=== PATIENT | male | born 1960 | race Caucasian/White ===

== ENCOUNTER 2020-10-15 10:44 | Outpatient (REF) | payer OTHER, SELFPAY ==
[2020-10-15 13:56] LABS: MANUAL DIFF FLAG NO
[2020-10-15 14:03] LABS: Basophils Percent Auto 0.4 % (0-2); Eosinophils Absolute Auto 0.2 X10*3/uL (0.0-0.4); Eosinophils Percent Auto 3.1 % (0-4); Hemoglobin 13.6 g/dl (14.0-18.0); Imm Gran Abs Auto 0.03 X10*3/uL (0.00-0.03); Imm Gran Pct Auto 0.4 % (0.0-0.4); Lymphocytes Absolute Auto 2.3 X10*3/uL (1.2-4.9); Lymphocytes Percent Auto 32.7 % (20-40); Mean Corpuscular Hemoglobin 32.4 pg (27.0-33.0); Mean Corpuscular Volume 95.2 fL (80-98); Mean Platelet Volume 10.2 fL (9.4-12.4); Monocytes Absolute Auto 0.6 X10*3/uL (0.1-1.2); Monocytes Percent Auto 7.7 % (2-11); Neutrophils Percent Auto 55.7 % (45-73); Platelet Count 311 X10*3/uL (160-400); Red Cell Distribution Width 13.6 % (11.0-16.0); White Blood Count 7.2 X10*3/uL (4.8-10.8)
[2020-10-15 15:00] LABS: Anion Gap 15 (12-20); Blood Urea Nitrogen 13 mg/dL (9-16); Calcium 9.1 mg/dL (8.4-10.2); Carbon Dioxide 25 mmol/L (22-29); Chloride 100 mmol/L (96-108); Estimated Glomerular Filt Rate > 60; Glucose Random 97 mg/dL (60-115); Potassium 4.5 mmol/l (3.3-5.1); Sodium 135 mmol/L (135-145)
[2020-10-16 18:37] LABS: LDL Cholesterol Direct 101 mg/dL (<100)
== END 2020-10-15 10:45 | disposition home or self-care (01) ==
LOC: HO.HMGCLDS 10:44
PROVIDERS: PCP Internal Medicine; Visit Provider Internal Medicine
DX: F20.0 Paranoid schizophrenia (principal); I10 Essential (primary) hypertension; G47.9 Sleep disorder, unspecified; M54.42 Lumbago with sciatica, left side; M54.41 Lumbago with sciatica, right side; G89.29 Other chronic pain
CPT/HCPCS: 36415; 80048; 83721; 85025

== ENCOUNTER 2020-12-03 15:51 | Outpatient (REF) | payer OTHER, SELFPAY ==
--- NOTE | 2020-12-03 15:53 | MR_ITS ---
EXAMINATION: MR LUMBAR SPINE WITHOUT CONTRAST CLINICAL INFORMATION: Low back pain. Bilateral lower extremity pain. COMPARISON: CT scan of the abdomen and pelvis 03/16/2018. TECHNIQUE: MRI of the lumbar spine was obtained using routine sequences without contrast. FINDINGS: Alignment is normal. Vertebral heights are preserved. No acute bone marrow signal changes. There is disc desiccation at multiple levels without substantial loss of intervertebral disc height. The tip of the conus medullaris is located at L1. No mass effect on the conus. Visualized distal cord signal intensity is normal. At L1-L2, L2-L3, and L3-L4 the annular contours are normal. No canal or neuroforaminal compromise at these 3 levels. At L4-L5 there is a slightly bulging disc. Bilateral facet degenerative change. No canal stenosis. No mass effect on the traversing or foraminal nerve roots. At L5-S1 there is a broad shallow left subarticular protrusion superimposed upon a bulging disc. Bilateral facet degenerative change. No canal stenosis. No mass effect on the traversing or foraminal nerve root. Limited visualization of the retroperitoneal anatomy reveals no abnormal finding. Psoas and paraspinal muscle groups are symmetric. MR/MR lumbar spine wo con IMPRESSION: There is disc degeneration and facet arthrosis at the levels of L4-L5 and L5-S1. Otherwise unremarkable examination. No canal stenosis. No mass effect on the traversing or foraminal nerve roots.
== END 2020-12-03 15:52 | disposition home or self-care (01) ==
LOC: HO.MRI 15:51
PROVIDERS: Visit Provider Psychiatry & Neurology Neurology
DX: M54.16 Radiculopathy, lumbar region (principal)
CPT/HCPCS: 72148

== ENCOUNTER 2021-01-21 10:49 | Outpatient (REF) | payer OTHER, SELFPAY ==
[2021-01-21 13:44] LABS: Estimated Average Glucose 117 mg/dL; Hemoglobin A1c % 5.7 %
== END 2021-01-21 10:50 | disposition home or self-care (01) ==
LOC: HO.LAB 10:49
PROVIDERS: PCP Internal Medicine; Visit Provider Anesthesiology
DX: G60.8 Other hereditary and idiopathic neuropathies (principal); G89.4 Chronic pain syndrome
CPT/HCPCS: 36415; 83036; 99202

== ENCOUNTER 2021-02-16 12:45 | Inpatient (IN) | payer OTHER, SELFPAY ==
[2021-02-16] VITALS (10 sets, daily range): BP systolic 123–157; BP diastolic 77–126; PULSE 79–97; RESP 15–25; TEMP 35.9–37.2; O2SAT 93–987; BMI 28.7
--- NOTE | ~2021-02-16 | CT_ITS ---
EXAMINATION: CT ABDOMEN AND PELVIS WITH CONTRAST CLINICAL INFORMATION: 60-year-old male with epigastric pain. Vomiting. Rule out small bowel obstruction. COMPARISON: Abdominal CT 03/16/2018 TECHNIQUE: Multidetector volumetric images were obtained from the superior aspect of the liver through the pubic symphysis following administration of 75 mL of Omnipaque 350 intravenous contrast. Sagittal and coronal reformatted images were obtained on the technologist's workstation. This CT examination was performed using dose optimization techniques as appropriate, variously including the following: *Automated exposure control *Adjustment of mA and/or kV according to patient size (this includes techniques or standardized protocols for targeted exams where dose is matched to indication/reason for exam; i.e. extremities or head) *Use of iterative reconstruction technique DLP: 612 mGy-cm FINDINGS: Visualized lung bases demonstrate minimal dependent atelectasis with more focal subpleural opacity of the right lower lobe which is incompletely visualized, possibly atelectasis or scar. The liver demonstrates normal size, contour and attenuation. Gallstones are noted within an otherwise unremarkable appearing gallbladder. The pancreas, spleen and adrenal glands are unremarkable. Symmetrically enhancing kidneys. No hydronephrosis bilaterally. Mild bilateral perinephric stranding is chronic. Tiny hiatal hernia. The stomach is decompressed. Small diverticulum of the duodenal sweep. Normal caliber loops of small and large bowel. The colon is primarily decompressed. Normal appendix. Nonaneurysmal abdominal aorta which demonstrates mild atherosclerotic disease. No retroperitoneal lymphadenopathy. The bladder is normal in appearance. The prostate gland is mildly enlarged. No gross free pelvic fluid. No inguinal lymphadenopathy. Mild degenerative changes of the spine. CT/CT abdomen pelvis w con IMPRESSION: -Cholelithiasis. -Nonobstructing bowel gas pattern.
--- NOTE | ~2021-02-16 | US_ITS ---
EXAMINATION: US ABDOMEN LIMITED CLINICAL INFORMATION: Gallstones on CT with question of acute cholecystitis. COMPARISON: CT scan performed earlier today TECHNIQUE: Real-time imaging of the right upper quadrant abdominal viscera. FINDINGS: PANCREAS: The pancreas appears unremarkable, without masses or ductal dilatation, with the exception of the tail which is obscured by bowel gas. LIVER: The liver is normal in size. The liver contour is normal. There is diffuse increased liver parenchymal echogenicity, consistent with hepatic steatosis. No focal hepatic lesion. There is no intrahepatic biliary duct dilatation seen. GALLBLADDER: Multiple gallstones are present which seem to be impacted at the neck of the gallbladder. The gallbladder is distended but the wall appears normal. No pericholecystic fluid collections are seen. COMMON BILE DUCT: Normal in caliber measuring 0.6 cm in diameter. RIGHT KIDNEY: No hydronephrosis. No renal calculi or focal parenchymal lesions. The kidney measures 11.1 cm in maximum dimension. FREE FLUID: None. US/US abdomen limited IMPRESSION: Distended gallbladder with gallstones impacted in the neck. No wall thickening or pericholecystic fluid collections seen.
--- NOTE | 2021-02-16 14:22 | ECG_ITS ---
Test Reason : CHEST PAIN Blood Pressure : / mmHG Vent. Rate : 078 BPM Atrial Rate : 078 BPM P-R Int : 234 ms QRS Dur : 078 ms QT Int : 378 ms P-R-T Axes : 014 009 047 degrees QTc Int : 430 ms Sinus rhythm with 1st degree A-V block Low voltage QRS Borderline ECG When compared with ECG of 01-MAR-2018 17:37, No significant change was found Referred By: Hortensia Stephens Electronically Signed By:ERROL THURSTON
--- NOTE | 2021-02-16 14:26 | ED_ITS ---
HPI - Abdominal Pain General Chief Complaint: Abdominal Pain Stated Complaint: abd pain Time Seen by Provider: 02/16/21 14:04 Source: patient Mode of arrival: ambulatory Limitations: no limitations History of Present Illness HPI narrative: 60-year-old male with a past medical history of schizophrenia, chronic back pain on oxycodone prn, peripheral neuropathy here with complaints of epigastric pain x2 weeks with intermittent nausea and vomiting. Patient tells me he had 4 days of black stools which were loose and he had 2 episodes per day. This is now resolved. Denies any additional episodes of rectal bleeding or bloody stools. No diarrhea or constipation. No fevers, chills, urinary symptoms. He is not on any anticoagulation. He denies alcohol use. 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 Patient was prescribed Protonix and Carafate which he has for brief time. He tells me he restarted these medications when his pain started 2 weeks ago however they are not helping. Related Data Home Medications Medication Instructions Recorded Confirmed duloxetine 30 mg capsule,delayed 30 mg PO DAILY 10/08/20 02/16/21 release melatonin 5 mg capsule 5 mg PO BEDTIME 10/08/20 02/16/21 omega-3 fatty acids 1 tab PO DAILY 10/08/20 02/16/21 pantoprazole 40 mg tablet,delayed 40 mg PO DAILY 10/08/20 02/16/21 release pregabalin 200 mg capsule 200 mg PO BID 10/08/20 02/16/21 ranitidine HCl 150 mg tablet 150 mg PO BID tab 10/08/20 02/16/21 Previous Rx's Medication Instructions Recorded olanzapine 10 mg tablet 10 mg PO BEDTIME 90 Days #90 tab 12/18/20 sucralfate 1 gram tablet 1 g PO BID PRN 30 Days #60 tab 12/18/20 oxycodone-acetaminophen 5 mg-325 1 tab PO TID PRN 30 Days #90 tab 01/30/21 mg tablet zolpidem 10 mg tablet 10 mg PO BEDTIME PRN 30 Days #30 01/30/21 tab Allergies Allergy/AdvReac Type Severity Reaction Status Date / Time lisinopril [LISINOPRIL] Allergy Unknown COUGH Verified 01/21/21 11:00 Review of Systems Review of Systems Yes all other systems are reviewed and are negative Constitutional: Reports no additional constitutional complaints, Denies body ache(s), Denies chills, Denies fever(s), Denies headache(s) and Denies weakness Eyes: Reports no additional eye complaints and Denies change in vision Reports system reviewed and no additional complaints, except as documented, Denies dizziness, Denies headache(s), Denies nasal congestion, Denies nasal discharge and Denies neck pain Cardiovascular: Reports no additional cardiovascular complaints, Denies chest pain, Denies leg edema and Denies dyspnea Respiratory: Reports no additional respiratory complaints, Denies cough and Denies dyspnea Gastrointestinal: Reports no additional gastrointestinal complaints, Reports abdominal pain, Reports melena, Denies hematochezia, Denies coffee ground emesis, Denies diarrhea, Denies nausea and Denies vomiting Genitourinary: Denies urinary incontinence Musculoskeletal: Reports no additional musculoskeletal complaints, Denies back pain, Denies arthralgias, Denies joint swelling, Denies neck pain, Denies numbness and Denies tingling Skin/Breast: Reports system reviewed and no additional complaints, except as docu and Denies rash Reports system reviewed and no additional complaints, except as documented, Denies Abnormal speech present, Denies dizziness, Denies headache(s), Denies numbness, Denies tingling and Denies weakness Physical Exam Vital Signs: Vital Signs: Last Vital Signs Temp 98.0 F 02/16/21 20:10 Pulse 81 02/16/21 20:10 Resp 18 02/16/21 20:10 BP 138/81 02/16/21 20:10 Pulse Ox 94 02/16/21 20:10 Body Mass Index 28.7 Const: General: cooperative, healthy appearing, comfortable and no acute distress Orientation/consciousness: patient oriented x3 Limitations: no limitations HENMT: Head: Yes normal to inspection Ears: hearing grossly normal bilaterally General nose exam: Normal external nose present Face and sinus: Yes normal facial exam Mouth: Normal oral and palatal mucosa present Throat: Yes posterior oropharynx normal Eyes: General: appearance normal, both eyes and all related structures Pupils: Equal, round and reactive pupils present Neck: Neck: Yes normal visual inspection Chest: Chest palpation & inspection: normal inspection of the chest Resp: Effort & Inspection: normal respiratory effort Auscultation: clear to auscultation bilaterally Cardio: Rate: regular rate Rhythm: regular rhythm Peripheral pulses: P eripheral pulses 2+ throughout GI: Inspection: Yes normal to inspection Palpation (GI): Soft to palpation and Tenderness to palpation present (GI) in the epigastrum (moderate tenderness, no rebound or guarding) Auscultation: normal bowel sounds Rectal Exam - Male: Yes visual inspection normal and Yes normal sphincter tone (brown stool ) Back/Spine/Pelvis: Thoracic/Lumbar Spine: thoracic and lumbar spine normal to inspection Skin: General skin exam: no rashes or lesions noted Neuro: General: patient oriented x3, no focal motor deficits and normal sensation to monofilament Cranial nerves: Yes Equal, round and reactive pupils present Cognition (Neuro): normal cognition Speech: No Abnormal speech present Gait exam (Neuro): Normal gait present Motor exam (neuro): 5/5 motor strength present throughout Extrem: General: Yes normal to inspection Course Course Course Narrative: 60-year-old male here with epigastric pain x2 weeks unrelieved with home PPI and Carafate with associated nausea and vomiting. Did have several days of black stools which is now resolved. Will check labs, UA, occult study, EKG. 1614-labs are unremarkable.. Occult stool negative. EKG shows no ischemic changes. Patient comes to me that he has continued pain despite a PPI and GI cocktail. Will plan for CTA/P and dose of analgesia and reassessed. 1729-CT concerning for gallstones. Patient tells me he has continued pain in the epigastric and ALSO in the right upper quadrant area. Will check ultrasound to rule out acute cholecystitis. 1944-2nd round of morphine for continued pain. Abdominal US shows Distended gallbladder with gallstones impacted in the neck. No wall thickening or pe richolecystic fluid collections seen. Normal LFTs. Will discuss with surgery d/t persistent pain. 1954-Discussed with Dr Tomlinson who will admit patient. Call from radiologist Dr Tenorio with results of US, per non destructive tester pain in RUQ during exam. MDM - Abdominal Pain MDM Narrative Medical decision making narrative: GERD, gastritis, PUD, GI bleed, pancreatitis, cholecystitis, ACS Medical Records Attestation: I reviewed the patient's medical records. Lab Data Attestation: I reviewed the patient's lab results. Result diagrams: 02/16/21 14:41 02/16/21 14:41 Labs: Lab Results 02/16/21 02/16/21 02/16/21 Range/Units 14:41 14:41 14:41 WBC 8.6 (4.8-10.8) X10*3/uL RBC 4.38 L (4.60-5.80) X10*6/uL Hgb 14.0 (14.0-18.0) g/dl Hct 40.5 L (42-52) % MCV 92.5 (80-98) fL MCH 32.0 (27.0-33.0) pg MCHC 34.6 (31.0-36.0) g/dl RDW 12.2 (11.0-16.0) % Plt Count 256 (160-400) X10*3/uL MPV 9.1 L (9.4-12.4) fL Immature Gran % (Auto) 0.2 (0.0-0.4) % Neut % (Auto) 63.9 (45-73) % Lymph % (Auto) 26.8 (20-40) % [place] % (Auto) 6.7 (2-11) % Eos % (Auto) 2.2 (0-4) % Baso % (Auto) 0.2 (0-2) % Lymph # (Auto) 2.3 (1.2-4.9) X10*3/uL [place] # (Auto) 0.6 (0.1-1.2) X10*3/uL Eos # (Auto) 0.2 (0.0-0.4) X10*3/uL Baso # (Auto) 0.0 (0.0-0.2) X10*3/uL Abs Immat Gran (auto) 0.02 (0.00-0.03) X10*3/uL Absolute Neuts (auto) 5.5 (2.0-8.3) X10*3/uL Absolute Nucleated RBC 0.000 (0.0-0.012) X10*3/uL Nucleated RBC % (auto) 0.0 (0.0-0.2) /100WBC PT 12.4 (10.8-13.0) SEC INR 1.0 (0.9-1.1) Sodium 136 (135-145) mmol/L Potassium 4.3 (3.3-5.1) mmol/L Chloride 101 (96-108) mmol/L Carbon Dioxide 25 (22-29) mmol/L Anion Gap 14 (12-20) BUN 13 (9-16) mg/dL Creatinine 1.00 (0.5-1.4) mg/dL Estim Creat Clear Calc 91.2 Estimated GFR > 60 Random Glucose 102 (60-115) mg/dL Calcium 8.7 (8.4-10.2) mg/dL Magnesium 2.3 (1.6-2.6) mg/dL Total Bilirubin 0.5 (0.0-1.0) mg/dL Direct Bilirubin < 0.2 (0.0-0.5) mg/dL AST 20 (5-37) U/L ALT 20 (0-40) U/L Alkaline Phosphatase 57 (39-117) U/L Troponin I High Sens (<3.5-35.0) ng/L Total Protein 7.2 (6.5-8.0) g/dL Albumin 4.3 (3.5-5.0) g/dL Lipase 17 (8-78) U/L Urine Color Urine Appearance Urine pH (5.0-8.0) Ur Specific [place] (1.005-1.025) Urine Protein (NEG-TRACE) MG/DL Urine Glucose (UA) (NEG) MG/DL Urine Ketones (NEG) MG/DL Urine Blood (NEG) Urine Nitrite (NEG) Ur Leukocyte Esterase (NEG) Urine RBC (0) /HPF Urine WBC (0-4) /HPF Ur Squamous Epith Cells /LPF Urine Bacteria /LPF Stool Occult Blood (NEGATIVE) 02/16/21 02/16/21 02/16/21 Range/Units 14:41 14:41 17:43 WBC (4.8-10.8) X10*3/uL RBC (4.60-5.80) X10*6/uL Hgb (14.0-18.0) g/dl Hct (42-52) % MCV (80-98) fL MCH (27.0-33.0) pg MCHC (31.0-36.0) g/dl RDW (11.0-16.0) % Plt Count (160-400) X10*3/uL MPV (9.4-12.4) fL Immature Gran % (Auto) (0.0-0.4) % Neut % (Auto) (45-73) % Lymph % (Auto) (20-40) % [place] % (Auto) (2-11) % Eos % (Auto) (0-4) % Baso % (Auto) (0-2) % Lymph # (Auto) (1.2-4.9) X10*3/uL [place] # (Auto) (0.1-1.2) X10*3/uL Eos # (Auto) (0.0-0.4) X10*3/uL Baso # (Auto) (0.0-0.2) X10*3/uL Abs Immat Gran (auto) (0.00-0.03) X10*3/uL Absolute Neuts (auto) (2.0-8.3) X10*3/uL Absolute Nucleated RBC (0.0-0.012) X10*3/uL Nucleated RBC % (auto) (0.0-0.2) /100WBC PT (10.8-13.0) SEC INR (0.9-1.1) Sodium (135-145) mmol/L Potassium (3.3-5.1) mmol/L Chloride (96-108) mmol/L Carbon Dioxide (22-29) mmol/L Anion Gap (12-20) BUN (9-16) mg/dL Creatinine (0.5-1.4) mg/dL Estim Creat Clear Calc Estimated GFR Random Glucose (60-115) mg/dL Calcium (8.4-10.2) mg/dL Magnesium (1.6-2.6) mg/dL Total Bilirubin (0.0-1.0) mg/dL Direct Bilirubin (0.0-0.5) mg/dL AST (5-37) U/L ALT (0-40) U/L Alkaline Phosphatase (39-117) U/L Troponin I High Sens < 3.5 (<3.5-35.0) ng/L Total Protein (6.5-8.0) g/dL Albumin (3.5-5.0) g/dL Lipase (8-78) U/L Urine Color YELLOW Urine Appearance CLEAR Urine pH 7.5 (5.0-8.0) Ur Specific [place] <= 1.005 (1.005-1.025) Urine Protein NEG (NEG-TRACE) MG/DL Urine Glucose (UA) NEG (NEG) MG/DL Urine Ketones NEG (NEG) MG/DL Urine Blood TRACE (NEG) Urine Nitrite NEG (NEG) Ur Leukocyte Esterase NEG (NEG) Urine RBC 0-2 (0) /HPF Urine WBC 0-2 (0-4) /HPF Ur Squamous Epith Cells TRACE /LPF Urine Bacteria NONE /LPF Stool Occult Blood NEGATIVE (NEGATIVE) Imaging Data CT scan - abdomen: Attestation: I personally reviewed and interpreted this imaging study as follows: Radiologist's impression: EXAMINATION: CT ABDOMEN AND PELVIS WITH CONTRAST CLINICAL INFORMATION: 60-year-old male with epigastric pain. Vomiting. Rule out small bowel obstruction. COMPARISON: Abdominal CT 03/16/2018 TECHNIQUE: Multidetector volumetric images were obtained from the superior aspect of the liver through the pubic symphysis following administration of 75 mL of Omnipaque 350 intravenous contrast. Sagittal and coronal reformatted images were obtained on the technologist's workstation. This CT examination was performed using dose optimization techniques as appropriate, variously including the following: *Automated exposure control *Adjustment of mA and/or kV according to patient size (this includes techniques or standardized protocols for targeted exams where dose is matched to indication/reason for exam; i.e. extremities or head) *Use of iterative reconstruction technique DLP: 612 mGy-cm FINDINGS: Visualized lung bases demonstrate minimal dependent atelectasis with more focal subpleural opacity of the right lower lobe which is incompletely visualized, possibly atelectasis or scar. The liver demonstrates normal size, contour and attenuation. Gallstones are noted within an otherwise unremarkable appearing gallbladder. The pancreas, spleen and adrenal glands are unremarkable. Symmetrically enhancing kidneys. No hydronephrosis bilaterally. Mild bilateral perinephric stranding is chronic. Tiny hiatal hernia. The stomach is decompressed. Small diverticulum of the duodenal sweep. Normal caliber loops of small and large bowel. The colon is primarily decompressed. Normal appendix. Nonaneurysmal abdominal aorta which demonstrates mild atherosclerotic disease. No retroperitoneal lymphadenopathy. The bladder is normal in appearance. The prostate gland is mildly enlarged. No gross free pelvic fluid. No inguinal lymphadenopathy. Mild degenerative changes of the spine. CT/CT abdomen pelvis w con IMPRESSION: -Cholelithiasis. -Nonobstructing bowel gas pattern. ECG Data Attestation: I personally reviewed and interpreted this ECG as follows: ECG interpretation date: 02/16/21 ECG interpretation time: 14:38 Interpretation: SR with 1st degree block rate 78, prolonged CA, normal QRS, normal QTC Discharge Plan Discharge Clinical Impression: Cholelithiasis Qualifiers: Cholelithiasis location: gallbladder Cholecystitis acuity: acute Patient Disposition: Admitted As Inpatient [facility] Past Medical History Attestation statement: The following information was validated with the patient. Source: old records reviewed and nursing notes reviewed Medical History Chronic lumbar pain Chronic pain syndrome Diabetes type 2, controlled Diabetic neuropathy Difficulty sleeping Hypertension, essential Other specified idiopathic peripheral neuropathy Schizophrenia Surgical History History of repair of rotator cuff Family History Family History Father No problems noted. Mother No problems noted. Social History Social History Alcohol intake: never Smoking Status: Current every day smoker Use of substances other than those prescribed or required for medical reasons: No Advance Directives: No Advance Directives Information Provided: No
[2021-02-16] MEDS: Magnesium Hydrox/Alum Hydrox 30 ML ORAL.SUSP PO (14:36)
[2021-02-16] MEDS: Lidocaine HCl Viscous 2 % 15 ML SOLUTION MUCOUS MEM (14:36)
[2021-02-16] MEDS: Famotidine/PF 20 MG/2 ML VIAL IVPUSH (14:36)
[2021-02-16 14:48] LABS: MANUAL DIFF FLAG NO
[2021-02-16 14:49] LABS: Basophils Percent Auto 0.2 % (0-2); Eosinophils Absolute Auto 0.2 X10*3/uL (0.0-0.4); Eosinophils Percent Auto 2.2 % (0-4); Hematocrit 40.5 % (42-52); Imm Gran Abs Auto 0.02 X10*3/uL (0.00-0.03); Imm Gran Pct Auto 0.2 % (0.0-0.4); Lymphocytes Absolute Auto 2.3 X10*3/uL (1.2-4.9); Lymphocytes Percent Auto 26.8 % (20-40); Mean Corpuscular HGB Conc 34.6 g/dl (31.0-36.0); Mean Corpuscular Volume 92.5 fL (80-98); Mean Platelet Volume 9.1 fL (9.4-12.4); Monocytes Absolute Auto 0.6 X10*3/uL (0.1-1.2); Monocytes Percent Auto 6.7 % (2-11); Neutrophils Absolute Auto 5.5 X10*3/uL (2.0-8.3); Neutrophils Percent Auto 63.9 % (45-73); Platelet Count 256 X10*3/uL (160-400); Red Blood Count 4.38 X10*6/uL (4.60-5.80); Red Cell Distribution Width 12.2 % (11.0-16.0); White Blood Count 8.6 X10*3/uL (4.8-10.8)
[2021-02-16 14:55] LABS: OBS Int Ctl Valid YES; OBS1 NEGATIVE (NEGATIVE); Prothrombin Time 12.4 SEC (10.8-13.0)
[2021-02-16 15:11] LABS: Alanine Aminotransferase 20 U/L (0-40); Albumin Level 4.3 g/dL (3.5-5.0); Alkaline Phosphatase 57 U/L (39-117); Anion Gap 14 (12-20); Aspartate Amino Transferase 20 U/L (5-37); Bilirubin Direct < 0.2 mg/dL (0.0-0.5); Bilirubin Total 0.5 mg/dL (0.0-1.0); Blood Urea Nitrogen 13 mg/dL (9-16); Calcium 8.7 mg/dL (8.4-10.2); Carbon Dioxide 25 mmol/L (22-29); Chloride 101 mmol/L (96-108); Creatinine Clr Calc Pharmacy 91.2; Estimated Glomerular Filt Rate > 60; Glucose Random 102 mg/dL (60-115); Lipase 17 U/L (8-78); Magnesium 2.3 mg/dL (1.6-2.6); Potassium 4.3 mmol/L (3.3-5.1); Sodium 136 mmol/L (135-145); Total Protein 7.2 g/dL (6.5-8.0)
[2021-02-16 15:14] LABS: Troponin-I High Sensitivity < 3.5 ng/L (<3.5-35.0)
[2021-02-16] MEDS: Morphine Sulfate 4 MG/ML CARTRIDGE IVPUSH ×2 (16:02→19:46)
[2021-02-16] MEDS: iohexoL 350 MG/ML 75 ML INFUS..BTL IV (16:21)
[2021-02-16 17:52] LABS: Glucose Urine UA NEG (NEG); Leukocyte Esterase Urine NEG (NEG); Nitrite Urine NEG (NEG); PH 7.5 (5.0-8.0); Specific Gravity - Urine <= 1.005 (1.005-1.025); Urine Blood TRACE (NEG); Urine Ketones NEG (NEG); Urine Protein NEG (NEG-TRACE)
[2021-02-16 18:03] LABS: Appearance Urine CLEAR; Color Urine YELLOW
[2021-02-16 18:36] LABS: RBC Urine 0-2 /HPF (0); Squamous Epithelial Cell Urine TRACE /LPF; WBC Urine 0-2 /HPF (0-4)
[2021-02-16 20:46] LABS: COVID-19 Test Negative (Negative)
--- NOTE | 2021-02-16 22:24 | PC.NURSE ---
aTTEMPTED TO GIVE REPORT. UGO RN TO TAKE IT. Lola CALL BACK.
[2021-02-17] MEDS: Morphine Sulfate 4 MG/ML CARTRIDGE IVPUSH ×5 (00:06→21:09)
[2021-02-17] MEDS: Piperacillin Sodium/Tazobactam 3.375 GM in 0.9 % Sodium Chloride 50 ML IV (00:06)
[2021-02-17] MEDS: 0.9 % Sodium Chloride Flush 3 ML SYRINGE IVFLUSH ×2 (00:07→08:06)
[2021-02-17] MEDS: Zolpidem Tartrate 5 MG TABLET PO ×2 (00:29→21:10)
[2021-02-17] MEDS: Lactated Ringers 1,000 ML 100 ML IVCONT ×3 (00:31→17:27)
[2021-02-17 04:00] VITALS: BP 143/88; PULSE 79; RESP 16; TEMP 36.5; O2SAT 94
--- NOTE | 2021-02-17 06:35 | PC.NURSE ---
PATIENT IS A 60 YEAR OLD MALE ADMITTED TO ROOM 351 AT 2245, HE WAS GREETED AND SETTLED INTO BED BY 3-11 STAFF. UPON SPEAKING WITH THIS HOUSEKEEPING STAFF THERE AFTER, PT REQUESTING HIS SLEEPING PILL PER HIS ROUTINE AT HOME. PT STATED ED STAFF SAID HE WOULD RECEIVE (AMBIEN), ONCE ON FLOOR AND THAT HE DID MENTION IT UPON ARRIVAL. MEDICATED WITH ORDERED DOSE PT STATED HE NEEDS IT TO SLEEP COMBINED WITH FEELING APPREHENSIVE FACING SURGERY. DISCUSSED WITH RN COWORKER AND AFTER THOUGHT DID MEDICATE PT WITH PRN ORDERED MEDICINE SECONDARY TO HIS STORY OF CIRCUMSTANCE DESPITE TIME.
[2021-02-17 06:54] LABS: MANUAL DIFF FLAG NO
[2021-02-17 07:13] LABS: Basophils Percent Auto 0.4 % (0-2); Eosinophils Absolute Auto 0.3 X10*3/uL (0.0-0.4); Eosinophils Percent Auto 3.8 % (0-4); Hematocrit 37.1 % (42-52); Hemoglobin 12.8 g/dl (14.0-18.0); Imm Gran Abs Auto 0.02 X10*3/uL (0.00-0.03); Imm Gran Pct Auto 0.3 % (0.0-0.4); Lymphocytes Percent Auto 27.4 % (20-40); Mean Corpuscular HGB Conc 34.5 g/dl (31.0-36.0); Mean Corpuscular Hemoglobin 31.8 pg (27.0-33.0); Mean Corpuscular Volume 92.3 fL (80-98); Mean Platelet Volume 9.3 fL (9.4-12.4); Monocytes Absolute Auto 0.6 X10*3/uL (0.1-1.2); Monocytes Percent Auto 8.1 % (2-11); Neutrophils Absolute Auto 4.5 X10*3/uL (2.0-8.3); Platelet Count 250 X10*3/uL (160-400); Red Blood Count 4.02 X10*6/uL (4.60-5.80); Red Cell Distribution Width 12.3 % (11.0-16.0); White Blood Count 7.4 X10*3/uL (4.8-10.8)
[2021-02-17 07:30] VITALS: BP 129/86; PULSE 95; RESP 16; TEMP 36.2; O2SAT 95
[2021-02-17 07:39] LABS: Anion Gap 14 (12-20); Blood Urea Nitrogen 15 mg/dL (9-16); Calcium 8.4 mg/dL (8.4-10.2); Carbon Dioxide 25 mmol/L (22-29); Chloride 104 mmol/L (96-108); Creatinine Clr Calc Pharmacy 90.3; Estimated Glomerular Filt Rate > 60; Glucose Random 94 mg/dL (60-115); Potassium 4.1 mmol/L (3.3-5.1); Sodium 139 mmol/L (135-145)
--- NOTE | 2021-02-17 09:44 | P.HPGS_ITS ---
History of Present Illness History of Present Illness Date of Service: 02/17/21 Chief complaint: Acute cholecystitis, chloelithiasis Narrative: Tyshawn Brasher is a 60 year old male admitted overnight for abdominal pain. He states he has had episodic pain on the epigastric area and the RUQ for over 2 weeks. He says this usually comes and goes. He denies any nausea or vomitting. He does not feel that the pain is aggravated by oral intake or meals. In view of his recurrent pain, he decided to go to the ED last night and imaging studies had shown gallstones without cholecystitis. He says he does not have pain currently although he admits the pain comes and goes.. He says he feels well today and wants to start eating. Review of Systems Constitutional: Constitutional: Denies chills and Denies fever(s) Cardiovascular: Cardiovascular: Denies chest pain, Denies dyspnea and Denies dyspnea on exertion Respiratory: Respiratory: Denies cough, Denies dyspnea and Denies dyspnea on exertion Gastrointestinal: Gastrointestinal: Denies hematochezia and Denies change in bowel habits Genitourinary: Genitourinary: Denies hematuria and Denies difficulty urinating Musculoskeletal: Musculoskeletal: Denies back pain, Denies limited range of motion and Reports other (has chronic pain on both lower extremities) Neurologic: Denies focal weakness and Denies convulsions Psychiatric: Psychiatric: Denies depression and Denies mood swings PMFSH Past Medical History Medical History Chronic lumbar pain Chronic pain syndrome Diabetes type 2, controlled Diabetic neuropathy Difficulty sleeping Hypertension, essential Other specified idiopathic peripheral neuropathy Schizophrenia Family History Family History Father No problems noted. Mother No problems noted. Surgical History Surgical History History of repair of rotator cuff Social History Social History Household Members: Family Housing: House Do you presently have visiting nurse or other home services: No Alcohol intake: never Smoking Status: Current every day smoker Tobacco Type: Cigarette Smoked in Last 30 Days: Yes Patient Interested in Nicotine Replacement: Yes Use of substances other than those prescribed or required for medical reasons: No Currently Displaying Signs/Symptoms of Drug Intoxication Withdrawal: No Any prior treatment program specific to substance use: No Have you been hit, kicked, punched, or otherwise hurt by someone within the past year? If so, by whom?: No Do you feel safe in your current relationship?: Yes Is there a partner from a previous relationship who is making you feel unsafe now?: No Are you made to feel afraid or neglected: No Advance Directives: No Advance Directives Information Provided: No Do you have thoughts of harming others: None Do you have a plan to hurt others: No Plan Recently lost weight without trying: No service: No Current occupational status: unemployed Meds Allergies Allergy/AdvReac Type Severity Reaction Status Date / Time lisinopril [LISINOPRIL] Allergy Unknown COUGH Verified 01/21/21 11:00 Active Medications: Current Medications Generic Name Dose Route Start Last Admin Trade Name Freq PRN Reason Stop Dose Admin Acetaminophen 650 mg 02/16/21 22:35 Acetaminophen 325 Mg Tablet PO Q6H PRN Pain, Mild (Pain Scale 1-3) Lactated Ringer's 1,000 mls @ 100 mls/hr 02/16/21 22:35 02/17/21 08:09 Lr IVCONT 100 mls/hr .Q10H PHILIP Administration Morphine Sulfate 4 mg 02/16/21 22:35 02/17/21 08:05 Morphine Sulfate 4 Mg/Ml Cartridge IVPUSH 4 mg Q3H PRN Administration Pain, Severe (Pain Scale 7-10) Ondansetron HCl 4 mg 02/16/21 22:35 Ondansetron Hcl 4 Mg/2 Ml Vial IVPUSH Q8H PRN Nausea and Vomiting Oxycodone HCl 5 mg 02/16/21 22:35 Oxycodone Hcl Immed Release 5 Mg Tablet PO Q6H PRN Pain, Moderate (Pain Scale 4-6 Pharmacy Consult 1 each 02/16/21 22:35 Consult Rx Perform Med Rec MISCELLANE ONCE PRN Consult order Sodium Chloride 3 ml 02/17/21 00:00 02/17/21 08:06 0.9 % Sodium Chloride Flush 3 Ml Syringe IVFLUSH 3 ml QSHIFT PHILIP Administration Zolpidem Tartrate 5 mg 02/16/21 22:35 02/17/21 00:29 Zolpidem Tartrate 5 Mg Tablet PO 5 mg BEDTIME PRN Administration Insomnia Home Medications Medication Instructions Recorded Confirmed Last Taken Type duloxetine 30 mg capsule,delayed 30 mg PO DAILY 10/08/20 02/16/21 1 Day Ago History release ~02/15/21 melatonin 5 mg capsule 5 mg PO BEDTIME 10/08/20 02/16/21 1 Day Ago History ~02/15/21 omega-3 fatty acids 1 tab PO DAILY 10/08/20 02/16/21 1 Day Ago History ~02/15/21 pantoprazole 40 mg tablet,delayed 40 mg PO DAILY 10/08/20 02/16/21 1 Day Ago History release ~02/15/21 pregabalin 200 mg capsule 200 mg PO BID 10/08/20 02/16/21 1 Day Ago History ~02/15/21 ranitidine HCl 150 mg tablet 150 mg PO BID tab 10/08/20 02/16/21 1 Day Ago History ~02/15/21 Physical Exam Vital Signs: Vital Signs: Last Vital Signs Temp 97.2 F 02/17/21 07:30 Pulse 95 02/17/21 07:30 Resp 16 02/17/21 07:30 BP 129/86 02/17/21 07:30 Pulse Ox 95 02/17/21 07:30 Body Mass Index 28.7 Const: Other: currently looks well General: comfortable and no acute distress Orientation/consciousness: patient oriented x3 Eyes: Sclerae: abnormal sclerae Neck: Neck: Yes no lymphadenopathy Resp: Auscultation: clear to auscultation bilaterally Cardio: Rhythm: regular rhythm GI: Other: no Muprhy's sign Palpation (GI): Soft to palpation, nontender and no guarding Neuro: General: patient oriented x3 Results Results Labs: Short CBC 02/16/21 02/17/21 Range/Units 14:41 06:33 WBC 8.6 7.4 (4.8-10.8) X10*3/uL Hgb 14.0 12.8 L (14.0-18.0) g/dl Hct 40.5 L 37.1 L (42-52) % Plt Count 256 250 (160-400) X10*3/uL BMP 02/16/21 02/17/21 14:41 06:33 Sodium 136 139 Potassium 4.3 4.1 Chloride 101 104 Carbon Dioxide 25 25 BUN 13 15 Creatinine 1.00 1.01 Calcium 8.7 8.4 Liver Function 02/16/21 Range/Units 14:41 Total Bilirubin 0.5 (0.0-1.0) mg/dL Direct Bilirubin < 0.2 (0.0-0.5) mg/dL AST 20 (5-37) U/L ALT 20 (0-40) U/L Alkaline Phosphatase 57 (39-117) U/L Albumin 4.3 (3.5-5.0) g/dL Urine 02/16/21 Range/Units 17:43 Urine Color YELLOW Urine Appearance CLEAR Urine pH 7.5 (5.0-8.0) Ur Specific [place] <= 1.005 (1.005-1.025) Urine Protein NEG (NEG-TRACE) MG/DL Urine Glucose (UA) NEG (NEG) MG/DL Abdomen CT scan report/results: report reviewed and image reviewed CT scan - pelvis: report reviewed and image reviewed Abdominal ultrasound report/results: report reviewed and image reviewed Assessment and Plan (1) Cholelithiasis: Qualifiers: Cholecystitis acuity: acute Cholelithiasis location: gallbladder Status: Acute 60M with periodic pain on the upper abdomen as described above for over 2 weeks now. He currently is comfortable and does not seem to be tender. His CT and US do show gallstones, without evidence of acute cholecystitis. He does not have leukocytosis and his LFT's are within normal. He however has had periodic pain for a few weeks now, and will likely continue to have this pain from his gallstones. There is a gallstone in the neck of the gallbladder as well. I therefore explained to him that he will benefit from cholecystectomy. I explained to him the technique of lap cassandra and poss. open. I reviewed with him the risks, including but not limited to bleeding, infections, injury to the bowel, liver and bile ducts, as well as the benefits and alternatives. I plan to put him on the OR schedule tomorrow. He otherwise looks well and has a very benign exam.
--- NOTE | 2021-02-17 13:16 | MHC.CM.PN ---
PT REPORTS HE LIVES AT HOME WITH HIS AND FAMILY AND HE IS INDEPENDENT WITH ALL CARE AND MOBILITY. PT REPORTS HE DOES NOT USE DME AND HAS NO IN HOME SERVICES. PT REPORTS HE HAS A HCP NAMING HIS , MAINE THE AGENT-COPY REQUESTED. PT CONFIRMS HIS PCP IS NICHELLE RAINEY. IMM DELIVERED CURRENT DC PLAN IS HOME WITH NO SERVICES PT WILL SELF ARRANGE TRANSPORT
[2021-02-17 15:12] VITALS: BP 129/80; PULSE 70; RESP 16; TEMP 35.9; O2SAT 97
[2021-02-17 19:16] VITALS: BP 123/80; PULSE 67; RESP 16; TEMP 36; O2SAT 93
[2021-02-17 23:50] VITALS: BP 120/84; PULSE 72; RESP 16; TEMP 36.4; O2SAT 92
[2021-02-18] VITALS (12 sets, daily range): BP systolic 128–164; BP diastolic 82–99; PULSE 70–102; RESP 16–20; TEMP 36.3–36.8; O2SAT 92–99
[2021-02-18] MEDS: Lactated Ringers 1,000 ML 100 ML IVCONT ×2 (03:10→11:59)
[2021-02-18] MEDS: Morphine Sulfate 4 MG/ML CARTRIDGE IVPUSH ×3 (03:11→12:39)
[2021-02-18] MEDS: Nicotine 14 MG PATCH.TD24 TRANSDERMA (07:35)
[2021-02-18] MEDS: Lactated Ringers 1,000 ML 50 ML IV (08:49)
[2021-02-18 08:50] LABS: Glucose, Whole Blood 110 mg/dL (60-115)
--- NOTE | 2021-02-18 09:10 | P.CONAN_ITS ---
[facility] Active Problems Active Problems: All Active Problems (Updated 02/16/21 @ 19:58 by Hortensia cheney NP) Narcotic dependence (Acute) Pain management (Acute) Cholelithiasis (Acute) Chronic pain syndrome (Acute) Diabetic neuropathy (Acute) Other specified idiopathic peripheral neuropathy (Acute) Schizophrenia (Acute) Hypertension, essential (Acute) Difficulty sleeping (Acute) Chronic lumbar pain (Acute) Past Medical History Medical History Chronic lumbar pain Chronic pain syndrome Diabetes type 2, controlled Diabetic neuropathy Difficulty sleeping Hypertension, essential Other specified idiopathic peripheral neuropathy Schizophrenia Family History Family History Father No problems noted. Mother No problems noted. Surgical History Surgical History History of repair of rotator cuff Social History Social History Household Members: Family Housing: House Do you presently have visiting nurse or other home services: No Alcohol intake: never Smoking Status: Current every day smoker Tobacco Type: Cigarette Smoked in Last 30 Days: Yes Patient Interested in Nicotine Replacement: Yes Use of substances other than those prescribed or required for medical reasons: No Currently Displaying Signs/Symptoms of Drug Intoxication Withdrawal: No Any prior treatment program specific to substance use: No Have you been hit, kicked, punched, or otherwise hurt by someone within the past year? If so, by whom?: No Do you feel safe in your current relationship?: Yes Is there a partner from a previous relationship who is making you feel unsafe now?: No Are you made to feel afraid or neglected: No Advance Directives: No Advance Directives Information Provided: No Do you have thoughts of harming others: None Do you have a plan to hurt others: No Plan Recently lost weight without trying: No service: No Current occupational status: unemployed Meds Allergies Allergy/AdvReac Type Severity Reaction Status Date / Time lisinopril [LISINOPRIL] Allergy Unknown COUGH Verified 01/21/21 11:00 Active Medications: Current Medications Generic Name Dose Route Start Last Admin Trade Name Freq PRN Reason Stop Dose Admin Acetaminophen 650 mg 02/16/21 22:35 Acetaminophen 325 Mg Tablet PO Q6H PRN Pain, Mild (Pain Scale 1-3) Lactated Ringer's 1,000 mls @ 100 mls/hr 02/16/21 22:35 02/18/21 03:10 Lr IVCONT 100 mls/hr .Q10H PHILIP Administration Lactated Ringer's 1,000 mls @ 50 mls/hr 02/18/21 07:45 02/18/21 08:49 Lr IV 50 mls/hr .Q20H PHILIP Administration Morphine Sulfate 4 mg 02/16/21 22:35 02/18/21 07:35 Morphine Sulfate 4 Mg/Ml Cartridge IVPUSH 4 mg Q3H PRN Administration Pain, Severe (Pain Scale 7-10) Nicotine 14 mg 02/17/21 13:45 02/18/21 07:35 Nicotine 14 Mg Patch.[id number] TRANSDERMA 14 mg DAILY PHILIP Administration Ondansetron HCl 4 mg 02/16/21 22:35 Ondansetron Hcl 4 Mg/2 Ml Vial IVPUSH Q8H PRN Nausea and Vomiting Oxycodone HCl 5 mg 02/16/21 22:35 Oxycodone Hcl Immed Release 5 Mg Tablet PO Q6H PRN Pain, Moderate (Pain Scale 4-6 Oxycodone HCl 5 mg 02/17/21 16:22 Oxycodone Hcl Immed Release 5 Mg Tablet PO Q4H PRN Pain, Moderate (Pain Scale 4-6 Pharmacy Consult 1 each 02/16/21 22:35 Consult Rx Perform Med Rec MISCELLANE ONCE PRN Consult order Sodium Chloride 3 ml 02/17/21 00:00 02/18/21 07:36 0.9 % Sodium Chloride Flush 3 Ml Syringe IVFLUSH Not Given QSHIFT [facility] Zolpidem Tartrate 5 mg 02/16/21 22:35 02/17/21 21:10 Zolpidem Tartrate 5 Mg Tablet PO 5 mg BEDTIME PRN Administration Insomnia Home Medications Medication Instructions Recorded Confirmed Last Taken Type duloxetine 30 mg capsule,delayed 30 mg PO DAILY 10/08/20 02/16/21 1 Day Ago History release ~02/15/21 melatonin 5 mg capsule 5 mg PO BEDTIME 10/08/20 02/16/21 1 Day Ago History ~02/15/21 omega-3 fatty acids 1 tab PO DAILY 10/08/20 02/16/21 1 Day Ago History ~02/15/21 pantoprazole 40 mg tablet,delayed 40 mg PO DAILY 10/08/20 02/16/21 1 Day Ago History release ~02/15/21 pregabalin 200 mg capsule 200 mg PO BID 10/08/20 02/16/21 1 Day Ago History ~02/15/21 ranitidine HCl 150 mg tablet 150 mg PO BID tab 10/08/20 02/16/21 1 Day Ago History ~02/15/21 Exam Exam Date and Time: February 18, 2021 0910 Height,Weight and Vital Signs: Height 5 ft 10 in Weight 90.718 kg Last Vital Signs Temp 98.3 F 02/18/21 08:33 Pulse 78 02/18/21 08:33 Resp 18 02/18/21 08:33 BP 131/93 H 02/18/21 08:33 Pulse Ox 94 02/18/21 08:33 Pertinent Lab Results Pertinent Lab Results: Laboratory Tests 02/16/21 02/16/21 02/16/21 14:41 14:41 14:41 WBC 8.6 RBC 4.38 L Hgb 14.0 Hct 40.5 L MCV 92.5 MCH 32.0 MCHC 34.6 RDW 12.2 Plt Count 256 MPV 9.1 L Immature Gran % (Auto) 0.2 Neut % (Auto) 63.9 Lymph % (Auto) 26.8 [place] % (Auto) 6.7 Eos % (Auto) 2.2 Baso % (Auto) 0.2 Lymph # (Auto) 2.3 [place] # (Auto) 0.6 Eos # (Auto) 0.2 Baso # (Auto) 0.0 Abs Immat Gran (auto) 0.02 Absolute Neuts (auto) 5.5 Absolute Nucleated RBC 0.000 Nucleated RBC % (auto) 0.0 PT 12.4 INR 1.0 Sodium 136 Potassium 4.3 Chloride 101 Carbon Dioxide 25 Anion Gap 14 BUN 13 Creatinine 1.00 Estim Creat Clear Calc 91.2 Estimated GFR > 60 POC Glucose Random Glucose 102 Calcium 8.7 Magnesium 2.3 Total Bilirubin 0.5 Direct Bilirubin < 0.2 AST 20 ALT 20 Alkaline Phosphatase 57 Troponin I High Sens Total Protein 7.2 Albumin 4.3 Lipase 17 Urine Color Urine Appearance Urine pH Ur Specific [place] Urine Protein Urine Glucose (UA) Urine Ketones Urine Blood Urine Nitrite Ur Leukocyte Esterase Urine RBC Urine WBC Ur Squamous Epith Cells Urine Bacteria Stool Occult Blood COVID-19 (MARIA ELENA) COVID-19 Clin Com 02/16/21 02/16/21 02/16/21 14:41 14:41 17:43 WBC RBC Hgb Hct MCV MCH MCHC RDW Plt Count MPV Immature Gran % (Auto) Neut % (Auto) Lymph % (Auto) [place] % (Auto) Eos % (Auto) Baso % (Auto) Lymph # (Auto) [place] # (Auto) Eos # (Auto) Baso # (Auto) Abs Immat Gran (auto) Absolute Neuts (auto) Absolute Nucleated RBC Nucleated RBC % (auto) PT INR Sodium Potassium Chloride Carbon Dioxide Anion Gap BUN Creatinine Estim Creat Clear Calc Estimated GFR POC Glucose Random Glucose Calcium Magnesium Total Bilirubin Direct Bilirubin AST ALT Alkaline Phosphatase Troponin I High Sens < 3.5 Total Protein Albumin Lipase Urine Color YELLOW Urine Appearance CLEAR Urine pH 7.5 Ur Specific [place] <= 1.005 Urine Protein NEG Urine Glucose (UA) NEG Urine Ketones NEG Urine Blood TRACE Urine Nitrite NEG Ur Leukocyte Esterase NEG Urine RBC 0-2 Urine WBC 0-2 Ur Squamous Epith Cells TRACE Urine Bacteria NONE Stool Occult Blood NEGATIVE COVID-19 (MARIA ELENA) COVID-19 Clin Com 02/16/21 02/17/21 02/17/21 20:03 06:33 06:33 WBC 7.4 RBC 4.02 L Hgb 12.8 L Hct 37.1 L MCV 92.3 MCH 31.8 MCHC 34.5 RDW 12.3 Plt Count 250 MPV 9.3 L Immature Gran % (Auto) 0.3 Neut % (Auto) 60.0 Lymph % (Auto) 27.4 [place] % (Auto) 8.1 Eos % (Auto) 3.8 Baso % (Auto) 0.4 Lymph # (Auto) 2.0 [place] # (Auto) 0.6 Eos # (Auto) 0.3 Baso # (Auto) 0.0 Abs Immat Gran (auto) 0.02 Absolute Neuts (auto) 4.5 Absolute Nucleated RBC 0.000 Nucleated RBC % (auto) 0.0 PT INR Sodium 139 Potassium 4.1 Chloride 104 Carbon Dioxide 25 Anion Gap 14 BUN 15 Creatinine 1.01 Estim Creat Clear Calc 90.3 Estimated GFR > 60 POC Glucose Random Glucose 94 Calcium 8.4 Magnesium Total Bilirubin Direct Bilirubin AST ALT Alkaline Phosphatase Troponin I High Sens Total Protein Albumin Lipase Urine Color Urine Appearance Urine pH Ur Specific [place] Urine Protein Urine Glucose (UA) Urine Ketones Urine Blood Urine Nitrite Ur Leukocyte Esterase Urine RBC Urine WBC Ur Squamous Epith Cells Urine Bacteria Stool Occult Blood COVID-19 (MARIA ELENA) Negative COVID-19 Clin Com See Note 02/18/21 08:45 WBC RBC Hgb Hct MCV MCH MCHC RDW Plt Count MPV Immature Gran % (Auto) Neut % (Auto) Lymph % (Auto) [place] % (Auto) Eos % (Auto) Baso % (Auto) Lymph # (Auto) [place] # (Auto) Eos # (Auto) Baso # (Auto) Abs Immat Gran (auto) Absolute Neuts (auto) Absolute Nucleated RBC Nucleated RBC % (auto) PT INR Sodium Potassium Chloride Carbon Dioxide Anion Gap BUN Creatinine Estim Creat Clear Calc Estimated GFR POC Glucose 110 Random Glucose Calcium Magnesium Total Bilirubin Direct Bilirubin AST ALT Alkaline Phosphatase Troponin I High Sens Total Protein Albumin Lipase Urine Color Urine Appearance Urine pH Ur Specific [place] Urine Protein Urine Glucose (UA) Urine Ketones Urine Blood Urine Nitrite Ur Leukocyte Esterase Urine RBC Urine WBC Ur Squamous Epith Cells Urine Bacteria Stool Occult Blood COVID-19 (MARIA ELENA) COVID-19 Clin Com Airway Mallampati Class: IV Partial: Upper and Lower Loose/Missing/Broken Teeth: Yes Heart: RRR Lungs: NL, sat 93% Assessment and Plan Assessment Anesthesia Assessment: Anesthesia Plan Discussed, Smoking Cess. Discussed and Chart Reviewed Final Anesthetic Review NPO: Yes ASA Class: III Final Preanesthetic Review: No Changes in Pt Med Stat, Meds/Allgs Chart Reviewed, Consent Obtained/Reviewed and Anes Risks/Benef Reviewed Patient Risk: Intermediate Procedure Risk: Intermediate Anesthetic Plan Anesthetic Plan: GA Disposition: Standard PACU
--- NOTE | 2021-02-18 09:21 | MHC.SHP ---
Pre-Procedural Eval Section B Chief Complaint: Acute cholecystitis, chloelithiasis Allergies: Allergies Allergy/AdvReac Type Severity Reaction Status Date / Time lisinopril [LISINOPRIL] Allergy Unknown COUGH Verified 01/21/21 11:00 Plan I have reviewed the history and physical and performed a pertinent physical examination on my patient. No changes have occurred unless specified.
--- NOTE | 2021-02-18 10:22 | P.BOP_ITS ---
Brief Operative Note Date of Service: 02/18/21 <KRUNAL [place] Last Filed: 02/18/21 10:23> Pre-op diagnosis: gallstones <KRUNAL [place] Last Filed: 02/18/21 10:23> Post-op diagnosis: same <KRUNAL [place] Last Filed: 02/18/21 10:23> Procedure: laparoscopic cholecystectomy <KRUNAL [place] Last Filed: 02/18/21 10:23> Surgeon: GET BALL MD <KRUNAL [place] Last Filed: 02/18/21 10:23> Anesthesia: GETA <KRUNAL [place] Last Filed: 02/18/21 10:23> Restaurant Host/Hostess: Shell Hernandez <KRUNAL [place] Last Filed: 02/18/21 10:23> Estimated blood loss (mL): 10 <KRUNAL [place] Last Filed: 02/18/21 10:23> Pathology: other (gallbladder) <KRUNAL [place] Last Filed: 02/18/21 10:23> Condition: stable <KRUNAL [place] Last Filed: 02/18/21 10:23> Disposition: PACU <KRUNAL [place] Last Filed: 02/18/21 10:23>
--- NOTE | 2021-02-18 10:37 | W.PM.OPN ---
Operative Note Operative Note Date of Service: 02/18/21 Narrative: Preop diagnosis: Gallstones with right upper quadrant pain Postop diagnosis: Gallstones with right upper quadrant pain Procedure: Laparoscopic cholecystectomy Surgeon: Coleman Howard MD starch treating assistant: JIMMY Hernandez The patient is a 60-year-old male who came to the emergency room because of periodic right upper quadrant pain and tenderness x2 weeks. These episodes seems to be worsening the past few days. Imaging studies showed gallstones with no cholecystitis. He however stated that he feels that his pain episodes have been more frequent and severe and wanted to proceed with cholecystectomy prior to discharge. He understood the technique of the procedure as well as the risks, benefits, and alternatives. He was brought to the operating room placed supine on table under general anesthesia via endotracheal tube. The abdomen is prepped and draped in the usual sterile fashion. A surgical time-out was done. The patient received Cefotan 2 g IV preoperatively. I made a short supraumbilical incision in the skin using with a blade 15. This was carried down through the full-thickness skin and subcutaneous fat down to the fascia pretty the fascia was incised. The peritoneum was entered and through this incision a Flavia port was introduced. Pneumoperitoneum was introduced to a pressure of 15 mmHg. From here on the rest of the procedure was done under vision with the 10 mm 0 degree laparoscope. With laparoscopic visualization, I placed a 5/12 mm port in the epigastric area below the subcostal margin through a small incision. 5 mm port introduced a small incision below the subcostal margin along the anterior axillary line and the midclavicular line. Graspers were placed through these working ports. The patient was placed in a head-up and [id number] position. The gallbladder was seen and this was distended although this did not appear to be inflamed. I was able to apply grasper at the fundus of the gallbladder and this was used to retract the gallbladder cephalad. Another grasper was placed at the pouch and this was used to retract the gallbladder laterally. At this point therefore the gallbladder was being retracted in a lateral and cephalad fashion. This placed the area of the cystic duct on stretch. There was note of significant fibroareolar tissue around the neck so I carefully dissected this using a [place] dissector. I gently peeled off the peritoneum of the gallbladder gently around the neck and by doing so I was able to clearly identify the cystic duct and its confluence with the neck of the gallbladder. With this dissection, we were also able to achieve a critical view of the hepatocystic triangle. The cystic artery was also seen and there were no other structures in this area. I therefore applied clips on the cystic duct with 2 clips being applied distally. The cystic duct was transected between clips with Endo scissors. I also applied clips on the cystic artery with 2 clips being applied distally and the cystic artery was transected between clips. With traction on the gallbladder away from the liver bed using the graspers, I proceeded to carefully expose the hilum. I divided across the areolar tissue of the hilum with electrocautery until we reached the interface of the gallbladder wall and the liver bed. I then incised the peritoneum of the gallbladder and carefully defined a plane of dissection between the gallbladder wall and the liver bed with a combination of blunt dissection with the tip of the [place] dissector as well as with electrocautery. With this manner of dissection we were able to separate the gallbladder away from the liver bed all the way to the fundus until the gallbladder was completely . The gallbladder was retrieved through an endobag through the umbilical incision. We reinserted all ports and insufflated. There was note of some small amount of bile leak from a tear in the gallbladder wall earlier so we irrigated the subhepatic space and suction until the irrigant fluid was clear. I observed all 4 quadrants but there was no other pathology seen. Examination of the subhepatic space showed that there was note of good hemostasis. There was no evidence of any bile leak or any bowel injury With hemostasis ensured, I then proceeded to desufflate through the port sites. I then removed all ports. The umbilical port was removed last. The fascia of the umbilical incision was closed with [id number] Dexon 0 stitch. Skin closure was achieved in all incisions using Dexon 4-0 subcuticular sutures. Steri-Strips and dressings were applied. All incisions were infiltrated with Marcaine 0.5% for postop analgesia. The patient tolerated well. There complication noted. Estimated blood loss less than 5 cc The patient was extubated without difficulty and transferred to the recovery room with stable vital signs.
[2021-02-18] MEDS: oxyCODONE HCl Immed Release 5 MG TABLET PO (10:42)
[2021-02-18] MEDS: HYDROmorphone HCl 0.5 MG/0.5 ML SYRINGE IVPUSH (10:47)
[2021-02-18] MEDS: Ketorolac Tromethamine 15 MG/ML VIAL IVPUSH (11:00)
--- NOTE | 2021-02-18 13:59 | PM.EVENT ---
Event Note Date of Service: 02/18/21 Event Note: seen postop uneventful lap cassandra earlier appears comfortable tolerating diet abd soft stable VS looks well he wants to go home today dc instructions, ffup, explained to will see in the office ok to dc home if he feels ready later
--- NOTE | 2021-02-18 14:49 | MHC.CM.PN ---
PATIENT IS DISCHARGED HOME WITH NO NEED FOR SERVICES. RN AWARE OF PLAN. TO TRANSPORT. IMM 02/17 IN CHART
--- NOTE | 2021-02-19 14:58 | PM.DS ---
DS: Providers Provider Date of Service: 02/19/21 Date of admission: 02/16/21 20:00 Primary care physician: Jayy Edmonds MD DS: Diagnosis Discharge Diagnosis (1) Cholelithiasis: Status: Acute DS: Medications Discharge Medications Home Medications: Home Medications Medication Instructions Recorded Confirmed duloxetine 30 mg capsule,delayed 30 mg PO DAILY 10/08/20 02/16/21 release melatonin 5 mg capsule 5 mg PO BEDTIME 10/08/20 02/16/21 omega-3 fatty acids 1 tab PO DAILY 10/08/20 02/16/21 pantoprazole 40 mg tablet,delayed 40 mg PO DAILY 10/08/20 02/16/21 release pregabalin 200 mg capsule 200 mg PO BID 10/08/20 02/16/21 ranitidine HCl 150 mg tablet 150 mg PO BID tab 10/08/20 02/16/21 Previous Rx's Medication Instructions Recorded olanzapine 10 mg tablet 10 mg PO BEDTIME 90 Days #90 tab 12/18/20 sucralfate 1 gram tablet 1 g PO BID PRN 30 Days #60 tab 12/18/20 oxycodone-acetaminophen 5 mg-325 1 tab PO TID PRN 30 Days #90 tab 01/30/21 mg tablet zolpidem 10 mg tablet 10 mg PO BEDTIME PRN 30 Days #30 01/30/21 tab oxycodone-acetaminophen [Percocet] 1 - 2 tab PO Q4-6H PRN #30 tab 02/18/21 DS: Summary Time Spent with Patient Time attestation: Total time spent providing and/or coordinating discharge services: Discharge coordination time: Less than 30 minutes Physical Exam Vital Signs: Vital Signs: Last Vital Signs Temp 97.5 F 02/18/21 15:30 Pulse 102 H 02/18/21 15:30 Resp 19 02/18/21 15:30 BP 128/89 02/18/21 15:30 Pulse Ox 92 02/18/21 15:30 Body Mass Index 28.7 Const: General: comfortable and no acute distress Eyes: Sclerae: sclerae normal Resp: Effort & Inspection: normal respiratory effort Cardio: Rhythm: regular rhythm GI: Other: Soft, all incisions clean and dry Extrem: General: Yes normal to inspection DS: Data Data Completed and Pending Completed studies during hospitalization [Text1]: Pending at discharge 02/18/21 10:07 Surgical [PTH] Routine Discharge Plan Discharge Patient Disposition: Home, Self-Care Referrals: Jayy Edmonds MD [Primary Care Provider] - Coleman Howard MD [Physician] - 2 Weeks Discharge Medications: New oxycodone-acetaminophen [Percocet] 5-325 mg tablet 1 - 2 tab PO Q4-6H PRN (Reason: pain) Qty: 30 RF: 0 Continued sucralfate 1 gram tablet 1 g PO BID PRN (Reason: heart burn) 30 Days Qty: 60 RF: 2 olanzapine 10 mg tablet 10 mg PO BEDTIME 90 Days Qty: 90 RF: 0 duloxetine 30 mg capsule,delayed release(DR/EC) 30 mg PO DAILY RF: 0 pregabalin 200 mg capsule 200 mg PO BID RF: 0 omega-3 fatty acids 1 tab PO DAILY RF: 0 melatonin 5 mg capsule 5 mg PO BEDTIME RF: 0 pantoprazole [Protonix] 40 mg tablet,delayed release (DR/EC) 40 mg PO DAILY RF: 0 ranitidine HCl 150 mg tablet 150 mg PO BID RF: 0 zolpidem 10 mg tablet 10 mg PO BEDTIME PRN (Reason: sleep) 30 Days Qty: 30 RF: 0 oxycodone-acetaminophen [Percocet] 5-325 mg tablet 1 tab PO TID PRN (Reason: pain) 30 Days Qty: 90 RF: 0 Discharge Orders: Discharge Order (Routine); Ordered 02/18/21 Ordered By: Coleman Howard Diet: low fat, low cholesterol Activity on Discharge: No heavy lifting Stand Alone Forms: Patient Portal Discharge page Activity Restrictions/Additional Instructions: If the incision area is tender, you may apply an ice pack for short intervals (No more than 20 minutes on, followed by at least 20 minutes off). Do not apply heat. Do not use creams, lotions, or topical antibiotics unless instructed to do so by your surgeon. These can cause infection or allergic reaction. Ok to shower 24 hours after your surgery. Remove bandaids in 2 days and replace. You have steri strips (small white cloth strips) covering your incision- these will fall off ~1 week. No heavy lifting (>10-20lbs)! Call Your Doctor If: -Your temperature exceeds 101.5? F -You experience excessive pain or swelling -You have an unexpected reaction to medication -You have excessive bleeding -You experience continued vomiting/nausea -Your incision begins to separate -Your incision shows signs of infection such as increased redness, swelling, excessive pain, drainage (light blood or clear fluid is normal) or heat Care Plan Goals: Return to baseline health following recovery period Health Concerns: Gallstones, s/p laparoscopic cholecystectomy Plan of Treatment: Discharge to home, f/u in office with Dr. Howard in 2 weeks. Discharge Date/Time: 02/18/21 16:25
--- NOTE | 2021-02-19 15:02 | P.DS_ITS ---
DS: Providers Provider Date of Service: 02/19/21 Date of admission: 02/16/21 20:00 Primary care physician: Jayy Edmonds MD DS: Diagnosis Discharge Diagnosis (1) Cholelithiasis: Status: Acute Problem details: The patient was a 60-year-old male was admitted on the night of February 16, 2021 because of abdominal pain x2 weeks duration. His imaging studies showed gallstones without cholecystitis. He said he had been having periodic pain on and off for more than 2-3 weeks now. He therefore was admitted as he felt that if he went home, would continue me to periodic pain. He was therefore admitted. He underwent laparoscopic cholecystectomy on February 18, 2021. He tolerated proce dure well with no complication noted. He was started on diet postoperatively which he continued to tolerate. He felt well after the surgery and wanted to go home. He did well postoperatively so he was discharged later that day. He was given wound care instructions. His was with him during the discussion prior to discharge. DS: Medications Discharge Medications Home Medications: Home Medications Medication Instructions Recorded Confirmed duloxetine 30 mg capsule,delayed 30 mg PO DAILY 10/08/20 02/16/21 release melatonin 5 mg capsule 5 mg PO BEDTIME 10/08/20 02/16/21 omega-3 fatty acids 1 tab PO DAILY 10/08/20 02/16/21 pantoprazole 40 mg tablet,delayed 40 mg PO DAILY 10/08/20 02/16/21 release pregabalin 200 mg capsule 200 mg PO BID 10/08/20 02/16/21 ranitidine HCl 150 mg tablet 150 mg PO BID tab 10/08/20 02/16/21 Previous Rx's Medication Instructions Recorded olanzapine 10 mg tablet 10 mg PO BEDTIME 90 Days #90 tab 12/18/20 sucralfate 1 gram tablet 1 g PO BID PRN 30 Days #60 tab 12/18/20 oxycodone-acetaminophen 5 mg-325 1 tab PO TID PRN 30 Days #90 tab 01/30/21 mg tablet zolpidem 10 mg tablet 10 mg PO BEDTIME PRN 30 Days #30 01/30/21 tab oxycodone-acetaminophen [Percocet] 1 - 2 tab PO Q4-6H PRN #30 tab 02/18/21 DS: Summary Time Spent with Patient Time attestation: Total time spent providing and/or coordinating discharge services: Discharge coordination time: Less than 30 minutes Physical Exam Vital Signs: Vital Signs: Last Vital Signs Temp 97.5 F 02/18/21 15:30 Pulse 102 H 02/18/21 15:30 Resp 19 02/18/21 15:30 BP 128/89 02/18/21 15:30 Pulse Ox 92 02/18/21 15:30 Body Mass Index 28.7 Const: General: comfortable and no acute distress Resp: Effort & Inspection: normal respiratory effort Cardio: Rhythm: regular rhythm GI: Other: All incisions dry, clean Palpation (GI): Soft to palpation and nontender Extrem: General: Yes no pedal edema DS: Data Data Completed and Pending Completed studies during hospitalization [Text1]: Pending at discharge 02/18/21 10:07 Surgical [PTH] Routine Discharge Plan Discharge Patient Disposition: Home, Self-Care Referrals: Jayy Edmonds MD [Primary Care Provider] - Coleman Howard MD [Physician] - 2 Weeks Discharge Medications: New oxycodone-acetaminophen [Percocet] 5-325 mg tablet 1 - 2 tab PO Q4-6H PRN (Reason: pain) Qty: 30 RF: 0 Continued sucralfate 1 gram tablet 1 g PO BID PRN (Reason: heart burn) 30 Days Qty: 60 RF: 2 olanzapine 10 mg tablet 10 mg PO BEDTIME 90 Days Qty: 90 RF: 0 duloxetine 30 mg capsule,delayed release(DR/EC) 30 mg PO DAILY RF: 0 pregabalin 200 mg capsule 200 mg PO BID RF: 0 omega-3 fatty acids 1 tab PO DAILY RF: 0 melatonin 5 mg capsule 5 mg PO BEDTIME RF: 0 pantoprazole [Protonix] 40 mg tablet,delayed release (DR/EC) 40 mg PO DAILY RF: 0 ranitidine HCl 150 mg tablet 150 mg PO BID RF: 0 zolpidem 10 mg tablet 10 mg PO BEDTIME PRN (Reason: sleep) 30 Days Qty: 30 RF: 0 oxycodone-acetaminophen [Percocet] 5-325 mg tablet 1 tab PO TID PRN (Reason: pain) 30 Days Qty: 90 RF: 0 Discharge Orders: Discharge Order (Routine); Ordered 02/18/21 Ordered By: Coleman Howard Diet: low fat, low cholesterol Activity on Discharge: No heavy lifting Stand Alone Forms: Patient Portal Discharge page Activity Restrictions/Additional Instructions: If the incision area is tender, you may apply an ice pack for short intervals (No more than 20 minutes on, followed by at least 20 minutes off). Do not apply heat. Do not use creams, lotions, or topical antibiotics unless instructed to do so by your surgeon. These can cause infection or allergic reaction. Ok to shower 24 hours after your surgery. Remove bandaids in 2 days and replace. You have steri strips (small white cloth strips) covering your incision- these will fall off ~1 week. No heavy lifting (>10-20lbs)! Call Your Doctor If: -Your temperature exceeds 101.5? F -You experience excessive pain or swelling -You have an unexpected reaction to medication -You have excessive bleeding -You experience continued vomiting/nausea -Your incision begins to separate -Your incision shows signs of infection such as increased redness, swelling, excessive pain, drainage (light blood or clear fluid is normal) or heat Care Plan Goals: Return to baseline health following recovery period Health Concerns: Gallstones, s/p laparoscopic cholecystectomy Plan of Treatment: Discharge to home, f/u in office with Dr. Howard in 2 weeks. Discharge Date/Time: 02/18/21 16:25
== END 2021-02-18 16:25 | disposition home or self-care (01) | DRG 419 ==
LOC: HO.ED 19:58 → HO.EDOVER 20:50 → HO.S3 22:22
PROVIDERS: Nurse Practitioner Family; Surgery; Admitting Provider Surgery; Emergency Provider Emergency Medicine; PCP Internal Medicine; Visit Provider Surgery
PROC: 0FT44ZZ Resection of Gallbladder, Percutaneous Endoscopic Approach (ICD-10-PCS; CPT 47562; principal; 2021-02-18 09:40)
DX: K80.20 Calculus of gallbladder without cholecystitis without obstruction (principal); F17.210 Nicotine dependence, cigarettes, uncomplicated; Z71.6 Tobacco abuse counseling; I10 Essential (primary) hypertension; E11.42 Type 2 diabetes mellitus with diabetic polyneuropathy; F20.9 Schizophrenia, unspecified; M54.9 Dorsalgia, unspecified; G89.29 Other chronic pain; Z20.822 Contact with and (suspected) exposure to COVID-19; Z79.899 Other long term (current) drug therapy
CPT/HCPCS: 36415; 74177; 76705; 80048; 80076; 81001; 82272; 82947; 83690; 83735; 84484; 85025; 85610; 87635; 88304; 93005; 96374; 96375; 99285; J1100; J1170; J1885; J2250; J2270; J2405; J2543; J3010; Q9967

== ENCOUNTER → 2021-03-04 13:22 | Outpatient (BNVA) | payer OTHER, SELFPAY | PROVIDERS: PCP Internal Medicine; Visit Provider Surgery | DX: Z90.49 Acquired absence of other specified parts of digestive tract (principal) | CPT/HCPCS: 99212 ==

== ENCOUNTER → 2021-07-15 13:55 | Outpatient (BNVA) | payer OTHER, SELFPAY | PROVIDERS: PCP Internal Medicine; Visit Provider Anesthesiology | DX: G60.8 Other hereditary and idiopathic neuropathies (principal); E11.40 Type 2 diabetes mellitus with diabetic neuropathy, unspecified; G89.4 Chronic pain syndrome; Z79.899 Other long term (current) drug therapy | CPT/HCPCS: 99212 ==

== ENCOUNTER 2021-07-17 10:35 | Outpatient (REF) | payer OTHER, SELFPAY ==
[2021-07-17 11:17] LABS: MANUAL DIFF FLAG NO
[2021-07-17 11:28] LABS: Basophils Percent Auto 0.3 % (0-2); Eosinophils Absolute Auto 0.3 X10*3/uL (0.0-0.4); Eosinophils Percent Auto 4.5 % (0-4); Hematocrit 39.2 % (42-52); Hemoglobin 13.5 g/dl (14.0-18.0); Imm Gran Abs Auto 0.03 X10*3/uL (0.00-0.03); Imm Gran Pct Auto 0.4 % (0.0-0.4); Lymphocytes Absolute Auto 2.4 X10*3/uL (1.2-4.9); Mean Corpuscular HGB Conc 34.4 g/dl (31.0-36.0); Mean Corpuscular Hemoglobin 31.8 pg (27.0-33.0); Mean Corpuscular Volume 92.2 fL (80-98); Mean Platelet Volume 9.3 fL (9.4-12.4); Monocytes Absolute Auto 0.6 X10*3/uL (0.1-1.2); Monocytes Percent Auto 8.2 % (2-11); Neutrophils Percent Auto 54.6 % (45-73); Platelet Count 325 X10*3/uL (160-400); Red Blood Count 4.25 X10*6/uL (4.60-5.80); Red Cell Distribution Width 12.5 % (11.0-16.0); White Blood Count 7.4 X10*3/uL (4.8-10.8)
[2021-07-17 12:14] LABS: Alanine Aminotransferase 32 U/L (0-40); Albumin Level 4.3 g/dL (3.5-5.0); Alkaline Phosphatase 64 U/L (39-117); Anion Gap 12 (12-20); Aspartate Amino Transferase 29 U/L (5-37); Bilirubin Total 0.3 mg/dL (0.0-1.0); Blood Urea Nitrogen 20 mg/dL (9-16); Calcium 9.1 mg/dL (8.4-10.2); Carbon Dioxide 31 mmol/L (22-29); Chloride 99 mmol/L (96-108); Cholesterol 188 mg/dL; Estimated Glomerular Filt Rate > 60; Glucose Fasting 119 mg/dL (60-99); HDL Cholesterol 36 mg/dL; LDL Cholesterol Calculated 79 mg/dl; Potassium 3.9 mmol/L (3.3-5.1); Sodium 138 mmol/L (135-145); Total Protein 7.4 g/dL (6.5-8.0); Triglycerides 367 mg/dL
== END 2021-07-17 10:36 | disposition home or self-care (01) ==
LOC: HO.HMGCLDS 10:35
PROVIDERS: PCP Internal Medicine; Visit Provider Internal Medicine
DX: F17.200 Nicotine dependence, unspecified, uncomplicated (principal); F11.20 Opioid dependence, uncomplicated; R52 Pain, unspecified; F20.0 Paranoid schizophrenia; I10 Essential (primary) hypertension; G47.9 Sleep disorder, unspecified
CPT/HCPCS: 36415; 80053; 80061; 85025

== ENCOUNTER 2021-07-19 16:22 | Outpatient (REF) | payer OTHER, SELFPAY ==
[2021-07-19 17:06] LABS: Amphetamine Screen Urine Not Detected (Not Detect); Barbiturates, Urine Not Detected (Not Detect); Benzodiazepines Screen Urine Not Detected (Not Detect); Cannabinoid Screen Urine Not Detected (Not Detect); Cocaine Screen Urine Not Detected (Not Detect); Fentanyl, urine Not Detected (Not Detect); Opiate Screen Urine Not Detected (Not Detect); Phencyclidine Screen Urine Not Detected (Not Detect)
== END 2021-07-19 16:23 | disposition home or self-care (01) ==
LOC: HO.LNP 16:22
PROVIDERS: Visit Provider Internal Medicine
DX: F11.20 Opioid dependence, uncomplicated (principal); R52 Pain, unspecified
CPT/HCPCS: 80307; 80364; 80365

== ENCOUNTER 2021-10-01 15:01 | Outpatient (REF) | payer OTHER, SELFPAY ==
[2021-10-01 16:26] LABS: Erythrocyte Sedimentation Rate 23 MM/HR (0-15)
[2021-10-01 16:37] LABS: T4 Thyroxine 6.9 ug/dL (4.5-12.0); Thyroid Stimulating Hormone 0.85 uIU/mL (0.32-4.0)
== END 2021-10-01 15:02 | disposition home or self-care (01) ==
LOC: HO.LAB 15:01
PROVIDERS: Absent Provider Internal Medicine; PCP Internal Medicine; Visit Provider Psychiatry & Neurology Neurology
DX: M54.16 Radiculopathy, lumbar region (principal)
CPT/HCPCS: 36415; 82550; 84436; 84443; 85652

== ENCOUNTER 2022-01-08 14:40 | Outpatient (REF) | payer OTHER, SELFPAY ==
[2022-01-08 16:27] LABS: MANUAL DIFF FLAG NO
[2022-01-08 16:29] LABS: Basophils Percent Auto 0.3 % (0-2); Eosinophils Absolute Auto 0.3 X10*3/uL (0.0-0.4); Eosinophils Percent Auto 3.8 % (0-4); Hematocrit 37.8 % (42.0-52.0); Hemoglobin 12.8 g/dl (14.0-18.0); Imm Gran Abs Auto 0.02 X10*3/uL (0.00-0.03); Imm Gran Pct Auto 0.3 % (0.0-0.4); Lymphocytes Absolute Auto 2.1 X10*3/uL (1.2-4.9); Lymphocytes Percent Auto 29.1 % (20-40); Mean Corpuscular HGB Conc 33.9 g/dl (31.0-36.0); Mean Corpuscular Hemoglobin 31.7 pg (27.0-33.0); Mean Corpuscular Volume 93.6 fL (80.0-98.0); Mean Platelet Volume 9.2 fL (9.4-12.4); Monocytes Absolute Auto 0.6 X10*3/uL (0.1-1.2); Monocytes Percent Auto 8.5 % (2-11); Neutrophils Absolute Auto 4.1 x10*3/uL (2.0-8.3); Platelet Count 344 X10*3/uL (160-400); Red Blood Count 4.04 X10*6/uL (4.60-5.80); Red Cell Distribution Width 13.1 % (11.0-16.0); White Blood Count 7.1 X10*3/uL (4.8-10.8)
[2022-01-08 16:46] LABS: Creatinine Urine 53.16 mg/dL; Microalbumin Urine < 5.0 mg/L
[2022-01-08 16:47] LABS: Alanine Aminotransferase 19 U/L (0-40); Albumin Level 4.2 g/dL (3.5-5.0); Alkaline Phosphatase 73 U/L (39-117); Anion Gap 11 (12-20); Aspartate Amino Transferase 25 U/L (5-37); Bilirubin Total < 0.2 mg/dL (0.0-1.0); Blood Urea Nitrogen 14 mg/dL (9-16); Calcium 9.1 mg/dL (8.4-10.2); Carbon Dioxide 29 mmol/L (22-29); Chloride 101 mmol/L (96-108); Estimated Glomerular Filt Rate > 60; Glucose Random 102 mg/dL (60-115); Potassium 4.3 mmol/L (3.3-5.1); Sodium 137 mmol/L (135-145); Total Protein 7.3 g/dL (6.5-8.0)
[2022-01-08 16:57] LABS: Estimated Average Glucose 128 mg/dL; Hemoglobin A1C 151.3522 umol/L; Hemoglobin A1c % 6.1 %
== END 2022-01-08 14:41 | disposition home or self-care (01) ==
LOC: HO.HMGCLDS 14:40
PROVIDERS: PCP Internal Medicine; Visit Provider Internal Medicine
DX: F20.9 Schizophrenia, unspecified (principal); G47.9 Sleep disorder, unspecified; G89.29 Other chronic pain; I10 Essential (primary) hypertension; R73.01 Impaired fasting glucose; E66.09 Other obesity due to excess calories; M54.50 Low back pain, unspecified
CPT/HCPCS: 36415; 80053; 82043; 83036; 85025

== ENCOUNTER 2022-04-07 12:27 | Outpatient (REF) | payer OTHER, SELFPAY ==
--- NOTE | ~2022-04-07 | CT_ITS ---
EXAMINATION: CT CHEST WITHOUT CONTRAST CLINICAL INFORMATION: Solitary pulmonary nodule. COMPARISON: CT scan of the chest dated 11/02/2019 and 09/09/2017. TECHNIQUE: Multidetector volumetric CT imaging of the chest was obtained noncontrast. Sagittal and coronal reformations were obtained. This CT examination was performed using dose optimization techniques as appropriate, variously including the following: *Automated exposure control *Adjustment of mA and/or kV according to patient size (this includes techniques or standardized protocols for targeted exams where dose is matched to indication/reason for exam; i.e. extremities or head) *Use of iterative reconstruction technique DLP: 241.4 mGy-cm. FINDINGS: LUNGS: Mild centrilobular and paraseptal emphysema. Minimal biapical pleural-based reticulation, consistent with scarring. There are a few scattered solid noncalcified pulmonary nodules, unchanged dating back to 09/09/2017 and including the following as seen on series 7: Right upper lobe -3 mm solid noncalcified nodular density, image 162. Right minor fissure -4 mm solid noncalcified nodule, likely a fissural based lymph node, image 307. Left upper lobe -4 mm solid noncalcified nodule in the lingula, image 343. There is a punctate 1 to 2 mm solid noncalcified nodule in the right upper lobe (series 7, image 267), not seen on the prior studies, but of doubtful clinical significance. No significant new or enlarging focal lung nodule or mass. Previously seen densely calcified granuloma in the left upper lobe, adjacent to the left major fissure (series 7, image 173) again seen, unchanged. No effusion or pneumothorax. Linear mucus or debris is seen in the proximal mainstem bronchi bilaterally and in the dependent portion of the right bronchus intermedius. Central airways otherwise patent and unremarkable.. LYMPHOVASCULAR STRUCTURES: Ascending aorta is borderline aneurysmal, measuring 4 cm in AP diameter at the level of the pulmonary arterial bifurcation, unchanged since 09/09/2017. Heart size normal. No pericardial effusion. No mediastinal, hilar or axillary adenopathy or free fluid collection. Of note, there may be diffuse mid and distal esophageal wall thickening, though the appearance may be related to underdistention of the esophagus and is not significantly changed dating back to 2017. THYROID GLAND: Unremarkable to the extent included. UPPER ABDOMEN: Included portions of the solid organs in the upper abdomen unremarkable on noncontrast study. BONES: 2 right humeral head anchors are seen in place. Mild degenerative changes are noted in both lateral humeral joints. Multilevel mild vertebral spondylosis in the mid and lower thoracic spine. Multiple Schmorl's nodes throughout the mid and lower thoracic spine and mild loss in height of several vertebral bodies seen, unchanged from prior studies. CT/CT chest wo con IMPRESSION: 1. Mild emphysema with several scattered bilateral stable solid noncalcified micronodules measuring between 3 and 4 mm in size. 2. Single tiny 1 to 2 mm solid noncalcified nodule in the right upper lobe was not definitely visualized on prior exam. This is of doubtful clinical significance. According to the UPDATED 2017 Fleischner Society recommendations, the advised follow-up imaging for solid nodules < 6 mm is: LOW RISK PATIENT: No routine follow-up. HIGH RISK PATIENT: Optional CT at 12 months. 3. Stable calcified granuloma left upper lobe. 4. Mild mucus/debris within the central tracheobronchial tree. 5. No interval change in size of borderline aneurysmal ascending aorta, measuring 4 cm in maximal AP diameter. 6. Thick-walled appearance of the mid and distal esophagus, similar to prior studies, possibly due to underdistention. However, close clinical correlation is requested. If clinically appropriate, further evaluation with barium swallow could be performed.
== END 2022-04-07 12:28 | disposition home or self-care (01) ==
LOC: HO.CT 12:27
PROVIDERS: Visit Provider Internal Medicine
DX: R91.1 Solitary pulmonary nodule (principal); R06.02 Shortness of breath
CPT/HCPCS: 71250

== ENCOUNTER 2022-04-30 15:13 | Outpatient (REF) | payer OTHER, SELFPAY ==
[2022-04-30 16:25] LABS: Erythrocyte Sedimentation Rate 9 MM/HR (0-15)
[2022-05-04 08:11] LABS: Aldolase 5.7 U/L (<=8.1)
== END 2022-04-30 15:14 | disposition home or self-care (01) ==
LOC: HO.LAB 15:13
PROVIDERS: PCP Internal Medicine; Visit Provider Psychiatry & Neurology Neurology
DX: G72.9 Myopathy, unspecified (principal)
CPT/HCPCS: 36415; 82085; 82550; 85652

== ENCOUNTER → 2022-06-09 10:57 | Outpatient (BNVA) | payer OTHER, SELFPAY | PROVIDERS: PCP Internal Medicine; Visit Provider Internal Medicine Pulmonary Disease | DX: J43.9 Emphysema, unspecified (principal); R91.8 Other nonspecific abnormal finding of lung field | CPT/HCPCS: 99202 ==

== ENCOUNTER 2022-07-07 13:45 | Outpatient (REF) | payer OTHER, SELFPAY ==
--- NOTE | 2022-07-07 16:03 | PFT_ITS ---
FLOWS: FEV1 75% of predicted at 2.73 L. FVC 90% of predicted at 4.29 L. FEV1 to FVC ratio of 0.64. The patient refused bronchodilator testing. LUNG VOLUMES: Total lung capacity 95% of predicted at 6.69 L. Residual volume 104% of predicted at 2.35 L. Slow vital capacity 91% of predicted at 4.34 L. Expiratory reserve volume 94% of predicted at 1.31 L. Diffusion capacity is moderately decreased. IMPRESSION: Moderate obstructive ventilatory defect. The patient refused bronchodilator testing. Decreased diffusion capacity suggests emphysema. Agusto Carolina MD AP/MODL / [id number]
== END 2022-07-07 13:46 | disposition home or self-care (01) ==
LOC: HO.RESP 13:45
PROVIDERS: PCP Internal Medicine; Visit Provider Internal Medicine Pulmonary Disease
DX: J43.9 Emphysema, unspecified (principal)
CPT/HCPCS: 94010; 94727; 94729

== ENCOUNTER → 2022-07-18 14:10 | Outpatient (BNVA) | payer OTHER, SELFPAY | PROVIDERS: PCP Internal Medicine; Visit Provider Internal Medicine Pulmonary Disease | DX: J43.9 Emphysema, unspecified (principal); R91.8 Other nonspecific abnormal finding of lung field | CPT/HCPCS: 99212 ==

== ENCOUNTER → 2022-08-26 13:01 | Outpatient (BNVA) | payer OTHER, SELFPAY | PROVIDERS: PCP Internal Medicine; Visit Provider Internal Medicine Pulmonary Disease | DX: J43.9 Emphysema, unspecified (principal); R91.8 Other nonspecific abnormal finding of lung field | CPT/HCPCS: 99212 ==

== ENCOUNTER 2022-08-29 11:34 | Outpatient (REF) | payer OTHER, SELFPAY ==
[2022-08-29 13:48] LABS: MANUAL DIFF FLAG NO
[2022-08-29 13:53] LABS: Basophils Percent Auto 0.6 % (0-2); Eosinophils Absolute Auto 0.3 X10*3/uL (0.0-0.4); Eosinophils Percent Auto 4.3 % (0-4); Hematocrit 42.1 % (42.0-52.0); Hemoglobin 14.2 g/dl (14.0-18.0); Imm Gran Abs Auto 0.02 X10*3/uL (0.00-0.03); Imm Gran Pct Auto 0.3 % (0.0-0.4); Lymphocytes Absolute Auto 2.1 X10*3/uL (1.2-4.9); Lymphocytes Percent Auto 33.5 % (20-40); Mean Corpuscular HGB Conc 33.7 g/dl (31.0-36.0); Mean Corpuscular Hemoglobin 31.8 pg (27.0-33.0); Mean Corpuscular Volume 94.2 fL (80.0-98.0); Mean Platelet Volume 9.4 fL (9.4-12.4); Monocytes Absolute Auto 0.5 X10*3/uL (0.1-1.2); Monocytes Percent Auto 7.1 % (2-11); Neutrophils Absolute Auto 3.4 x10*3/uL (2.0-8.3); Neutrophils Percent Auto 54.2 % (45-73); Platelet Count 314 X10*3/uL (160-400); Red Blood Count 4.47 X10*6/uL (4.60-5.80); Red Cell Distribution Width 13.6 % (11.0-16.0); White Blood Count 6.3 X10*3/uL (4.8-10.8)
[2022-08-29 14:04] LABS: Alanine Aminotransferase 21 U/L (0-40); Albumin Level 4.5 g/dL (3.5-5.0); Alkaline Phosphatase 75 U/L (39-117); Anion Gap 15 (12-20); Aspartate Amino Transferase 25 U/L (5-37); Bilirubin Total 0.2 mg/dL (0.0-1.0); Blood Urea Nitrogen 17 mg/dL (9-16); Calcium 9.4 mg/dL (8.4-10.2); Carbon Dioxide 25 mmol/L (22-29); Chloride 99 mmol/L (96-108); Estimated Glomerular Filt Rate > 60; Glucose Random 135 mg/dL (60-115); Potassium 4.4 mmol/L (3.3-5.1); Sodium 135 mmol/L (135-145); Total Protein 7.6 g/dL (6.5-8.0)
== END 2022-08-29 11:35 | disposition home or self-care (01) ==
LOC: HO.HMGCLDS 11:34
PROVIDERS: PCP Internal Medicine; Visit Provider Internal Medicine
DX: G60.8 Other hereditary and idiopathic neuropathies (principal); F11.20 Opioid dependence, uncomplicated; E66.09 Other obesity due to excess calories; F20.0 Paranoid schizophrenia; I10 Essential (primary) hypertension
CPT/HCPCS: 36415; 80053; 85025

== ENCOUNTER 2022-10-26 17:45 | Emergency (ER) | payer OTHER, SELFPAY ==
--- NOTE | ~2022-10-26 | CT_ITS ---
EXAMINATION: CT ABDOMEN AND PELVIS WITH CONTRAST CLINICAL INFORMATION: Right and left lower quadrant pain for one week COMPARISON: 02/16/2021 TECHNIQUE: Multidetector volumetric images were obtained from the superior aspect of the liver through the pubic symphysis following administration 85 mL of Omnipaque 350 intravenous contrast. Sagittal and coronal reformatted images were obtained on the technologist's workstation. Oral contrast: No This CT examination was performed using dose optimization techniques as appropriate, variously including the following: *Automated exposure control *Adjustment of mA and/or kV according to patient size (this includes techniques or standardized protocols for targeted exams where dose is matched to indication/reason for exam; i.e. extremities or head) *Use of iterative reconstruction technique DLP: 699 mGy-cm FINDINGS: LUNG BASES: Minimal curvilinear atelectasis. LIVER, GALLBLADDER, AND BILIARY TREE: The liver is normal in size, shape, and attenuation. No focal hepatic lesion or biliary ductal dilatation is present. Status post cholecystectomy. PANCREAS: Unremarkable. SPLEEN: Unremarkable. ADRENAL GLANDS: Unremarkable. KIDNEYS AND URETERS: Bilateral nephrograms are symmetric. No hydronephrosis or obstructing calculus. There is bilateral perinephric stranding which is nonspecific and without significant change from prior. BLADDER: Unremarkable. GASTROINTESTINAL TRACT: No evidence of bowel obstruction. There is prominence of submucosal fat within some segments of the colon suggesting sequelae of prior inflammation. No convincing evidence for acute colitis. No significant diverticulosis. The appendix is unremarkable. No free fluid or free air is seen. ABDOMINAL WALL: No significant hernia is appreciated. LYMPH NODES: Normal. VASCULAR: Scattered atherosclerotic calcifications. PELVIC VISCERA: Unremarkable. OSSEOUS STRUCTURES: Unremarkable. CT/CT abdomen pelvis w IV con IMPRESSION: No acute findings identified in the abdomen/pelvis.
[2022-10-26 17:56] VITALS: BP 121/93; PULSE 95; RESP 18; TEMP 37.2; O2SAT 99; BMI 33.0
--- NOTE | 2022-10-26 18:00 | ED_ITS ---
HPI - Abdominal Pain General Chief Complaint: Abdominal Pain <Hortensia Stephens NP - Last Filed: 10/26/22 18:01> Stated Complaint: abdominal pain <Hortensia Stephens NP - Last Filed: 10/26/22 18:01> Time Seen by Provider: 10/26/22 20:41 <Hortensia Stephens NP - Last Filed: 10/26/22 18:01> Source: patient and family <Rickie Ku MD - Last Filed: 10/27/22 00:27> Mode of arrival: ambulatory <Rickie Ku MD - Last Filed: 10/27/22 00:27> Limitations: no limitations (Patient speaks Greenlandic and Albanian) <Rickie Ku MD - Last Filed: 10/27/22 00:27> History of Present Illness HPI narrative: 8-year-old male who presents emergency department for evaluation of abdominal pain. Patient states that over the last week he has had diffuse abdominal pain which came on gradually. He runs his hand over his lower abdomen when asked to localize the pain. States the pain is a constant dull pain which is 8/10 at its worst. Patient states that he did take Percocet with no relief for the pain. States that this pain is new and he has not had pain like this in the past. The patient states that the pain does not change with eating or drinking but he has had a decreased appetite but has been able to drink fluid. He states that he also has a headache associated with the abdominal pain. He also states that he gets intermittent left-sided chest pain which she describes as a pressure sensation which last 2-3 minutes he gets this multiple times daily over the past week. He states that when he had his gallbladder pain he had similar chest pain. Patient had a cholecystectomy 02/18/2021. The patient denies fever or chills but he has been experiencing sweats. He denied rhinorrhea, sore throat, cough, chest pain, shortness of breath, dyspnea on exertion. Denied nausea but he states he has had intermittent vomiting 1 week prior but this is resolved. States that yesterday had 1 loose diarrheal stool which was carrera and watery with no blood in the stool. He denied frequency, urgency or dysuria. <Rickie Ku MD - Last Filed: 10/27/22 00:27> MD elicited complaint: abdominal pain <Rickie Ku MD - Last Filed: 10/27/22 00:27> Onset (ago): week(s) (1) <Rickie Ku MD - Last Filed: 10/27/22 00:27> Pain Consistency: constant <Rickie Ku MD - Last Filed: 10/27/22 00:27> Location: LUQ, RLQ and suprapubic <Rickie Ku MD - Last Filed: 10/27/22 00:27> Severity: severe <Rickie Ku MD - Last Filed: 10/27/22 00:27> Pain scale (0-10): 8 <Rickie Ku MD - Last Filed: 10/27/22 00:27> Quality: other (dull) <Rickie Ku MD - Last Filed: 10/27/22 00:27> Radiation: none <Rickie Ku MD - Last Filed: 10/27/22 00:27> Migration to: no migration <Rickie Ku MD - Last Filed: 10/27/22 00:27> Exacerbating factors: nothing <Rickie Ku MD - Last Filed: 10/27/22 00:27> Relieving factors: nothing <Rickie Ku MD - Last Filed: 10/27/22 00:27> Related Data Home Medications: Home Medications Medication Instructions Recorded Confirmed melatonin 5 mg capsule 5 mg PO BEDTIME 10/08/20 08/29/22 omega-3 fatty acids [Fish Oil 1 tab PO DAILY 10/08/20 08/29/22 Concentrate] amitriptyline 150 mg tablet 150 mg PO BEDTIME 03/07/22 08/29/22 Previous Rx's Medication Instructions Recorded losartan 100 mg tablet 100 mg PO DAILY 90 days #90 tabs 04/29/22 Stiolto Respimat 2.5 mcg-2.5 2 puff inhalation DAILY 30 days #1 07/18/22 mcg/actuation solution for ea inhalation (tiotropium-olodaterol) nicotine 21 mg/24 hr daily 1 patch transdermal DAILY 28 days 07/22/22 transdermal patch #28 ea fluticasone propionate 50 1 spray intranasal BID 30 days #16 07/29/22 mcg/actuation nasal grams spray,suspension (Flonase Allergy Relief) olanzapine 10 mg tablet 10 mg PO BEDTIME 90 days #90 tabs 09/24/22 oxycodone-acetaminophen 5 mg-325 1 tab PO TID PRN pain 30 days #90 10/10/22 mg tablet (Percocet) tabs zolpidem 10 mg tablet 10 mg PO BEDTIME PRN sleep 30 days 10/10/22 #30 tabs omeprazole 20 mg capsule,delayed 20 mg PO DAILY 30 days #30 caps 10/26/22 release ondansetron 4 mg disintegrating 4 mg PO Q6-8H PRN nausea and 10/26/22 tablet vomiting #14 tabs <Hortensia Stephens NP - Last Filed: 10/26/22 18:01> Allergies/Adverse Reactions: Allergies Allergy/AdvReac Type Severity Reaction Status Date / Time lisinopril [LISINOPRIL] AdvReac Unknown COUGH Verified 08/29/22 11:14 <Hortensia Stephens NP - Last Filed: 10/26/22 18:01> Review of Systems Review of Systems Yes all other systems are reviewed and are negative <Rickie Ku MD - Last Filed: 10/27/22 00:27> [facility] Past Medical History [facility] Narrative: Social history: He lives with his . He denies tobacco, alcohol and drug use. <Rickie Ku MD - Last Filed: 10/27/22 00:27> Medical History: Medical History Chronic lumbar pain Chronic pain syndrome Diabetes type 2, controlled Diabetic neuropathy Difficulty sleeping Hypertension, essential Nicotine addiction Other specified idiopathic peripheral neuropathy Schizophrenia <Hortensia Stephens NP - Last Filed: 10/26/22 18:01> Surgical History: Surgical History History of laparoscopic cholecystectomy History of repair of rotator cuff Status post laparoscopic cholecystectomy <Hortensia Stephens NP - Last Filed: 10/26/22 18:01> Family History Family History: Family History Father No problems noted. Mother No problems noted. <Hortensia Stephens NP - Last Filed: 10/26/22 18:01> Social History Social History: Social History Household Members: Family Housing: House Do you presently have visiting nurse or other home services: No Alcohol intake: never Patient Tobacco Use Status: Current everyday Tobacco user Cigarettes Per Day: 10 Smoked in Last 30 Days: Yes e-Cigarette/Vaping Use: Never Used Use of substances other than those prescribed or required for medical reasons: No Advance Directives: No Advance Directives Information Provided: No service: No Current occupational status: unemployed Cognitive needs: No Hearing needs: No Vision needs: No <Hortensia Stephens NP - Last Filed: 10/26/22 18:01> Physical Exam ED Vital Signs: Vital Signs - 24 hr 10/26/22 17:56 10/26/22 21:30 Temperature 98.9 F 98.2 F Pulse Rate 95 83 Respiratory Rate 18 18 Blood Pressure 121/93 H 117/83 Pulse Oximetry 99 93 Oxygen Delivery Method Room Air Room Air BMI result Body Mass Index 33.0 <Hortensia Stephens NP - Last Filed: 10/26/22 18:01> Vital Signs - 24 hr 10/26/22 17:56 10/26/22 21:30 Temperature 98.9 F 98.2 F Pulse Rate 95 83 Respiratory Rate 18 18 Blood Pressure 121/93 H 117/83 Pulse Oximetry 99 93 Oxygen Delivery Method Room Air Room Air BMI result Body Mass Index 33.0 <Rickie Ku MD - Last Filed: 10/27/22 00:27> Const General: cooperative and no acute distress <Rickie Ku MD - Last Filed: 10/27/22 00:27> Orientation/consciousness: oriented to person and oriented to place <Rickie Ku MD - Last Filed: 10/27/22 00:27> Limitations: no limitations <Rickie Ku MD - Last Filed: 10/27/22 00:27> HENMT Head: Yes normal to inspection, Yes normocephalic and Yes atraumatic <MD Aleksandar Ramos Last Filed: 10/27/22 00:27> Ears: external ears normal <MD Aleksandar Ramos Last Filed: 10/27/22 00:27> General nose exam: Normal external nose present <MD Aleksandar Ramos Last Filed: 10/27/22 00:27> Face and sinus: Yes normal facial exam <MD Aleksandar Ramos Last Filed: 10/27/22 00:27> Mouth: Normal oral and palatal mucosa present <MD Aleksandar Ramos Last Filed: 10/27/22 00:27> Throat: Yes posterior oropharynx normal <MD Aleksandar Ramos Last Filed: 10/27/22 00:27> Eyes General: appearance normal, both eyes and all related structures <MD Aleksandar Ramos Last Filed: 10/27/22 00:27> Pupils: Equal, round and reactive pupils present <MD Aleksandar Ramos Last Filed: 10/27/22 00:27> Neck Neck: Yes normal visual inspection, Yes no lymphadenopathy, Yes trachea midline and Yes supple <MD Aleksandar Ramos Last Filed: 10/27/22 00:27> Chest Chest palpation & inspection: normal inspection of the chest and normal palpation of entire chest wall <MD Aleksandar Ramos Last Filed: 10/27/22 00:27> Resp Effort & Inspection: normal respiratory effort and able to speak in complete sentences <MD Aleksandar Ramos Last Filed: 10/27/22 00:27> Auscultation: clear to auscultation bilaterally <MD Aleksandar Ramos Last Filed: 10/27/22 00:27> Cardio Rate: regular rate <MD Aleksandar Ramos Last Filed: 10/27/22 00:27> Rhythm: regular rhythm <MD Aleksandar Ramos Last Filed: 10/27/22 00:27> Heart sounds: S1 normal heart sound present, S2 normal heart sound present and no m urmurs <Rickie Ku MD - Last Filed: 10/27/22:> GI Inspection: Yes normal to inspection <Rickie Ku MD - Last Filed: 10/27/22:> Palpation (GI): Soft to palpation, Tenderness to palpation present (GI) in the LLQ ([id number]), in the RLQ (Moderate) and suprapubicly ([id number]) and no guarding <Rickie Ku MD - Last Filed: 10/27/22:> Auscultation: normal bowel sounds <Rickie Ku MD - Last Filed: 10/27/22:> General: Yes no CVA tenderness <Rickie Ku MD - Last Filed: 10/27/22:> Back/Spine/Pelvis Back: no CVA tenderness <Rickie Ku MD - Last Filed: 10/27/22:> Skin General skin exam: no rashes or lesions noted <Rickie Ku MD - Last Filed: 10/27/22:> Neuro General: oriented to person and oriented to place <Rickie Ku MD - Last Filed: 10/27/22:> Cranial nerves: Yes CN's II-XII intact bilaterally and Yes Equal, round and reactive pupils present <Rickie Ku MD - Last Filed: 10/27/22:> Cognition (Neuro): normal cognition <Rickie Ku MD - Last Filed: 10/27/22:> Motor exam (neuro): 5/5 motor strength present throughout <Rickie Ku MD - Last Filed: 10/27/22:> Extrem General: Yes normal to inspection <Rickie Ku MD - Last Filed: 10/27/22:27> Psych Appearance: grossly normal <Rickie Ku MD - Last Filed: 10/27/22:> Speech and movement: Normal speech and movement present <Rickie Ku MD - Last Filed: 10/27/22 00:27> Affect: normal affect <Rickie Ku MD - Last Filed: 10/27/22 00:27> Attitude: cooperative <Rickie Ku MD - Last Filed: 10/27/22 00:27> Thought process: Normal thought process present <Rickie Ku MD - Last Filed: 10/27/22 00:27> Thought content: Normal thought content present <Rickie Ku MD - Last Filed: 10/27/22 00:27> Course Course Course Narrative: This is a rapid medical exam. Deferred additional HPI, ROS, PE to primary provider. 62yo male here with intermittent right sided AP for one year with nausea/vomiting. Will check labs, UA. VSS <Hortensia Stephens NP - Last Filed: 10/26/22 18:01> This is a rapid medical exam. Deferred additional HPI, ROS, PE to primary provider. 62yo male here with intermittent right sided AP for one year with nausea/vomiting. Will check labs, UA. VSS 2155: 62-year-old male who presents emergency department for evaluation of abdominal pain x1 week associated with sweats, nausea and vomiting which resolved and 1 episode of diarrhea yesterday. Vital signs were normal. Physical examination did reveal lower abdominal pain greater in the right lower quadrant than the left. Laboratory evaluation revealed a normal CBC. Patient did have a low sodium of 129. Lipase was normal. This time I do not have a clear etiology for the patient's pain, diverticulitis and appendicitis need to be considered. I did order a CT scan of the abdomen pelvis with IV contrast given the fact the pain is been there for 1 week.. Patient was ordered to get Toradol 15 mg IV, Zofran 4 mg IV and normal saline x1 L. 2349: The patient only had slight improvement of his pain with the above medication and was given morphine 4 mg IV as well . The states that he is still having pain which is 8/10. Patient's repeat exam revealed no abdominal tenderness which is reassuring. The CT scan of the patient's abdomen pelvis with IV contrast did not reveal a clear etiology for the patient's pain. I did discuss this with the patient . He does take Percocet on a chronic basis any may have some opiate resistance therefore he was given Dilaudid 0.5 mg IV with Benadryl 25 mg IV for his pain. The patient will be discharged home with a prescription for omeprazole 20 mg once a day for 1 month and Zofran ODT 4 mg every 8 hours as needed for nausea. He was advised to continue taking his Percocet in the follow-up his PCP for re-evaluation and return if worse. <Rickie Ku MD - Last Filed: 10/27/22 00:27> Medications Administered Discontinued Medications Generic Name Dose Route Start Last Admin Trade Name Freq PRN Reason Stop Dose Admin Diphenhydramine HCl 25 mg 10/26/22 23:48 10/27/22 00:05 Diphenhydramine Hcl 50 Mg/Ml Vial IVPUSH 10/26/22 23:49 25 mg ONCE ONE Administration Hydromorphone HCl 0.5 mg 10/26/22 23:48 10/27/22 00:05 Hydromorphone Hcl 0.5 Mg/0.5 Ml Syringe IVPUSH 10/26/22 23:49 0.5 mg ONCE ONE Administration Protocol Sodium Chloride 1,000 mls @ 999 mls/hr 10/26/22 21:06 10/26/22 22:56 Ns IV 10/26/22 22:06 Infused .Q1H1M STA Infusion Iohexol 100 ml 10/26/22 22:19 10/26/22 22:19 Iohexol 350 Mg/Ml 100 Ml Infus..Btl IV 10/26/22 22:20 85 ml ONCE ONE Administration Ketorolac Tromethamine 15 mg 10/26/22 21:06 10/26/22 21:43 Ketorolac Tromethamine 15 Mg/Ml Vial IVPUSH 10/26/22 21:07 15 mg ONCE STA Administration Morphine Sulfate 4 mg 10/26/22 22:37 10/26/22 22:55 Morphine Sulfate 4 Mg/Ml Cartridge IVPUSH 10/26/22 22:38 4 mg ONCE STA Administration Protocol Ondansetron HCl 4 mg 10/26/22 21:06 10/26/22 21:44 Ondansetron Hcl 4 Mg/2 Ml Vial IVPUSH 10/26/22 21:07 4 mg ONCE ONE Administration <Hortensia Stephens NP - Last Filed: 10/26/22 18:01> Medications Administered Discontinued Medications Generic Name Dose Route Start Last Admin Trade Name Nikita PRN Reason Stop Dose Admin Diphenhydramine HCl 25 mg 10/26/22 23:48 10/27/22 00:05 Diphenhydramine Hcl 50 Mg/Ml Vial IVPUSH 10/26/22 23:49 25 mg ONCE ONE Administration Hydromorphone HCl 0.5 mg 10/26/22 23:48 10/27/22 00:05 Hydromorphone Hcl 0.5 Mg/0.5 Ml Syringe IVPUSH 10/26/22 23:49 0.5 mg ONCE ONE Administration Protocol Sodium Chloride 1,000 mls @ 999 mls/hr 10/26/22 21:06 10/26/22 22:56 Ns IV 10/26/22 22:06 Infused .Q1H1M STA Infusion Iohexol 100 ml 10/26/22 22:19 10/26/22 22:19 Iohexol 350 Mg/Ml 100 Ml Infus..Btl IV 10/26/22 22:20 85 ml ONCE ONE Administration Ketorolac Tromethamine 15 mg 10/26/22 21:06 10/26/22 21:43 Ketorolac Tromethamine 15 Mg/Ml Vial IVPUSH 10/26/22 21:07 15 mg ONCE STA Administration Morphine Sulfate 4 mg 10/26/22 22:37 10/26/22 22:55 Morphine Sulfate 4 Mg/Ml Cartridge IVPUSH 10/26/22 22:38 4 mg ONCE STA Administration Protocol Ondansetron HCl 4 mg 10/26/22 21:06 10/26/22 21:44 Ondansetron Hcl 4 Mg/2 Ml Vial IVPUSH 10/26/22 21:07 4 mg ONCE ONE Administration <Rickie Ku MD - Last Filed: 10/27/22 00:27> MDM - Abdominal Pain Medical Records Attestation: I reviewed the patient's medical records. <Rickie Ku MD - Last Filed: 10/27/22 00:27> Lab Data Attestation: I reviewed the patient's lab results. <Rickie Ku MD - Last Filed: 10/27/22 00:27> Result diagrams: : 10/26/22 19:20 10/26/22 19:20 <Hortensia Stephens NP - Last Filed: 10/26/22 18:01> Labs: Lab Results 10/26/22 10/26/22 10/26/22 Range/Units 19:20 19:20 19:20 WBC 9.4 (4.8-10.8) X10*3/uL RBC 4.71 (4.60-5.80) X10*6/uL Hgb 15.0 (14.0-18.0) g/dl Hct 42.3 (42.0-52.0) % MCV 89.8 (80.0-98.0) fL MCH 31.8 (27.0-33.0) pg MCHC 35.5 (31.0-36.0) g/dl RDW 12.5 (11.0-16.0) % Plt Count 275 (160-400) X10*3/uL MPV 8.8 L (9.4-12.4) fL Immature Gran % (Auto) 0.6 H (0.0-0.4) % Neut % (Auto) 60.7 (45-73) % Lymph % (Auto) 28.9 (20-40) % [place] % (Auto) 7.1 (2-11) % Eos % (Auto) 2.2 (0-4) % Baso % (Auto) 0.5 (0-2) % Lymph # (Auto) 2.7 (1.2-4.9) X10*3/uL [place] # (Auto) 0.7 (0.1-1.2) X10*3/uL Eos # (Auto) 0.2 (0.0-0.4) X10*3/uL Baso # (Auto) 0.1 (0.0-0.2) X10*3/uL Abs Immat Gran (auto) 0.06 H (0.00-0.03) X10*3/uL Absolute Neuts (auto) 5.7 (2.0-8.3) x10*3/uL Absolute Nucleated RBC 0.000 (0.0-0.012) X10*3/uL Nucleated RBC % (auto) 0.0 (0.0-0.2) /100WBC Sodium 129 L (135-145) mmol/L Potassium 4.1 (3.3-5.1) mmol/L Chloride 99 (96-108) mmol/L Carbon Dioxide 25 (22-29) mmol/L Anion Gap 9 L (12-20) BUN 14 (9-16) mg/dL Creatinine 1.10 (0.5-1.4) mg/dL Estim Creat Clear Calc 86.3 Estimated GFR > 60 Random Glucose 99 (60-115) mg/dL Calcium 9.5 (8.4-10.2) mg/dL Total Bilirubin 0.3 (0.0-1.0) mg/dL Direct Bilirubin < 0.2 (0.0-0.5) mg/dL AST 23 (5-37) U/L ALT 22 (0-40) U/L Alkaline Phosphatase 74 (39-117) U/L Troponin I High Sens (<3.5-35.0) ng/L Total Protein 7.6 (6.5-8.0) g/dL Albumin 4.6 (3.5-5.0) g/dL Lipase 12 (8-78) U/L Urine Color Yellow Urine Appearance Clear Urine pH 6.5 (5.0-9.0) Ur Specific [place] 1.020 (1.005-1.025) Urine Protein Trace (Neg-Trace) mg/dL Urine Glucose (UA) Negative (Negative) mg/dL Urine Ketones Negative (Negative) mg/dL Urine Blood Negative (Negative) Urine Nitrite Negative (Negative) Ur Leukocyte Esterase Negative (Negative) 10/26/22 Range/Units 21:36 WBC (4.8-10.8) X10*3/uL RBC (4.60-5.80) X10*6/uL Hgb (14.0-18.0) g/dl Hct (42.0-52.0) % MCV (80.0-98.0) fL MCH (27.0-33.0) pg MCHC (31.0-36.0) g/dl RDW (11.0-16.0) % Plt Count (160-400) X10*3/uL MPV (9.4-12.4) fL Immature Gran % (Auto) (0.0-0.4) % Neut % (Auto) (45-73) % Lymph % (Auto) (20-40) % [place] % (Auto) (2-11) % Eos % (Auto) (0-4) % Baso % (Auto) (0-2) % Lymph # (Auto) (1.2-4.9) X10*3/uL [place] # (Auto) (0.1-1.2) X10*3/uL Eos # (Auto) (0.0-0.4) X10*3/uL Baso # (Auto) (0.0-0.2) X10*3/uL Abs Immat Gran (auto) (0.00-0.03) X10*3/uL Absolute Neuts (auto) (2.0-8.3) x10*3/uL Absolute Nucleated RBC (0.0-0.012) X10*3/uL Nucleated RBC % (auto) (0.0-0.2) /100WBC Sodium (135-145) mmol/L Potassium (3.3-5.1) mmol/L Chloride (96-108) mmol/L Carbon Dioxide (22-29) mmol/L Anion Gap (12-20) BUN (9-16) mg/dL Creatinine (0.5-1.4) mg/dL Estim Creat Clear Calc Estimated GFR Random Glucose (60-115) mg/dL Calcium (8.4-10.2) mg/dL Total Bilirubin (0.0-1.0) mg/dL Direct Bilirubin (0.0-0.5) mg/dL AST (5-37) U/L ALT (0-40) U/L Alkaline Phosphatase (39-117) U/L Troponin I High Sens 5.0 (<3.5-35.0) ng/L Total Protein (6.5-8.0) g/dL Albumin (3.5-5.0) g/dL Lipase (8-78) U/L Urine Color Urine Appearance Urine pH (5.0-9.0) Ur Specific [place] (1.005-1.025) Urine Protein (Neg-Trace) mg/dL Urine Glucose (UA) (Negative) mg/dL Urine Ketones (Negative) mg/dL Urine Blood (Negative) Urine Nitrite (Negative) Ur Leukocyte Esterase (Negative) <Hortensia Stephens, BORDER GUARD - Last Filed: 10/26/22 18:01> Lab Results 10/26/22 10/26/22 10/26/22 Range/Units 19:20 19:20 19:20 WBC 9.4 (4.8-10.8) X10*3/uL RBC 4.71 (4.60-5.80) X10*6/uL Hgb 15.0 (14.0-18.0) g/dl Hct 42.3 (42.0-52.0) % MCV 89.8 (80.0-98.0) fL MCH 31.8 (27.0-33.0) pg MCHC 35.5 (31.0-36.0) g/dl RDW 12.5 (11.0-16.0) % Plt Count 275 (160-400) X10*3/uL MPV 8.8 L (9.4-12.4) fL Immature Gran % (Auto) 0.6 H (0.0-0.4) % Neut % (Auto) 60.7 (45-73) % Lymph % (Auto) 28.9 (20-40) % [place] % (Auto) 7.1 (2-11) % Eos % (Auto) 2.2 (0-4) % Baso % (Auto) 0.5 (0-2) % Lymph # (Auto) 2.7 (1.2-4.9) X10*3/uL [place] # (Auto) 0.7 (0.1-1.2) X10*3/uL Eos # (Auto) 0.2 (0.0-0.4) X10*3/uL Baso # (Auto) 0.1 (0.0-0.2) X10*3/uL Abs Immat Gran (auto) 0.06 H (0.00-0.03) X10*3/uL Absolute Neuts (auto) 5.7 (2.0-8.3) x10*3/uL Absolute Nucleated RBC 0.000 (0.0-0.012) X10*3/uL Nucleated RBC % (auto) 0.0 (0.0-0.2) /100WBC Sodium 129 L (135-145) mmol/L Potassium 4.1 (3.3-5.1) mmol/L Chloride 99 (96-108) mmol/L Carbon Dioxide 25 (22-29) mmol/L Anion Gap 9 L (12-20) BUN 14 (9-16) mg/dL Creatinine 1.10 (0.5-1.4) mg/dL Estim Creat Clear Calc 86.3 Estimated GFR > 60 Random Glucose 99 (60-115) mg/dL Calcium 9.5 (8.4-10.2) mg/dL Total Bilirubin 0.3 (0.0-1.0) mg/dL Direct Bilirubin < 0.2 (0.0-0.5) mg/dL AST 23 (5-37) U/L ALT 22 (0-40) U/L Alkaline Phosphatase 74 (39-117) U/L Troponin I High Sens (<3.5-35.0) ng/L Total Protein 7.6 (6.5-8.0) g/dL Albumin 4.6 (3.5-5.0) g/dL Lipase 12 (8-78) U/L Urine Color Yellow Urine Appearance Clear Urine pH 6.5 (5.0-9.0) Ur Specific [place] 1.020 (1.005-1.025) Urine Protein Trace (Neg-Trace) mg/dL Urine Glucose (UA) Negative (Negative) mg/dL Urine Ketones Negative (Negative) mg/dL Urine Blood Negative (Negative) Urine Nitrite Negative (Negative) Ur Leukocyte Esterase Negative (Negative) 10/26/22 Range/Units 21:36 WBC (4.8-10.8) X10*3/uL RBC (4.60-5.80) X10*6/uL Hgb (14.0-18.0) g/dl Hct (42.0-52.0) % MCV (80.0-98.0) fL MCH (27.0-33.0) pg MCHC (31.0-36.0) g/dl RDW (11.0-16.0) % Plt Count (160-400) X10*3/uL MPV (9.4-12.4) fL Immature Gran % (Auto) (0.0-0.4) % Neut % (Auto) (45-73) % Lymph % (Auto) (20-40) % [place] % (Auto) (2-11) % Eos % (Auto) (0-4) % Baso % (Auto) (0-2) % Lymph # (Auto) (1.2-4.9) X10*3/uL [place] # (Auto) (0.1-1.2) X10*3/uL Eos # (Auto) (0.0-0.4) X10*3/uL Baso # (Auto) (0.0-0.2) X10*3/uL Abs Immat Gran (auto) (0.00-0.03) X10*3/uL Absolute Neuts (auto) (2.0-8.3) x10*3/uL Absolute Nucleated RBC (0.0-0.012) X10*3/uL Nucleated RBC % (auto) (0.0-0.2) /100WBC Sodium (135-145) mmol/L Potassium (3.3-5.1) mmol/L Chloride (96-108) mmol/L Carbon Dioxide (22-29) mmol/L Anion Gap (12-20) BUN (9-16) mg/dL Creatinine (0.5-1.4) mg/dL Estim Creat Clear Calc Estimated GFR Random Glucose (60-115) mg/dL Calcium (8.4-10.2) mg/dL Total Bilirubin (0.0-1.0) mg/dL Direct Bilirubin (0.0-0.5) mg/dL AST (5-37) U/L ALT (0-40) U/L Alkaline Phosphatase (39-117) U/L Troponin I High Sens 5.0 (<3.5-35.0) ng/L Total Protein (6.5-8.0) g/dL Albumin (3.5-5.0) g/dL Lipase (8-78) U/L Urine Color Urine Appearance Urine pH (5.0-9.0) Ur Specific [place] (1.005-1.025) Urine Protein (Neg-Trace) mg/dL Urine Glucose (UA) (Negative) mg/dL Urine Ketones (Negative) mg/dL Urine Blood (Negative) Urine Nitrite (Negative) Ur Leukocyte Esterase (Negative) <Rickie Scironenuto, MD - Last Filed: 10/27/22 00:27> ECG Data Attestation: I personally reviewed and interpreted this ECG as follows: <Rickie Ku MD - Last Filed: 10/27/22 00:27> Interpretation: 12/12/2023: Sinus rhythm with a first-degree AV block with [place] interval of 248 milliseconds, rate of 84, Q-wave lead 3 and AVF, no ST segment elevation, no ST segment depression, no T-wave abnormalities. <Rickie Ku MD - Last Filed: 10/27/22 00:27> Discharge Plan Discharge Clinical Impression: Abdominal pain, Nausea <Hortensia Stephens NP - Last Filed: 10/26/22 18:01> Patient Disposition: Home, Self-Care <Horetnsia Stephens NP - Last Filed: 10/26/22 18:01> Instructions: Abdominal Pain (ED) <Hortensia Stephens NP - Last Filed: 10/26/22 18:01> Additional Instructions: Your laboratory evaluation was unremarkable The CT scan of your abdomen pelvis with IV contrast did not reveal any clear cause for your abdominal pain which is reassuring. Take Prilosec (omeprazole) 20 mg pills, 1 pill once a day for 1 month. This medication shuts off your acid production and lets the inflammation in your stomach and esophagus heal. Take Zofran ODT 4 mg pills, 1 pill dissolved in your mouth every 8 hours as needed for nausea and vomiting. Continue taking medications as prescribed by your providers. Follow-up with your doctor in 2 days. Please return to the emergency department if your symptoms get worse or if you develop any symptoms that are concerning to you. <Hortensia Stephens NP - Last Filed: 10/26/22 18:01> Prescriptions: New omeprazole 20 mg capsule,delayed release(DR/EC) 20 mg PO DAILY 30 Days Qty: 30 0RF ondansetron 4 mg tablet,disintegrating 4 mg PO Q6-8H PRN (Reason: nausea and vomiting) Qty: 14 0RF No Action losartan 100 mg tablet 100 mg PO DAILY 90 Days Qty: 90 3RF nicotine 21 mg/24 hr patch 24 hour 1 patch transdermal DAILY 28 Days Qty: 28 0RF fluticasone propionate [Flonase Allergy Relief] 50 mcg/actuation spray,suspension 1 spray intranasal BID 30 Days Qty: 16 5RF Rx Instructions: administer into each nostril olanzapine 10 mg tablet 10 mg PO BEDTIME 90 Days Qty: 90 0RF oxycodone-acetaminophen [Percocet] 5-325 mg tablet 1 tab PO TID PRN (Reason: pain) 30 Days Qty: 90 0RF Rx Instructions: Partial refill permitted zolpidem 10 mg tablet 10 mg PO BEDTIME PRN (Reason: sleep) 30 Days Qty: 30 0RF omega-3 fatty acids 1 tab PO DAILY melatonin 5 mg capsule 5 mg PO BEDTIME amitriptyline 150 mg tablet 150 mg PO BEDTIME Stiolto Respimat 2.5-2.5 mcg/actuation mist 2 puff inhalation DAILY 30 Days Qty: 1 6RF <Hortensia Stephens BORDER GUARD - Last Filed: 10/26/22 18:01>
[2022-10-26 19:28] LABS: MANUAL DIFF FLAG NO
[2022-10-26 19:31] LABS: Basophils Absolute Auto 0.1 X10*3/uL (0.0-0.2); Basophils Percent Auto 0.5 % (0-2); Eosinophils Absolute Auto 0.2 X10*3/uL (0.0-0.4); Eosinophils Percent Auto 2.2 % (0-4); Hematocrit 42.3 % (42.0-52.0); Imm Gran Abs Auto 0.06 X10*3/uL (0.00-0.03); Imm Gran Pct Auto 0.6 % (0.0-0.4); Lymphocytes Absolute Auto 2.7 X10*3/uL (1.2-4.9); Lymphocytes Percent Auto 28.9 % (20-40); Mean Corpuscular HGB Conc 35.5 g/dl (31.0-36.0); Mean Corpuscular Hemoglobin 31.8 pg (27.0-33.0); Mean Corpuscular Volume 89.8 fL (80.0-98.0); Mean Platelet Volume 8.8 fL (9.4-12.4); Monocytes Absolute Auto 0.7 X10*3/uL (0.1-1.2); Monocytes Percent Auto 7.1 % (2-11); Neutrophils Absolute Auto 5.7 x10*3/uL (2.0-8.3); Neutrophils Percent Auto 60.7 % (45-73); Platelet Count 275 X10*3/uL (160-400); Red Blood Count 4.71 X10*6/uL (4.60-5.80); Red Cell Distribution Width 12.5 % (11.0-16.0); White Blood Count 9.4 X10*3/uL (4.8-10.8)
[2022-10-26 19:32] LABS: Appearance Urine Clear; Color Urine Yellow; Glucose Urine UA Negative (Negative); Leukocyte Esterase Urine Negative (Negative); Nitrite Urine Negative (Negative); PH 6.5 (5.0-9.0); Urine Blood Negative (Negative); Urine Ketones Negative (Negative); Urine Protein Trace mg/dL (Neg-Trace)
[2022-10-26 19:57] LABS: Alanine Aminotransferase 22 U/L (0-40); Albumin Level 4.6 g/dL (3.5-5.0); Alkaline Phosphatase 74 U/L (39-117); Anion Gap 9 (12-20); Aspartate Amino Transferase 23 U/L (5-37); Bilirubin Direct < 0.2 mg/dL (0.0-0.5); Bilirubin Total 0.3 mg/dL (0.0-1.0); Blood Urea Nitrogen 14 mg/dL (9-16); Calcium 9.5 mg/dL (8.4-10.2); Carbon Dioxide 25 mmol/L (22-29); Chloride 99 mmol/L (96-108); Creatinine Clr Calc Pharmacy 86.3; Estimated Glomerular Filt Rate > 60; Glucose Random 99 mg/dL (60-115); Lipase 12 U/L (8-78); Potassium 4.1 mmol/L (3.3-5.1); Sodium 129 mmol/L (135-145); Total Protein 7.6 g/dL (6.5-8.0)
--- NOTE | 2022-10-26 21:06 | ECG_ITS ---
Test Reason : CHEST PAIN Blood Pressure : / mmHG Vent. Rate : 084 BPM Atrial Rate : 084 BPM P-R Int : 248 ms QRS Dur : 070 ms QT Int : 362 ms P-R-T Axes : 000 -04 029 degrees QTc Int : 427 ms Sinus rhythm with 1st degree A-V block Low voltage QRS Inferior infarct , age undetermined Abnormal ECG When compared with ECG of 16-FEB-2021 14:38, No significant change was found Referred By: Rickie Ku Electronically Signed By:TIANA GEORGE MD
[2022-10-26 21:30] VITALS: BP 117/83; PULSE 83; RESP 18; TEMP 36.8; O2SAT 93
[2022-10-26] MEDS: Ketorolac Tromethamine 15 MG/ML VIAL IVPUSH (21:43)
[2022-10-26] MEDS: ondansetron HCL 4 MG/2 ML VIAL IVPUSH (21:44)
[2022-10-26] MEDS: 0.9 % Sodium Chloride 1,000 ML 999 ML IV (21:44)
[2022-10-26] MEDS: iohexoL 350 MG/ML 100 ML INFUS..BTL IV (22:19)
[2022-10-26] MEDS: Morphine Sulfate 4 MG/ML CARTRIDGE IVPUSH (22:55)
[2022-10-27] MEDS: diphenhydrAMINE HCL 50 MG/ML VIAL 25 MG IVPUSH (00:05)
[2022-10-27] MEDS: HYDROmorphone HCl 0.5 MG/0.5 ML SYRINGE IVPUSH (00:05)
== END 2022-10-27 00:57 | disposition home or self-care (01) ==
PROVIDERS: Nurse Practitioner Family; Emergency Provider Emergency Medicine Emergency Medical Services; PCP Internal Medicine
DX: R10.84 Generalized abdominal pain (principal); R07.89 Other chest pain; R10.12 Left upper quadrant pain; R10.31 Right lower quadrant pain; F17.210 Nicotine dependence, cigarettes, uncomplicated; Z71.6 Tobacco abuse counseling; Z79.899 Other long term (current) drug therapy
CPT/HCPCS: 36415; 74177; 80048; 80076; 81003; 83690; 84484; 85025; 93005; 96361; 96374; 96375; 99285; J1170; J1200; J1885; J2270; J2405; Q9967

== ENCOUNTER 2022-10-29 10:23 | Outpatient (REF) | payer OTHER, SELFPAY ==
[2022-10-29 12:11] LABS: Anion Gap 14 (12-20); Blood Urea Nitrogen 14 mg/dL (9-16); Carbon Dioxide 26 mmol/L (22-29); Chloride 101 mmol/L (96-108); Estimated Glomerular Filt Rate > 60; Potassium 4.3 mmol/L (3.3-5.1); Sodium 137 mmol/L (135-145)
== END 2022-10-29 10:24 | disposition home or self-care (01) ==
LOC: HO.HMGCLDS 10:23
PROVIDERS: PCP Internal Medicine; Visit Provider Internal Medicine
DX: E87.1 Hypo-osmolality and hyponatremia (principal)
CPT/HCPCS: 36415; 80051; 82565; 84520

== ENCOUNTER → 2023-04-01 14:18 | Outpatient (BNVA) | payer OTHER, SELFPAY | PROVIDERS: PCP Internal Medicine; Visit Provider Internal Medicine Pulmonary Disease | DX: J43.9 Emphysema, unspecified (principal); R91.8 Other nonspecific abnormal finding of lung field | CPT/HCPCS: 99212 ==

== ENCOUNTER 2023-05-06 09:53 | Outpatient (REF) | payer OTHER, SELFPAY ==
[2023-05-06 11:17] LABS: MANUAL DIFF FLAG NO
[2023-05-06 11:37] LABS: Basophils Percent Auto 0.6 % (0-2); Eosinophils Absolute Auto 0.2 X10*3/uL (0.0-0.4); Eosinophils Percent Auto 3.1 % (0-4); Hematocrit 43.4 % (42.0-52.0); Hemoglobin 14.7 g/dl (14.0-18.0); Imm Gran Abs Auto 0.03 X10*3/uL (0.00-0.03); Imm Gran Pct Auto 0.4 % (0.0-0.4); Lymphocytes Percent Auto 27.3 % (20-40); Mean Corpuscular HGB Conc 33.9 g/dl (31.0-36.0); Mean Corpuscular Hemoglobin 31.7 pg (27.0-33.0); Mean Corpuscular Volume 93.5 fL (80.0-98.0); Mean Platelet Volume 9.9 fL (9.4-12.4); Monocytes Absolute Auto 0.5 X10*3/uL (0.1-1.2); Monocytes Percent Auto 6.7 % (2-11); Neutrophils Absolute Auto 4.5 x10*3/uL (2.0-8.3); Neutrophils Percent Auto 61.9 % (45-73); Platelet Count 313 X10*3/uL (160-400); Red Blood Count 4.64 X10*6/uL (4.60-5.80); Red Cell Distribution Width 13.2 % (11.0-16.0); White Blood Count 7.2 X10*3/uL (4.8-10.8)
[2023-05-06 11:51] LABS: Estimated Average Glucose 117 mg/dL; Hemoglobin A1c % 5.7 %
[2023-05-06 12:06] LABS: Alanine Aminotransferase 28 U/L (0-40); Albumin Level 4.3 g/dL (3.5-5.0); Alkaline Phosphatase 64 U/L (39-117); Anion Gap 13 (12-20); Aspartate Amino Transferase 34 U/L (5-37); Bilirubin Total 0.7 mg/dL (0.0-1.0); Blood Urea Nitrogen 19 mg/dL (9-16); Calcium 9.4 mg/dL (8.4-10.2); Carbon Dioxide 25 mmol/L (22-29); Chloride 104 mmol/L (96-108); Cholesterol 195 mg/dL; Estimated Glomerular Filt Rate > 60; Glucose Fasting 116 mg/dL (60-99); HDL Cholesterol 41 mg/dL; LDL Cholesterol Calculated 104 mg/dl; Potassium 4.2 mmol/L (3.3-5.1); Sodium 138 mmol/L (135-145); Triglycerides 254 mg/dL
[2023-05-06 12:19] LABS: TSH reflex Free T4 1.11 uIU/mL (0.32-4.0)
== END 2023-05-06 09:54 | disposition home or self-care (01) ==
LOC: HO.HMGCLDS 09:53
PROVIDERS: PCP Internal Medicine; Visit Provider Internal Medicine
DX: E66.09 Other obesity due to excess calories (principal); I10 Essential (primary) hypertension; G47.9 Sleep disorder, unspecified; M54.50 Low back pain, unspecified; G89.29 Other chronic pain; F20.9 Schizophrenia, unspecified; G60.8 Other hereditary and idiopathic neuropathies; F11.20 Opioid dependence, uncomplicated; R73.01 Impaired fasting glucose
CPT/HCPCS: 36415; 80053; 80061; 83036; 84443; 85025

== ENCOUNTER 2023-07-03 10:31 | Outpatient (AMB) | payer OTHER, SELFPAY ==
--- NOTE | 2023-07-03 10:33 | A.OFFPC_ITS ---
Vital Signs 07/03/23 10:36 Height 5 ft 10 in Weight 234 lb 4 oz BMI 33.6 BP 128/82 Blood Pressure Location Rt brachial Position Sitting Pulse 82 Pulse Source Pulse Oximeter Pulse Oximetry (%) 70 L Oxygen Delivery Method Room Air Intake Visit Reasons: 2m follow up Allergies lisinopril [LISINOPRIL] Adverse Reaction (Unknown, Verified 07/03/23 10:35) COUGH Medication List - Last Reconciled 07/03/23 by Jayy Edmonds MD albuterol sulfate 90 mcg/actuation 2 puffs inhalation Q4-6H PRN 30 days amitriptyline 150 mg PO BEDTIME fluticasone propionate 50 mcg/actuation (Flonase Allergy Relief) 1 spray intranasal BID 30 days losartan 100 mg PO DAILY 90 days melatonin 5 mg PO BEDTIME nicotine 1 patch transdermal DAILY 28 days olanzapine 10 mg PO BEDTIME 90 days omega-3 fatty acids (Fish Oil Concentrate) 1 tab PO DAILY oxycodone-acetaminophen 5-325 mg (Percocet) 1 tab PO TID PRN 30 days pantoprazole 40 mg PO DAILY Stiolto Respimat 2.5-2.5 mcg/actuation (tiotropium-olodaterol) 2 puffs inhalation DAILY NS sucralfate 1 g PO BID PRN 30 days zolpidem 10 mg PO BEDTIME PRN 30 days Tobacco use date assessed: 07/03/23 Dental Screening Dental Screen Date: 07/03/23 Did you have a dental visit in the last 12 months?: Yes Did you have a dental problem in the last 6 months where you did not have access to dental care?: No Was dental information given to patient?: No HPI 2m follow up HPI0 Details Patient is 63-year-old gentleman came in today for his regular follow- up appointment Patient is complaining difficulty sleeping at night and then staying asleep. He says that he only sleeps for 4 hours and then he cannot fall back asleep. He is taking zolpidem at night. Patient have gained a lot of weight in past few months. When he stopped smoking I am ordering home sleep study to further evaluate the possibility of sleep apnea. He does complain of excessive daytime sleepiness and snoring at night Hypertension: patient is on losartan 100 mg tolerating medication no side effects.? Schizophrenia stable with Olnazapine 10 mg Patient is also on zolpidem 10 mg at night as a sleep aid.? These 2 medications were started by his psychiatrist and are now prescribed by me. Chronic back pain patient has seen pain management,? patient is taking amitriptyline 150 mg at night through Pain Management Along with oxycodone 1 tablet 3 times a day through PCP office Pain management contract up-to-date Peripheral neuropathy management through neurology Dr. Chance BMI is elevated patient is trying to lose weight Patient have single pulmonary nodule which has been stable, he is seeing Dr Carolina podiatric foot and ankle specialist Follow-up 2 months for medication refill Labs done recently reviewed with the patient hemoglobin A1c is normal [facility] Medical History Chronic lumbar pain Chronic pain syndrome Diabetes type 2, controlled Diabetic neuropathy Difficulty sleeping Hypertension, essential Nicotine addiction Other specified idiopathic peripheral neuropathy Schizophrenia Surgical History History of laparoscopic cholecystectomy History of repair of rotator cuff Status post laparoscopic cholecystectomy Family History Father No problems noted. Mother No problems noted. Social History Household Members: Family Housing: House Do you presently have visiting nurse or other home services: No Alcohol intake: never Patient Tobacco Use Status: Current everyday Tobacco user Cigarettes Per Day: 10 e-Cigarette/Vaping Use: Never Used service: No Current occupational status: unemployed Cognitive needs: No Hearing needs: No Vision needs: Yes Questionnaire PHQ-9 Over the last 2 weeks, how often have you been bothered by any of the following problems? 1. Little interest or pleasure in doing things: not at all 2. Feeling down, depressed, or hopeless: more than half the days 3. Trouble falling or staying asleep, or sleeping too much: several days 4. Feeling tired or having little energy: several days 5. Poor appetite or overeating: several days 6. Feeling bad about yourself - or that you are a failure or have let yourself or your family down: several days 7. Trouble concentrating on things, such as reading the newspaper or watching television: not at all 8. Moving or speaking so slowly that other people could have noticed. Or the opposite - being so fidgety or restless that you have been moving around a lot more than usual: not at all 9. Thoughts that you would be better off or of hurting yourself in some way: not at all Total score: 6 Depression Screening Interpretation: Negative 68858 - PHQ-9 Billing: Yes Source: Developed by Drs. Noel Correa, Jennifer Zhang, Delvin Pritchard and colleagues, with an educational óscar from [employer]. Thrive Questionnaire Date Thrive assessed: 07/03/23 I am a: Patient What is your living situation today?: I have a steady place to live Within the past 12 months, did the food you bought not last and you didn't have the money to get more?: Never true Within the past 12 months, did you worry whether your food would run out before you got money to buy more?: Never true Do you have trouble paying for medicines?: No Do you have trouble getting transportation to medical appointments?: No Do you have trouble paying your heating and electricity bill?: No Do you have trouble taking care of your child, family member or friend?: No Do you have trouble with day-to-day activities such as bathing, preparing meals, shopping, managing finances, etc.?: Yes Are you currently unemployed and looking for a job?: No Are you interested in more education?: No AUDIT C Alcohol Use Questionnaire (AUDIT-C) 1. How often do you have a drink containing alcohol?: Never 3. How often do you have six or more drinks on one occasion?: Never Total Score: 0 Score Reviewed/Action Taken: Yes VÍCTOR-7 AMB Questionnaire VÍCTOR-7 Date VÍCTOR - 7 assessed: 07/03/23 Feeling nervous, anxious, or on edge: 1 = Several days Not being able to stop or control worryin = Several days Worrying too much about different things: 1 = Several days Trouble relaxin = Not at all Being so restless that it is hard to sit still: 0 = Not at all Becoming easily annoyed or irritable: 0 = Not at all Feeling afraid as if something awful might happen: 0 = Not at all Total VÍCTOR-7 score (0-4 normal; 5-9 mild; 10-14 moderate; 15-21 severe): 3 Source: Developed by Drs. Noel Correa, Jennifer Zhang, Delvin Pritchard and colleagues, with an educational óscar from [employer]. VÍCTOR-7 Assessment Billing VÍCTOR-7 Assessment Tool: VÍCTOR-7 Assessment 45525 Review of Systems Const Denies chills and Denies fever(s) ENT Denies epistaxis and Denies nasal discharge Card Denies chest pain Resp Denies chest congestion, Denies cough and Denies hemoptysis GI Denies diarrhea and Denies nausea Skin/Breast Denies rash Neuro Reports no additional complaints Psych Reports no additional complaints Endo Reports no additional complaints Physical exam (Primary Care) Vital Signs: Last Vital Signs Pulse 82 07/03/23 10:36 BP 128/82 07/03/23 10:36 Pulse Ox 70 L 07/03/23 10:36 Oxygen Delivery Method Room Air 07/03/23 10:36 BMI result Body Mass Index 33.6 Tobacco/Smoking Status: Tobacco use Status Tobacco use date assessed 07/03/23 07/03/23 10:37 Patient Tobacco Use Status Current everyday Tobacco 07/03/23 10:34 e-Cigarette/Vaping Use Never Used 07/03/23 10:34 PHQ-9: PHQ-9 Score PHQ-9: Total score 6 07/03/23 10:55 Depression Screening Interpretation: Negative Thrive Assessment: Date of Thrive Assessment Date Thrive assessed 07/03/23 07/03/23 10:55 Const General: cooperative, comfortable and no acute distress Orientation/consciousness: patient oriented x3 HENMT Head: Yes normocephalic Eyes General: appearance normal, both eyes and all related structures Neck Neck: Yes supple Resp Effort & Inspection: normal respiratory effort, no cough and no stridor Cardio Rhythm: regular rhythm Heart sounds: S1 normal heart sound present and S2 normal heart sound present Skin General skin exam: turgor normal Neuro General: patient oriented x3, tone normal and moves all extremities Extrem Right lower extremity: no edema Left lower extremity: no edema Assessment and Plan Assessment & Plan (1) Trouble in sleeping: Code(s): G47.9 - Sleep disorder, unspecified (2) Snoring: Code(s): R06.83 - Snoring (3) Morbid obesity due to excess calories: Code(s): E66.01 - Morbid (severe) obesity due to excess calories (4) Daytime somnolence: Code(s): R40.0 - Somnolence (5) Chronic lumbar pain: Code(s): M54.5 - Low back pain; G89.29 - Other chronic pain Qualifiers: Back pain laterality: bilateral Sciatica laterality: bilateral sciatica Sciatica presence: with sciatica Qualified Code(s): M54.42 - Lumbago with sciatica, left side; M54.41 - Lumbago with sciatica, right side; G89.29 - Other chronic pain (6) Other specified idiopathic peripheral neuropathy: Code(s): G60.8 - Other hereditary and idiopathic neuropathies (7) Pain management: Code(s): R52 - Pain, unspecified (8) Narcotic dependence: Code(s): F11.20 - Opioid dependence, uncomplicated (9) Obesity due to excess calories: Code(s): E66.09 - Other obesity due to excess calories (10) Chronic GERD: Code(s): K21.9 - Gastro-esophageal reflux disease without esophagitis Plan Patient is 63-year-old gentleman came in today for his regular follow-up appointment Patient is complaining difficulty sleeping at night and then staying asleep. He says that he only sleeps for 4 hours and then he cannot fall back asleep. He is taking zolpidem at night. Patient have gained a lot of weight in past few months. When he stopped smoking I am ordering home sleep study to further evaluate the possibility of sleep apnea. He does complain of excessive daytime sleepiness and snoring at night Hypertension: patient is on losartan 100 mg tolerating medication no side effects.? Schizophrenia stable with Olnazapine 10 mg Patient is also on zolpidem 10 mg at night as a sleep aid.? These 2 medications were started by his psychiatrist and are now prescribed by me. Chronic back pain patient has seen pain management,? patient is taking amitriptyline 150 mg at night through Pain Management Along with oxycodone 1 tablet 3 times a day through PCP office Pain management contract up-to-date Peripheral neuropathy management through neurology Dr. Chance BMI is elevated patient is trying to lose weight Patient have single pulmonary nodule which has been stable, he is seeing Dr Carolina podiatric foot and ankle specialist Follow-up 2 months for medication refill Labs done recently reviewed with the patient hemoglobin A1c is normal Orders: Orders RT home sleep study Today E66.01 - Morbid (severe) obesity due to excess calories, G47.9 - Sleep disorder, unspecified, R06.83 - Snoring, R40.0 - Somnolence Coding Level of Care Code Est Pt Level 4 (09399) Diagnoses Trouble in sleeping G47.9 Snoring R06.83 Morbid obesity due to excess calories E66.01 Daytime somnolence R40.0 Chronic lumbar pain M54.42; M54.41; G89.29 Back pain laterality: bilateral Sciatica laterality: bilateral sciatica Sciatica presence: with sciatica Other specified idiopathic peripheral neuropathy G60.8 Pain management R52 Narcotic dependence F11.20 Obesity due to excess calories E66.09 Chronic GERD K21.9 Additional Codes VÍCTOR-7 Assessment Billing - VÍCTOR-7 Assessment Tool: VÍCTOR-7 Assessment [id number] ([id number])
[2023-07-03 10:36] VITALS: BP 128/82; PULSE 82; O2SAT 70; BMI 33.6
== END 2023-07-03 10:49 | disposition home or self-care (01) ==
PROVIDERS: PCP Internal Medicine; Visit Provider Internal Medicine
DX: G47.9 Sleep disorder, unspecified (principal); E66.09 Other obesity due to excess calories; Z68.33 Body mass index [BMI] 33.0-33.9, adult; I10 Essential (primary) hypertension
CPT/HCPCS: 99214

== ENCOUNTER 2023-07-09 14:56 | Outpatient (REF) | payer OTHER, SELFPAY ==
--- NOTE | ~2023-07-09 | CT_ITS ---
EXAMINATION: CT CHEST WITHOUT CONTRAST CLINICAL INFORMATION: Previous chest CT scans most recent March 2022 COMPARISON: Previous chest CT scans most recent March 2022 TECHNIQUE: Multidetector volumetric CT imaging of the chest was done. Axial MIP volume rendering provided. Sagittal and coronal reformatted images were obtained. This CT examination was performed using dose optimization techniques as appropriate, variously including the following: *Automated exposure control *Adjustment of mA and/or kV according to patient size (this includes techniques or standardized protocols for targeted exams where dose is matched to indication/reason for exam; i.e. extremities or head) *Use of iterative reconstruction technique DLP: 225 mGy-cm FINDINGS: LUNGS: Emphysema. Stable pulmonary nodules. Largest pulmonary nodules are a 5 mm calcified left upper lobe nodule adjacent to the fissure axial image 81 series 5 and 4 mm noncalcified peripheral or subpleural right upper lobe nodule adjacent to the minor fissure axial image 382 series 5. No new pulmonary nodule. Chronic scarring or subsegmental atelectasis at the lung bases. MEDIASTINUM: Diffuse wall thickening of the esophagus. Appearance is questionable for esophagitis. No enlarged hilar or mediastinal lymph nodes. Upper normal-size ascending thoracic aorta. No aneurysm. Small mediastinal lymph nodes. No enlarged lymph nodes. CORONARY ARTERY CALCIFICATION: Mild PLEURA: There is no pleural effusion. No pleural mass or thickening. AXILLA: No lymphadenopathy. UPPER ABDOMEN: Unremarkable. OSSEOUS STRUCTURES: Degenerative changes of the spine. CT/CT chest wo IV con IMPRESSION: Emphysema. Stable small pulmonary nodules. According to the UPDATED 2017 Fleischner Society recommendations, the advised follow-up imaging for solid nodules < 6 mm is: LOW RISK PATIENT: No routine follow-up. HIGH RISK PATIENT: Optional CT at 12 months. Nodules are stable at this time, no additional chest CT follow-up recommended. Pulmonary nodules are stable going back to multiple old chest CT scans greater than one year and according to Fleischner criteria, no additional chest CT follow-up would be recommended. Wall thickening of the thoracic esophagus suggestive of esophagitis. Again this can be seen on prior exams. Correlation with endoscopy should be considered. Fleischner guidelines were followed.
== END 2023-07-09 14:57 | disposition home or self-care (01) ==
LOC: HO.CT 14:56
PROVIDERS: PCP Internal Medicine; Visit Provider Internal Medicine Pulmonary Disease
DX: R91.8 Other nonspecific abnormal finding of lung field (principal)
CPT/HCPCS: 71250

== ENCOUNTER 2023-07-13 12:33 | Emergency (ER) | payer OTHER, SELFPAY ==
--- NOTE | ~2023-07-13 | CT_ITS ---
EXAMINATION: CT CHEST, ABDOMEN AND PELVIS WITH CONTRAST. CLINICAL INFORMATION: Chest pain and abdominal pain. COMPARISON: CT chest 07/09/2023. CT chest 09/09/2017. CT abdomen/pelvis 10/26/2022. TECHNIQUE: Multidetector volumetric imaging was performed from the thoracic inlet through the pubic symphysis following administration of 85 mL Omnipaque 350 intravenous contrast. Sagittal and coronal reformatted images were obtained on the technologist's workstation. This CT examination was performed using dose optimization techniques as appropriate, variously including the following: *Automated exposure control *Adjustment of mA and/or kV according to patient size (this includes techniques or standardized protocols for targeted exams where dose is matched to indication/reason for exam; i.e. extremities or head) *Use of iterative reconstruction technique DLP: 214 mGy-cm FINDINGS: CHEST: Lung: Increased dependent streaky opacities with associated groundglass attenuation, for instance as identified in the right lung base, image 355 series 17. A 0.3 cm perifissural nodule along the right minor fissure (17:283) is unchanged since 2017, favoring to represent a lymph node. Redemonstration of a calcified granuloma in the left upper lobe (17:154). A 0.3 cm solid pulmonary nodule in the lingula (17:312) is unchanged compared to 09/09/2017, its stability is reassuring. Background of emphysematous changes with mild diffuse bronchial wall thickening and scattered areas of intrabronchial mucous secretions, not significantly changed compared to most recent prior from 07/09/2023. Mediastinum: Normal heart size. No pericardial effusion. Coronary artery calcifications are noted. Prominent right hilar lymph nodes measuring up to 1 cm in short axis are unchanged compared to 09/09/2017. No new or enlarging lymphadenopathy. Normal thyroid gland. Diffuse esophageal wall thickening. Pericardium/Pleura: No pleural effusion. No pleural mass or thickening. No pneumothorax. Chest Wall/Axilla: No lymphadenopathy by size criteria. ABDOMEN/PELVIS: Peritoneal Space: No free air or free fluid. Liver, Gallbladder, Biliary Tree: Decreased attenuation of liver parenchyma suggesting hepatic steatosis. Otherwise, liver is normal in size and shape without discrete new focal lesion. Cholecystectomy with stable mild intra and extrahepatic biliary ductal dilatation compared to 10/26/2022. Pancreas: No significant peripancreatic fat stranding/free fluid. No main ductal dilatation. Spleen: Unremarkable. Adrenal Glands: Unremarkable. Kidneys and Ureters: The kidneys are normal in size, shape, and attenuation. No hydronephrosis, hydroureter, or calculi seen. No perinephric stranding. Bladder: Unremarkable. Gastrointestinal Tract: Esophageal wall thickening. The stomach and the small bowel are nondilated. Normal appendix. Chronic submucosal fatty deposition of the descending colon. No significant pericolonic fat stranding or free fluid. Evaluation of colonic wall thickening is limited due to underdistention. Abdominal Wall: No significant hernia is appreciated. Lymphovascular Structures: No lymphadenopathy by size criteria. Abdominal aorta is normal in caliber. Pelvic Viscera: Unremarkable. Osseous Structures: Stable mild superior compression deformity at S1. Degenerative changes of the spine. Right humeral head surgical anchors. CT/CT abdomen pelvis w IV con IMPRESSION: 1. Increased streaky opacities in the dependent portions of the lungs with associated groundglass attenuation, most likely related with subsegmental atelectasis and air trapping, and less likely an early infiltrate or aspiration in the appropriate clinical context. 2. Severe diffuse circumferential esophageal wall thickening, correlate clinically for reflux disease/esophagitis. If not recently obtained for evaluation with outpatient upper endoscopy is recommended. 3. Hepatic steatosis. 4. Chronic submucosal fatty deposition of the descending colon which could be seen in the setting of an underlying chronic inflammatory bowel disease. No significant pericolonic fat stranding or free fluid to suspect acute colitis or diverticulitis. No bowel obstruction. 5. A 0.3 cm pulmonary nodule in the lingula is unchanged dating back to 2017, which is reassuring. No imaging follow-up recommended.
--- NOTE | ~2023-07-13 | CT_ITS ---
EXAMINATION: CT HEAD WITHOUT CONTRAST CLINICAL INFORMATION: Headaches for one week, right eye ecchymosis. COMPARISON: None. TECHNIQUE: Contiguous axial imaging was performed from the skull base to vertex without intravenous administration of contrast. This CT examination was performed using dose optimization techniques as appropriate, variously including the following: *Automated exposure control *Adjustment of mA and/or kV according to patient size (this includes techniques or standardized protocols for targeted exams where dose is matched to indication/reason for exam; i.e. extremities or head) *Use of iterative reconstruction technique DLP: 651 mGy-cm FINDINGS: Age indeterminate hypodensities in the right greater than left striatocapsular regions. There is no evidence of acute intracranial hemorrhage or edematous territorial infarction. A few foci of hypoattenuation in the periventricular and deep white matter are consistent with mild microangiopathy. Proportional prominence of the ventricles and sulcal spaces. No evidence for obstructive hydrocephalus. No abnormal mass effect or midline shift. No extra-axial fluid collections. No acute soft tissue or osseous abnormalities. Multifocal retention cysts in the paranasal sinuses. Partial opacification of several ethmoid air cells as well as right frontal sinus. The mastoids and middle ear cavities are clear. CT/CT head/brain wo IV con IMPRESSION: 1. Age indeterminate hypodensities in the right greater than left striatocapsular regions. If an acute cerebrovascular accident is suspected, further evaluation with an MRI of the brain is recommended. 2. No evidence of acute intracranial hemorrhage or edematous territorial infarction. 3. Paranasal sinus disease.
[2023-07-13 13:27] VITALS: BP 138/99; PULSE 73; RESP 18; TEMP 36.9; O2SAT 97; BMI 33.0
--- NOTE | 2023-07-13 13:31 | ED.GENADULT ---
HPI - General Adult General Chief complaint: General Medical Stated complaint: eye probems Time Seen by Provider: 07/13/23 16:05 Source: patient Mode of arrival: ambulatory Limitations: no limitations History of Present Illness HPI narrative: 63 year old male history of schizophrenia, GERD, EMphysema, and HTN presents to the ED for multiple complaints such as bruising on the right eye, intermittent headache for 1 week and lower abdominal pain for 1 week. Patient states this morning he woke up with bruising under his right eye. Patient denies any trauma to his eye or head, nausea, vomiting, ear pain, fluid from ears, fever, chills, or any change/loss of vision. Patient's secondary complaint headache for 1 week. Patient denies any slurred speech, facial droop, loss of vision, any paralysis of extremities. Patient denies any neck stiffness. Patient denies any photophobia. Patient states lower abdominal pain for 1 week without any genitourinary symptoms. Patient denies any scrotal/testicular pain. Patient denies any penile discharge penile lesions. Patient denies any recent unprotected sexual activity. Patient also states chronic lower extremity pain not getting better with Percocet. Patient denies any lower extremity trauma, redness, swelling, tingling, numbness, or calf tenderness. Related Data Home Medications Medication Instructions Recorded Confirmed melatonin 5 mg capsule 5 mg PO BEDTIME 10/08/20 07/03/23 omega-3 fatty acids [Fish Oil 1 tab PO DAILY 10/08/20 07/03/23 Concentrate] amitriptyline 150 mg tablet 150 mg PO BEDTIME 03/07/22 07/03/23 Previous Rx's Medication Instructions Recorded nicotine 21 mg/24 hr daily 1 patch transdermal DAILY 28 days 07/22/22 transdermal patch #28 ea fluticasone propionate 50 1 spray intranasal BID 30 days #16 01/23/23 mcg/actuation nasal grams spray,suspension (Flonase Allergy Relief) sucralfate 1 gram tablet 1 g PO BID PRN heart burn 30 days 02/27/23 #60 tabs pantoprazole 40 mg tablet,delayed 40 mg PO DAILY #90 tabs 03/03/23 release Stiolto Respimat 2.5 mcg-2.5 2 puff inhalation DAILY #4 grams 03/26/23 mcg/actuation solution for inhalation (tiotropium-olodaterol) albuterol sulfate 90 mcg/actuation 2 puff inhalation Q4-6H PRN 04/01/23 aerosol inhaler shortness of breath or wheezing 30 days #1 ea losartan 100 mg tablet 100 mg PO DAILY 90 days #90 tabs 05/04/23 olanzapine 10 mg tablet 10 mg PO BEDTIME 90 days #90 tabs 06/23/23 oxycodone-acetaminophen 5 mg-325 1 tab PO TID PRN pain 30 days #90 06/26/23 mg tablet (Percocet) tabs zolpidem 10 mg tablet 10 mg PO BEDTIME PRN sleep 30 days 06/26/23 #30 tabs naproxen 500 mg tablet 500 mg PO BID PRN pain #14 tabs 07/13/23 Allergies Allergy/AdvReac Type Severity Reaction Status Date / Time lisinopril [LISINOPRIL] AdvReac Unknown COUGH Verified 07/03/23 10:35 Review of Systems Review of Systems: ecchymosis under right eye, headache, abdominal pain Yes all other systems are reviewed and are negative [facility] Past Medical History Medical History Chronic lumbar pain Chronic pain syndrome Diabetes type 2, controlled Diabetic neuropathy Difficulty sleeping Hypertension, essential Nicotine addiction Other specified idiopathic peripheral neuropathy Schizophrenia Surgical History History of laparoscopic cholecystectomy History of repair of rotator cuff Status post laparoscopic cholecystectomy Family History Family History Father No problems noted. Mother No problems noted. Social History Social History Household Members: Family Housing: House Do you presently have visiting nurse or other home services: No Alcohol intake: never Patient Tobacco Use Status: Current everyday Tobacco user Cigarettes Per Day: 10 Smoked in Last 30 Days: Yes e-Cigarette/Vaping Use: Never Used Use of substances other than those prescribed or required for medical reasons: No Advance Directives: No Advance Directives Information Provided: Yes service: No Current occupational status: unemployed Cognitive needs: No Hearing needs: No Vision needs: Yes Physical Exam ED Vital Signs: Vital Signs - 24 hr 07/13/23 13:27 Temperature 98.4 F Pulse Rate 73 Respiratory Rate 18 Blood Pressure 138/99 H Pulse Oximetry 97 Oxygen Delivery Method Room Air BMI result Body Mass Index 33.0 Const General: cooperative, healthy appearing, comfortable, no acute distress, well developed, alert and awake Orientation/consciousness: oriented to person, oriented to place, oriented to time and patient oriented x3 [facility] Head: Yes normal to inspection, Yes No palpable skull fracture present, Yes normocephalic, Yes atraumatic and No abrasion Ears: hearing grossly normal bilaterally, external ears normal, TM's normal bilaterally, TM normal on the right, TM normal on the left, EAC's normal, mastoids normal and no periauricular adenopathy Face and sinus: Yes normal facial exam and Yes sinuses nontender Mouth: Normal oral and palatal mucosa present, lip normal and tongue normal Throat: Yes posterior oropharynx normal, Yes tonsils normal and Yes uvula midline Eyes General: appearance normal, both eyes and all related structures Visual Barajas: normal visual barajas by confrontation Alignment and Position: alignment normal Periorbital: periorbital findings normal Eyelids: Yes eyelids normal Conjunctivae: conjunctivae normal Sclerae: sclerae normal Corneas: corneas normal Pupils: Equal, round and reactive pupils present EOM: EOMs intact bilaterally Eyes/upper lids images: 1. Positive for ecchymosis on palpation without any tenderness or crepitus. Negative for photophobia. Eye muscles on movement intact. Sclera, conjunctiva, and cornea normal Neck Neck: Yes normal visual inspection, Yes full ROM, Yes no lymphadenopathy, Yes no meningeal signs, Yes trachea midline, Yes supple, No anterior neck swelling and No tender Chest Chest palpation & inspection: normal inspection of the chest and normal palpation of entire chest wall Resp Effort & Inspection: normal respiratory effort and able to speak in complete sentences Auscultation: clear to auscultation bilaterally Cardio Jugular venous distension: no JVD Heart sounds: S1 normal heart sound present and S2 normal heart sound present GI Inspection: Yes normal to inspection and No abdominal wall ecchymosis Palpation (GI): Soft to palpation, not firm, Tenderness to palpation present (GI) in the RLQ and periumbilically, no guarding and not rigid General: No CVA tenderness and Yes no CVA tenderness Back/Spine/Pelvis Back: no CVA tenderness, No CVA tenderness and No back tenderness Skin General skin exam: no rashes or lesions noted, elasticity normal and turgor normal Neuro General: oriented to person, oriented to place, oriented to time, patient oriented x3, gait normal, tone normal, moves all extremities, Normal light touch and pain sensation, no meningeal signs, no focal motor deficits, CN's II-XI intact bilaterally and normal sensation to monofilament Cranial nerves: Yes Equal, round and reactive pupils present Extrem Other: Bilateral lower extremity negative for swelling, crepitus, ecchymosis, deformity, pain edema, or calf tenderness. Motor/nerve/vascular exam of lower extremities intact. Psych Appearance: grossly normal, well kempt and not disheveled Course Course Course Narrative: This is an RME: Additional HPI, ROS, PE not included below will be deferred to primary provider. This is a [id number]-male, hx of hypertension, schizophrenia, and diabetes, presenting to the emergency department with multiple complaints. Patient reports that he woke up with bruising underneath his right eye. Denies any recent trauma or injury. [age] is chronically his Percocet that he typically gets prescribed to him is no longer working. Complaining of intermittent headaches and generalized abdominal pain. He is able to eat and drink without difficulty. Vital signs within normal limits. Plan: Basic labs, further emergency room evaluation Medications Administered Discontinued Medications Generic Name Dose Route Start Last Admin Trade Name Armandoq PRN Reason Stop Dose Admin Iohexol 100 ml 07/13/23 18:12 07/13/23 18:12 Iohexol 350 Mg/Ml 100 Ml Infus..Btl IV 07/13/23 18:13 85 ml ONCE ONE Administration Medical Decision Making Medical Decision Making [facility] Narrative: 63-year-old male history schizophrenia presents to ED headache for 1 week, bruising on the right eye from this morning, lower abdominal pain for 1 week, and chronic lower extremity pain not getting better with Percocet. Patient had initial labs drawn earlier in the ER. Due to diabetes and patient states slight chest pain earlier in the day and staying abdominal pain EKG and troponin was ordered. Patient was sent for abdominal CT scan due to lower abdominal tenderness. Due to patient having ecchymosis below right eye without any trauma and having headache for 1 week patient was sent for head CT scanning showed no bleed. Chest CT sent for pneumonia. NIH score 0. negative neuro deficits. patient denies pleurisy, recent long travel, or recent surgery. 9:03pm: Patient head CT scan came back negative for any acute infarcts or brain bleed. Chest CT negative for rib fracture, pnuemothorax, hemothorax. Chest CT shows ground-glass indicates most likely atelectasis history of pneumonia. Patient has no URI symptoms. Not suspect pneumonia. Abdominal CT scan shows esophagitis chronic bowel inflammatory disease. Patient given copies of images and told to follow-up. Patient made aware head CT hypodensitites changes and told to follow up with neurology to see if patient should be on protective aspirin. Patient alert oriented x3 and not in any distress. Patient presently denies any pain and wants to be discharged. patient presesntly asymptomatic. Differential Diagnosis Differential Diagnoses: The differential diagnosis associated with the presentation includes (Brain bleed, myocardial infarction, appendicitis, colitis, UTI, pneumonia. PE, stroke) Admission/Observation Consideration of admission/observation: Escalation of care including admission/observation considered Lab Data MDM Lab Attestation statement: I reviewed the patient's lab results. 07/13/23 13:48 07/13/23 13:48 Labs: Lab Results 07/13/23 07/13/23 07/13/23 Range/Units 13:48 13:48 16:39 WBC 7.7 (4.8-10.8) X10*3/uL RBC 4.40 L (4.60-5.80) X10*6/uL Hgb 14.1 (14.0-18.0) g/dl Hct 39.9 L (42.0-52.0) % MCV 90.7 (80.0-98.0) fL MCH 32.0 (27.0-33.0) pg MCHC 35.3 (31.0-36.0) g/dl RDW 12.9 (11.0-16.0) % Plt Count 235 (160-400) X10*3/uL MPV 9.0 L (9.4-12.4) fL Immature Gran % (Auto) 0.4 (0.0-0.4) % Neut % (Auto) 58.9 (45-73) % Lymph % (Auto) 29.2 (20-40) % [place] % (Auto) 9.0 (2-11) % Eos % (Auto) 2.2 (0-4) % Baso % (Auto) 0.3 (0-2) % Lymph # (Auto) 2.2 (1.2-4.9) X10*3/uL [place] # (Auto) 0.7 (0.1-1.2) X10*3/uL Eos # (Auto) 0.2 (0.0-0.4) X10*3/uL Baso # (Auto) 0.0 (0.0-0.2) X10*3/uL Abs Immat Gran (auto) 0.03 (0.00-0.03) X10*3/uL Absolute Neuts (auto) 4.5 (2.0-8.3) x10*3/uL Absolute Nucleated RBC 0.000 (0.0-0.012) X10*3/uL Nucleated RBC % (auto) 0.0 (0.0-0.2) /100WBC PT (11.1-13.3) SEC INR (0.9-1.1) APTT (26.0-36.4) SEC Sodium 137 (135-145) mmol/L Potassium 4.0 (3.3-5.1) mmol/L Chloride 105 (96-108) mmol/L Carbon Dioxide 23 (22-29) mmol/L Anion Gap 13 (12-20) BUN 15 (9-16) mg/dL Creatinine 0.90 (0.5-1.4) mg/dL Estim Creat Clear Calc 104.2 Estimated GFR > 60 Random Glucose 108 (60-115) mg/dL Calcium 8.9 (8.4-10.2) mg/dL Magnesium 2.4 (1.6-2.6) mg/dL Total Bilirubin 0.3 (0.0-1.0) mg/dL Direct Bilirubin 0.1 (0.0-0.5) mg/dL AST 17 (5-37) U/L ALT 19 (0-40) U/L Alkaline Phosphatase 62 (39-117) U/L Troponin I High Sens (<3.5-35.0) ng/L Total Protein 7.2 (6.5-8.0) g/dL Albumin 4.1 (3.5-5.0) g/dL Lipase 17 (8-78) U/L Urine Color Yellow Urine Appearance Clear Urine pH 7.0 (5.0-9.0) Ur Specific Cross 1.020 (1.005-1.025) Urine Protein Negative (Neg-Trace) mg/dL Urine Glucose (UA) Negative (Negative) mg/dL Urine Ketones Negative (Negative) mg/dL Urine Blood Negative (Negative) Urine Nitrite Negative (Negative) Ur Leukocyte Esterase Negative (Negative) 07/13/23 07/13/23 07/13/23 Range/Units 16:44 16:44 20:11 WBC (4.8-10.8) X10*3/uL RBC (4.60-5.80) X10*6/uL Hgb (14.0-18.0) g/dl Hct (42.0-52.0) % MCV (80.0-98.0) fL MCH (27.0-33.0) pg MCHC (31.0-36.0) g/dl RDW (11.0-16.0) % Plt Count (160-400) X10*3/uL MPV (9.4-12.4) fL Immature Gran % (Auto) (0.0-0.4) % Neut % (Auto) (45-73) % Lymph % (Auto) (20-40) % [place] % (Auto) (2-11) % Eos % (Auto) (0-4) % Baso % (Auto) (0-2) % Lymph # (Auto) (1.2-4.9) X10*3/uL [place] # (Auto) (0.1-1.2) X10*3/uL Eos # (Auto) (0.0-0.4) X10*3/uL Baso # (Auto) (0.0-0.2) X10*3/uL Abs Immat Gran (auto) (0.00-0.03) X10*3/uL Absolute Neuts (auto) (2.0-8.3) x10*3/uL Absolute Nucleated RBC (0.0-0.012) X10*3/uL Nucleated RBC % (auto) (0.0-0.2) /100WBC PT 11.2 (11.1-13.3) SEC INR 0.9 (0.9-1.1) APTT 30.5 (26.0-36.4) SEC Sodium (135-145) mmol/L Potassium (3.3-5.1) mmol/L Chloride (96-108) mmol/L Carbon Dioxide (22-29) mmol/L Anion Gap (12-20) BUN (9-16) mg/dL Creatinine (0.5-1.4) mg/dL Estim Creat Clear Calc Estimated GFR Random Glucose (60-115) mg/dL Calcium (8.4-10.2) mg/dL Magnesium (1.6-2.6) mg/dL Total Bilirubin (0.0-1.0) mg/dL Direct Bilirubin (0.0-0.5) mg/dL AST (5-37) U/L ALT (0-40) U/L Alkaline Phosphatase (39-117) U/L Troponin I High Sens 3.2 < 2.7 (<3.5-35.0) ng/L Total Protein (6.5-8.0) g/dL Albumin (3.5-5.0) g/dL Lipase (8-78) U/L Urine Color Urine Appearance Urine pH (5.0-9.0) Ur Specific Cross (1.005-1.025) Urine Protein (Neg-Trace) mg/dL Urine Glucose (UA) (Negative) mg/dL Urine Ketones (Negative) mg/dL Urine Blood (Negative) Urine Nitrite (Negative) Ur Leukocyte Esterase (Negative) Independent Interpretation I performed an independent interpretation of an: EKG (Sinus ryhtym with 1st degree AV bloc. Vent rate 64, AR 274, QRS 80 and QTC 416. negative stemi) and CT Scan Radiology Impression Discussion of test interpretation with radiology: I have reviewed the radiologist's reading. External Record Review External record reviewed: Other (Prior ED visit) Prescription Management I considered prescription management with: Other Discharge Plan Discharge Clinical Impression: Abdominal pain, Headache, Ecchymosis, Chronic leg pain Patient Disposition: Home, Self-Care Instructions: Chronic Pain (ED), Acute Headache (ED), Abdominal Pain (ED), Leg Pain (ED) Additional Instructions: Your head CT scan came back negative for brain bleed or acute stroke. Abdominal CT scan showed chronic bowel inflammatory disease and esophagitis. Return to the ED immediately for any worsening headache, loss of vision in right eye, worsening bruising/ecchymosis of right eye, redness of eye, fever, chills, abdominal pain, chest pain, shortness of breath, back pain, bloody urine, blood in stool, dizziness, or any other concerning symptoms. UA given copy of images please follow-up with your primary care provider and also neurologist. Prescriptions: New naproxen 500 mg tablet 500 mg PO BID PRN (Reason: pain) Qty: 14 0RF No Action nicotine 21 mg/24 hr patch 24 hour 1 patch transdermal DAILY 28 Days Qty: 28 0RF fluticasone propionate [Flonase Allergy Relief] 50 mcg/actuation spray,suspension 1 spray intranasal BID 30 Days Qty: 16 5RF Rx Instructions: administer into each nostril sucralfate 1 gram tablet 1 g PO BID PRN (Reason: heart burn) 30 Days Qty: 60 2RF Stiolto Respimat 2.5-2.5 mcg/actuation mist 2 puff inhalation DAILY Qty: 4 0RF losartan 100 mg tablet 100 mg PO DAILY 90 Days Qty: 90 0RF olanzapine 10 mg tablet 10 mg PO BEDTIME 90 Days Qty: 90 0RF zolpidem 10 mg tablet 10 mg PO BEDTIME PRN (Reason: sleep) 30 Days Qty: 30 0RF oxycodone-acetaminophen [Percocet] 5-325 mg tablet 1 tab PO TID PRN (Reason: pain) 30 Days Qty: 90 0RF Rx Instructions: Partial refill permitted omega-3 fatty acids 1 tab PO DAILY melatonin 5 mg capsule 5 mg PO BEDTIME pantoprazole 40 mg tablet,delayed release (DR/EC) 40 mg PO DAILY Qty: 90 0RF amitriptyline 150 mg tablet 150 mg PO BEDTIME albuterol sulfate 90 mcg/actuation HFA aerosol inhaler 2 puff inhalation Q4-6H PRN (Reason: shortness of breath or wheezing) 30 Days Qty: 1 6RF Stand Alone Forms: Work/School Release Interventions: ED Discharge Assessment Last Done: 07/13/23 21:48 Discharge Date/Time: 07/13/23 21:49 Print Language: [place]
[2023-07-13 13:54] LABS: MANUAL DIFF FLAG NO
[2023-07-13 14:01] LABS: Basophils Percent Auto 0.3 % (0-2); Eosinophils Absolute Auto 0.2 X10*3/uL (0.0-0.4); Eosinophils Percent Auto 2.2 % (0-4); Hematocrit 39.9 % (42.0-52.0); Hemoglobin 14.1 g/dl (14.0-18.0); Imm Gran Abs Auto 0.03 X10*3/uL (0.00-0.03); Imm Gran Pct Auto 0.4 % (0.0-0.4); Lymphocytes Absolute Auto 2.2 X10*3/uL (1.2-4.9); Lymphocytes Percent Auto 29.2 % (20-40); Mean Corpuscular HGB Conc 35.3 g/dl (31.0-36.0); Mean Corpuscular Volume 90.7 fL (80.0-98.0); Monocytes Absolute Auto 0.7 X10*3/uL (0.1-1.2); Neutrophils Absolute Auto 4.5 x10*3/uL (2.0-8.3); Neutrophils Percent Auto 58.9 % (45-73); Platelet Count 235 X10*3/uL (160-400); Red Cell Distribution Width 12.9 % (11.0-16.0); White Blood Count 7.7 X10*3/uL (4.8-10.8)
[2023-07-13 14:11] LABS: Alanine Aminotransferase 19 U/L (0-40); Albumin Level 4.1 g/dL (3.5-5.0); Alkaline Phosphatase 62 U/L (39-117); Anion Gap 13 (12-20); Aspartate Amino Transferase 17 U/L (5-37); Bilirubin Direct 0.1 mg/dL (0.0-0.5); Bilirubin Total 0.3 mg/dL (0.0-1.0); Blood Urea Nitrogen 15 mg/dL (9-16); Calcium 8.9 mg/dL (8.4-10.2); Carbon Dioxide 23 mmol/L (22-29); Chloride 105 mmol/L (96-108); Creatinine Clr Calc Pharmacy 104.2; Estimated Glomerular Filt Rate > 60; Glucose Random 108 mg/dL (60-115); Lipase 17 U/L (8-78); Magnesium 2.4 mg/dL (1.6-2.6); Sodium 137 mmol/L (135-145); Total Protein 7.2 g/dL (6.5-8.0)
--- NOTE | 2023-07-13 16:21 | ECG_ITS ---
Test Reason : ABD PAIN Blood Pressure : / mmHG Vent. Rate : 064 BPM Atrial Rate : 064 BPM P-R Int : 274 ms QRS Dur : 080 ms QT Int : 404 ms P-R-T Axes : 006 -01 026 degrees QTc Int : 416 ms Sinus rhythm with 1st degree A-V block Otherwise normal ECG When compared with ECG of 26-OCT-2022 21:24, No significant change was found Referred By: Everett Heaton Electronically Signed By:SHANITA ROMANO
--- NOTE | 2023-07-13 16:27 | PC.NURSE ---
PT a&ox3. respirations even and unlabored. skin warm pink and dry. pt reports having lower abdominal pain and a headache for one week. abdomen soft but tender to touch in the left and right lower quadrants. pt woke up this morning with a small bruise under the right eye. pt nuero assessment in tact. pt reports no chest pain or n/v.
[2023-07-13 16:54] LABS: Appearance Urine Clear; Color Urine Yellow; Glucose Urine UA Negative (Negative); Leukocyte Esterase Urine Negative (Negative); Nitrite Urine Negative (Negative); Urine Blood Negative (Negative); Urine Ketones Negative (Negative); Urine Protein Negative (Neg-Trace)
[2023-07-13 17:00] LABS: INTERNATIONAL NORM RATIO 0.9 (0.9-1.1); Prothrombin Time 11.2 SEC (11.1-13.3)
[2023-07-13 17:03] LABS: Partial Thromboplastin Time 30.5 SEC (26.0-36.4)
[2023-07-13 17:14] LABS: Troponin-I High Sensitivity 3.2 ng/L (<3.5-35.0)
[2023-07-13] MEDS: iohexoL 350 MG/ML 100 ML INFUS..BTL IV (18:12)
[2023-07-13 20:54] LABS: Troponin-I High Sensitivity < 2.7 ng/L (<3.5-35.0)
== END 2023-07-13 21:49 | disposition home or self-care (01) ==
PROVIDERS: Physician Assistant; Physician Assistant Medical; Emergency Provider Emergency Medicine
DX: S05.11XA Contusion of eyeball and orbital tissues, right eye, initial encounter (principal); H57.11 Ocular pain, right eye; R10.30 Lower abdominal pain, unspecified; M79.605 Pain in left leg; M79.604 Pain in right leg; R10.2 Pelvic and perineal pain; R94.31 Abnormal electrocardiogram [ECG] [EKG]; R51.9 Headache, unspecified; X58.XXXA Exposure to other specified factors, initial encounter; M54.6 Pain in thoracic spine; Y93.9 Activity, unspecified; Y92.9 Unspecified place or not applicable; Y99.9 Unspecified external cause status; Z79.899 Other long term (current) drug therapy
CPT/HCPCS: 36415; 70450; 71260; 74177; 80048; 80076; 81003; 83690; 83735; 84484; 85025; 85610; 85730; 93005; 99284; Q9967

== ENCOUNTER 2023-08-05 08:03 | Day surgery (SDC) | payer OTHER, SELFPAY ==
--- NOTE | 2023-08-04 11:53 | HO.ANESPROP2 ---
Documented by User: Sherrill Irene NP 08/04/23 11:55 HPI - Anesthesia Eval Consult details Narrative: 63yo M for Upper Endoscopy and Colonoscopy [facility] Active Problems Active Problems: All Active Problems (Updated 08/04/23 @ 09:41 by Sarah Busby RN) Daytime somnolence (Acute) Morbid obesity due to excess calories (Acute) Snoring (Acute) Trouble in sleeping (Acute) Chronic GERD (Acute) Generalized abdominal pain (Acute) Hospital discharge follow-up (Acute) Hyponatremia (Acute) Rhinitis (Acute) Sinusitis (Acute) Change in mole (Acute) History of tobacco abuse (Acute) Emphysema lung (Acute) Multiple lung nodules on CT (Acute) Nasal congestion (Acute) Shortness of breath (Acute) Lung nodule (Acute) Impaired fasting blood sugar (Acute) Obesity due to excess calories (Acute) Pain management (Acute) Narcotic dependence (Acute) Status post laparoscopic cholecystectomy (Acute) Chronic pain syndrome (Acute) Diabetic neuropathy (Acute) Other specified idiopathic peripheral neuropathy (Acute) Schizophrenia (Acute) Hypertension, essential (Acute) Difficulty sleeping (Acute) Chronic lumbar pain (Acute) Past Medical History Medical History (Updated 08/05/23 @ 09:26 by Sarah Busby RN) Old cerebral infarct without residual deficit COPD (chronic obstructive pulmonary disease) Asthma Nicotine addiction Diabetes type 2, controlled Chronic pain syndrome Diabetic neuropathy Other specified idiopathic peripheral neuropathy Schizophrenia Hypertension, essential Difficulty sleeping Chronic lumbar pain Family History Family History Father No problems noted. Mother No problems noted. Surgical History Surgical History Status post laparoscopic cholecystectomy History of laparoscopic cholecystectomy History of repair of rotator cuff Social History Social History Household Members: Family Housing: House Do you presently have visiting nurse or other home services: No Alcohol intake: never Patient Tobacco Use Status: Former Tobacco user Tobacco use type: Cigarette Cigarettes Per Day: 10 e-Cigarette/Vaping Use: Never Used Use of substances other than those prescribed or required for medical reasons: No Are you DNR?: No Advance Directives: No Advance Directives Information Provided: Yes Recently lost weight without trying: Yes How much weight loss: 34pounds or more Nutrition Risks: No Nutritional Risk service: No Current occupational status: unemployed Cognitive needs: No Hearing needs: No Vision needs: Yes Meds Allergies Allergy/AdvReac Type Severity Reaction Status Date / Time lisinopril [LISINOPRIL] AdvReac Unknown COUGH Verified 07/03/23 10:35 Home Medications Medication Instructions Recorded Confirmed Last Taken Type melatonin 5 mg capsule 5 mg PO BEDTIME 10/08/20 07/03/23 1 Day Ago History ~02/15/21 omega-3 fatty acids [Fish Oil 1 tab PO DAILY 10/08/20 07/03/23 1 Day Ago History Concentrate] ~02/15/21 amitriptyline 150 mg tablet 150 mg PO BEDTIME 03/07/22 07/03/23 Unknown History Exam Exam Date and Time: August 04, 2023 1153 Pertinent Lab Results Pertinent Lab Results: Laboratory Tests 07/13/23 13:48 WBC 7.7 Hgb 14.1 Hct 39.9 L Plt Count 235 Sodium 137 Potassium 4.0 Chloride 105 Carbon Dioxide 23 BUN 15 Creatinine 0.90 Narrative Narrative: EKG 06/2023 Vent. Rate : 064 BPM Atrial Rate : 064 BPM P-R Int : 274 ms QRS Dur : 080 ms QT Int : 404 ms P-R-T Axes : 006 -01 026 degrees QTc Int : 416 ms Sinus rhythm with 1st degree A-V block Otherwise normal ECG When compared with ECG of 26-OCT-2022 21:24, No significant change was found Assessment and Plan Assessment Anesthesia Assessment: Chart Reviewed Documented by User: Ian Falcon MD 08/05/23 18:01 HPI - Anesthesia Eval Consult details Narrative: 63yo M for Upper Endoscopy and Colonoscopy h/o Stroke [facility] Past Medical History Medical History (Updated 08/05/23 @ 09:26 by Sarah Busby RN) Old cerebral infarct without residual deficit COPD (chronic obstructive pulmonary disease) Asthma Nicotine addiction Diabetes type 2, controlled Chronic pain syndrome Diabetic neuropathy Other specified idiopathic peripheral neuropathy Schizophrenia Hypertension, essential Difficulty sleeping Chronic lumbar pain Functional capacity: independent ambulation Family History Family History Father No problems noted. Mother No problems noted. Family history of problems with anesthesia: No Surgical History Surgical History Status post laparoscopic cholecystectomy History of laparoscopic cholecystectomy History of repair of rotator cuff History of Problems with Anesthesia: No Social History Social History Household Members: Family Housing: House Do you presently have visiting nurse or other home services: No Alcohol intake: never Patient Tobacco Use Status: Former Tobacco user Tobacco use type: Cigarette Cigarettes Per Day: 10 e-Cigarette/Vaping Use: Never Used Use of substances other than those prescribed or required for medical reasons: No Are you DNR?: No Advance Directives: No Advance Directives Information Provided: Yes Recently lost weight without trying: Yes How much weight loss: 34pounds or more Nutrition Risks: No Nutritional Risk service: No Current occupational status: unemployed Cognitive needs: No Hearing needs: No Vision needs: Yes Meds Allergies Allergy/AdvReac Type Severity Reaction Status Date / Time lisinopril [LISINOPRIL] AdvReac Unknown COUGH Verified 07/03/23 10:35 Home Medications Medication Instructions Recorded Confirmed Last Taken Type melatonin 5 mg capsule 5 mg PO BEDTIME 10/08/20 07/03/23 1 Day Ago History ~02/15/21 omega-3 fatty acids [Fish Oil 1 tab PO DAILY 10/08/20 07/03/23 1 Day Ago History Concentrate] ~02/15/21 amitriptyline 150 mg tablet 150 mg PO BEDTIME 03/07/22 07/03/23 Unknown History Exam Airway Mallampati Class: IV Loose/Missing/Broken Teeth: Yes Assessment and Plan Assessment Anesthesia Assessment: Anesthesia Plan Discussed Final Anesthetic Review Family History of Problems with Anesthesia: No History of Problems with Anesthesia: No NPO: Yes ASA Class: III Final Preanesthetic Review: Meds/Allgs Chart Reviewed, Consent Obtained/Reviewed and Anes Risks/Benef Reviewed Patient Risk: Intermediate Procedure Risk: Intermediate Anesthetic Plan Anesthetic Plan: MAC: and Agree w/ Assess. and Plan Disposition: Standard PACU
[2023-08-05 09:27] VITALS: BMI 30.8
[2023-08-05 09:35] VITALS: BP 121/79; PULSE 92; RESP 16; TEMP 36.1; O2SAT 97
[2023-08-05] MEDS: Lactated Ringers 1,000 ML 100 ML IVCONT (09:47)
[2023-08-05 11:34] VITALS: BP 107/73; PULSE 95; RESP 16; TEMP 36.4; O2SAT 97
--- NOTE | 2023-08-05 11:34 | PM.OP ---
Brief Operative Note Date of Service: 08/05/23 Pre-op diagnosis: Vincent's, Screening Post-op diagnosis: other (Erosive duodenitis, Erosive gastritis, Hiatal hernia, Vincent's, Colon polyps) Procedure: EGD with biopsies, Colonoscopy to the cecum with hot snare polypectomy x 3(only 2 recovered) Surgeon: Noel Agosto Anesthesia: MAC Was an Application Support Intern used for this Procedure?: No Estimated blood loss (mL): 2.0 Pathology: other (A. Polyp at 60cm B. Polyp at 40cm C. Gastric antrum D. EG Junction at 39cm) Condition: stable Disposition: PACU
[2023-08-05 11:49] VITALS: BP 125/84; PULSE 73; RESP 16; TEMP 36.1; O2SAT 97
--- NOTE | 2023-08-06 01:57 | OP_ITS ---
DATE OF SERVICE: 08/05/2023 SURGEON: Noel Agosto MD INDICATIONS: The patient presents for evaluation of gastroesophageal reflux with associated Vincent's esophagus, abdominal pain, and colorectal cancer screening. Full consent was obtained from him for both procedures, including risks of bleeding and perforation. PREOPERATIVE DIAGNOSIS: POSTOPERATIVE DIAGNOSIS: PROCEDURE PERFORMED: ESTIMATED BLOOD LOSS: COMPLICATIONS: ANESTHESIA: Monitored anesthesia care. ASSISTANTS: SPECIMENS: PREOPERATIVE DIAGNOSES: Gastroesophageal reflux, Vincent's esophagus, colorectal cancer screening, abdominal pain. POSTOPERATIVE DIAGNOSES: Gastroesophageal reflux, Vincent's esophagus, colorectal cancer screening, abdominal pain, erosive duodenitis, erosive gastritis, hiatal hernia, colon polyps, diverticulosis, internal hemorrhoids. PROCEDURES PERFORMED: Esophagogastroduodenoscopy with biopsies and colonoscopy to the cecum with hot snare polypectomy x 3. DESCRIPTION OF PROCEDURE: The patient was placed in the left lateral decubitus position. A digital rectal exam revealed no abnormalities other than some small external hemorrhoids. The Olympus video pediatric colonoscope was entered into the rectum and advanced to the cecum. Advancement to the cecum was somewhat difficult. Once in the cecum, I did identify normal-appearing cecal pouch with appendiceal orifice, and a normal-appearing ileocecal valve. The entire cecum was well visualized and appeared normal. Scope was then slowly withdrawn assessing all mucosal surfaces carefully. For the most part preparation was very good throughout the colon, although there was some areas of liquid stool, which had to be suctioned and removed. At 60 cm were 2 approximately 8 mm polyps. Both of these were snared and removed. Both polypectomy sites appeared clean, without any sign of residual polyp nor bleeding. Only one of the polyps was recovered by suction. At 40 cm was an approximately 8 mm polyp, which was removed by hot snare polypectomy and recovered by suction. The polypectomy site appeared clean, without any sign of residual polyp nor bleeding. I did not visualize any other polyps, colitis, or angiodysplasia. There was a mild amount of sigmoid diverticulosis. In the rectum, scope was retroflexed, visualizing internal hemorrhoids, but no other pathology. The rectal mucosa appeared normal. The scope was straightened and withdrawn from the patient. He was turned around for the upper endoscopy. The Olympus video gastroscope was passed in the posterior oropharynx and upper esophagus under direct vision. The scope was passed slowly to the distal esophagus. The gastroesophageal junction appeared at 39 cm. This area was notable for a small patch of Vincent's appearing mucosa at the gastroesophageal junction at 39 cm. There was no associated lesion nor inflammation. There was no esophagitis. The scope was entered in the stomach. There was a small to moderate-sized hiatal hernia noted. The scope was advanced to the pylorus and the duodenum was cannulated to the descending portion. The duodenum including the bulb was carefully inspected and was notable for multiple erosions both in the duodenal bulb and in the 2nd and 3rd portions of the duodenum. There was no mass, significant ulceration, nor bleeding. The scope was withdrawn back to the stomach. The gastric antrum also had areas of erosive gastritis, erythema, and edema. There were no discrete ulcerations. There was good peristalsis. Multiple biopsies were obtained from the gastric antrum. The scope was retroflexed visualizing the proximal stomach carefully, which appeared normal, without any sign of mass or ulceration. The scope was straightened and withdrawn back to the esophagus. Biopsies were obtained at the gastroesophageal junction, in the region of Vincent's mucosa. The scope was withdrawn through the remainder of the esophagus, which appeared normal. The scope was withdrawn from the patient. He tolerated both procedures well and was returned to recovery area in stable condition. IMPRESSION: 1. Erosive duodenitis and erosive gastritis. 2. History of Vincent's esophagus. 3. Hiatal hernia. 4. Colon polyps. 5. Diverticulosis. 6. Internal hemorrhoids. PLAN: The results of the pathology will be checked. Assuming there is no dysplasia within the Vincent's esophagus, I would recommend a repeat upper endoscopy in 3 years. I would recommend a repeat colonoscopy in 5 years for further screening as well. He was advised not to use any aspirin nor NSAIDs on a long-term basis, given the findings in regard to the upper GI tract. Given his ongoing symptoms of abdominal discomfort and the upper endoscopy findings, I am going to increase his pantoprazole to 40 mg twice a day. I have also given him a new prescription for sucralfate to use 3 times a day before meals. If H. Pylori is present in the gastric biopsies I would recommend treating that as well. If things improve from a clinical standpoint in regard to the abdominal pain then I do not think we need another followup upper endoscopy. However, I would recommend a repeat upper endoscopy in 3 years for followup of the Vincent esophagus. I have recommended a repeat colonoscopy in 5 years. He will be given appointment to see me again later in the year as well. He was advised to call sooner if need be. This has all been discussed with his in detail. MD DIEGO Alexander/MAO / [phone] MTDKiley
== END 2023-08-05 12:45 | disposition home or self-care (01) ==
PROVIDERS: PCP Internal Medicine; Visit Provider Internal Medicine
PROC: (CPT 45385; principal; 2023-08-05 09:30)
DX: Z12.11 Encounter for screening for malignant neoplasm of colon (principal); D12.4 Benign neoplasm of descending colon; D12.5 Benign neoplasm of sigmoid colon; K57.30 Diverticulosis of large intestine without perforation or abscess without bleeding; K64.8 Other hemorrhoids; K22.70 Barrett's esophagus without dysplasia; K21.9 Gastro-esophageal reflux disease without esophagitis; K29.50 Unspecified chronic gastritis without bleeding; K29.80 Duodenitis without bleeding; K44.9 Diaphragmatic hernia without obstruction or gangrene; J44.9 Chronic obstructive pulmonary disease, unspecified; I10 Essential (primary) hypertension; E11.40 Type 2 diabetes mellitus with diabetic neuropathy, unspecified; Z79.51 Long term (current) use of inhaled steroids; Z79.899 Other long term (current) drug therapy; Z88.8 Allergy status to other drugs, medicaments and biological substances; Z87.891 Personal history of nicotine dependence; Z90.49 Acquired absence of other specified parts of digestive tract
CPT/HCPCS: 45385; 43239; 88305; 88342

== ENCOUNTER 2023-08-11 11:26 | Outpatient (REF) | payer OTHER, SELFPAY ==
[2023-08-11 12:57] LABS: Erythrocyte Sedimentation Rate 7 MM/HR (0-15)
== END 2023-08-11 11:27 | disposition home or self-care (01) ==
LOC: HO.LAB 11:26
PROVIDERS: PCP Internal Medicine; Visit Provider Psychiatry & Neurology Neurology
DX: G44.209 Tension-type headache, unspecified, not intractable (principal)
CPT/HCPCS: 36415; 85652

== ENCOUNTER → 2023-08-25 14:48 | Outpatient (REF) | payer OTHER, SELFPAY | LOC: HO.SL 14:48 | PROVIDERS: PCP Internal Medicine; Visit Provider Internal Medicine | DX: G47.33 Obstructive sleep apnea (adult) (pediatric) (principal); R06.83 Snoring; E66.01 Morbid (severe) obesity due to excess calories | CPT/HCPCS: 95806 ==

== ENCOUNTER → 2023-08-25 15:13 | Outpatient (BNV) | payer OTHER, SELFPAY | PROVIDERS: PCP Internal Medicine; Visit Provider Internal Medicine | DX: G47.33 Obstructive sleep apnea (adult) (pediatric) (principal) | CPT/HCPCS: 95806 ==

== ENCOUNTER 2023-09-04 11:47 | Outpatient (AMB) | payer OTHER, SELFPAY ==
[2023-09-04 11:54] VITALS: BP 122/88; PULSE 103; O2SAT 97; BMI 31.9
--- NOTE | 2023-09-04 11:54 | A.OFFPC_ITS ---
Vital Signs 09/04/23 11:54 Height 5 ft 10 in Weight 222 lb 8 oz BMI 31.9 BP 122/88 Blood Pressure Location Lt brachial Position Sitting Pulse 103 H Pulse Source Pulse Oximeter Pulse Oximetry (%) 97 Oxygen Delivery Method Room Air Intake Visit Reasons: 2m follow up Allergies lisinopril [LISINOPRIL] Adverse Reaction (Unknown, Verified 09/04/23 11:56) COUGH Medication List - Last Reconciled 09/04/23 by Jayy Edmonds MD albuterol sulfate 90 mcg/actuation 2 puffs inhalation Q4-6H PRN 30 days amitriptyline 150 mg PO BEDTIME dicyclomine mg PO fluticasone propionate 50 mcg/actuation (Flonase Allergy Relief) 1 spray intranasal BID 30 days losartan 100 mg PO DAILY 90 days melatonin 5 mg PO BEDTIME naproxen 500 mg PO BID PRN olanzapine 10 mg PO BEDTIME 90 days omega-3 fatty acids (Fish Oil Concentrate) 1 tab PO DAILY oxycodone-acetaminophen 5-325 mg (Percocet) 1 tab PO TID PRN 30 days pantoprazole 40 mg PO DAILY Stiolto Respimat 2.5-2.5 mcg/actuation (tiotropium-olodaterol) 2 puffs inhalation DAILY NS sucralfate 1 g PO BID PRN 30 days zolpidem 10 mg PO BEDTIME PRN 30 days Tobacco use date assessed: 09/04/23 Dental Screening Dental Screen Date: 09/04/23 Did you have a dental visit in the last 12 months?: No Did you have a dental problem in the last 6 months where you did not have access to dental care?: No Was dental information given to patient?: Patient declined HPI 2m follow up HPI Details Patient is 63-year-old gentleman came in today for his regular follow- up appointment Patient is complaining of difficulty urinating and frequency urination We wanted to do UA today but he could not providers with the sample. UA ordered to be done tomorrow patient is also due for urine drug screening. Or luis armando placed Complaining of pain left ear for the past 2 weeks, on examination he has edema of here cannot and tympanic membrane , I will be treating him with amoxicillin for 5 days Also instructed patient to stop using Q-tips in the ear Hypertension: patient is on losartan 100 mg tolerating medication no side effects.? Schizophrenia stable with Olnazapine 10 mg Patient is also on zolpidem 10 mg at night as a sleep aid.? These 2 medications were started by his psychiatrist and are now prescribed by me. Chronic back pain patient has seen pain management,? patient is taking amitriptyline 150 mg at night through Pain Management Along with oxycodone 1 tablet 3 times a day through PCP office Pain management contract up-to-date Peripheral neuropathy management through neurology Dr. Chance BMI is elevated patient is trying to lose weight Patient have single pulmonary nodule which has been stable, he is seeing Dr Carolina retail pos specialist Follow-up 2 months for medication refill [facility] Medical History Old cerebral infarct without residual deficit COPD (chronic obstructive pulmonary disease) Asthma Nicotine addiction Diabetes type 2, controlled Chronic pain syndrome Diabetic neuropathy Other specified idiopathic peripheral neuropathy Schizophrenia Hypertension, essential Difficulty sleeping Chronic lumbar pain Surgical History History of laparoscopic cholecystectomy History of repair of rotator cuff Status post laparoscopic cholecystectomy Family History Father No problems noted. Mother No problems noted. Social History Household Members: Family Housing: House Do you presently have visiting nurse or other home services: No Alcohol intake: never Patient Tobacco Use Status: Former Tobacco user Tobacco use type: Cigarette Cigarettes Per Day: 10 e-Cigarette/Vaping Use: Never Used service: No Current occupational status: unemployed Cognitive needs: No Hearing needs: No Vision needs: Yes Questionnaire Thrive Questionnaire Date Thrive assessed: 07/03/23 AUDIT C Alcohol Use Questionnaire (AUDIT-C) 1. How often do you have a drink containing alcohol?: Never 3. How often do you have six or more drinks on one occasion?: Never Total Score: 0 Score Reviewed/Action Taken: Yes VÍCTOR-7 AMB Questionnaire VÍCTOR-7 Date VÍCTOR - 7 assessed: 07/03/23 Source: Developed by Drs. Noel Correa, Jennifer Zhang, Delvin Pritchard and colleagues, with an educational óscar from [employer]. Review of Systems Const Denies chills and Denies fever(s) ENT Denies epistaxis and Denies nasal discharge Card Denies chest pain Resp Denies chest congestion, Denies cough and Denies hemoptysis GI Denies diarrhea and Denies nausea Skin/Breast Denies rash Neuro Reports no additional complaints Psych Reports no additional complaints Endo Reports no additional complaints Physical exam (Primary Care) Vital Signs: Last Vital Signs Pulse 103 H 09/04/23 11:54 BP 122/88 09/04/23 11:54 Pulse Ox 97 09/04/23 11:54 Oxygen Delivery Method Room Air 09/04/23 11:54 BMI result Body Mass Index 31.9 Tobacco/Smoking Status: Tobacco use Status Tobacco use date assessed 09/04/23 09/04/23 11:59 Patient Tobacco Use Status Former Tobacco user 09/04/23 11:59 Tobacco use type Cigarette 09/04/23 11:59 e-Cigarette/Vaping Use Never Used 09/04/23 11:59 Thrive Assessment: Date of Thrive Assessment Date Thrive assessed 07/03/23 09/04/23 11:59 Const General: cooperative, comfortable and no acute distress Orientation/consciousness: patient oriented x3 HENMT Other: Left ear canal and tympanic membrane inflamed Head: Yes normocephalic Eyes General: appearance normal, both eyes and all related structures Neck Neck: Yes supple Resp Effort & Inspection: normal respiratory effort, no cough and no stridor Cardio Rhythm: regular rhythm Heart sounds: S1 normal heart sound present and S2 normal heart sound present GI Other: Bowel sound positive, mild suprapubic discomfort with deep pressure Skin General skin exam: turgor normal Neuro General: patient oriented x3, tone normal and moves all extremities Extrem Right lower extremity: no edema Left lower extremity: no edema Assessment and Plan Assessment & Plan (1) Difficulty urinating: Code(s): R39.198 - Other difficulties with micturition (2) Trouble in sleeping: Code(s): G47.9 - Sleep disorder, unspecified (3) Other specified idiopathic peripheral neuropathy: Code(s): G60.8 - Other hereditary and idiopathic neuropathies (4) Narcotic dependence: Code(s): F11.20 - Opioid dependence, uncomplicated (5) Infection of left ear: Code(s): H66.92 - Otitis media, unspecified, left ear (6) Morbid obesity due to excess calories: Code(s): E66.01 - Morbid (severe) obesity due to excess calories (7) Chronic lumbar pain: Code(s): M54.5 - Low back pain; G89.29 - Other chronic pain Qualifiers: Back pain laterality: bilateral Sciatica laterality: bilateral sciatica Sciatica presence: with sciatica Qualified Code(s): M54.42 - Lumbago with sciatica, left side; M54.41 - Lumbago with sciatica, right side; G89.29 - Other chronic pain (8) Pain management: Code(s): R52 - Pain, unspecified (9) Chronic GERD: Code(s): K21.9 - Gastro-esophageal reflux disease without esophagitis (10) Frequency of urination: Code(s): R35.0 - Frequency of micturition Plan Patient is 63-year-old gentleman came in today for his regular follow-up appointment Patient is complaining of difficulty urinating and frequency urination We wanted to do UA today but he could not providers with the sample. UA ordered to be done tomorrow patient is also due for urine drug screening. Order placed Complaining of pain left ear for the past 2 weeks, on examination he has edema of here cannot and tympanic membrane , I will be treating him with amoxicillin for 5 days Also instructed patient to stop using Q-tips in the ear Hypertension: patient is on losartan 100 mg tolerating medication no side effects.? Schizophrenia stable with Olnazapine 10 mg Patient is also on zolpidem 10 mg at night as a sleep aid.? These 2 medications were started by his psychiatrist and are now prescribed by me. Chronic back pain patient has seen pain management,? patient is taking amitriptyline 150 mg at night through Pain Management Along with oxycodone 1 tablet 3 times a day through PCP office Pain management contract up-to-date Peripheral neuropathy management through neurology Dr. Chance BMI is elevated patient is trying to lose weight Patient have single pulmonary nodule which has been stable, he is seeing Dr Carolina retail pos specialist Follow-up 2 months for medication refill Orders: Orders Opiates GCMS Expanded, Ur Today F11.20 - Opioid dependence, uncomplicated, R35.0 - Frequency of micturition, R39.198 - Other difficulties with micturition, R52 - Pain, unspecified Drug Screen Urine Today F11.20 - Opioid dependence, uncomplicated, R35.0 - Frequency of micturition, R39.198 - Other difficulties with micturition, R52 - Pain, unspecified UA CC w/rflx Micro + Cult Today F11.20 - Opioid dependence, uncomplicated, R35.0 - Frequency of micturition, R39.198 - Other difficulties with micturition, R52 - Pain, unspecified Referrals Urology Referral R39.198 - Other difficulties with micturition Medications: New amoxicillin 875 mg PO BID 14 tabs 0RF 7 days tamsulosin 0.4 mg PO BEDTIME 90 caps 0RF Refilled zolpidem 10 mg PO BEDTIME PRN 30 tabs 0RF sleep 30 days G47.9 - Sleep disorder, unspecified oxycodone-acetaminophen 5-325 mg (Percocet) Partial refill permitted 1 tab PO TID PRN 90 tabs 0RF pain 30 days F11.20 - Opioid dependence, uncomplicated, G89.29 - Other chronic pain, M54.41 - Lumbago with sciatica, right side, M54.42 - Lumbago with sciatica, left side, R52 - Pain, unspecified Coding Level of Care Code Est Pt Level 4 (65071) Diagnoses Difficulty urinating R39.198 Trouble in sleeping G47.9 Other specified idiopathic peripheral neuropathy G60.8 Narcotic dependence F11.20 Infection of left ear H66.92 Morbid obesity due to excess calories E66.01 Chronic bilateral low back pain with bilateral sciatica M54.42; M54.41; G89.29 Back pain laterality: bilateral Sciatica laterality: bilateral sciatica Sciatica presence: with sciatica Pain management R52 Chronic GERD K21.9 Frequency of urination R35.0
== END 2023-09-04 12:32 | disposition home or self-care (01) ==
PROVIDERS: PCP Internal Medicine; Visit Provider Internal Medicine
DX: R39.198 Other difficulties with micturition (principal); F11.20 Opioid dependence, uncomplicated; E66.01 Morbid (severe) obesity due to excess calories; Z68.31 Body mass index [BMI] 31.0-31.9, adult; G47.9 Sleep disorder, unspecified; G60.8 Other hereditary and idiopathic neuropathies; H66.92 Otitis media, unspecified, left ear; M54.42 Lumbago with sciatica, left side; M54.41 Lumbago with sciatica, right side; G89.29 Other chronic pain; K21.9 Gastro-esophageal reflux disease without esophagitis; R35.0 Frequency of micturition
CPT/HCPCS: 99214

== ENCOUNTER 2023-09-07 10:53 | Outpatient (REF) | payer OTHER, SELFPAY ==
[2023-09-07 13:29] LABS: Appearance Urine Clear; Color Urine Yellow; Glucose Urine UA Negative (Negative); Leukocyte Esterase Urine Negative (Negative); Nitrite Urine Negative (Negative); Specific Gravity - Urine <= 1.005 (1.005-1.025); Urine Blood Negative (Negative); Urine Ketones Negative (Negative); Urine Protein Negative (Neg-Trace)
[2023-09-07 13:54] LABS: Amphetamine Screen Urine Not Detected (Not Detect); Barbiturates, Urine Not Detected (Not Detect); Benzodiazepines Screen Urine Not Detected (Not Detect); Cannabinoid Screen Urine Not Detected (Not Detect); Cocaine Screen Urine Not Detected (Not Detect); Fentanyl, urine Not Detected (Not Detect); Opiate Screen Urine Not Detected (Not Detect); Phencyclidine Screen Urine Not Detected (Not Detect)
[2023-09-14 13:02] LABS: Norhydrocodone, Ur NEGATIVE
[2023-09-14 13:03] LABS: Codeine, Ur NEGATIVE; Hydrocodone, Ur NEGATIVE; Hydromorphone, Ur NEGATIVE; Morphine, Ur NEGATIVE
== END 2023-09-07 10:54 | disposition home or self-care (01) ==
LOC: HO.HMGCLDS 10:53
PROVIDERS: PCP Internal Medicine; Visit Provider Internal Medicine
DX: F11.20 Opioid dependence, uncomplicated (principal); R52 Pain, unspecified; R39.198 Other difficulties with micturition; R35.0 Frequency of micturition
CPT/HCPCS: 80307; 80365; 81003; G0480

== ENCOUNTER 2023-09-22 09:16 | Outpatient (REF) | payer OTHER, SELFPAY ==
[2023-09-22 11:10] LABS: MANUAL DIFF FLAG NO
[2023-09-22 11:19] LABS: Basophils Percent Auto 0.5 % (0-2); Eosinophils Absolute Auto 0.3 X10*3/uL (0.0-0.4); Eosinophils Percent Auto 4.1 % (0-4); Hematocrit 40.6 % (42.0-52.0); Hemoglobin 13.9 g/dl (14.0-18.0); Imm Gran Abs Auto 0.03 X10*3/uL (0.00-0.03); Imm Gran Pct Auto 0.5 % (0.0-0.4); Lymphocytes Absolute Auto 1.8 X10*3/uL (1.2-4.9); Lymphocytes Percent Auto 27.2 % (20-40); Mean Corpuscular HGB Conc 34.2 g/dl (31.0-36.0); Mean Corpuscular Hemoglobin 31.7 pg (27.0-33.0); Mean Corpuscular Volume 92.5 fL (80.0-98.0); Mean Platelet Volume 9.5 fL (9.4-12.4); Monocytes Absolute Auto 0.5 X10*3/uL (0.1-1.2); Monocytes Percent Auto 8.2 % (2-11); Neutrophils Percent Auto 59.5 % (45-73); Platelet Count 277 X10*3/uL (160-400); Red Blood Count 4.39 X10*6/uL (4.60-5.80); Red Cell Distribution Width 12.8 % (11.0-16.0); White Blood Count 6.6 X10*3/uL (4.8-10.8)
[2023-09-22 11:46] LABS: Alanine Aminotransferase 18 U/L (0-40); Albumin Level 4.2 g/dL (3.5-5.0); Alkaline Phosphatase 78 U/L (39-117); Amylase 28 U/L (28-100); Anion Gap 15 (12-20); Aspartate Amino Transferase 22 U/L (5-37); Bilirubin Direct 0.1 mg/dL (0.0-0.5); Bilirubin Total 0.3 mg/dL (0.0-1.0); Blood Urea Nitrogen 11 mg/dL (9-16); C Reactive Protein 0.48 mg/dL (< or = 0.50); Carbon Dioxide 26 mmol/L (22-29); Chloride 103 mmol/L (96-108); Estimated Glomerular Filt Rate > 60; Glucose Random 111 mg/dL (60-115); Lipase 16 U/L (8-78); Sodium 140 mmol/L (135-145); Total Protein 7.4 g/dL (6.5-8.0)
[2023-09-22 11:55] LABS: Erythrocyte Sedimentation Rate 11 MM/HR (0-15)
== END 2023-09-22 09:17 | disposition home or self-care (01) ==
LOC: HO.HMGCLDS 09:16
PROVIDERS: PCP Internal Medicine; Visit Provider Internal Medicine
DX: R10.84 Generalized abdominal pain (principal)
CPT/HCPCS: 36415; 80051; 80076; 82150; 82565; 82947; 83690; 84520; 85025; 85652; 86140

== ENCOUNTER 2023-10-06 10:44 | Outpatient (AMB) | payer OTHER, SELFPAY ==
[2023-10-06 10:47] VITALS: BP 108/66; PULSE 99; O2SAT 97; BMI 31.2
--- NOTE | 2023-10-06 10:47 | A.OFFVIS_ITS ---
Intake Vital Signs 10/06/23 10:47 Height 5 ft 10 in Weight 217 lb 2.485 oz BMI 31.2 BP 108/66 Blood Pressure Location Rt brachial Position Sitting Pulse 99 Pulse Source Doppler Pulse Oximetry (%) 97 Oxygen Delivery Method Room Air Intake Visit Reasons: Emphysema Allergies No Known Allergies Allergy (Verified 10/06/23 10:49) HPI Emphysema HPI Details 62-year-old gentleman, active 35+ pack-y ear smoker, now followed for for underlying moderate COPD and pulmonary nodules.? He has been using Stiolto with good baseline control. Denies any recent exacerbations. Does complain of significant GERD symptoms not controlled on PPI. [facility] Medical History Old cerebral infarct without residual deficit COPD (chronic obstructive pulmonary disease) Asthma Nicotine addiction Diabetes type 2, controlled Chronic pain syndrome Diabetic neuropathy Other specified idiopathic peripheral neuropathy Schizophrenia Hypertension, essential Difficulty sleeping Chronic lumbar pain Surgical History History of laparoscopic cholecystectomy History of repair of rotator cuff Status post laparoscopic cholecystectomy Family History Father No problems noted. Mother No problems noted. Social History (Updated 10/06/23 @ 10:51 by Mireille Cervantes Martin) Household Members: Family Housing: House Do you presently have visiting nurse or other home services: No Alcohol intake: never Patient Tobacco Use Status: Current someday Tobacco user Tobacco use type: Cigarette Cigarettes Per Day: 3 e-Cigarette/Vaping Use: Never Used service: No Current occupational status: unemployed Cognitive needs: No Hearing needs: No Vision needs: Yes Review of Systems Const Denies daytime sleepiness, Denies excessive sweating, Denies fatigue, Denies fever(s), Denies lethargy, Denies malaise, Denies night sweats, Denies snoring and Denies weight loss Eyes Denies blurry vision and Denies itchy eyes ENT Denies nasal congestion, Denies post nasal drip, Denies sinus pain, Denies sinus pressure and Denies other ( Thrush) Card Denies chest pain, Denies pedal edema, Denies dyspnea, Denies orthopnea and Denies paroxysmal nocturnal dyspnea Resp Denies cough, Denies hemoptysis, Denies excessive phlegm production, Denies d yspnea, Denies snoring and Denies wheezing GI Denies abdominal pain and Reports heartburn Musc Denies myalgias, Denies arthralgias and Denies joint swelling Skin/Breast Denies rash Neuro Denies memory loss and Denies seizure-like activity Psych Denies abnormal sleep pattern, Denies anxiety and Denies memory loss Endo Denies excessive sweating, Denies fatigue and Denies heat intolerance Puma/Lymph Denies easy bruising Aller/Immun Denies itchy eyes, Denies seasonal rhinorrhea and Denies wheezing Physical Exam Vital Signs: Last Vital Signs Pulse 99 10/06/23 10:47 BP 108/66 10/06/23 10:47 Pulse Ox 97 10/06/23 10:47 Oxygen Delivery Method Room Air 10/06/23 10:47 BMI result Body Mass Index 31.2 Const General: no acute distress and alert Nutritional Appearance: not obese Orientation/consciousness: Other orientation findings ( oriented) HEENT Head: Yes atraumatic Eyes General: appearance normal, both eyes and all related structures Sclerae: sclerae normal EOM: EOMs intact bilaterally Neck Neck: Yes supple Lymphatic: no lymphadenopathy noted Resp Effort & Inspection: normal respiratory effort and no use of accessory muscles Auscultation: clear to auscultation bilaterally Cardio Rate: regular rate Rhythm: regular rhythm Heart sounds: no gallops, no murmurs and no rubs Skin General skin exam: other ( warm) Extrem General: No clubbing, No cyanosis and No edema Assessment & Plan Assessment & Plan (1) Emphysema lung: Code(s): J43.9 - Emphysema, unspecified Plan: Well controlled on current regimen of Stiolto and albuterol MDI. Continue current regimen. (2) Multiple lung nodules on CT: Code(s): R91.8 - Other nonspecific abnormal finding of lung field Plan: Results of CT chest reviewed. No worrisome nodules at this time. (3) Chronic GERD: Code(s): K21.9 - Gastro-esophageal reflux disease without esophagitis Plan: Suboptimally controlled on PPI. Will add sucralfate. Coding Level of Care Code Est Pt Level 4 (14489) Diagnoses Emphysema lung J43.[address] nodules on [address] R91.8 Chronic GERD K21.9
== END 2023-10-06 11:09 | disposition home or self-care (01) ==
PROVIDERS: PCP Internal Medicine; Visit Provider Internal Medicine Pulmonary Disease
DX: J43.9 Emphysema, unspecified (principal); R91.8 Other nonspecific abnormal finding of lung field; K21.9 Gastro-esophageal reflux disease without esophagitis
CPT/HCPCS: 99214

== ENCOUNTER → 2023-10-06 10:44 | Outpatient (BNVA) | payer OTHER, SELFPAY | PROVIDERS: PCP Internal Medicine; Visit Provider Internal Medicine Pulmonary Disease | DX: J43.9 Emphysema, unspecified (principal); R91.8 Other nonspecific abnormal finding of lung field; K21.9 Gastro-esophageal reflux disease without esophagitis | CPT/HCPCS: 99212 ==

== ENCOUNTER 2023-11-06 12:17 | Outpatient (AMB) | payer OTHER, SELFPAY ==
--- NOTE | 2023-11-06 12:20 | A.OFFPC_ITS ---
Vital Signs 11/06/23 12:21 Height 5 ft 10 in Weight 225 lb 8 oz BMI 32.4 BP 128/86 Blood Pressure Location Rt brachial Position Sitting Pulse 106 H Pulse Source Pulse Oximeter Pulse Oximetry (%) 97 Oxygen Delivery Method Room Air Intake Visit Reasons: 2M follow up Allergies No Known Allergies Allergy (Verified 11/06/23 12:21) Medication List - Last Reconciled 11/06/23 by Jayy Edmonds MD albuterol sulfate 90 mcg/actuation 2 puffs inhalation Q4-6H PRN 30 days amitriptyline 150 mg PO BEDTIME fluticasone propionate 50 mcg/actuation (Flonase Allergy Relief) 1 spray intranasal BID 30 days losartan 100 mg PO DAILY 90 days melatonin 5 mg PO BEDTIME naproxen 500 mg PO BID PRN olanzapine 10 mg PO BEDTIME 90 days omega-3 fatty acids (Fish Oil Concentrate) 1 tab PO DAILY oxycodone-acetaminophen 5-325 mg (Percocet) 1 tab PO TID PRN 30 days pantoprazole 40 mg PO DAILY Stiolto Respimat 2.5-2.5 mcg/actuation (tiotropium-olodaterol) 2 puffs inhalation DAILY NS sucralfate 10 mL PO QID 30 days tamsulosin 0.4 mg PO BEDTIME zolpidem 10 mg PO BEDTIME PRN 30 days Tobacco use date assessed: 11/06/23 Dental Screening Dental Screen Date: 11/06/23 Did you have a dental visit in the last 12 months?: No Did you have a dental problem in the last 6 months where you did not have access to dental care?: No Was dental information given to patient?: Patient has dentist HPI 2M follow up HPI Details Patient is 63-year-old gentleman came in today for his regular follow- up appointment Patient was started on Flomax last time and he complained of nocturia and frequency of urination He is doing very well now and would like to have a refill Hypertension: patient is on losartan 100 mg tolerating medication no side effects.? Schizophrenia stable with Olnazapine 10 mg Patient is also on zolpidem 10 mg at night as a sleep aid.? These 2 medications were started by his psychiatrist and are now prescribed by me. Chronic back pain patient has seen pain management,? patient is taking amitriptyline 150 mg at night through Pain Management Along with oxycodone 1 tablet 3 times a day through PCP office, he is requesting us prescription for Tens unit today which I provided to patient Pain management contract up-to-date Peripheral neuropathy management through neurology Dr. Chance BMI is elevated patient is trying to lose weight Patient have single pulmonary nodule which has been stable, he is seeing Dr Carolina processing specialist Follow-up 2 months for medication refill [facility] Medical History Old cerebral infarct without residual deficit COPD (chronic obstructive pulmonary disease) Asthma Nicotine addiction Diabetes type 2, controlled Chronic pain syndrome Diabetic neuropathy Other specified idiopathic peripheral neuropathy Schizophrenia Hypertension, essential Difficulty sleeping Chronic lumbar pain Surgical History History of laparoscopic cholecystectomy History of repair of rotator cuff Status post laparoscopic cholecystectomy Family History Father No problems noted. Mother No problems noted. Social History Household Members: Family Housing: House Do you presently have visiting nurse or other home services: No Alcohol intake: never Comment: resting well Patient Tobacco Use Status: Current someday Tobacco user Tobacco use type: Cigarette Cigarettes Per Day: 3 e-Cigarette/Vaping Use: Never Used service: No Current occupational status: unemployed Cognitive needs: No Hearing needs: No Vision needs: Yes Questionnaire Thrive Questionnaire Date Thrive assessed: 07/03/23 VÍCTOR-7 AMB Questionnaire VÍCTOR-7 Date VÍCTOR - 7 assessed: 07/03/23 Source: Developed by Drs. Noel Correa, Jennifer Zhang, Delvin Pritchard and colleagues, with an educational óscar from [employer]. Review of Systems Const Denies chills and Denies fever(s) ENT Denies epistaxis and Denies nasal discharge Card Denies chest pain Resp Denies chest congestion, Denies cough and Denies hemoptysis GI Denies diarrhea and Denies nausea Skin/Breast Denies rash Neuro Reports no additional complaints Psych Reports no additional complaints Endo Reports no additional complaints Physical exam (Primary Care) Vital Signs: Last Vital Signs Pulse 106 H 11/06/23 12:21 BP 128/86 11/06/23 12:21 Pulse Ox 97 11/06/23 12:21 Oxygen Delivery Method Room Air 11/06/23 12:21 BMI result Body Mass Index 32.4 Tobacco/Smoking Status: Tobacco use Status Tobacco use date assessed 11/06/23 11/06/23 12:24 Patient Tobacco Use Status Current someday Tobacco 11/06/23 12:24 Tobacco use type Cigarette 11/06/23 12:24 e-Cigarette/Vaping Use Never Used 11/06/23 12:24 Thrive Assessment: Date of Thrive Assessment Date Thrive assessed 07/03/23 11/06/23 12:24 Const General: cooperative, comfortable and no acute distress Orientation/consciousness: patient oriented x3 HENMT Head: Yes normocephalic Eyes General: appearance normal, both eyes and all related structures Neck Neck: Yes supple Resp Effort & Inspection: normal respiratory effort, no cough and no stridor Cardio Rhythm: regular rhythm Heart sounds: S1 normal heart sound present and S2 normal heart sound present Skin General skin exam: turgor normal Neuro General: patient oriented x3, tone normal and moves all extremities Extrem Right lower extremity: no edema Left lower extremity: no edema Assessment and Plan Assessment & Plan (1) Chronic lumbar pain: Code(s): M54.5 - Low back pain; G89.29 - Other chronic pain Qualifiers: Back pain laterality: bilateral Sciatica laterality: bilateral sciatica Sciatica presence: with sciatica Qualified Code(s): M54.42 - Lumbago with sciatica, left side; M54.41 - Lumbago with sciatica, right side; G89.29 - Other chronic pain (2) Narcotic dependence: Code(s): F11.20 - Opioid dependence, uncomplicated (3) Lumbar radiculitis: Code(s): M54.16 - Radiculopathy, lumbar region (4) Difficulty urinating: Code(s): R39.198 - Other difficulties with micturition (5) Trouble in sleeping: Code(s): G47.9 - Sleep disorder, unspecified (6) Other specified idiopathic peripheral neuropathy: Code(s): G60.8 - Other hereditary and idiopathic neuropathies (7) Pain management: Code(s): R52 - Pain, unspecified (8) Chronic GERD: Code(s): K21.9 - Gastro-esophageal reflux disease without esophagitis (9) Frequency of urination: Code(s): R35.0 - Frequency of micturition (10) Diabetic neuropathy: Code(s): E11.40 - Type 2 diabetes mellitus with diabetic neuropathy, unspecified Qualifiers: Diabetes mellitus complication detail: diabetic autonomic neuropathy Diabetes mellitus type: type 2 Qualified Code(s): E11.43 - Type 2 diabetes mellitus with diabetic autonomic (poly)neuropathy (11) Obesity due to excess calories: Code(s): E66.09 - Other obesity due to excess calories Qualifiers: Body mass index: BMI 32.0-32.9 Obesity classification: adult class 1 (BMI 30 - 34.9) Serious obesity comorbidity presence: with serious comorbidity Qualified Code(s): E66.09 - Other obesity due to excess calories; Z68.32 - Body mass index [BMI] 32.0-32.9, adult (12) Emphysema lung: Code(s): J43.9 - Emphysema, unspecified Qualifiers: Emphysema type: panlobular Qualified Code(s): J43.1 - Panlobular emphysema Plan Patient is 63-year-old gentleman came in today for his regular follow-up appointment Patient was started on Flomax last time and he complained of nocturia and frequency of urination He is doing very well now and would like to have a refill Hypertension: patient is on losartan 100 mg tolerating medication no side effects.? Schizophrenia stable with Olnazapine 10 mg Patient is also on zolpidem 10 mg at night as a sleep aid.? These 2 medications were started by his psychiatrist and are now prescribed by me. Chronic back pain patient has seen pain management,? patient is taking amitriptyline 150 mg at night through Pain Management Along with oxycodone 1 tablet 3 times a day through PCP office, he is requesting us prescription for Tens unit today which I provided to patient Pain management contract up-to-date Peripheral neuropathy management through neurology Dr. Chance Diabetes stable, patient does have a diabetic neuropathy diagnosed by n eurologist COPD stable, patient goes to a processing specialist he also have a stable pulmonary nodule BMI is elevated patient is trying to lose weight Patient have single pulmonary nodule which has been stable, he is seeing Dr Carolina processing specialist GERD is stable Follow-up 2 months for medication refill Medications: New [Tens unit [id number]] As directed 1 ea 0RF G89.29 - Other chronic pain, M54.16 - Radiculopathy, lumbar region, M54.5 - Low back pain Refilled olanzapine 10 mg PO BEDTIME 90 tabs 0RF 90 days F20.0 - Paranoid schizophrenia zolpidem 10 mg PO BEDTIME PRN 30 tabs 0RF sleep 30 days G47.9 - Sleep disorder, unspecified tamsulosin 0.4 mg PO BEDTIME 90 caps 1RF oxycodone-acetaminophen 5-325 mg (Percocet) Partial refill permitted 1 tab PO TID PRN 90 tabs 0RF pain 30 days F11.20 - Opioid dependence, uncomplicated, G89.29 - Other chronic pain, M54.41 - Lumbago with sciatica, right side, M54.42 - Lumbago with sciatica, left side, R52 - Pain, unspecified Coding Level of Care Code Est Pt Level 4 (42997) Diagnoses Chronic bilateral low back pain with bilateral sciatica M54.42; M54.41; G89.29 Back pain laterality: bilateral Sciatica laterality: bilateral sciatica Sciatica presence: with sciatica Narcotic dependence F11.20 Lumbar radiculitis M54.16 Difficulty urinating R39.198 Trouble in sleeping G47.9 Other specified idiopathic peripheral neuropathy G60.8 Pain management R52 Chronic GERD K21.9 Frequency of urination R35.0 Diabetic autonomic neuropathy associated with type 2 diabetes mellitus E11.43 Diabetes mellitus complication detail: diabetic autonomic neuropathy Diabetes mellitus type: type 2 Class 1 obesity due to excess calories with serious comorbidity and body mass index (BMI) of 32.0 to 32.9 in adult E66.09; Z68.32 Body mass index: BMI 32.0-32.9 Obesity classification: adult class 1 (BMI 30 - 34.9) Serious obesity comorbidity presence: with serious comorbidity Panlobular emphysema J43.1 Emphysema type: panlobular
[2023-11-06 12:21] VITALS: BP 128/86; PULSE 106; O2SAT 97; BMI 32.4
== END 2023-11-06 12:44 | disposition home or self-care (01) ==
PROVIDERS: PCP Internal Medicine; Visit Provider Internal Medicine
DX: M54.42 Lumbago with sciatica, left side (principal); F11.20 Opioid dependence, uncomplicated; E11.43 Type 2 diabetes mellitus with diabetic autonomic (poly)neuropathy; J43.1 Panlobular emphysema; M54.41 Lumbago with sciatica, right side; G89.29 Other chronic pain; M54.16 Radiculopathy, lumbar region; R39.198 Other difficulties with micturition; G47.9 Sleep disorder, unspecified; G60.8 Other hereditary and idiopathic neuropathies; R52 Pain, unspecified; K21.9 Gastro-esophageal reflux disease without esophagitis
CPT/HCPCS: 99214

== ENCOUNTER 2023-12-22 14:23 | Outpatient (AMB) | payer OTHER, SELFPAY ==
--- NOTE | 2023-12-22 14:36 | MHC.OFFVIS ---
Intake Intake Visit Reasons: Difficulty Urinating(Ref by Dr Hope) Intake Note: NEW Patient presents today to established treatment for: Difficulty Urinating Meds- Tamsulosin Allergies to Antibiotic- No Known Allergies Blood Thinner- None Post Void Residual: 143 Patient Symptoms: Patient stated he was having difficulty to void, once his primary care provider prescribed Tamsulosin, he is able to urinate. Patient was unable to provide urine sample. Curtain Hemmer Automatic Required: No Accompanied by: Significant Other Allergies No Known Allergies Allergy (Verified 12/22/23 14:48) Medication List - Last Reconciled 12/22/23 by Jose Grimes MD albuterol sulfate 90 mcg/actuation 2 puffs inhalation Q4-6H PRN 30 days amitriptyline 150 mg PO BEDTIME finasteride 5 mg PO DAILY 90 days fluticasone propionate 50 mcg/actuation (Flonase Allergy Relief) 1 spray intranasal BID 30 days losartan 100 mg PO DAILY 90 days melatonin 5 mg PO BEDTIME naproxen 500 mg PO BID PRN olanzapine 10 mg PO BEDTIME 90 days omega-3 fatty acids (Fish Oil Concentrate) 1 tab PO DAILY oxycodone-acetaminophen 5-325 mg (Percocet) 1 tab PO TID PRN 30 days pantoprazole 40 mg PO DAILY Stiolto Respimat 2.5-2.5 mcg/actuation (tiotropium-olodaterol) 2 puffs inhalation DAILY NS sucralfate 10 mL PO QID 30 days tamsulosin 0.4 mg PO BEDTIME [Tens unit [id number] As directed] zolpidem 10 mg PO BEDTIME PRN 30 days HPI HPI Comments History of Present Illness Details Tyshawn is a pleasant male. He is a patient Dr. Edmonds. Seen for the following urologic conditions - lower urinary tract symptoms Trial finasteride 3 month follow-up PVR, PSA Lower urinary tract symptoms Progressive weakness of stream Comorbid medical conditions include sleep apnea, schizophrenia Current therapy includes tamsulosin No PSA document PFS Medical History Old cerebral infarct without residual deficit COPD (chronic obstructive pulmonary disease) Asthma Nicotine addiction Diabetes type 2, controlled Chronic pain syndrome Diabetic neuropathy Other specified idiopathic peripheral neuropathy Schizophrenia Hypertension, essential Difficulty sleeping Chronic lumbar pain Surgical History History of laparoscopic cholecystectomy History of repair of rotator cuff Status post laparoscopic cholecystectomy Family History Father No problems noted. Mother No problems noted. Social History Household Members: Family Housing: House Do you presently have visiting nurse or other home services: No Alcohol intake: never Comment: resting well Patient Tobacco Use Status: Current someday Tobacco user Tobacco use type: Cigarette Cigarettes Per Day: 3 e-Cigarette/Vaping Use: Never Used service: No Current occupational status: unemployed Cognitive needs: No Hearing needs: No Vision needs: Yes Review of Systems Const Denies chills and Denies fever(s) Card Reports no additional complaints and Denies syncope Resp Denies cough GI Denies abdominal pain and Denies heartburn Reports as per HPI and Denies change in libido Neuro Denies syncope Psych Denies change in libido Endo Denies change in libido Physical Exam Const General: cooperative, healthy appearing, comfortable and no acute distress Orientation/consciousness: patient oriented x3 HEENT Face and sinus: Yes normal facial exam Mouth: moist mucous membranes Neck Neck: Yes normal visual inspection, Yes full ROM and Yes trachea midline Chest Chest palpation & inspection: normal inspection of the chest Resp Effort & Inspection: normal respiratory effort, able to speak in complete sentences and no respiratory distress GI Inspection: Yes normal to inspection Back/Spine/Pelvis Cervical Spine: normal cervical lordosis Thoracic/Lumbar Spine: thoracic and lumbar spine normal to inspection Skin General skin exam: no rashes or lesions noted Neuro General: patient oriented x3, gait normal, tone normal and moves all extremities Extrem General: Yes normal to inspection and Yes capillary refill normal Assessment & Plan Assessment & Plan (1) Frequency of urination: Code(s): R35.0 - Frequency of micturition (2) Urinary hesitancy: Code(s): R39.11 - Hesitancy of micturition Plan Start finasteride 3 month follow-up Orders: Orders US bladder 3 Months R39.198 - Other difficulties with micturition Prostate Specific Antigen 3 Months R39.198 - Other difficulties with micturition Medications: New finasteride 5 mg PO DAILY 90 tabs 1RF 90 days R39.198 - Other difficulties with micturition, N40.1 - Benign prostatic hyperplasia with lower urinary tract symptoms, N13.8 - Other obstructive and reflux uropathy, R33.9 - Retention of urine, unspecified Patient Instructions: Imaging studies, laboratory and physical exam results were discussed and reviewed in detail. No major barriers to patient understanding were identified. An opportunity to ask questions regarding the treatment plan was provided. All questions were answered. The patient expressed understanding and agreement with the above treatment plan. The patient is aware they should contact our office by phone for worsening of their current condition or the appearance of new urologic symptoms. Compliance is encouraged with any medications and followup testing that is ordered. It is a privilege to participate in the urologic care of your patient. If you have any questions or concerns regarding treatment for the above conditions, or other urologic issues, please do not hesitate to contact me. The office telephone contact is [phone]. This note is constructed using voice recognition software. While every effort has been made to ensure accuracy prototype carpenter errors may have been included. Yours sincerely, Dr Jose Grimes MD, [facility] - Urology Providers of Expert, Compassionate Care for the Genitourinary System Coding Level of Care Code New Pt Level 4 (53866) Diagnoses Frequency of urination R35.0 Urinary hesitancy R39.11
== END 2023-12-22 14:56 | disposition home or self-care (01) ==
PROVIDERS: PCP Internal Medicine; Visit Provider Urology
DX: R35.0 Frequency of micturition (principal); R39.11 Hesitancy of micturition
CPT/HCPCS: 99204

== ENCOUNTER → 2023-12-22 14:23 | Outpatient (BNVA) | payer OTHER, SELFPAY | PROVIDERS: PCP Internal Medicine; Visit Provider Urology | DX: R35.0 Frequency of micturition (principal); R39.11 Hesitancy of micturition | CPT/HCPCS: 99202 ==

== ENCOUNTER 2024-01-08 13:52 | Outpatient (AMB) | payer OTHER, SELFPAY ==
[2024-01-08 13:53] VITALS: BP 130/82; PULSE 99; O2SAT 98; BMI 33.6
--- NOTE | 2024-01-08 13:53 | A.OFFPC_ITS ---
Vital Signs 01/08/24 13:53 Height 5 ft 10 in Weight 234 lb 2 oz BMI 33.6 BP 130/82 Blood Pressure Location Lt brachial Position Sitting Pulse 99 Pulse Source Pulse Oximeter Pulse Oximetry (%) 98 Oxygen Delivery Method Room Air Intake Visit Reasons: 2M follow up Allergies No Known Allergies Allergy (Verified 01/08/24 13:54) Medication List - Last Reconciled 01/08/24 by Jayy Edmonds MD albuterol sulfate 90 mcg/actuation 2 puffs inhalation Q4-6H PRN 30 days amitriptyline 150 mg PO BEDTIME finasteride 5 mg PO DAILY 90 days fluticasone propionate 50 mcg/actuation (Flonase Allergy Relief) 1 spray intranasal BID 30 days losartan 100 mg PO DAILY 90 days melatonin 5 mg PO BEDTIME naproxen 500 mg PO BID PRN olanzapine 10 mg PO BEDTIME 90 days omega-3 fatty acids (Fish Oil Concentrate) 1 tab PO DAILY oxycodone-acetaminophen 5-325 mg (Percocet) 1 tab PO TID PRN 30 days pantoprazole 40 mg PO DAILY Stiolto Respimat 2.5-2.5 mcg/actuation (tiotropium-olodaterol) 2 puffs inhalation DAILY NS sucralfate 10 mL PO QID 30 days tamsulosin 0.4 mg PO BEDTIME [Tens unit [id number] As directed] zolpidem 10 mg PO BEDTIME PRN 30 days Tobacco use date assessed: 01/08/24 Dental Screening Dental Screen Date: 01/08/24 Did you have a dental visit in the last 12 months?: Yes Did you have a dental problem in the last 6 months where you did not have access to dental care?: No Was dental information given to patient?: Patient has dentist HPI 2M follow up HPI Details Patient is 63-year-old gentleman came in today for his regular follow- up appointment BPH managed by Urology now Hypertension: patient is on losartan 100 mg tolerating medication no side effects.? Schizophrenia stable with Olnazapine 10 mg Patient is also on zolpidem 10 mg at night as a sleep aid.? These 2 medications were started by his psychiatrist and are now prescribed by me. Chronic back pain patient has seen pain management,? patient is taking amitriptyline 150 mg at night through Pain Management Along with oxycodone 1 tablet 3 times a day through PCP office, he is requesting us prescription for Tens unit today which I provided to patient Pain management contract up-to-date Peripheral neuropathy management through neurology Dr. Chance Diabetes stable, patient does have a diabetic neuropathy diagnosed by neurologist COPD stable, patient goes to a prescription benefit specialist he also have a stable pulmonary nodule BMI is elevated patient is trying to lose weight Patient have single pulmonary nodule which has been stable, he is seeing Dr Carolina prescription benefit specialist GERD is stable Labs were done in September Follow-up 2 months for medication refill [facility] Medical History Old cerebral infarct without residual deficit COPD (chronic obstructive pulmonary disease) Asthma Nicotine addiction Diabetes type 2, controlled Chronic pain syndrome Diabetic neuropathy Other specified idiopathic peripheral neuropathy Schizophrenia Hypertension, essential Difficulty sleeping Chronic lumbar pain Surgical History History of laparoscopic cholecystectomy History of repair of rotator cuff Status post laparoscopic cholecystectomy Family History Father No problems noted. Mother No problems noted. Social History Household Members: Family Housing: House Do you presently have visiting nurse or other home services: No Alcohol intake: never Comment: resting well Patient Tobacco Use Status: Current someday Tobacco user Tobacco use type: Cigarette Cigarettes Per Day: 3 e-Cigarette/Vaping Use: Never Used service: No Current occupational status: unemployed Cognitive needs: No Hearing needs: No Vision needs: Yes Questionnaire Thrive Questionnaire Date Thrive assessed: 07/03/23 AUDIT C Alcohol Use Questionnaire (AUDIT-C) 1. How often do you have a drink containing alcohol?: Never 3. How often do you have six or more drinks on one occasion?: Never Total Score: 0 Score Reviewed/Action Taken: Yes VÍCTOR-7 AMB Questionnaire VÍCTOR-7 Date VÍCTOR - 7 assessed: 07/03/23 Source: Developed by Drs. Noel Correa, Jennifer Zhang, Delvin Pritchard and colleagues, with an educational óscar from [employer]. Review of Systems Const Denies chills and Denies fever(s) ENT Denies epistaxis and Denies nasal discharge Card Denies chest pain Resp Denies chest congestion, Denies cough and Denies hemoptysis GI Denies diarrhea and Denies nausea Skin/Breast Denies rash Neuro Reports no additional complaints Psych Reports no additional complaints Endo Reports no additional complaints Physical exam (Primary Care) Vital Signs: Last Vital Signs Pulse 99 01/08/24 13:53 BP 130/82 01/08/24 13:53 Pulse Ox 98 01/08/24 13:53 Oxygen Delivery Method Room Air 01/08/24 13:53 BMI result Body Mass Index 33.6 Tobacco/Smoking Status: Tobacco use Status Tobacco use date assessed 01/08/24 01/08/24 13:59 Patient Tobacco Use Status Current someday Tobacco 01/08/24 13:59 Tobacco use type Cigarette 01/08/24 13:59 e-Cigarette/Vaping Use Never Used 01/08/24 13:59 Thrive Assessment: Date of Thrive Assessment Date Thrive assessed 07/03/23 01/08/24 13:59 Const General: cooperative, comfortable and no acute distress Orientation/consciousness: patient oriented x3 HENMT Head: Yes normocephalic Eyes General: appearance normal, both eyes and all related structures Neck Neck: Yes supple Resp Effort & Inspection: normal respiratory effort, no cough and no stridor Cardio Rhythm: regular rhythm Heart sounds: S1 normal heart sound present and S2 normal heart sound present Skin General skin exam: turgor normal Neuro General: patient oriented x3, tone normal and moves all extremities Extrem Right lower extremity: no edema Left lower extremity: no edema Assessment and Plan Assessment & Plan (1) Diet-controlled diabetes mellitus: Code(s): E11.9 - Type 2 diabetes mellitus without complications (2) Hypertension, essential: Code(s): I10 - Essential (primary) hypertension (3) Schizophrenia: Code(s): F20.9 - Schizophrenia, unspecified Qualifiers: Schizophrenia type: paranoid schizophrenia Qualified Code(s): F20.0 - Paranoid schizophrenia (4) Other specified idiopathic peripheral neuropathy: Code(s): G60.8 - Other hereditary and idiopathic neuropathies (5) Chronic lumbar pain: Code(s): M54.5 - Low back pain; G89.29 - Other chronic pain Qualifiers: Back pain laterality: bilateral Sciatica presence: with sciatica Sciatica laterality: bilateral sciatica Qualified Code(s): M54.42 - Lumbago with sciatica, left side; M54.41 - Lumbago with sciatica, right side; G89.29 - Other chronic pain (6) Narcotic dependence: Code(s): F11.20 - Opioid dependence, uncomplicated (7) Lumbar radiculitis: Code(s): M54.16 - Radiculopathy, lumbar region (8) Trouble in sleeping: Code(s): G47.9 - Sleep disorder, unspecified (9) Pain management: Code(s): R52 - Pain, unspecified (10) Chronic GERD: Code(s): K21.9 - Gastro-esophageal reflux disease without esophagitis (11) Obesity due to excess calories: Code(s): E66.09 - Other obesity due to excess calories Qualifiers: Obesity classification: adult class 1 (BMI 30 - 34.9) Serious obesity comorbidity presence: with serious comorbidity Body mass index: BMI 32.0-32.9 Qualified Code(s): E66.09 - Other obesity due to excess calories; Z68.32 - Body mass index [BMI] 32.0-32.9, adult (12) Emphysema lung: Code(s): J43.9 - Emphysema, unspecified Qualifiers: Emphysema type: panlobular Qualified Code(s): J43.1 - Panlobular emphysema (13) Chronic pain syndrome: Code(s): G89.4 - Chronic pain syndrome (14) Difficulty sleeping: Code(s): G47.9 - Sleep disorder, unspecified (15) Multiple lung nodules on CT: Code(s): R91.8 - Other nonspecific abnormal finding of lung field (16) BPH (benign prostatic hyperplasia): Code(s): N40.0 - Benign prostatic hyperplasia without lower urinary tract symptoms Qualifiers: Lower urinary tract symptom detail: urinary frequency Lower urinary tract symptom presence: symptoms present Qualified Code(s): N40.1 - Benign prostatic hyperplasia with lower urinary tract symptoms; R35.0 - Frequency of micturition Plan Patient is 63-year-old gentleman came in today for his regular follow-up appointment BPH managed by Urology now Hypertension: patient is on losartan 100 mg tolerating medication no side effects.? Schizophrenia stable with Olnazapine 10 mg Patient is also on zolpidem 10 mg at night as a sleep aid.? These 2 medications were started by his psychiatrist and are now prescribed by me. Chronic back pain patient has seen pain management,? patient is taking amitriptyline 150 mg at night through Pain Management Along with oxycodone 1 tablet 3 times a day through PCP office, he is requesting us prescription for Tens unit today which I provided to patient Pain management contract up-to-date Peripheral neuropathy management through neurology Dr. Chance Diabetes stable, hemoglobin A1c 6.3 today, patient does have a diabetic neuropathy diagnosed by neurologist COPD stable, patient goes to a prescription benefit specialist he also have a stable pulmonary nodule BMI is elevated patient is trying to lose weight Patient have single pulmonary nodule which has been stable, he is seeing Dr Carolina prescription benefit specialist GERD is stable Labs were done in September Follow-up 2 months for medication refill Medications: Refilled zolpidem 10 mg PO BEDTIME 30 days PRN 30 tabs 0RF sleep G47.9 - Sleep disorder, unspecified oxycodone-acetaminophen 5-325 mg (Percocet) Partial refill permitted 1 tab PO TID 30 days PRN 90 tabs 0RF pain F11.20 - Opioid dependence, uncomplicated, G89.29 - Other chronic pain, M54.41 - Lumbago with sciatica, right side, M54.42 - Lumbago with sciatica, left side, R52 - Pain , unspecified Coding Level of Care Code Est Pt Level 4 (18682) Diagnoses Diet-controlled diabetes mellitus E11.9 Hypertension, essential I10 Paranoid schizophrenia F20.0 Schizophrenia type: paranoid schizophrenia Other specified idiopathic peripheral neuropathy G60.8 Chronic bilateral low back pain with bilateral sciatica M54.42; M54.41; G89.29 Back pain laterality: bilateral Sciatica presence: with sciatica Sciatica laterality: bilateral sciatica Narcotic dependence F11.20 Lumbar radiculitis M54.16 Trouble in sleeping G47.9 Pain management R52 Chronic GERD K21.9 Class 1 obesity due to excess calories with serious comorbidity and body mass index (BMI) of 32.0 to 32.9 in adult E66.09; Z68.32 Obesity classification: adult class 1 (BMI 30 - 34.9) Serious obesity comorbidity presence: with serious comorbidity Body mass index: BMI 32.0-32.9 Panlobular emphysema J43.1 Emphysema type: panlobular Chronic pain syndrome G89.4 Difficulty sleeping G47.[address] nodules on CT R91.8 Benign prostatic hyperplasia with urinary frequency N40.1; R35.0 Lower urinary tract symptom detail: urinary frequency Lower urinary tract symptom presence: symptoms present
== END 2024-01-08 14:24 | disposition home or self-care (01) ==
PROVIDERS: PCP Internal Medicine; Visit Provider Internal Medicine
DX: E11.9 Type 2 diabetes mellitus without complications (principal)
CPT/HCPCS: 83036; 99214

== ENCOUNTER 2024-03-11 13:18 | Outpatient (AMB) | payer OTHER, SELFPAY ==
[2024-03-11 13:22] VITALS: BP 128/80; PULSE 93; O2SAT 96; BMI 33.7
--- NOTE | 2024-03-11 13:22 | MHC.PC.OV ---
Vital Signs 03/11/24 13:22 Height 5 ft 10 in Weight 235 lb BMI 33.7 BP 128/80 Blood Pressure Location Lt brachial Position Sitting Pulse 93 Pulse Source Pulse Oximeter Pulse Oximetry (%) 96 Oxygen Delivery Method Room Air Intake Visit Reasons: 2M follow up Bacteriologist Pharmaceutical Required: No Accompanied by: Self / Same As Patient Allergies No Known Allergies Allergy (Verified 03/11/24 13:23) Medication List - Last Reconciled 03/11/24 by Jayy Edmonds MD albuterol sulfate 90 mcg/actuation 2 puffs inhalation Q4-6H PRN 30 days amitriptyline 150 mg PO BEDTIME amoxicillin 875 mg PO BID 5 days finasteride 5 mg PO DAILY 90 days fluticasone propionate 50 mcg/actuation (Flonase Allergy Relief) 1 spray intranasal BID 30 days losartan 100 mg PO DAILY 90 days melatonin 5 mg PO BEDTIME naproxen 500 mg PO BID PRN olanzapine 10 mg PO BEDTIME 90 days omega-3 fatty acids (Fish Oil Concentrate) 1 tab PO DAILY oxycodone-acetaminophen 5-325 mg (Percocet) 1 tab PO TID PRN 30 days pantoprazole 40 mg PO DAILY Stiolto Respimat 2.5-2.5 mcg/actuation (tiotropium-olodaterol) 2 puffs inhalation DAILY NS sucralfate 10 mL PO QID 30 days tamsulosin 0.4 mg PO BEDTIME [Tens unit [id number] As directed] zolpidem 10 mg PO BEDTIME PRN 30 days Tobacco use date assessed: 01/08/24 Dental Screening Dental Screen Date: 01/08/24 HPI 2M follow up HPI Details Patient is 63-year-old gentleman came in today for his regular follow-up appointment Patient has been struggling with cough for the past 2 weeks, patient says that all whole household was sick He is putting out green phlegm in the morning and then clear through the day He is requesting script for antibiotic BPH managed by Urology now Hypertension: patient is on losartan 100 mg tolerating medication no side effects.? Schizophrenia stable with Olnazapine 10 mg Patient is also on zolpidem 10 mg at night as a sleep aid.? These 2 medications were started by his psychiatrist and are now prescribed by me. Chronic back pain patient has seen pain management,? patient is taking amitriptyline 150 mg at night through Pain Management Along with oxycodone 1 tablet 3 times a day through PCP office Pain management contract up-to-date Peripheral neuropathy management through neurology Dr. Chance Diabetes stable, hemoglobin A1c is stable COPD stable, patient goes to a electronic data interchange specialist he also have a stable pulmonary nodule BMI is elevated patient is trying to lose weight Patient have single pulmonary nodule which has been stable, he is seeing Dr Carolina electronic data interchange specialist GERD is stable [facility] Medical History Old cerebral infarct without residual deficit COPD (chronic obstructive pulmonary disease) Asthma Nicotine addiction Diabetes type 2, controlled Chronic pain syndrome Diabetic neuropathy Other specified idiopathic peripheral neuropathy Schizophrenia Hypertension, essential Difficulty sleeping Chronic lumbar pain Surgical History History of laparoscopic cholecystectomy History of repair of rotator cuff Status post laparoscopic cholecystectomy Family History Father No problems noted. Mother No problems noted. Social History Household Members: Family Housing: House Do you presently have visiting nurse or other home services: No Alcohol intake: never Comment: resting well Patient Tobacco Use Status: Current someday Tobacco user Tobacco use type: Cigarette Cigarettes Per Day: 3 e-Cigarette/Vaping Use: Never Used service: No Current occupational status: unemployed Cognitive needs: No Hearing needs: No Vision needs: Yes Questionnaire PHQ-9 Over the last 2 weeks, how often have you been bothered by any of the following problems? 1. Little interest or pleasure in doing things: not at all 2. Feeling down, depressed, or hopeless: more than half the days 3. Trouble falling or staying asleep, or sleeping too much: several days 4. Feeling tired or having little energy: several days 5. Poor appetite or overeating: several days 6. Feeling bad about yourself - or that you are a failure or have let yourself or your family down: several days 7. Trouble concentrating on things, such as reading the newspaper or watching television: not at all 8. Moving or speaking so slowly that other people could have noticed. Or the opposite - being so fidgety or restless that you have been moving around a lot more than usual: not at all 9. Thoughts that you would be better off or of hurting yourself in some way: not at all Total score: 6 Depression Screening Interpretation: Negative Depression Screening Done: Yes 98228 - PHQ-9 Billing: Yes Source: Developed by Drs. Noel Correa, Delvin Patel and colleagues, with an educational óscar from [employer]. Thrive Questionnaire Date Thrive assessed: 03/11/24 I am a: Patient What is your living situation today?: I have a steady place to live Within the past 12 months, did the food you bought not last and you didn't have the money to get more?: Never true Within the past 12 months, did you worry whether your food would run out before you got money to buy more?: Never true Do you have trouble paying for medicines?: No Do you have trouble getting transportation to medical appointments?: No Do you have trouble paying your heating and electricity bill?: No Do you have trouble taking care of your child, family member or friend?: No Do you have trouble with day-to-day activities such as bathing, preparing meals, shopping, managing finances, etc.?: No Are you currently unemployed and looking for a job?: No Are you interested in more education?: No Please select the resources that you would like help with: None Currently or been in a relationship where the following occur: no concerns reported THRIVE Score: 0 VÍCTOR-7 AMB Questionnaire VÍCTOR-7 Date VÍCTOR - 7 assessed: 03/11/24 Feeling nervous, anxious, or on edge: 1 = Several days Not being able to stop or control worryin = Several days Worrying too much about different things: 1 = Several days Trouble relaxin = Not at all Being so restless that it is hard to sit still: 0 = Not at all Becoming easily annoyed or irritable: 0 = Not at all Feeling afraid as if something awful might happen: 0 = Not at all Total VÍTCOR-7 score (0-4 normal; 5-9 mild; 10-14 moderate; 15-21 severe): 3 Source: Developed by Drs. Noel Correa, Delvin Patel and colleagues, with an educational óscar from [employer]. VÍCTOR-7 Assessment Billing VÍCTOR-7 Assessment Tool: VÍCTOR-7 Assessment 21904 Review of Systems Const Denies chills and Denies fever(s) ENT Denies epistaxis and Denies nasal discharge Card Denies chest pain Resp Denies hemoptysis GI Denies diarrhea and Denies nausea Skin/Breast Denies rash Neuro Reports no additional complaints Psych Reports no additional complaints Endo Reports no additional complaints Physical exam (Primary Care) Vital Signs: Last Vital Signs Pulse 93 03/11/24 13:22 BP 128/80 03/11/24 13:22 Pulse Ox 96 03/11/24 13:22 Oxygen Delivery Method Room Air 03/11/24 13:22 BMI result Body Mass Index 33.7 Tobacco/Smoking Status: Tobacco use Status Tobacco use date assessed 01/08/24 03/11/24 13:26 Patient Tobacco Use Status Current someday Tobacco 03/11/24 13:26 Tobacco use type Cigarette 03/11/24 13:26 e-Cigarette/Vaping Use Never Used 03/11/24 13:26 PHQ-9: PHQ-9 Score PHQ-9: Total score 6 03/11/24 13:57 Depression Screening Interpretation: Negative Thrive Assessment: Date of Thrive Assessment Date Thrive assessed 03/11/24 03/11/24 13:26 Currently or been in a relationship where the following occur: no concerns reported Const General: cooperative, comfortable and no acute distress Orientation/consciousness: patient oriented x3 HENMT Head: Yes normocephalic Eyes General: appearance normal, both eyes and all related structures Neck Neck: Yes supple Resp Effort & Inspection: normal respiratory effort, no cough and no stridor Cardio Rhythm: regular rhythm Heart sounds: S1 normal heart sound present and S2 normal heart sound present Skin General skin exam: turgor normal Neuro General: patient oriented x3, tone normal and moves all extremities Extrem Right lower extremity: no edema Left lower extremity: no edema Assessment and Plan Assessment & Plan (1) Cough: Code(s): R05.9 - Cough, unspecified Qualifiers: Cough type: acute Qualified Code(s): R05.1 - Acute cough (2) Diet-controlled diabetes mellitus: Code(s): E11.9 - Type 2 diabetes mellitus without complications (3) Hypertension, essential: Code(s): I10 - Essential (primary) hypertension (4) Schizophrenia: Code(s): F20.9 - Schizophrenia, unspecified Qualifiers: Schizophrenia type: paranoid schizophrenia Qualified Code(s): F20.0 - Paranoid schizophrenia (5) Other specified idiopathic peripheral neuropathy: Code(s): G60.8 - Other hereditary and idiopathic neuropathies (6) Chronic lumbar pain: Code(s): M54.5 - Low back pain; G89.29 - Other chronic pain Qualifiers: Back pain laterality: bilateral Sciatica presence: with sciatica Sciatica laterality: bilateral sciatica Qualified Code(s): M54.42 - Lumbago with sciatica, left side; M54.41 - Lumbago with sciatica, right side; G89.29 - Other chronic pain (7) Narcotic dependence: Code(s): F11.20 - Opioid dependence, uncomplicated (8) Lumbar radiculitis: Code(s): M54.16 - Radiculopathy, lumbar region (9) Trouble in sleeping: Code(s): G47.9 - Sleep disorder, unspecified (10) Pain management: Code(s): R52 - Pain, unspecified (11) Chronic GERD: Code(s): K21.9 - Gastro-esophageal reflux disease without esophagitis (12) Obesity due to excess calories: Code(s): E66.09 - Other obesity due to excess calories Qualifiers: Obesity classification: adult class 1 (BMI 30 - 34.9) Serious obesity comorbidity presence: with serious comorbidity Body mass index: BMI 32.0-32.9 Qualified Code(s): E66.09 - Other obesity due to excess calories; Z68.32 - Body mass index [BMI] 32.0-32.9, adult (13) Emphysema lung: Code(s): J43.9 - Emphysema, unspecified Qualifiers: Emphysema type: panlobular Qualified Code(s): J43.1 - Panlobular emphysema (14) Chronic pain syndrome: Code(s): G89.4 - Chronic pain syndrome (15) Difficulty sleeping: Code(s): G47.9 - Sleep disorder, unspecified (16) Multiple lung nodules on CT: Code(s): R91.8 - Other nonspecific abnormal finding of lung field (17) BPH (benign prostatic hyperplasia): Code(s): N40.0 - Benign prostatic hyperplasia without lower urinary tract symptoms Qualifiers: Lower urinary tract symptom presence: symptoms present Lower urinary tract symptom detail: urinary frequency Qualified Code(s): N40.1 - Benign prostatic hyperplasia with lower urinary tract symptoms; R35.0 - Frequency of micturition Plan Patient is 63-year-old gentleman came in today for his regular follow-up appointment Patient has been struggling with cough for the past 2 weeks, patient says that all whole household was sick He is putting out green phlegm in the morning and then clear through the day He is requesting script for antibiotic BPH managed by Urology now Hypertension: patient is on losartan 100 mg tolerating medication no side effects.? Schizophrenia stable with Olnazapine 10 mg Patient is also on zolpidem 10 mg at night as a sleep aid.? These 2 medications were started by his psychiatrist and are now prescribed by me. Chronic back pain patient has seen pain management,? patient is taking amitriptyline 150 mg at night through Pain Management Along with oxycodone 1 tablet 3 times a day through PCP office Pain management contract up-to-date Peripheral neuropathy management through neurology Dr. Chance Diabetes stable, hemoglobin A1c is stable COPD stable, patient goes to a electronic data interchange specialist he also have a stable pulmonary nodule BMI is elevated patient is trying to lose weight Patient have single pulmonary nodule which has been stable, he is seeing Dr Carolina electronic data interchange specialist GERD is stable Orders: Orders XR chest 2V Today R05.9 - Cough, unspecified Comprehensive [place]. Panel Fast Today E11.9 - Type 2 diabetes mellitus without complications, F20.0 - Paranoid schizophrenia, G47.9 - Sleep disorder, unspecified, I10 - Essential (primary) hypertension, K21.9 - Gastro-esophageal reflux disease without esophagitis, M54.16 - Radiculopathy, lumbar region, N40.1 - Benign prostatic hyperplasia with lower urinary tract symptoms, R35.0 - Frequency of micturition Lipid Panel Today E11.9 - Type 2 diabetes mellitus without complications, F20.0 - Paranoid schizophrenia, G47.9 - Sleep disorder, unspecified, I10 - Essential (primary) hypertension, K21.9 - Gastro-esophageal reflux disease without esophagitis, M54.16 - Radiculopathy, lumbar region, N40.1 - Benign prostatic hyperplasia with lower urinary tract symptoms, R35.0 - Frequency of micturition Hemoglobin A1c Today E11.9 - Type 2 diabetes mellitus without complications, F20.0 - Paranoid schizophrenia, G47.9 - Sleep disorder, unspecified, I10 - Essential (primary) hypertension, K21.9 - Gastro-esophageal reflux disease without esophagitis, M54.16 - Radiculopathy, lumbar region, N40.1 - Benign prostatic hyperplasia with lower urinary tract symptoms, R35.0 - Frequency of micturition Complete Blood Count Auto Diff Today E11.9 - Type 2 diabetes mellitus without complications, F20.0 - Paranoid schizophrenia, G47.9 - Sleep disorder, unspecified, I10 - Essential (primary) hypertension, K21.9 - Gastro-esophageal reflux disease without esophagitis, M54.16 - Radiculopathy, lumbar region, N40.1 - Benign prostatic hyperplasia with lower urinary tract symptoms, R35.0 - Frequency of micturition Microalbumin, Random (w Creat) Today E11.9 - Type 2 diabetes mellitus without complications, F20.0 - Paranoid schizophrenia, G47.9 - Sleep disorder, unspecified, I10 - Essential (primary) hypertension, K21.9 - Gastro-esophageal reflux disease without esophagitis, M54.16 - Radiculopathy, lumbar region, N40.1 - Benign prostatic hyperplasia with lower urinary tract symptoms, R35.0 - Frequency of micturition Medications: New amoxicillin 875 mg PO BID 5 days 10 tabs 0RF Refilled zolpidem 10 mg PO BEDTIME 30 days PRN 30 tabs 0RF sleep G47.9 - Sleep disorder, unspecified oxycodone-acetaminophen 5-325 mg (Percocet) Partial refill permitted 1 tab PO TID 30 days PRN 90 tabs 0RF pain F11.20 - Opioid dependence, uncomplicated, G89.29 - Other chronic pain, M54.41 - Lumbago with sciatica, right side, M54.42 - Lumbago with sciatica, left side, R52 - Pain, unspecified Coding Level of Care Code Est Pt Level 4 (56463) Diagnoses Acute cough R05.1 Cough type: acute Diet-controlled diabetes mellitus E11.9 Hypertension, essential I10 Paranoid schizophrenia F20.0 Schizophrenia type: paranoid schizophrenia Other specified idiopathic peripheral neuropathy G60.8 Chronic bilateral low back pain with bilateral sciatica M54.42; M54.41; G89.29 Back pain laterality: bilateral Sciatica presence: with sciatica Sciatica laterality: bilateral sciatica Narcotic dependence F11.20 Lumbar radiculitis M54.16 Trouble in sleeping G47.9 Pain management R52 Chronic GERD K21.9 Class 1 obesity due to excess calories with serious comorbidity and body mass index (BMI) of 32.0 to 32.9 in adult E66.09; Z68.32 Obesity classification: adult class 1 (BMI 30 - 34.9) Serious obesity comorbidity presence: with serious comorbidity Body mass index: BMI 32.0-32.9 Panlobular emphysema J43.1 Emphysema type: panlobular Chronic pain syndrome G89.4 Difficulty sleeping G47.[address] nodules on CT R91.8 Benign prostatic hyperplasia with urinary frequency N40.1; R35.0 Lower urinary tract symptom presence: symptoms present Lower urinary tract symptom detail: urinary frequency Additional Codes VÍCTOR-7 Assessment Billing - VÍCTOR-7 Assessment Tool: VÍCTOR-7 Assessment [id number] ([id number])
== END 2024-03-11 14:28 | disposition home or self-care (01) ==
PROVIDERS: PCP Internal Medicine; Visit Provider Internal Medicine
DX: E11.9 Type 2 diabetes mellitus without complications (principal); F20.0 Paranoid schizophrenia; F11.20 Opioid dependence, uncomplicated; J43.1 Panlobular emphysema; R05.1 Acute cough; I10 Essential (primary) hypertension; G60.8 Other hereditary and idiopathic neuropathies; M54.42 Lumbago with sciatica, left side; E66.09 Other obesity due to excess calories; Z68.32 Body mass index [BMI] 32.0-32.9, adult; M54.41 Lumbago with sciatica, right side; G89.29 Other chronic pain
CPT/HCPCS: 99214

== ENCOUNTER 2024-03-18 15:20 | Outpatient (REF) | payer OTHER, SELFPAY ==
[2024-03-18 16:14] LABS: MANUAL DIFF FLAG NO
[2024-03-18 17:54] LABS: Basophils Percent Auto 0.5 % (0-2); Eosinophils Absolute Auto 0.3 X10*3/uL (0.0-0.4); Eosinophils Percent Auto 3.7 % (0-4); Hemoglobin 13.9 g/dl (14.0-18.0); Imm Gran Abs Auto 0.08 X10*3/uL (0.00-0.03); Imm Gran Pct Auto 1.1 % (0.0-0.4); Lymphocytes Absolute Auto 2.6 X10*3/uL (1.2-4.9); Lymphocytes Percent Auto 34.7 % (20-40); Mean Corpuscular HGB Conc 34.8 g/dl (31.0-36.0); Mean Corpuscular Volume 92.2 fL (80.0-98.0); Mean Platelet Volume 9.5 fL (9.4-12.4); Monocytes Absolute Auto 0.7 X10*3/uL (0.1-1.2); Monocytes Percent Auto 9.1 % (2-11); Neutrophils Absolute Auto 3.7 x10*3/uL (2.0-8.3); Neutrophils Percent Auto 50.9 % (45-73); Platelet Count 290 X10*3/uL (160-400); Red Blood Count 4.34 X10*6/uL (4.60-5.80); Red Cell Distribution Width 13.6 % (11.0-16.0); White Blood Count 7.4 X10*3/uL (4.8-10.8)
[2024-03-18 17:58] LABS: Estimated Average Glucose 123 mg/dL; Hemoglobin A1c % 5.9 % (<6.0)
[2024-03-18 18:56] LABS: Alanine Aminotransferase 25 U/L (0-40); Albumin Level 4.2 g/dL (3.5-5.0); Alkaline Phosphatase 76 U/L (39-117); Anion Gap 13 (12-20); Aspartate Amino Transferase 28 U/L (5-37); Bilirubin Total 0.2 mg/dL (0.0-1.0); Blood Urea Nitrogen 15 mg/dL (9-16); Calcium 9.2 mg/dL (8.4-10.2); Carbon Dioxide 28 mmol/L (22-29); Chloride 101 mmol/L (96-108); Cholesterol 191 mg/dL (<200); Estimated Glomerular Filt Rate > 60; Glucose Fasting 88 mg/dL (60-99); HDL Cholesterol 38 mg/dL (>40); LDL Cholesterol Calculated 112 mg/dL (<100); Potassium 3.8 mmol/L (3.3-5.1); Sodium 138 mmol/L (135-145); Total Protein 7.5 g/dL (6.5-8.0); Triglycerides 209 mg/dL (<150)
[2024-03-18 19:27] LABS: Prostate Specific Antigen 0.21 ng/mL (<0.05-4.0)
== END 2024-03-18 15:21 | disposition home or self-care (01) ==
LOC: HO.US 15:20
PROVIDERS: PCP Internal Medicine; Visit Provider Urology
DX: E11.9 Type 2 diabetes mellitus without complications (principal); N40.1 Benign prostatic hyperplasia with lower urinary tract symptoms; R35.0 Frequency of micturition; M54.16 Radiculopathy, lumbar region; G47.9 Sleep disorder, unspecified; K21.9 Gastro-esophageal reflux disease without esophagitis; I10 Essential (primary) hypertension; F20.0 Paranoid schizophrenia; R39.198 Other difficulties with micturition; Z12.5 Encounter for screening for malignant neoplasm of prostate
CPT/HCPCS: 36415; 80053; 80061; 83036; 84153; 85025

== ENCOUNTER 2024-03-21 12:46 | Outpatient (REF) | payer OTHER, SELFPAY ==
--- NOTE | ~2024-03-21 | US_ITS ---
EXAMINATION: US PELVIS LIMITED (BLADDER) CLINICAL INFORMATION: Other difficulties with micturition. COMPARISON: CT chest, abdomen and pelvis with contrast 07/13/2023. Ultrasound abdomen limited 02/16/2021. Ultrasound abdomen complete 10/17/2018. X-ray abdomen KUB 03/01/2018. TECHNIQUE: Real-time imaging of the bladder. FINDINGS: BLADDER: Partially distended. Bilateral ureteral jets are demonstrated. Prevoid bladder volume is 98.6 mL. Postvoid bladder volume was not obtained as patient stated, they had to leave the department. The prostate volume is 24.7 mL. US/US bladder IMPRESSION: No abnormality is seen.
== END 2024-03-21 12:47 | disposition home or self-care (01) ==
LOC: HO.US 12:46
PROVIDERS: PCP Internal Medicine; Visit Provider Urology
DX: R39.198 Other difficulties with micturition (principal)
CPT/HCPCS: 76857

== ENCOUNTER 2024-03-25 13:07 | Outpatient (AMB) | payer OTHER, SELFPAY ==
--- NOTE | 2024-03-25 13:13 | A.OFFVIS_ITS ---
Intake Visit Reasons: 3m/US/PSA/PVR(set)Vm to confirm Intake Note: Patient is Present for PVR/Med review Urology Med: Finasteride, Tamsulosin Antibiotic Allergy:None Blood Thinner: None Last PVR: 143 Todays PVR: 84 Patient states that Finasteride has been working well for him Allergies No Known Allergies Allergy (Verified 03/25/24 13:21) HPI Comments Details: Tyshawn is a pleasant male. He is a patient Dr. Edmonds. Seen for the following urologic conditions - lower urinary tract symptoms Trial finasteride 3 month follow-up PVR, PSA Three-month follow-up on finasteride PVR improved from 150 to 85 PSA 03/16 0.2 Six-month follow-up Lower urinary tract symptoms Progressive weakness of stream Comorbid medical conditions include sleep apnea, schizophrenia Current therapy includes tamsulosin PFSH Medical History Old cerebral infarct without residual deficit COPD (chronic obstructive pulmonary disease) Asthma Nicotine addiction Diabetes type 2, controlled Chronic pain syndrome Diabetic neuropathy Other specified idiopathic peripheral neuropathy Schizophrenia Hypertension, essential Difficulty sleeping Chronic lumbar pain Surgical History History of laparoscopic cholecystectomy History of repair of rotator cuff Status post laparoscopic cholecystectomy Family History Father No problems noted. Mother No problems noted. Social History Household Members: Family Housing: House Do you presently have visiting nurse or other home services: No Alcohol intake: never Comment: resting well Patient Tobacco Use Status: Current someday Tobacco user Tobacco use type: Cigarette Cigarettes Per Day: 3 e-Cigarette/Vaping Use: Never Used service: No Current occupational status: unemployed Cognitive needs: No Hearing needs: No Vision needs: Yes Review of Systems Const Denies chills and Denies fever(s) Card Reports no additional complaints and Denies syncope Resp Denies cough GI Denies abdominal pain and Denies heartburn Reports as per HPI and Denies change in libido Neuro Denies syncope Psych Denies change in libido Endo Denies change in libido Physical Exam Const General: cooperative, healthy appearing, comfortable and no acute distress Orientation/consciousness: patient oriented x3 HEENT Face and sinus: Yes normal facial exam Mouth: moist mucous membranes Neck Neck: Yes normal visual inspection, Yes full ROM and Yes trachea midline Chest Chest palpation & inspection: normal inspection of the chest Resp Effort & Inspection: normal respiratory effort, able to speak in complete sentences and no respiratory distress GI Inspection: Yes normal to inspection Back/Spine/Pelvis Cervical Spine: normal cervical lordosis Thoracic/Lumbar Spine: thoracic and lumbar spine normal to inspection Skin General skin exam: no rashes or lesions noted Neuro General: patient oriented x3, gait normal, tone normal and moves all extremities Extrem General: Yes normal to inspection and Yes capillary refill normal Office Procedures Post Void Residual Post Residual Void Post Void Residual (PVR): 84 [id number] Void Residual by ultrasound Assessment & Plan Assessment & Plan (1) Urinary hesitancy: Code(s): R39.11 - Hesitancy of micturition Category: Medical (2) Frequency of urination: Code(s): R35.0 - Frequency of micturition Category: Medical (3) BPH (benign prostatic hyperplasia): Code(s): N40.0 - Benign prostatic hyperplasia without lower urinary tract symptoms Category: Medical Qualifiers: Lower urinary tract symptom presence: symptoms present Lower urinary tract symptom detail: urinary frequency Qualified Code(s): N40.1 - Benign prostatic hyperplasia with lower urinary tract symptoms; R35.0 - Frequency of mi cturition Plan Six-month follow-up Orders: Orders AMB Post Void Residual by ultrasound Today N40.1 - Benign prostatic hyperplasia with lower urinary tract symptoms, R35.0 - Frequency of micturition Medications: Refilled finasteride 5 mg PO DAILY 90 days 90 tabs 1RF N13.8 - Other obstructive and reflux uropathy, N40.1 - Benign prostatic hyperplasia with lower urinary tract symptoms, R33.9 - Retention of urine, unspecified, R39.198 - Other difficulties with micturition tamsulosin 0.4 mg PO BEDTIME 90 caps 1RF Patient Instructions: Imaging studies, laboratory and physical exam results were discussed and reviewed in detail. No major barriers to patient understanding were identified. An opportunity to ask questions regarding the treatment plan was provided. All questions were answered. The patient expressed understanding and agreement with the above treatment plan. The patient is aware they should contact our office by phone for worsening of their current condition or the appearance of new urologic symptoms. Compliance is encouraged with any medications and followup testing that is ordered. It is a privilege to participate in the urologic care of your patient. If you have any questions or concerns regarding treatment for the above conditions, or other urologic issues, please do not hesitate to contact me. The office telephone contact is [phone]. This note is constructed using voice recognition software. While every effort has been made to ensure accuracy pt skilled errors may have been included. Yours sincerely, Dr Jose Grimes MD, [facility] - Urology Providers of Expert, Compassionate Care for the Genitourinary System Coding Level of Care Code Est Pt Level 3 (90953) Diagnoses Urinary hesitancy R39.11 Frequency of urination R35.0 Benign prostatic hyperplasia with urinary frequency N40.1; R35.0 Lower urinary tract symptom presence: symptoms present Lower urinary tract symptom detail: urinary frequency CPT Codes Post Residual Void - PVR CPT Code: 98745-[id number] Void Residual by ultrasound ([id number])
== END 2024-03-25 13:40 | disposition home or self-care (01) ==
PROVIDERS: PCP Internal Medicine; Visit Provider Urology
DX: N40.1 Benign prostatic hyperplasia with lower urinary tract symptoms (principal); R39.11 Hesitancy of micturition; R35.0 Frequency of micturition
CPT/HCPCS: 99213

== ENCOUNTER → 2024-03-25 13:07 | Outpatient (BNVA) | payer OTHER, SELFPAY | PROVIDERS: PCP Internal Medicine; Visit Provider Urology | DX: N40.1 Benign prostatic hyperplasia with lower urinary tract symptoms (principal); N13.8 Other obstructive and reflux uropathy; R39.11 Hesitancy of micturition; R35.0 Frequency of micturition; Z79.899 Other long term (current) drug therapy | CPT/HCPCS: 51798; 99212 ==

== ENCOUNTER 2024-04-19 13:35 | Outpatient (AMB) | payer OTHER, SELFPAY ==
[2024-04-19 13:39] VITALS: BP 122/77; PULSE 90; O2SAT 94; BMI 33.5
--- NOTE | 2024-04-19 13:39 | MHC.OFFVIS ---
Vital Signs 04/19/24 13:39 Height 5 ft 10 in Weight 233 lb 11.04 oz BMI 33.5 BP 122/77 Blood Pressure Location Rt brachial Position Sitting Pulse 90 Pulse Source Doppler Pulse Oximetry (%) 94 Oxygen Delivery Method Room Air Intake Visit Reasons: emphysema Allergies No Known Allergies Allergy (Verified 04/19/24 13:43) HPI HPI emphysema: Details: 64-year-old gentleman, active 35+ pack-year smoker, now followed for for underlying moderate COPD, GERD, and pulmonary nodules.? He has been using Stiolto with good baseline control. Denies any recent exacerbations. At the last office visit Carafate was added to his entire GERD regimen with significant improvement in his symptoms. He denies any recent exacerbations. [facility] Medical History Old cerebral infarct without residual deficit COPD (chronic obstructive pulmonary disease) Asthma Nicotine addiction Diabetes type 2, controlled Chronic pain syndrome Diabetic neuropathy Other specified idiopathic peripheral neuropathy Schizophrenia Hypertension, essential Difficulty sleeping Chronic lumbar pain Surgical History History of laparoscopic cholecystectomy History of repair of rotator cuff Status post laparoscopic cholecystectomy Family History Father No problems noted. Mother No problems noted. Social History (Updated 04/19/24 @ 13:44 by NIMESH Perdomo) Household Members: Family Housing: House Do you presently have visiting nurse or other home services: No Alcohol intake: never Comment: resting well Patient Tobacco Use Status: Current everyday Tobacco user Tobacco use type: Cigarette Cigarette Packs Per Day: 1 e-Cigarette/Vaping Use: Never Used service: No Current occupational status: unemployed Cognitive needs: No Hearing needs: No Vision needs: Yes Review of Systems Const Denies daytime sleepiness, Denies excessive sweating, Denies fatigue, Denies fever(s), Denies lethargy, Denies malaise, Denies night sweats, Denies snoring and Denies weight loss Eyes Denies blurry vision and Denies itchy eyes ENT Denies nasal congestion, Denies post nasal drip, Denies sinus pain, Denies sinus pressure and Denies other ( Thrush) Card Denies chest pain, Denies pedal edema, Denies dyspnea, Denies orthopnea and Denies paroxysmal nocturnal dyspnea Resp Denies cough, Denies hemoptysis, Denies excessive phlegm production, Denies dyspnea, Denies snoring and Denies wheezing GI Denies abdominal pain and Denies heartburn Musc Denies myalgias, Denies arthralgias and Denies joint swelling Skin/Breast Denies rash Neuro Denies memory loss and Denies seizure-like activity Psych Denies abnormal sleep pattern, Denies anxiety and Denies memory loss Endo Denies excessive sweating, Denies fatigue and Denies heat intolerance Puma/Lymph Denies easy bruising Aller/Immun Denies itchy eyes, Denies seasonal rhinorrhea and Denies wheezing Physical Exam Vital Signs: Last Vital Signs Pulse 90 04/19/24 13:39 BP 122/77 04/19/24 13:39 Pulse Ox 94 04/19/24 13:39 Oxygen Delivery Method Room Air 04/19/24 13:39 BMI result Body Mass Index 33.5 Const General: no acute distress and alert Nutritional Appearance: obese Orientation/consciousness: Other orientation findings ( oriented) HEENT Head: Yes atraumatic Eyes General: appearance normal, both eyes and all related structures Sclerae: sclerae normal EOM: EOMs intact bilaterally Neck Neck: Yes supple Lymphatic: no lymphadenopathy noted Resp Effort & Inspection: normal respiratory effort and no use of accessory muscles Auscultation: clear to auscultation bilaterally Cardio Rate: regular rate Rhythm: regular rhythm Heart sounds: no gallops, no murmurs and no rubs Skin General skin exam: other ( warm) Extrem General: No clubbing, No cyanosis and No edema Assessment & Plan Assessment & Plan (1) Multiple lung nodules on CT: Code(s): R91.8 - Other nonspecific abnormal finding of lung field Category: Medical Plan: Continue with yearly screening, next in June of 2024. (2) Emphysema lung: Code(s): J43.9 - Emphysema, unspecified Category: Medical Qualifiers: Emphysema type: panlobular Qualified Code(s): J43.1 - Panlobular emphysema Plan: Well controlled current regimen of Stiolto and albuterol MDI. Continue current regimen. (3) Chronic GERD: Code(s): K21.9 - Gastro-esophageal reflux disease without esophagitis Category: Medical Plan: Well controlled on Carafate and PPI. Continue current regimen. (4) Personal history of nicotine dependence: Code(s): Z87.891 - Personal history of nicotine dependence Category: Medical Plan: Screening CT chest pending for June of 2024. Orders: Orders CT lung screening 07/20/24 Z87.891 - Personal history of nicotine dependence Medications: New nicotine 1 patch transdermal DAILY 28 ea 2RF Refilled albuterol sulfate 90 mcg/actuation 2 puffs inhalation Q4-6H 30 days PRN 1 ea 6RF shortness of breath or wheezing Coding Level of Care Code Est Pt Level 4 (19960) Diagnoses Multiple lung nodules on CT R91.8 Panlobular emphysema J43.1 Emphysema type: panlobular Chronic GERD K21.9 Personal history of nicotine dependence Z87.891
== END 2024-04-19 13:59 | disposition home or self-care (01) ==
PROVIDERS: PCP Internal Medicine; Visit Provider Internal Medicine Pulmonary Disease
DX: R91.8 Other nonspecific abnormal finding of lung field (principal); J43.1 Panlobular emphysema; K21.9 Gastro-esophageal reflux disease without esophagitis; Z87.891 Personal history of nicotine dependence
CPT/HCPCS: 99214

== ENCOUNTER → 2024-04-19 13:35 | Outpatient (BNVA) | payer OTHER, SELFPAY | PROVIDERS: PCP Internal Medicine; Visit Provider Internal Medicine Pulmonary Disease | DX: J43.1 Panlobular emphysema (principal); K21.9 Gastro-esophageal reflux disease without esophagitis; R91.8 Other nonspecific abnormal finding of lung field; F17.210 Nicotine dependence, cigarettes, uncomplicated | CPT/HCPCS: 99212 ==

== ENCOUNTER 2024-05-11 12:37 | Outpatient (AMB) | payer OTHER, SELFPAY ==
--- NOTE | 2024-05-11 12:40 | A.OFFPC_ITS ---
Vital Signs 05/11/24 12:41 Height 5 ft 10 in Weight 233 lb BMI 33.4 BP 122/78 Blood Pressure Location Lt brachial Position Sitting Pulse 83 Pulse Source Pulse Oximeter Pulse Oximetry (%) 96 Oxygen Delivery Method Room Air Intake Visit Reasons: 2M follow up Allergies No Known Allergies Allergy (Verified 05/11/24 12:40) Medication List - Last Reconciled 05/11/24 by Jayy Edmonds MD albuterol sulfate 90 mcg/actuation 2 puffs inhalation Q4-6H PRN 30 days amitriptyline 150 mg PO BEDTIME finasteride 5 mg PO DAILY 90 days fluticasone propionate 50 mcg/actuation (Flonase Allergy Relief) 1 spray intranasal BID 30 days losartan 100 mg PO DAILY 90 days melatonin 5 mg PO BEDTIME naproxen 500 mg PO BID PRN olanzapine 10 mg PO BEDTIME 90 days omega-3 fatty acids (Fish Oil Concentrate) 1 tab PO DAILY oxycodone-acetaminophen 5-325 mg (Percocet) 1 tab PO TID PRN 30 days pantoprazole 40 mg PO DAILY Stiolto Respimat 2.5-2.5 mcg/actuation (tiotropium-olodaterol) 2 puffs inhalation DAILY NS sucralfate 10 mL PO QID 30 days tamsulosin 0.4 mg PO BEDTIME [Tens unit [id number] As directed] zolpidem 10 mg PO BEDTIME PRN 30 days Tobacco use date assessed: 05/11/24 Dental Screening Dental Screen Date: 01/08/24 HPI 2M follow up HPI Details Patient is 64-year-old gentleman came in today for his regular follow- up appointment Labs were done end of February reviewed again Continued to smoke, we talked about it in detail today and I urged patient to stop as soon as possible He says that he has tried many times and then he relapse because his friends smoke BPH managed by Urology now Hypertension: patient is on losartan 100 mg tolerating medication no side effects.? Schizophrenia stable with Olnazapine 10 mg Patient is also on zolpidem 10 mg at night as a sleep aid.? These 2 medications were started by his psychiatrist and are now prescribed by me. Chronic back pain patient has seen pain management,? patient is taking amitriptyline 150 mg at night through Pain Management Along with oxycodone 1 tablet 3 times a day through PCP office Pain management contract up-to-date Peripheral neuropathy management through neurology Dr. Chance Diabetes stable, hemoglobin A1c is stable COPD stable, patient goes to a pulmonary function technologist he also have a stable pulmo nary nodule BMI is elevated patient is trying to lose weight Patient have single pulmonary nodule which has been stable, he is seeing Dr Carolina pulmonary function technologist GERD is stable [facility] Medical History Old cerebral infarct without residual deficit COPD (chronic obstructive pulmonary disease) Asthma Nicotine addiction Diabetes type 2, controlled Chronic pain syndrome Diabetic neuropathy Other specified idiopathic peripheral neuropathy Schizophrenia Hypertension, essential Difficulty sleeping Chronic lumbar pain Surgical History History of laparoscopic cholecystectomy History of repair of rotator cuff Status post laparoscopic cholecystectomy Family History Father No problems noted. Mother No problems noted. Social History Household Members: Family Housing: House Do you presently have visiting nurse or other home services: No Alcohol intake: never Comment: resting well Patient Tobacco Use Status: Current everyday Tobacco user Tobacco use type: Cigarette Cigarette Packs Per Day: 1 e-Cigarette/Vaping Use: Never Used service: No Current occupational status: unemployed Cognitive needs: No Hearing needs: No Vision needs: Yes Questionnaire Thrive Questionnaire Date Thrive assessed: 03/11/24 AUDIT C Alcohol Use Questionnaire (AUDIT-C) 1. How often do you have a drink containing alcohol?: Never 3. How often do you have six or more drinks on one occasion?: Never Total Score: 0 Score Reviewed/Action Taken: Yes VÍCTOR-7 AMB Questionnaire VÍCTOR-7 Date VÍCTOR - 7 assessed: 03/11/24 Source: Developed by Drs. Noel Correa, Jennifer Zhang, Delvin Pritchard and colleagues, with an educational óscar from [employer]. Review of Systems Const Denies chills and Denies fever(s) ENT Denies epistaxis and Denies nasal discharge Card Denies chest pain Resp Denies chest congestion, Denies cough and Denies hemoptysis GI Denies diarrhea and Denies nausea Skin/Breast Denies rash Neuro Reports no additional complaints Psych Reports no additional complaints Endo Reports no additional complaints Physical exam (Primary Care) Vital Signs: Last Vital Signs Pulse 83 05/11/24 12:41 BP 122/78 05/11/24 12:41 Pulse Ox 96 05/11/24 12:41 Oxygen Delivery Method Room Air 05/11/24 12:41 BMI result Body Mass Index 33.4 Tobacco/Smoking Status: Tobacco use Status Tobacco use date assessed 05/11/24 05/11/24 12:44 Patient Tobacco Use Status Current everyday Tobacco 05/11/24 12:44 Tobacco use type Cigarette 05/11/24 12:44 e-Cigarette/Vaping Use Never Used 05/11/24 12:44 Thrive Assessment: Date of Thrive Assessment Date Thrive assessed 03/11/24 05/11/24 12:44 Const General: cooperative, comfortable and no acute distress Orientation/consciousness: patient oriented x3 HENMT Head: Yes normocephalic Eyes General: appearance normal, both eyes and all related structures Neck Neck: Yes supple Resp Effort & Inspection: normal respiratory effort, no cough and no stridor Cardio Rhythm: regular rhythm Heart sounds: S1 normal heart sound present and S2 normal heart sound present Skin General skin exam: turgor normal Neuro General: patient oriented x3, tone normal and moves all extremities Extrem Right lower extremity: no edema Left lower extremity: no edema Assessment and Plan Assessment & Plan (1) Diet-controlled diabetes mellitus: Code(s): E11.9 - Type 2 diabetes mellitus without complications (2) Hypertension, essential: Code(s): I10 - Essential (primary) hypertension (3) Schizophrenia: Code(s): F20.9 - Schizophrenia, unspecified Qualifiers: Schizophrenia type: paranoid schizophrenia Qualified Code(s): F20.0 - Paranoid schizophrenia (4) Other specified idiopathic peripheral neuropathy: Code(s): G60.8 - Other hereditary and idiopathic neuropathies (5) Narcotic dependence: Code(s): F11.20 - Opioid dependence, uncomplicated (6) Lumbar radiculitis: Code(s): M54.16 - Radiculopathy, lumbar region (7) Trouble in sleeping: Code(s): G47.9 - Sleep disorder, unspecified (8) Pain management: Code(s): R52 - Pain, unspecified (9) Chronic GERD: Code(s): K21.9 - Gastro-esophageal reflux disease without esophagitis (10) Obesity due to excess calories: Code(s): E66.09 - Other obesity due to excess calories Qualifiers: Body mass index: BMI 32.0-32.9 Obesity classification: adult class 1 (BMI 30 - 34.9) Serious obesity comorbidity presence: with serious comorbidity Qualified Code(s): E66.09 - Other obesity due to excess calories; Z68.32 - Body mass index [BMI] 32.0-32.9, adult (11) Emphysema lung: Code(s): J43.9 - Emphysema, unspecified Qualifiers: Emphysema type: panlobular Qualified Code(s): J43.1 - Panlobular emphysema (12) Difficulty sleeping: Code(s): G47.9 - Sleep disorder, unspecified (13) BPH (benign prostatic hyperplasia): Code(s): N40.0 - Benign prostatic hyperplasia without lower urinary tract symptoms Qualifiers: Lower urinary tract symptom detail: urinary frequency Lower urinary tract symptom presence: symptoms present Qualified Code(s): N40.1 - Benign prostatic hyperplasia with lower urinary tract symptoms; R35.0 - Frequency of micturition Plan Patient is 64-year-old gentleman came in today for his regular follow-up appointment Labs were done end of February reviewed again Continued to smoke, we talked about it in detail today and I urged patient to stop as soon as possible He says that he has tried many times and then he relapse because his friends smoke BPH managed by Urology now Hypertension: patient is on losartan 100 mg tolerating medication no side effects.? Schizophrenia stable with Olnazapine 10 mg Patient is also on zolpidem 10 mg at night as a sleep aid.? These 2 medications were started by his psychiatrist and are now prescribed by me. Chronic back pain patient has seen pain management,? patient is taking amitriptyline 150 mg at night through Pain Management Along with oxycodone 1 tablet 3 times a day through PCP office Pain management contract up-to-date Peripheral neuropathy management through neurology Dr. Chance Diabetes stable, hemoglobin A1c is stable COPD stable, patient goes to a pulmonary function technologist he also have a stable pulmonary nodule BMI is elevated patient is trying to lose weight Patient have single pulmonary nodule which has been stable, he is seeing Dr Carolina pulmonary function technologist GERD is stable Medications: Refilled zolpidem 10 mg PO BEDTIME PRN 30 tabs 0RF sleep 30 days G47.9 - Sleep disorder, unspecified oxycodone-acetaminophen 5-325 mg (Percocet) Partial refill permitted 1 tab PO TID PRN 90 tabs 0RF pain 30 days F11.20 - Opioid dependence, uncomplicated, G89.29 - Other chronic pain, M54.41 - Lumbago with sciatica, right side, M54.42 - Lumbago with sciatica, left side, R52 - Pain, unspecified Coding Level of Care Code Est Pt Level 4 (37787) Complex EM visit Add On G2211 Diagnoses Diet-controlled diabetes mellitus E11.9 Hypertension, essential I10 Paranoid schizophrenia F20.0 Schizophrenia type: paranoid schizophrenia Other specified idiopathic peripheral neuropathy G60.8 Narcotic dependence F11.20 Lumbar radiculitis M54.16 Trouble in sleeping G47.9 Pain management R52 Chronic GERD K21.9 Class 1 obesity due to excess calories with serious comorbidity and body mass index (BMI) of 32.0 to 32.9 in adult E66.09; Z68.32 Body mass index: BMI 32.0-32.9 Obesity classification: adult class 1 (BMI 30 - 34.9) Serious obesity comorbidity presence: with serious comorbidity Panlobular emphysema J43.1 Emphysema type: panlobular Difficulty sleeping G47.9 Benign prostatic hyperplasia with urinary frequency N40.1; R35.0 Lower urinary tract symptom detail: urinary frequency Lower urinary tract symptom presence: symptoms present
[2024-05-11 12:41] VITALS: BP 122/78; PULSE 83; O2SAT 96; BMI 33.4
== END 2024-05-11 12:56 | disposition home or self-care (01) ==
PROVIDERS: PCP Internal Medicine; Visit Provider Internal Medicine
DX: E11.9 Type 2 diabetes mellitus without complications (principal); I10 Essential (primary) hypertension; F20.0 Paranoid schizophrenia; G60.8 Other hereditary and idiopathic neuropathies; F11.20 Opioid dependence, uncomplicated; M54.16 Radiculopathy, lumbar region; G47.9 Sleep disorder, unspecified; R52 Pain, unspecified; K21.9 Gastro-esophageal reflux disease without esophagitis; E66.09 Other obesity due to excess calories; Z68.32 Body mass index [BMI] 32.0-32.9, adult; J43.1 Panlobular emphysema
CPT/HCPCS: 99214; G2211

== ENCOUNTER 2024-06-27 11:04 | Outpatient (REF) | payer OTHER, SELFPAY ==
--- NOTE | ~2024-06-27 | CT_ITS ---
EXAMINATION: CT LOW-DOSE SCREENING CHEST WITHOUT CONTRAST CLINICAL INFORMATION: Personal history of nicotine dependence. The patient is a current smoker with a 44 pack-year history of smoking. COMPARISON: CT chest 07/13/2023. X-ray chest 03/01/2018. TECHNIQUE: Multidetector volumetric CT imaging of the chest is performed on a Siemens SOMATOM Definition scanner without contrast using low dose technique. Additional 2D coronal and sagittal reformatted images and axial 3D maximum intensity projection (MIP) images are generated on the CT workstation. This CT examination was performed using dose optimization techniques as appropriate, variously including the following: *Automated exposure control *Adjustment of mA and/or kV according to patient size (this includes techniques or standardized protocols for targeted exams where dose is matched to indication/reason for exam; i.e. extremities or head) *Use of iterative reconstruction technique TOTAL EXAM DLP: 63 mGy-cm. CTDIvol: 1.97 mGy. FINDINGS: PULMONARY NODULES: Calcified granuloma present in the left upper lobe. A perifissural 7 mm lymph node is seen sitting on top of the major fissure in the right lower lobe, unchanged from prior (3:265, compare prior 17:282). A 5 mm lingular nodule is unchanged (5:311, compare prior 17:311). There is no new, increasing-sized or suspicious nodules. LUNGS: Lungs bilaterally symmetrically expanded. [id number] emphysematous changes are present along with mild bronchial thickening. Stranding of mucus is present in the left mainstem bronchus. No effusion or pneumothorax. Central airways patent. MEDIASTINUM: No mediastinal, hilar or axillary adenopathy or free fluid collection. CORONARY ARTERY CALCIFICATION: Minimal. THYROID GLAND: Unremarkable to the extent seen. CARDIOVASCULAR STRUCTURES: Aortic and heart size normal. No pericardial effusion. CHEST WALL/AXILLA: Unremarkable. UPPER ABDOMEN: There is mild hepatic steatosis. A tiny hiatal hernia is present with thickening of the distal esophagus similar to prior. OSSEOUS STRUCTURES: No suspicious focal findings. CT/CT lung screening IMPRESSION: No suspicious lung nodules are seen. ASSESSMENT: 1. Lung-RADS Category 2: Benign appearance or behavior of nodules. N/A 2. Lung-RADS Category S: Negative. There are no clinically significant or potentially clinically significant findings not related to the lungs requiring urgent additional evaluation. RECOMMENDATION: Continued routine annual low-dose CT lung screening in 1 year is recommended. An order for CT CHEST LOW DOSE CANCER SCREENING ([id number]) can be placed. Electronically signed by: Efren Tenorio MD 08/05/2024 01:38 PM EDT
== END 2024-06-27 11:05 | disposition home or self-care (01) ==
LOC: HO.CT 11:04
PROVIDERS: PCP Internal Medicine; Visit Provider Internal Medicine Pulmonary Disease
DX: Z12.2 Encounter for screening for malignant neoplasm of respiratory organs (principal); Z87.891 Personal history of nicotine dependence
CPT/HCPCS: 71271

== ENCOUNTER 2024-07-19 10:47 | Outpatient (AMB) | payer OTHER, SELFPAY ==
--- NOTE | 2024-07-19 10:50 | A.OFFPC_ITS ---
Vital Signs 07/19/24 10:51 Height 5 ft 10 in Weight 238 lb 4 oz BMI 34.2 BP 124/80 Blood Pressure Location Rt brachial Position Sitting Pulse 89 Pulse Source Pulse Oximeter Pulse Oximetry (%) 96 Oxygen Delivery Method Room Air Intake Visit Reasons: 2M follow up Allergies No Known Allergies Allergy (Verified 07/19/24 10:56) Medication List - Last Reconciled 07/19/24 by Jayy Edmonds MD albuterol sulfate 90 mcg/actuation 2 puffs inhalation Q4-6H PRN 30 days amitriptyline 150 mg PO BEDTIME finasteride 5 mg PO DAILY 90 days fluticasone propionate 50 mcg/actuation (Flonase Allergy Relief) 1 spray intranasal BID 30 days losartan 100 mg PO DAILY 90 days melatonin 5 mg PO BEDTIME naproxen 500 mg PO BID PRN olanzapine 10 mg PO BEDTIME 90 days omega-3 fatty acids (Fish Oil Concentrate) 1 tab PO DAILY oxycodone-acetaminophen 5-325 mg (Percocet) 1 tab PO TID PRN 30 days pantoprazole 40 mg PO DAILY Stiolto Respimat 2.5-2.5 mcg/actuation (tiotropium-olodaterol) 2 puffs PO DAILY NS sucralfate 10 mL PO QID 30 days tamsulosin 0.4 mg PO BEDTIME [Tens unit [id number] As directed] zolpidem 10 mg PO BEDTIME PRN 30 days Tobacco use date assessed: 07/19/24 Dental Screening Dental Screen Date: 07/19/24 Did you have a dental visit in the last 12 months?: Yes Did you have a dental problem in the last 6 months where you did not have access to dental care?: No Was dental information given to patient?: Patient has dentist HPI 2M follow up HPI Details Patient is 64-year-old gentleman came in today for his regular follow-up appointment Diet-controlled diabetes, hemoglobin A1c is 6.4 today Pain contract renewed Patient will have labs done before next visit in 2 months, urine drug screen added Continued to smoke, we talked about it in detail today and I urged patient to stop as soon as possible He says that he has tried many times and then he relapse because his friends smoke BPH managed by Urology now Hypertension: patient is on losartan 100 mg tolerating medication no side effe cts.? Schizophrenia stable with Olnazapine 10 mg Patient is also on zolpidem 10 mg at night as a sleep aid.? These 2 medications were started by his psychiatrist and are now prescribed by me. Chronic back pain patient has seen pain management,? patient is taking amitriptyline 150 mg at night through Pain Management Along with oxycodone 1 tablet 3 times a day through PCP office Peripheral neuropathy management through neurology Dr. Chance COPD stable, patient goes to a internet ecommerce specialist he also have a stable pulmonary nodule BMI is elevated patient is trying to lose weight Patient have single pulmonary nodule which has been stable, he is seeing Dr Carolina internet ecommerce specialist GERD is stable [facility] Medical History Old cerebral infarct without residual deficit COPD (chronic obstructive pulmonary disease) Asthma Nicotine addiction Diabetes type 2, controlled Chronic pain syndrome Diabetic neuropathy Other specified idiopathic peripheral neuropathy Schizophrenia Hypertension, essential Difficulty sleeping Chronic lumbar pain Surgical History History of laparoscopic cholecystectomy History of repair of rotator cuff Status post laparoscopic cholecystectomy Family History Father No problems noted. Mother No problems noted. Social History Household Members: Family Housing: House Do you presently have visiting nurse or other home services: No Alcohol intake: never Comment: resting well Patient Tobacco Use Status: Tobacco use Unknown Tobacco use type: Cigarette Cigarette Packs Per Day: 1 e-Cigarette/Vaping Use: Never Used service: No Current occupational status: unemployed Cognitive needs: No Hearing needs: No Vision needs: Yes Questionnaire Thrive Questionnaire Date Thrive assessed: 03/11/24 AUDIT C Alcohol Use Questionnaire (AUDIT-C) 1. How often do you have a drink containing alcohol?: Never 3. How often do you have six or more drinks on one occasion?: Never Total Score: 0 Score Reviewed/Action Taken: Yes VÍCTOR-7 AMB Questionnaire VÍCTOR-7 Date VÍCTOR - 7 assessed: 03/11/24 Source: Developed by Drs. Noel Correa, Jennifer Zhang, Delvin Pritchard and colleagues, with an educational óscar from [employer]. Review of Systems Const Denies chills and Denies fever(s) ENT Denies epistaxis and Denies nasal discharge Card Denies chest pain Resp Denies chest congestion, Denies cough and Denies hemoptysis GI Denies diarrhea and Denies nausea Skin/Breast Denies rash Neuro Reports no additional complaints Psych Reports no additional complaints Endo Reports no additional complaints Physical exam (Primary Care) Vital Signs: Last Vital Signs Pulse 89 07/19/24 10:51 BP 124/80 07/19/24 10:51 Pulse Ox 96 07/19/24 10:51 Oxygen Delivery Method Room Air 07/19/24 10:51 BMI result Body Mass Index 34.2 Tobacco/Smoking Status: Tobacco use Status Tobacco use date assessed 07/19/24 07/19/24 10:56 Patient Tobacco Use Status Tobacco use Unknown 07/19/24 10:56 Tobacco use type Cigarette 07/19/24 10:56 e-Cigarette/Vaping Use Never Used 07/19/24 10:56 Thrive Assessment: Date of Thrive Assessment Date Thrive assessed 03/11/24 07/19/24 10:56 Const General: cooperative, comfortable and no acute distress Orientation/consciousness: patient oriented x3 HENMT Head: Yes normocephalic Eyes General: appearance normal, both eyes and all related structures Neck Neck: Yes supple Resp Effort & Inspection: normal respiratory effort, no cough and no stridor Cardio Rhythm: regular rhythm Heart sounds: S1 normal heart sound present and S2 normal heart sound present Skin General skin exam: turgor normal Neuro General: patient oriented x3, tone normal and moves all extremities Extrem Right lower extremity: no edema Left lower extremity: no edema Assessment and Plan Assessment & Plan (1) Diet-controlled diabetes mellitus: Code(s): E11.9 - Type 2 diabetes mellitus without complications (2) Obesity due to excess calories: Code(s): E66.09 - Other obesity due to excess calories Qualifiers: Body mass index: BMI 32.0-32.9 Obesity classification: adult class 1 (BMI 30 - 34.9) Serious obesity comorbidity presence: with serious comorbidity Qualified Code(s): E66.09 - Other obesity due to excess calories; Z68.32 - Body mass index [BMI] 32.0-32.9, adult (3) Hypertension, essential: Code(s): I10 - Essential (primary) hypertension (4) Schizophrenia: Code(s): F20.9 - Schizophrenia, unspecified Qualifiers: Schizophrenia type: paranoid schizophrenia Qualified Code(s): F20.0 - Paranoid schizophrenia (5) Narcotic dependence: Code(s): F11.20 - Opioid dependence, uncomplicated (6) Diabetic neuropathy: Code(s): E11.40 - Type 2 diabetes mellitus with diabetic neuropathy, unspecified Qualifiers: Diabetes mellitus complication detail: diabetic autonomic neuropathy Diabetes mellitus type: type 2 Qualified Code(s): E11.43 - Type 2 diabetes mellitus with diabetic autonomic (poly)neuropathy (7) Chronic pain syndrome: Code(s): G89.4 - Chronic pain syndrome (8) Difficulty sleeping: Code(s): G47.9 - Sleep disorder, unspecified (9) Other specified idiopathic peripheral neuropathy: Code(s): G60.8 - Other hereditary and idiopathic neuropathies (10) Lumbar radiculitis: Code(s): M54.16 - Radiculopathy, lumbar region (11) Pain management: Code(s): R52 - Pain, unspecified (12) Chronic GERD: Code(s): K21.9 - Gastro-esophageal reflux disease without esophagitis (13) Emphysema lung: Code(s): J43.9 - Emphysema, unspecified Qualifiers: Emphysema type: panlobular Qualified Code(s): J43.1 - Panlobular emphysema (14) BPH (benign prostatic hyperplasia): Code(s): N40.0 - Benign prostatic hyperplasia without lower urinary tract symptoms Qualifiers: Lower urinary tract symptom detail: urinary frequency Lower urinary tract symptom presence: symptoms present Qualified Code(s): N40.1 - Benign prostatic hyperplasia with lower urinary tract symptoms; R35.0 - Frequency of micturition Plan Patient is 64-year-old gentleman came in today for his regular follow-up appointment Diet-controlled diabetes, hemoglobin A1c is 6.4 today Pain contract renewed Patient will have labs done before next visit in 2 months, urine drug screen added Continued to smoke, we talked about it in detail today and I urged patient to stop as soon as possible He says that he has tried many times and then he relapse because his friends smoke BPH managed by Urology now Hypertension: patient is on losartan 100 mg tolerating medication no side effects.? Schizophrenia stable with Olnazapine 10 mg Patient is also on zolpidem 10 mg at night as a sleep aid.? These 2 medications were started by his psychiatrist and are now prescribed by me. Chronic back pain patient has seen pain management,? patient is taking amitriptyline 150 mg at night through Pain Management Along with oxycodone 1 tablet 3 times a day through PCP office Peripheral neuropathy management through neurology Dr. Chance COPD stable, patient goes to a internet ecommerce specialist he also have a stable pulmonary nodule BMI is elevated patient is trying to lose weight Patient have single pulmonary nodule which has been stable, he is seeing Dr Carolina internet ecommerce specialist GERD is stable Orders: Orders Comprehensive [place]. Panel Fast Today E11.43 - Type 2 diabetes mellitus with diabetic autonomic (poly)neuropathy, E66.09 - Other obesity due to excess calories, F11.20 - Opioid dependence, uncomplicated, F20.0 - Paranoid schizophrenia, G47.9 - Sleep disorder, unspecified, G89.4 - Chronic pain syndrome, I10 - Essential (primary) hypertension, R73.01 - Impaired fasting glucose, Z68.32 - Body mass index [BMI] 32.0-32.9, adult Lipid Panel Today E11.43 - Type 2 diabetes mellitus with diabetic autonomic (poly)neuropathy, E66.09 - Other obesity due to excess calories, F11.20 - Opioid dependence, uncomplicated, F20.0 - Paranoid schizophrenia, G47.9 - Sleep disorder, unspecified, G89.4 - Chronic pain syndrome, I10 - Essential (primary) hypertension, R73.01 - Impaired fasting glucose, Z68.32 - Body mass index [BMI] 32.0-32.9, adult Opiates GCMS Expanded, Ur Today F11.20 - Opioid dependence, uncomplicated, G89.4 - Chronic pain syndrome Complete Blood Count Auto Diff Today E11.43 - Type 2 diabetes mellitus with diabetic autonomic (poly)neuropathy, E66.09 - Other obesity due to excess calories, F11.20 - Opioid dependence, uncomplicated, F20.0 - Paranoid schizophrenia, G47.9 - Sleep disorder, unspecified, G89.4 - Chronic pain syndrome, I10 - Essential (primary) hypertension, R73.01 - Impaired fasting g lucose, Z68.32 - Body mass index [BMI] 32.0-32.9, adult Drug Screen Urine Today F11.20 - Opioid dependence, uncomplicated, G89.4 - Chronic pain syndrome Medications: Refilled zolpidem 10 mg PO BEDTIME PRN 30 tabs 0RF sleep 30 days G47.9 - Sleep disorder, unspecified oxycodone-acetaminophen 5-325 mg (Percocet) Partial refill permitted 1 tab PO TID PRN 90 tabs 0RF pain 30 days F11.20 - Opioid dependence, uncomplicated, G89.29 - Other chronic pain, M54.41 - Lumbago with sciatica, right side, M54.42 - Lumbago with sciatica, left side, R52 - Pain, unspecified Discontinued naproxen Discontinued Reason: Doctor's Order 500 mg PO BID PRN 14 tabs 0RF pain Coding Level of Care Code Est Pt Level 4 (22310) Complex EM visit Add On G2211 Diagnoses Diet-controlled diabetes mellitus E11.9 Class 1 obesity due to excess calories with serious comorbidity and body mass index (BMI) of 32.0 to 32.9 in adult E66.09; Z68.32 Body mass index: BMI 32.0-32.9 Obesity classification: adult class 1 (BMI 30 - 34.9) Serious obesity comorbidity presence: with serious comorbidity Hypertension, essential I10 Paranoid schizophrenia F20.0 Schizophrenia type: paranoid schizophrenia Narcotic dependence F11.20 Diabetic autonomic neuropathy associated with type 2 diabetes mellitus E11.43 Diabetes mellitus complication detail: diabetic autonomic neuropathy Diabetes mellitus type: type 2 Chronic pain syndrome G89.4 Difficulty sleeping G47.9 Other specified idiopathic peripheral neuropathy G60.8 Lumbar radiculitis M54.16 Pain management R52 Chronic GERD K21.9 Panlobular emphysema J43.1 Emphysema type: panlobular Benign prostatic hyperplasia with urinary frequency N40.1; R35.0 Lower urinary tract symptom detail: urinary frequency Lower urinary tract symptom presence: symptoms present
[2024-07-19 10:51] VITALS: BP 124/80; PULSE 89; O2SAT 96; BMI 34.2
== END 2024-07-19 11:58 | disposition home or self-care (01) ==
PROVIDERS: PCP Internal Medicine; Visit Provider Internal Medicine
DX: E11.43 Type 2 diabetes mellitus with diabetic autonomic (poly)neuropathy (principal); E66.09 Other obesity due to excess calories; Z68.32 Body mass index [BMI] 32.0-32.9, adult; I10 Essential (primary) hypertension; F20.0 Paranoid schizophrenia; F11.20 Opioid dependence, uncomplicated; G89.4 Chronic pain syndrome; G47.9 Sleep disorder, unspecified; G60.8 Other hereditary and idiopathic neuropathies; M54.16 Radiculopathy, lumbar region; R52 Pain, unspecified; J43.1 Panlobular emphysema; K21.9 Gastro-esophageal reflux disease without esophagitis; N40.1 Benign prostatic hyperplasia with lower urinary tract symptoms; R35.0 Frequency of micturition; Z13.9 Encounter for screening, unspecified
CPT/HCPCS: 83036; 99214; G2211

== ENCOUNTER 2024-07-21 19:22 | Emergency (ER) | payer OTHER, SELFPAY ==
--- NOTE | 2024-07-21 19:24 | ECG_ITS ---
Test Reason : chest pain Blood Pressure : / mmHG Vent. Rate : 119 BPM Atrial Rate : 119 BPM P-R Int : 160 ms QRS Dur : 076 ms QT Int : 322 ms P-R-T Axes : 071 -19 054 degrees QTc Int : 452 ms Sinus tachycardia Low voltage QRS Septal infarct , age undetermined ST depression in Inferior leads ST elevation in Septal leads Abnormal ECG When compared with ECG of 13-JUL-2023 17:40, ST now depressed in Inferior leads ST elevation now present in Septal leads Referred By: Odessa Fall Electronically Signed By:SHANITA ROMANO
[2024-07-21 19:30] VITALS: BP 171/117; PULSE 102; RESP 22; TEMP 36.3; O2SAT 97; BMI 34.1
--- NOTE | 2024-07-21 19:39 | ED_ITS ---
HPI - Chest Pain General Chief Complaint: Chest Pain Stated Complaint: chest pain Time Seen by Provider: 07/21/24 19:35 Source: patient Mode of arrival: ambulatory History of Present Illness ED Provider: Sohan BACON narrative: 64-year-old male with past medical history of asthma, COPD, diabetes, hypertension presenting for chest pain. Patient states that symptoms began on Thursday with substernal chest pain. He took an aspirin and it resolved. His symptoms came back on Thursday he went to an out patient clinic where he was evaluated but did not have an EKG. He was subsequently discharged home. He states that earlier in the day today he was doing yd work and experienced chest pain again that was radiating to his bilateral arms. He took an aspirin and subsequently came to the emergency department. He I still endorsing chest pain and mild shortness of breath. complaint: chest pain Related Data Home Medications ?Medication ?Instructions ?Recorded ?Confirmed melatonin 5 mg capsule 5 mg PO BEDTIME 10/08/20 07/19/24 omega-3 fatty acids [Fish Oil 1 tab PO DAILY 10/08/20 07/19/24 Concentrate] amitriptyline 150 mg tablet 150 mg PO BEDTIME 03/07/22 07/19/24 Previous Rx's ?Medication ?Instructions ?Recorded pantoprazole 40 mg tablet,delayed 40 mg PO DAILY #90 tabs 03/03/23 release fluticasone propionate 50 1 spray intranasal BID 30 days #16 07/20/23 mcg/actuation nasal grams spray,suspension (Flonase Allergy Relief) sucralfate 100 mg/mL oral 10 ml PO QID 30 days #1,200 mL 10/07/23 suspension Tens unit [id number] #1 ea 11/06/23 finasteride 5 mg tablet 5 mg PO DAILY 90 days #90 tabs 03/25/24 tamsulosin 0.4 mg capsule 0.4 mg PO BEDTIME #90 caps 03/25/24 albuterol sulfate 90 mcg/actuation 2 puff inhalation Q4-6H PRN 04/19/24 aerosol inhaler shortness of breath or wheezing 30 days #1 ea losartan 100 mg tablet 100 mg PO DAILY 90 days #90 tabs 06/09/24 olanzapine 10 mg tablet 10 mg PO BEDTIME 90 days #90 tabs 06/09/24 Stiolto Respimat 2.5 mcg-2.5 2 puff PO DAILY #4 grams 07/08/24 mcg/actuation solution for inhalation (tiotropium-olodaterol) oxycodone-acetaminophen 5 mg-325 1 tab PO TID PRN pain 30 days #90 07/19/24 mg tablet (Percocet) tabs zolpidem 10 mg tablet 10 mg PO BEDTIME PRN sleep 30 days 07/19/24 #30 tabs Allergies Allergy/AdvReac Type Severity Reaction Status Date / Time No Known Allergies Allergy Verified 07/21/24 19:35 Review of Systems 2 Review of Systems: Patient endorses chest pain, nausea, shortness of breath [facility] Past Medical History Attestation statement: The following information was validated with the patient. [facility] Narrative: Patient has a past medical history of COPD, asthma, hypertension Medical History Old cerebral infarct without residual deficit COPD (chronic obstructive pulmonary disease) Asthma Nicotine addiction Diabetes type 2, controlled Chronic pain syndrome Diabetic neuropathy Other specified idiopathic peripheral neuropathy Schizophrenia Hypertension, essential Difficulty sleeping Chronic lumbar pain Surgical History History of laparoscopic cholecystectomy History of repair of rotator cuff Status post laparoscopic cholecystectomy Family History Family History Father No problems noted. Mother No problems noted. Social History Social History Household Members: Family Housing: House Do you presently have visiting nurse or other home services: No Alcohol intake: never Comment: resting well Patient Tobacco Use Status: Tobacco use Unknown Tobacco use type: Cigarette Cigarette Packs Per Day: 1 e-Cigarette/Vaping Use: Never Used Advance Directives: No Advance Directives Information Provided: No Do you have a plan to hurt others: No Plan service: No Current occupational status: unemployed Cognitive needs: No Hearing needs: No Vision needs: Yes Physical Exam 2 Vital Signs: Vital Signs: Last Vital Signs Temp 98.7 F 07/21/24 19:57 Pulse 99 07/21/24 19:57 Resp 22 H 07/21/24 19:57 BP 158/105 H 07/21/24 19:57 Pulse Ox 95 07/21/24 19:57 O2 Del Method Room Air 07/21/24 19:57 BMI result Body Mass Index 34.1 Lungs clear to auscultation bilaterally Normal S1-S2 tachycardic with regular rhythm Abdomen is soft nontender nondistended Course Course Course Narrative: I was handed EKG and immediately had patient brought back from waiting room due to concerns for STEMI Medications Administered Discontinued Medications Generic Name Dose Route Start Last Admin Trade Name Nikita PRN Reason Stop Dose Admin Aspirin 325 mg 07/21/24 19:36 07/21/24 19:44 Aspirin Enteric Coated 325 Mg Tablet.Dr PO 07/21/24 19:37 325 mg ONCE ONE Administration Heparin Sodium (Porcine) 4,000 unit 07/21/24 19:45 07/21/24 19:53 Heparin Sodium,Porcine 5,000 Unit/Ml Vial IVPUSH 07/21/24 19:46 4,000 unit ONCE ONE Administration Ticagrelor 180 mg 07/21/24 19:52 07/21/24 19:56 Ticagrelor 90 Mg Tablet PO 07/21/24 19:53 180 mg ONCE ONE Administration Medical Decision Making Medical Decision Making MDM Narrative: 64-year-old male presenting for chest pain with concerns for STEMI. Patient's EKG is showing ST elevations in anterior leads. I was concerned for STEMI and sent the EKG to our hand tennis ball coverer who agreed that this is concerning for STEMI. Aspirin and heparin were ordered and I spoke to [facility] hand tennis ball coverer Dr. Field who accepted patient for transfer to label rewinder and recommended Brilinta loading dose Transport was here for another patient and decision to take this patient was made. The patient was subsequently taken at [facility] Differential Diagnosis Differential Diagnoses: The differential diagnosis associated with the presentation includes STEMI Consult Healthcare Provider Management of the patient was discussed with: [employer] Supervisor Dr. Isaiah Gill ([facility] hand tennis ball coverer) Lab Data [facility] Lab Attestation statement: I reviewed the patient's lab results. Patient had initial troponin of 390 07/21/24 19:48 07/21/24 19:48 Labs: Lab Results 07/21/24 07/21/24 Range/Units 19:48 19:49 WBC 11.3 H (4.8-10.8) X10*3/uL RBC 4.79 (4.60-5.80) X10*6/uL Hgb 15.4 (14.0-18.0) g/dl Hct 44.1 (42.0-52.0) % MCV 92.1 (80.0-98.0) fL MCH 32.2 (27.0-33.0) pg MCHC 34.9 (31.0-36.0) g/dl RDW 13.2 (11.0-16.0) % Plt Count 282 (160-400) X10*3/uL MPV 9.0 L (9.4-12.4) fL Immature Gran % (Auto) 0.7 H (0.0-0.4) % Neut % (Auto) 63.6 (45-73) % Lymph % (Auto) 24.8 (20-40) % Green % (Auto) 8.2 (2-11) % Eos % (Auto) 2.4 (0-4) % Baso % (Auto) 0.3 (0-2) % Lymph # (Auto) 2.8 (1.2-4.9) X10*3/uL Green # (Auto) 0.9 (0.1-1.2) X10*3/uL Eos # (Auto) 0.3 (0.0-0.4) X10*3/uL Baso # (Auto) 0.0 (0.0-0.2) X10*3/uL Abs Immat Gran (auto) 0.08 H (0.00-0.03) X10*3/uL Absolute Neuts (auto) 7.2 (2.0-8.3) x10*3/uL Absolute Nucleated RBC 0.000 (0.0-0.012) X10*3/uL Nucleated RBC % (auto) 0.0 (0.0-0.2) /100WBC PT 10.6 L (11.1-13.3) SEC INR 0.9 (0.9-1.1) APTT 32.2 (26.0-36.8) SEC D-Dimer High Sensitivty 233 NG/ML Sodium 137 (135-145) mmol/L Potassium 4.6 D (3.3-5.1) mmol/L Chloride 102 (96-108) mmol/L Carbon Dioxide 24 (22-29) mmol/L Anion Gap 16 (12-20) BUN 20 H (9-16) mg/dL Creatinine 1.25 (0.5-1.4) mg/dL Estim Creat Clear Calc 75.2 Estimated GFR 59 Random Glucose 153 H (60-115) mg/dL Calcium 9.7 (8.4-10.2) mg/dL Total Bilirubin 0.2 (0.0-1.0) mg/dL AST 49 H (5-37) U/L ALT 34 (0-40) U/L Alkaline Phosphatase 74 (39-117) U/L Troponin I High Sens 397.3 H* D (<3.5-35.0) ng/L B-Natriuretic Peptide 11 (<100) pg/mL Total Protein 8.2 H (6.5-8.0) g/dL Albumin 4.3 (3.5-5.0) g/dL Discharge Plan Discharge Clinical Impression: ST elevation myocardial infarction (STEMI) Patient Disposition: General Acute Hospital Transfer Details: [facility] Prescriptions: No Action fluticasone propionate [Flonase Allergy Relief] 50 mcg/actuation spray,suspension 1 spray intranasal BID 30 Days Qty: 16 5RF Rx Instructions: administer into each nostril sucralfate 100 mg/mL suspension 10 ml PO QID 30 Days Qty: 1200 3RF Rx Instructions: swish in mouth and swallow; use after food/drink losartan 100 mg tablet 100 mg PO DAILY 90 Days Qty: 90 3RF olanzapine 10 mg tablet 10 mg PO BEDTIME 90 Days Qty: 90 0RF Stiolto Respimat 2.5-2.5 mcg/actuation mist 2 puff PO DAILY Qty: 4 0RF omega-3 fatty acids 1 tab PO DAILY melatonin 5 mg capsule 5 mg PO BEDTIME pantoprazole 40 mg tablet,delayed release (DR/EC) 40 mg PO DAILY Qty: 90 0RF (DME) Tens unit [id number] See Rx Instructions .Route .MEDSUPPLY Qty: 1 0RF Rx Instructions: As directed amitriptyline 150 mg tablet 150 mg PO BEDTIME zolpidem 10 mg tablet 10 mg PO BEDTIME PRN (Reason: sleep) 30 Days Qty: 30 0RF oxycodone-acetaminophen [Percocet] 5-325 mg tablet 1 tab PO TID PRN (Reason: pain) 30 Days Qty: 90 0RF Rx Instructions: Partial refill permitted finasteride 5 mg tablet 5 mg PO DAILY 90 Days Qty: 90 1RF tamsulosin 0.4 mg capsule 0.4 mg PO BEDTIME Qty: 90 1RF albuterol sulfate 90 mcg/actuation HFA aerosol inhaler 2 puff inhalation Q4-6H PRN (Reason: shortness of breath or wheezing) 30 Days Qty: 1 6RF Interventions: Acute Care Transfer Worksheet (ED) Last Done: 07/21/24 19:57 Discharge Date/Time: 07/21/24 20:08 Print Language: Albanian
[2024-07-21] MEDS: Aspirin Enteric Coated 325 MG TABLET.DR PO (19:44)
[2024-07-21 19:53] LABS: MANUAL DIFF FLAG NO
[2024-07-21] MEDS: Heparin Sodium,Porcine 5,000 UNIT/ML VIAL 4000 UNIT IVPUSH (19:53)
[2024-07-21] MEDS: Ticagrelor 90 MG TABLET 180 MG PO (19:56)
[2024-07-21 19:57] VITALS: BP 158/105; PULSE 99; RESP 22; TEMP 37.1; O2SAT 95
[2024-07-21 19:57] LABS: Basophils Percent Auto 0.3 % (0-2); Eosinophils Absolute Auto 0.3 X10*3/uL (0.0-0.4); Eosinophils Percent Auto 2.4 % (0-4); Hematocrit 44.1 % (42.0-52.0); Hemoglobin 15.4 g/dl (14.0-18.0); Imm Gran Abs Auto 0.08 X10*3/uL (0.00-0.03); Imm Gran Pct Auto 0.7 % (0.0-0.4); Lymphocytes Absolute Auto 2.8 X10*3/uL (1.2-4.9); Lymphocytes Percent Auto 24.8 % (20-40); Mean Corpuscular HGB Conc 34.9 g/dl (31.0-36.0); Mean Corpuscular Hemoglobin 32.2 pg (27.0-33.0); Mean Corpuscular Volume 92.1 fL (80.0-98.0); Monocytes Absolute Auto 0.9 X10*3/uL (0.1-1.2); Monocytes Percent Auto 8.2 % (2-11); Neutrophils Absolute Auto 7.2 x10*3/uL (2.0-8.3); Neutrophils Percent Auto 63.6 % (45-73); Platelet Count 282 X10*3/uL (160-400); Red Blood Count 4.79 X10*6/uL (4.60-5.80); Red Cell Distribution Width 13.2 % (11.0-16.0); White Blood Count 11.3 X10*3/uL (4.8-10.8)
--- NOTE | 2024-07-21 20:05 | PC.NURSE ---
Patient transferred to [facility] to the laborer rags; laborer rags did not answer. Attempted to call the emergency department with no answer either. EMS took report with all medications given. Patient sent with bilateral IVs in place. Lab work drawn.
[2024-07-21 20:06] LABS: INTERNATIONAL NORM RATIO 0.9 (0.9-1.1); Prothrombin Time 10.6 SEC (11.1-13.3)
[2024-07-21 20:08] LABS: D Dimer High Sensitivity 233 NG/ML; Partial Thromboplastin Time 32.2 SEC (26.0-36.8)
[2024-07-21 20:14] LABS: Alanine Aminotransferase 34 U/L (0-40); Albumin Level 4.3 g/dL (3.5-5.0); Alkaline Phosphatase 74 U/L (39-117); Anion Gap 16 (12-20); Aspartate Amino Transferase 49 U/L (5-37); Bilirubin Total 0.2 mg/dL (0.0-1.0); Blood Urea Nitrogen 20 mg/dL (9-16); Calcium 9.7 mg/dL (8.4-10.2); Carbon Dioxide 24 mmol/L (22-29); Chloride 102 mmol/L (96-108); Creatinine Clr Calc Pharmacy 75.2; Estimated Glomerular Filt Rate 59; Glucose Random 153 mg/dL (60-115); Potassium 4.6 mmol/L (3.3-5.1); Sodium 137 mmol/L (135-145); Total Protein 8.2 g/dL (6.5-8.0)
[2024-07-21 20:16] LABS: B Type Natriuretic Peptide 11 pg/mL (<100)
[2024-07-21 20:27] LABS: Troponin-I High Sensitivity 397.3 ng/L (<3.5-35.0)
== END 2024-07-21 20:08 | disposition short-term general hospital (02) ==
PROVIDERS: Emergency Provider Student in an Organized Health Care Education/Training Program; PCP Internal Medicine
DX: I21.29 ST elevation (STEMI) myocardial infarction involving other sites (principal); R07.89 Other chest pain; R06.02 Shortness of breath; Z79.899 Other long term (current) drug therapy
CPT/HCPCS: 36415; 80053; 83880; 84484; 85025; 85379; 85610; 85730; 93005; 99285; J1644

== ENCOUNTER 2024-09-13 10:48 | Outpatient (AMB) | payer OTHER, SELFPAY ==
[2024-09-13 10:51] VITALS: BP 122/80; PULSE 92; O2SAT 98; BMI 34.2
--- NOTE | 2024-09-13 10:51 | MHC.PC.OV ---
Vital Signs 09/13/24 10:51 Height 5 ft 10 in Weight 238 lb 8 oz BMI 34.2 BP 122/80 Blood Pressure Location Lt brachial Position Sitting Pulse 92 Pulse Source Pulse Oximeter Pulse Oximetry (%) 98 Oxygen Delivery Method Room Air Intake Visit Reasons: 2 Month F/U Allergies No Known Allergies Allergy (Verified 07/21/24 19:35) Medication List - Last Reconciled 09/13/24 by Jayy Edmonds MD albuterol sulfate 90 mcg/actuation 2 puffs inhalation Q4-6H PRN 30 days amitriptyline 150 mg PO BEDTIME aspirin (Adult Low Dose Aspirin) 81 mg PO DAILY atorvastatin 80 mg PO DAILY colchicine 0.6 mg PO DAILY finasteride 5 mg PO DAILY 90 days fluticasone propionate 50 mcg/actuation (Flonase Allergy Relief) 1 spray intranasal BID 30 days losartan 100 mg PO DAILY 90 days melatonin 5 mg PO BEDTIME metoprolol succinate ER 50 mg PO DAILY olanzapine 10 mg PO BEDTIME 90 days omega-3 fatty acids (Fish Oil Concentrate) 1 tab PO DAILY oxycodone-acetaminophen 5-325 mg (Percocet) 1 tab PO TID PRN 30 days pantoprazole 40 mg PO DAILY Stiolto Respimat 2.5-2.5 mcg/actuation (tiotropium-olodaterol) 2 puffs PO DAILY NS sucralfate 10 mL PO QID 30 days tamsulosin 0.4 mg PO BEDTIME [Tens unit [id number] As directed] ticagrelor (Brilinta) 90 mg PO BID zolpidem 10 mg PO BEDTIME PRN 30 days Tobacco use date assessed: 07/19/24 Dental Screening Dental Screen Date: 07/19/24 HPI 2 Month F/U HPI Details Patient is 64-year-old gentleman came in today for his medication refill and follow-up appointment With a history of schizophrenia, difficulty sleeping, obesity, coronary artery disease, 3 stent placement, Vincent's esophagus, chronic GERD with recurrent abdominal pain Hypertension, chronic back pain, chronic opioid dependence, prostatic hypertrophy He is now seeing deputy chief sheriff Dr. Philomena Branch He has 3 stents placed, and is on Brilinta and aspirin Patient also visited Dr. Agosto As he has history of Vincent's esophagus, chronic GERD He will have EGD and colonoscopy 2025 Blood pressure is stable Medication list reviewed BMI is elevated patient is having trouble losing weight Labs done in July reviewed Medication refills sent Follow-up 2 months [facility] Medical History Old cerebral infarct without residual deficit COPD (chronic obstructive pulmonary disease) Asthma Nicotine addiction Diabetes type 2, controlled Chronic pain syndrome Diabetic neuropathy Other specified idiopathic peripheral neuropathy Schizophrenia Hypertension, essential Difficulty sleeping Chronic lumbar pain Surgical History History of laparoscopic cholecystectomy History of repair of rotator cuff Status post laparoscopic cholecystectomy Family History Father No problems noted. Mother No problems noted. Social History Household Members: Family Housing: House Do you presently have visiting nurse or other home services: No Alcohol intake: never Comment: resting well Patient Tobacco Use Status: Tobacco use Unknown Tobacco use type: Cigarette Cigarette Packs Per Day: 1 e-Cigarette/Vaping Use: Never Used service: No Current occupational status: unemployed Cognitive needs: No Hearing needs: No Vision needs: Yes Questionnaire Thrive Questionnaire Date Thrive assessed: 03/11/24 VÍCTOR-7 AMB Questionnaire VÍCTOR-7 Date VÍCTOR - 7 assessed: 03/11/24 Source: Developed by Drs. Noel Correa, Jennifer Zhang, Delvin Pritchard and colleagues, with an educational óscar from [employer]. Review of Systems Const Denies chills and Denies fever(s) ENT Denies epistaxis and Denies nasal discharge Card Denies chest pain Resp Denies chest congestion, Denies cough and Denies hemoptysis GI Denies diarrhea and Denies nausea Skin/Breast Denies rash Neuro Reports no additional complaints Psych Reports no additional complaints Endo Reports no additional complaints Physical exam (Primary Care) Vital Signs: Last Vital Signs Pulse 92 09/13/24 10:51 BP 122/80 09/13/24 10:51 Pulse Ox 98 09/13/24 10:51 Oxygen Delivery Method Room Air 09/13/24 10:51 BMI result Body Mass Index 34.2 Tobacco/Smoking Status: Tobacco use Status Tobacco use date assessed 07/19/24 09/13/24 10:53 Patient Tobacco Use Status Tobacco use Unknown 09/13/24 10:53 Tobacco use type Cigarette 09/13/24 10:53 e-Cigarette/Vaping Use Never Used 09/13/24 10:53 Thrive Assessment: Date of Thrive Assessment Date Thrive assessed 03/11/24 09/13/24 10:53 Const General: cooperative, comfortable and no acute distress Orientation/consciousness: patient oriented x3 HENMT Head: Yes normocephalic Eyes General: appearance normal, both eyes and all related structures Neck Neck: Yes supple Resp Effort & Inspection: normal respiratory effort, no cough and no stridor Cardio Rhythm: regular rhythm Heart sounds: S1 normal heart sound present and S2 normal heart sound present Skin General skin exam: turgor normal Neuro General: patient oriented x3, tone normal and moves all extremities Extrem Right lower extremity: no edema Left lower extremity: no edema Coding Level of Care Code Est Pt Level 5 (66304) Diagnoses Hypertension, essential I10 Paranoid schizophrenia F20.0 Schizophrenia type: paranoid schizophrenia Chronic bilateral low back pain with bilateral sciatica M54.42; M54.41; G89.29 Back pain laterality: bilateral Sciatica laterality: bilateral sciatica Sciatica presence: with sciatica Diabetic autonomic neuropathy associated with type 2 diabetes mellitus E11.43 Diabetes mellitus complication detail: diabetic autonomic neuropathy Diabetes mellitus type: type 2 Chronic pain syndrome G89.4 Narcotic dependence F11.20 Class 1 obesity due to excess calories with serious comorbidity and body mass index (BMI) of 32.0 to 32.9 in adult E66.09; Z68.32 Body mass index: BMI 32.0-32.9 Obesity classification: adult class 1 (BMI 30 - 34.9) Serious obesity comorbidity presence: with serious comorbidity Pain management R52 Panlobular emphysema J43.1 Emphysema type: panlobular Chronic GERD K21.9 Coronary artery disease involving [place] coronary artery of [place] heart without angina pectoris I25.10 Associated angina: without angina Coronary Disease-Associated Artery/Lesion type: [place] artery [place] vs. 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 operator use of blood thinners Z92.29 Stented coronary artery Z95.5 Controlled type 2 diabetes mellitus with other specified complication, without long-term current use of insulin E11.69 Diabetes mellitus complication status: with other specified complication Diabetes mellitus terminal system operator insulin use: without terminal system operator use Other emphysema J43.8 COPD type: emphysema Emphysema type: other Vincent's esophagus without dysplasia K22.70 Vincent's esophagus type: without dysplasia Assessment & Plan Assessment & Plan (1) Hypertension, essential: Code(s): I10 - Essential (primary) hypertension Category: Medical (2) Schizophrenia: Code(s): F20.9 - Schizophrenia, unspecified Category: Medical Qualifiers: Schizophrenia type: paranoid schizophrenia Qualified Code(s): F20.0 - Paranoid schizophrenia (3) Chronic lumbar pain: Code(s): M54.5 - Low back pain; G89.29 - Other chronic pain Category: Medical Qualifiers: Back pain laterality: bilateral Sciatica laterality: bilateral sciatica Sciatica presence: with sciatica Qualified Code(s): M54.42 - Lumbago with sciatica, left side; M54.41 - Lumbago with sciatica, right side; G89.29 - Other chronic pain (4) Diabetic neuropathy: Code(s): E11.40 - Type 2 diabetes mellitus with diabetic neuropathy, unspecified Category: Medical Qualifiers: Diabetes mellitus complication detail: diabetic autonomic neuropathy Diabetes mellitus type: type 2 Qualified Code(s): E11.43 - Type 2 diabetes mellitus with diabetic autonomic (poly)neuropathy (5) Chronic pain syndrome: Code(s): G89.4 - Chronic pain syndrome Category: Medical (6) Narcotic dependence: Code(s): F11.20 - Opioid dependence, uncomplicated Category: Medical (7) Obesity due to excess calories: Code(s): E66.09 - Other obesity due to excess calories Category: Medical Qualifiers: Body mass index: BMI 32.0-32.9 Obesity classification: adult class 1 (BMI 30 - 34.9) Serious obesity comorbidity presence: with serious comorbidity Qualified Code(s): E66.09 - Other obesity due to excess calories; Z68.32 - Body mass index [BMI] 32.0-32.9, adult (8) Pain management: Code(s): R52 - Pain, unspecified Category: Medical (9) Emphysema lung: Code(s): J43.9 - Emphysema, unspecified Category: Medical Qualifiers: Emphysema type: panlobular Qualified Code(s): J43.1 - Panlobular emphysema (10) Chronic GERD: Code(s): K21.9 - Gastro-esophageal reflux disease without esophagitis Category: Medical (11) Coronary artery disease: Code(s): I25.10 - Atherosclerotic heart disease of [place] coronary artery without angina pectoris Category: Medical Qualifiers: Associated angina: without angina Coronary Disease-Associated Artery/Lesion type: [place] artery [place] vs. transplanted heart: [place] heart Qualified Code(s): I25.10 - Atherosclerotic heart disease of [place] coronary artery without angina pectoris (12) History of ST elevation myocardial infarction (STEMI): Code(s): I25.2 - Old myocardial infarction Category: Medical (13) Hx of snf use of blood thinners: Code(s): Z92.29 - Personal history of other drug therapy Category: Medical (14) Stented coronary artery: Code(s): Z95.5 - Presence of coronary angioplasty implant and graft Category: Surgical (15) Diabetes type 2, controlled: Code(s): E11.9 - Type 2 diabetes mellitus without complications Category: Medical Qualifiers: Diabetes mellitus complication status: with other specified complication Diabetes mellitus snf insulin use: without snf use Qualified Code(s): E11.69 - Type 2 diabetes mellitus with other specified complication (16) COPD (chronic obstructive pulmonary disease): Code(s): J44.9 - Chronic obstructive pulmonary disease, unspecified Category: Medical Qualifiers: COPD type: emphysema Emphysema type: other Qualified Code(s): J43.8 - Other emphysema (17) Barretts esophagus: Code(s): K22.70 - Vincent's esophagus without dysplasia Category: Medical Qualifiers: Vincent's esophagus type: without dysplasia Qualified Code(s): K22.70 - Vincent's esophagus without dysplasia Plan Patient is 64-year-old gentleman came in today for his medication refill and follow-up appointment With a history of schizophrenia, difficulty sleeping, obesity, coronary artery disease, 3 stent placement, Vincent's esophagus, chronic GERD with recurrent abdominal pain Hypertension, chronic back pain, chronic opioid dependence, prostatic hypertrophy He is now seeing deputy chief sheriff Dr. Philomena Branch He has 3 stents placed, and is on Brilinta and aspirin Patient also visited Dr. Agosto As he has history of Vincent's esophagus, chronic GERD He will have EGD and colonoscopy 2026 Blood pressure is stable Medication list reviewed BMI is elevated patient is having trouble losing weight Labs done in July reviewed Medication refills sent Follow-up 2 months 45 minutes spent in care of this patient, reviewing consultation notes by Cardiology, emergency room visit, Dr. Agosto [id number] with the patient and coordination of care Medications: Refilled oxycodone-acetaminophen 5-325 mg (Percocet) Partial refill permitted 1 tab PO TID PRN 90 tabs 0RF pain 30 days F11.20 - Opioid dependence, uncomplicated, G89.29 - Other chronic pain, M54.41 - Lumbago with sciatica, right side, M54.42 - Lumbago with sciatica, left side, R52 - Pain, unspecified zolpidem 10 mg PO BEDTIME PRN 30 tabs 0RF sleep 30 days G47.9 - Sleep disorder, unspecified
== END 2024-09-13 14:54 | disposition home or self-care (01) ==
PROVIDERS: PCP Internal Medicine; Visit Provider Internal Medicine
DX: E11.43 Type 2 diabetes mellitus with diabetic autonomic (poly)neuropathy (principal); F20.0 Paranoid schizophrenia; F11.20 Opioid dependence, uncomplicated; J43.8 Other emphysema; E11.69 Type 2 diabetes mellitus with other specified complication; J43.1 Panlobular emphysema; I10 Essential (primary) hypertension; M54.42 Lumbago with sciatica, left side; M54.41 Lumbago with sciatica, right side; G89.4 Chronic pain syndrome

== ENCOUNTER → 2024-09-13 10:48 | Outpatient (BNVA) | payer OTHER, SELFPAY | PROVIDERS: PCP Internal Medicine; Visit Provider Internal Medicine | DX: I10 Essential (primary) hypertension (principal); F20.0 Paranoid schizophrenia; M54.41 Lumbago with sciatica, right side; M54.42 Lumbago with sciatica, left side; E11.43 Type 2 diabetes mellitus with diabetic autonomic (poly)neuropathy; G89.4 Chronic pain syndrome; F11.20 Opioid dependence, uncomplicated; E66.09 Other obesity due to excess calories; Z68.32 Body mass index [BMI] 32.0-32.9, adult; J43.1 Panlobular emphysema; K21.9 Gastro-esophageal reflux disease without esophagitis; I25.10 Atherosclerotic heart disease of native coronary artery without angina pectoris; E11.69 Type 2 diabetes mellitus with other specified complication; K22.70 Barrett's esophagus without dysplasia; I25.2 Old myocardial infarction; Z95.5 Presence of coronary angioplasty implant and graft; Z92.29 Personal history of other drug therapy | CPT/HCPCS: 99212 ==

== ENCOUNTER 2024-09-23 13:39 | Outpatient (AMB) | payer OTHER, SELFPAY ==
--- NOTE | 2024-09-23 13:42 | MHC.OFFVIS ---
Intake Visit Reasons: 6m/PVR Intake Note: Patient is Present for PVR/ Urology Med: Tamsulosin, Finasteride Antibiotic Allergy: None Blood Thinner: Aspirin Last PVR: 84ml Todays PVR: 0ml Recently had stent placement in heart 06/2024 Recent PSA: 02/2024 PSA: 0.21 Recent A1C: 06/2024 A1C: 6.4 Nurse Practitioner Physician Assistant Required: No Allergies No Known Allergies Allergy (Verified 09/23/24 13:45) HPI Comments Details: Tyshawn is a pleasant male. He is a patient Dr. Edmonds. Seen for the following urologic conditions - lower urinary tract symptoms Follow-up from finasteride PVR has continued to progressively improve from 150 cc to 85 cc to 0 cc HbA1c 6.4 PSA 03/16 0.2 Move to yearly follow-up Continue combination therapy Offered intervention Lower urinary tract symptoms Progressive weakness of stream Comorbid medical conditions include sleep apnea, schizophrenia Current therapy includes tamsulosin PFSH Medical History Old cerebral infarct without residual deficit COPD (chronic obstructive pulmonary disease) Asthma Nicotine addiction Diabetes type 2, controlled Chronic pain syndrome Diabetic neuropathy Other specified idiopathic peripheral neuropathy Schizophrenia Hypertension, essential Difficulty sleeping Chronic lumbar pain Surgical History (Updated 09/23/24 @ 14:04 by NIMESH Monterroso) History of heart artery stent History of laparoscopic cholecystectomy History of repair of rotator cuff Status post laparoscopic cholecystectomy Family History Father No problems noted. Mother No problems noted. Social History Household Members: Family Housing: House Do you presently have visiting nurse or other home services: No Alcohol intake: never Comment: resting well Patient Tobacco Use Status: Tobacco use Unknown Tobacco use type: Cigarette Cigarette Packs Per Day: 1 e-Cigarette/Vaping Use: Never Used service: No Current occupational status: unemployed Cognitive needs: No Hearing needs: No Vision needs: Yes Office Procedures Post Void Residual Post Residual Void Post Void Residual (PVR): 0 [id number] Void Residual by ultrasound Assessment & Plan Assessment & Plan (1) Difficulty urinating: Code(s): R39.198 - Other difficulties with micturition Category: Medical (2) Urinary hesitancy: Code(s): R39.11 - Hesitancy of micturition Category: Medical (3) BPH (benign prostatic hyperplasia): Code(s): N40.0 - Benign prostatic hyperplasia without lower urinary tract symptoms Category: Medical Qualifiers: Lower urinary tract symptom presence: symptoms present Lower urinary tract symptom detail: urinary frequency Qualified Code(s): N40.1 - Benign prostatic hyperplasia with lower urinary tract symptoms; R35.0 - Frequency of micturition Plan Twelve month follow-up PVR and UA Orders: Orders AMB Post Void Residual by ultrasound Today N40.1 - Benign prostatic hyperplasia with lower urinary tract symptoms, R35.0 - Frequency of micturition Patient Instructions: Imaging studies, laboratory and physical exam results were discussed and reviewed in detail. No major barriers to patient understanding were identified. An opportunity to ask questions regarding the treatment plan was provided. All questions were answered. The patient expressed understanding and agreement with the above treatment plan. The patient is aware they should contact our office by phone for worsening of their current condition or the appearance of new urologic symptoms. Compliance is encouraged with any medications and followup testing that is ordered. It is a privilege to participate in the urologic care of your patient. If you have any questions or concerns regarding treatment for the above conditions, or other urologic issues, please do not hesitate to contact me. The office telephone contact is [phone]. This note is constructed using voice recognition software. While every effort has been made to ensure accuracy recordak operator errors may have been included. Yours sincerely, Dr Jose Grimes MD, [facility] - Urology Providers of Expert, Compassionate Care for the Genitourinary System Coding Level of Care Code Est Pt Level 3 (97450) Diagnoses Difficulty urinating R39.198 Urinary hesitancy R39.11 Benign prostatic hyperplasia with urinary frequency N40.1; R35.0 Lower urinary tract symptom presence: symptoms present Lower urinary tract symptom detail: urinary frequency CPT Codes Post Residual Void - PVR CPT Code: 41423-[id number] Void Residual by ultrasound ([id number])
== END 2024-09-23 14:27 | disposition home or self-care (01) ==
LOC: HO.HUSH 13:40
PROVIDERS: PCP Internal Medicine; Visit Provider Urology
DX: N40.1 Benign prostatic hyperplasia with lower urinary tract symptoms (principal); R39.198 Other difficulties with micturition; R39.11 Hesitancy of micturition; R35.0 Frequency of micturition
CPT/HCPCS: 99213

== ENCOUNTER → 2024-09-23 13:39 | Outpatient (BNVA) | payer OTHER, SELFPAY | PROVIDERS: PCP Internal Medicine; Visit Provider Urology | DX: N40.1 Benign prostatic hyperplasia with lower urinary tract symptoms (principal); N13.8 Other obstructive and reflux uropathy; R39.11 Hesitancy of micturition; R39.198 Other difficulties with micturition; R35.0 Frequency of micturition | CPT/HCPCS: 51798; 99212 ==

== ENCOUNTER 2024-10-26 11:47 | Outpatient (AMB) | payer OTHER, SELFPAY ==
[2024-10-26 11:55] VITALS: BP 142/84; PULSE 110; O2SAT 94; BMI 35.3
--- NOTE | 2024-10-26 11:55 | MHC.PC.OV ---
Vital Signs 10/26/24 11:55 Height 5 ft 10 in Weight 246 lb 2 oz BMI 35.3 BP 142/84 H Blood Pressure Location Rt brachial Position Sitting Pulse 110 H Pulse Source Pulse Oximeter Pulse Oximetry (%) 94 Oxygen Delivery Method Room Air Intake Visit Reasons: 2 month f/u Allergies No Known Allergies Allergy (Verified 10/26/24 11:56) Medication List - Last Reconciled 10/26/24 by Jayy Edmonds MD albuterol sulfate 90 mcg/actuation 2 puffs inhalation Q4-6H PRN 30 days amitriptyline 150 mg PO BEDTIME aspirin (Adult Low Dose Aspirin) 81 mg PO DAILY atorvastatin 80 mg PO DAILY colchicine 0.6 mg PO DAILY finasteride 5 mg PO DAILY 90 days fluticasone propionate 50 mcg/actuation (Flonase Allergy Relief) 1 spray intranasal BID 30 days losartan 100 mg PO DAILY 90 days melatonin 5 mg PO BEDTIME metoprolol succinate ER 50 mg PO DAILY olanzapine 10 mg PO BEDTIME 90 days omega-3 fatty acids (Fish Oil Concentrate) 1 tab PO DAILY oxycodone-acetaminophen 5-325 mg (Percocet) 1 tab PO TID PRN 30 days pantoprazole 40 mg PO DAILY Stiolto Respimat 2.5-2.5 mcg/actuation (tiotropium-olodaterol) 2 puffs PO DAILY NS sucralfate 10 mL PO QID 30 days tamsulosin 0.4 mg PO BEDTIME 90 days [Tens unit [id number] As directed] ticagrelor (Brilinta) 90 mg PO BID zolpidem 10 mg PO BEDTIME PRN 30 days Tobacco use date assessed: 10/26/24 Dental Screening Dental Screen Date: 10/26/24 Did you have a dental visit in the last 12 months?: Yes Did you have a dental problem in the last 6 months where you did not have access to dental care?: No Was dental information given to patient?: Patient has dentist HPI 2 month f/u HPI Details Chief Complaint Follow-up appointment for medication refill Assessment and Plan 64-year-old male with a history of hypertension, chronic back pain, dyslipidemia, and neuropathy presenting for medication reconciliation and management of chronic conditions. Blood pressure is elevated, with ongoing therapy using losartan and metoprolol. Current medications for lipid management, prostate health, allergies, psychiatric reasons, stomach issues, and pain relief were reviewed. Neuropathy noted impacts patient's mobility. Recent labs indicate stable kidney function and liver enzymes, with Hemoglobin A1c at 6.5%. The patient is scheduled for an appointment with a manipulative therapy specialist. 1. Schizophrenia Olanzapine is being used for psychiatric illness. The patient has regular follow-ups scheduled with a psychiatric provider for further management. 2. Gastroesophageal Reflux Disease Pantoprazole prescribed for stomach-related symptoms. Continue current regimen and review for gastrointestinal follow-up if symptoms persist. 3. Neuropathy Neuropathy affecting mobility; advised continuation of walking to sustain muscle strength. 4. Sleep Disorder Zolpidem is being used for sleep aid. Continue current therapy with monitoring of sleep patterns and follow-up as needed. 5. Allergic Rhinitis Flonase nasal spray is utilized for allergy management. The patient reports satisfactory control with current treatment. 6. Hypertension Blood pressure is slightly elevated; current therapy includes losartan and metoprolol. Continue monitoring blood pressure at home and follow the current medication regimen. 7. Chronic Back Pain Amitriptyline and oxycodone are used for pain management. No acute changes or increase in symptoms noted. Continue current medication regimen. 8. Benign Prostatic Hyperplasia Finasteride and tamsulosin are current therapies provided by urology. Continue with the current treatment and consult urology for follow-up. 9. Dyslipidemia Atorvastatin is utilized for lipid management. Labs reviewed; current level management appeared adequate. No adjustments necessary at this time. Problem List - Hypertension - Chronic Back Pain - Dyslipidemia - Benign Prostatic Hyperplasia - Allergic Rhinitis - Anxiety Disorder - Gastroesophageal Reflux Disease - Sleep Disorder - Neuropathy Patient Instructions - Continue current medication regimen for all chronic conditions. - Monitor blood pressure regularly and record results. - Maintain regular walking exercises to support muscle strength in legs. - Attend the upcoming appointment with the manipulative therapy specialist. - Return for follow-up in two months or as symptoms dictate, and schedule an appointment if needed sooner. - Contact the office if any medication side effects or new symptoms arise immediately. [facility] Medical History Old cerebral infarct without residual deficit COPD (chronic obstructive pulmonary disease) Asthma Nicotine addiction Diabetes type 2, controlled Chronic pain syndrome Diabetic neuropathy Other specified idiopathic peripheral neuropathy Schizophrenia Hypertension, essential Difficulty sleeping Chronic lumbar pain Surgical History History of heart artery stent History of laparoscopic cholecystectomy History of repair of rotator cuff Status post laparoscopic cholecystectomy Family History Father No problems noted. Mother No problems noted. Social History Household Members: Family Housing: House Do you presently have visiting nurse or other home services: No Alcohol intake: never Comment: resting well Patient Tobacco Use Status: Tobacco use Unknown Tobacco use type: Cigarette Cigarette Packs Per Day: 1 e-Cigarette/Vaping Use: Never Used service: No Current occupational status: unemployed Cognitive needs: No Hearing needs: No Vision needs: Yes Questionnaire Thrive Questionnaire Date Thrive assessed: 03/11/24 AUDIT C Alcohol Use Questionnaire (AUDIT-C) 1. How often do you have a drink containing alcohol?: Never 3. How often do you have six or more drinks on one occasion?: Never Total Score: 0 Score Reviewed/Action Taken: Yes VÍCTOR-7 AMB Questionnaire VÍCTOR-7 Date VÍCTOR - 7 assessed: 03/11/24 Source: Developed by Drs. Noel Correa, Jennifer Zhang, Delvin Pritchard and colleagues, with an educational óscar from [employer]. Review of Systems Const Denies chills and Denies fever(s) ENT Denies epistaxis and Denies nasal discharge Card Denies chest pain Resp Denies chest congestion, Denies cough and Denies hemoptysis GI Denies diarrhea and Denies nausea Skin/Breast Denies rash Neuro Reports no additional complaints Psych Reports no additional complaints Endo Reports no additional complaints Physical exam (Primary Care) Vital Signs: Last Vital Signs Pulse 110 H 10/26/24 11:55 BP 142/84 H 10/26/24 11:55 Pulse Ox 94 10/26/24 11:55 Oxygen Delivery Method Room Air 10/26/24 11:55 BMI result Body Mass Index 35.3 Tobacco/Smoking Status: Tobacco use Status Tobacco use date assessed 10/26/24 10/26/24 11:58 Patient Tobacco Use Status Tobacco use Unknown 10/26/24 11:58 Tobacco use type Cigarette 10/26/24 11:58 e-Cigarette/Vaping Use Never Used 10/26/24 11:58 Thrive Assessment: Date of Thrive Assessment Date Thrive assessed 03/11/24 10/26/24 11:58 Const General: cooperative, comfortable and no acute distress Orientation/consciousness: patient oriented x3 HENMT Head: Yes normocephalic Eyes General: appearance normal, both eyes and all related structures Neck Neck: Yes supple Resp Effort & Inspection: normal respiratory effort, no cough and no stridor Cardio Rhythm: regular rhythm Heart sounds: S1 normal heart sound present and S2 normal heart sound present Skin General skin exam: turgor normal Neuro General: patient oriented x3, tone normal and moves all extremities Extrem Right lower extremity: no edema Left lower extremity: no edema Coding Level of Care Code Tele Est Pt Level 5 (56816) Complex EM visit Add On G2211 Diagnoses Hypertension, essential I10 Paranoid schizophrenia F20.0 Schizophrenia type: paranoid schizophrenia Chronic bilateral low back pain with bilateral sciatica M54.42; M54.41; G89.29 Back pain laterality: bilateral Sciatica presence: with sciatica Sciatica laterality: bilateral sciatica Diabetic autonomic neuropathy associated with type 2 diabetes mellitus E11.43 Diabetes mellitus type: type 2 Diabetes mellitus complication detail: diabetic autonomic neuropathy Chronic pain syndrome G89.4 Narcotic dependence F11.20 Class 1 obesity due to excess calories with serious comorbidity and body mass index (BMI) of 32.0 to 32.9 in adult E66.09; Z68.32 Obesity classification: adult class 1 (BMI 30 - 34.9) Serious obesity comorbidity presence: with serious comorbidity Body mass index: BMI 32.0-32.9 Pain management R52 Panlobular emphysema J43.1 Emphysema type: panlobular Chronic GERD K21.9 Coronary artery disease involving minto coronary artery of minto heart without angina pectoris I25.10 Coronary Disease-Associated Artery/Lesion type: minto artery [place] vs. transplanted heart: minto heart Associated angina: without angina History of ST elevation myocardial infarction (STEMI) I25.2 Hx of residential use of blood thinners Z92.29 Stented coronary artery Z95.5 Controlled type 2 diabetes mellitus with other specified complication, without long-term current use of insulin E11.69 Diabetes mellitus residential insulin use: without residential use Diabetes mellitus complication status: with other specified complication Other emphysema J43.8 COPD type: emphysema Emphysema type: other Vincent's esophagus without dysplasia K22.70 Vincent's esophagus type: without dysplasia Assessment & Plan Assessment & Plan (1) Hypertension, essential: Code(s): I10 - Essential (primary) hypertension Category: Medical (2) Schizophrenia: Code(s): F20.9 - Schizophrenia, unspecified Category: Medical Qualifiers: Schizophrenia type: paranoid schizophrenia Qualified Code(s): F20.0 - Paranoid schizophrenia (3) Chronic lumbar pain: Code(s): M54.5 - Low back pain; G89.29 - Other chronic pain Category: Medical Qualifiers: Back pain laterality: bilateral Sciatica presence: with sciatica Sciatica laterality: bilateral sciatica Qualified Code(s): M54.42 - Lumbago with sciatica, left side; M54.41 - Lumbago with sciatica, right side; G89.29 - Other chronic pain (4) Diabetic neuropathy: Code(s): E11.40 - Type 2 diabetes mellitus with diabetic neuropathy, unspecified Category: Medical Qualifiers: Diabetes mellitus type: type 2 Diabetes mellitus complication detail: diabetic autonomic neuropathy Qualified Code(s): E11.43 - Type 2 diabetes mellitus with diabetic autonomic (poly)neuropathy (5) Chronic pain syndrome: Code(s): G89.4 - Chronic pain syndrome Category: Medical (6) Narcotic dependence: Comment: Controlled nature of medication was discussed, it is important to notify me of change of pharmacy, or if traveling. Do not share the medication with anybody, keep it safe away from the hands of small children, and only take it as prescribed. This medication have a tendency to be abused, habit-forming, and it can cause severe constipation along with other allergic reactions. Long-term use of narcotic medications have shown to increase sensitivity to pain. Code(s): F11.20 - Opioid dependence, uncomplicated Category: Medical (7) Obesity due to excess calories: Code(s): E66.09 - Other obesity due to excess calories Category: Medical Qualifiers: Obesity classification: adult class 1 (BMI 30 - 34.9) Serious obesity comorbidity presence: with serious comorbidity Body mass index: BMI 32.0-32.9 Qualified Code(s): E66.09 - Other obesity due to excess calories; Z68.32 - Body mass index [BMI] 32.0-32.9, adult (8) Pain management: Code(s): R52 - Pain, unspecified Category: Medical (9) Emphysema lung: Code(s): J43.9 - Emphysema, unspecified Category: Medical Qualifiers: Emphysema type: panlobular Qualified Code(s): J43.1 - Panlobular emphysema (10) Chronic GERD: Code(s): K21.9 - Gastro-esophageal reflux disease without esophagitis Category: Medical (11) Coronary artery disease: Code(s): I25.10 - Atherosclerotic heart disease of minto coronary artery without angina pectoris Category: Medical Qualifiers: Coronary Disease-Associated Artery/Lesion type: minto artery [place] vs. 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: Code(s): Z92.29 - Personal history of other drug therapy Category: Medical (14) Stented coronary artery: Code(s): Z95.5 - Presence of coronary angioplasty implant and graft Category: Surgical (15) Diabetes type 2, controlled: Code(s): E11.9 - Type 2 diabetes mellitus without complications Category: Medical Qualifiers: Diabetes mellitus residential insulin use: without metal precision machine assembler use Diabetes mellitus complication status: with other specified complication Qualified Code(s): E11.69 - Type 2 diabetes mellitus with other specified complication (16) COPD (chronic obstructive pulmonary disease): Code(s): J44.9 - Chronic obstructive pulmonary disease, unspecified Category: Medical Qualifiers: COPD type: emphysema Emphysema type: other Qualified Code(s): J43.8 - Other emphysema (17) Barretts esophagus: Code(s): K22.70 - Vincent's esophagus without dysplasia Category: Medical Qualifiers: Vincent's esophagus type: without dysplasia Qualified Code(s): K22.70 - Vincent's esophagus without dysplasia Plan Chief Complaint Follow-up appointment for medication refill Assessment and Plan 64-year-old male with a history of hypertension, chronic back pain, dyslipidemia, and neuropathy presenting for medication reconciliation and management of chronic conditions. Blood pressure is elevated, with ongoing therapy using losartan and metoprolol. Current medications for lipid management, prostate health, allergies, psychiatric reasons, stomach issues, and pain relief were reviewed. Neuropathy noted impacts patient's mobility. Recent labs indicate stable kidney function and liver enzymes, with Hemoglobin A1c at 6.5%. The patient is scheduled for an appointment with a manipulative therapy specialist. 1. Schizophrenia Olanzapine is being used for psychiatric illness. The patient has regular follow-ups scheduled with a psychiatric provider for further management. 2. Gastroesophageal Reflux Disease , Vincent's esophagus Pantoprazole prescribed for stomach-related symptoms. Continue current regimen and review for gastrointestinal follow-up if symptoms persist. 3. Neuropathy Neuropathy affecting mobility; advised continuation of walking to sustain muscle strength. 4. Sleep Disorder Zolpidem is being used for sleep aid. Continue current therapy with monitoring of sleep patterns and follow-up as needed. 5. Allergic Rhinitis Flonase nasal spray is utilized for allergy management. The patient reports satisfactory control with current treatment. 6. Hypertension Blood pressure is slightly elevated; current therapy includes losartan and metoprolol. Continue monitoring blood pressure at home and follow the current medication regimen. 7. Chronic Back Pain Amitriptyline and oxycodone are used for pain management. No acute changes or increase in symptoms noted. Continue current medication regimen. 8. Benign Prostatic Hyperplasia Finasteride and tamsulosin are current therapies provided by urology. Continue with the current treatment and consult urology for follow-up. 9. Dyslipidemia Atorvastatin is utilized for lipid management. Labs reviewed; current level management appeared adequate. No adjustments necessary at this time. 10 - COPD managed by child care specialist 11- coronary artery disease addressed by Cardiology 12 - obesity, patient is having difficulty losing weight Problem List - Hypertension - Chronic Back Pain - Dyslipidemia - Benign Prostatic Hyperplasia - Allergic Rhinitis - Anxiety Disorder - Gastroesophageal Reflux Disease - Sleep Disorder - Neuropath - obesity - coronary artery disease - COPD, ex-smoker - schizophrenia Patient Instructions - Continue current medication regimen for all chronic conditions. - Monitor blood pressure regularly and record results. - Maintain regular walking exercises to support muscle strength in legs. - Attend the upcoming appointment with the manipulative therapy specialist. - Return for follow-up in two months or as symptoms dictate, and schedule an appointment if needed sooner. - Contact the office if any medication side effects or new symptoms arise immediately. complicated patient, 45 minutes spent in care of this patient Medications: Refilled zolpidem 10 mg PO BEDTIME 30 days PRN 30 tabs 0RF sleep G47.9 - Sleep disorder, unspecified oxycodone-acetaminophen 5-325 mg (Percocet) Partial refill permitted 1 tab PO TID 30 days PRN 90 tabs 0RF pain F11.20 - Opioid dependence, uncomplicated, G89.29 - Other chronic pain, M54.41 - Lumbago with sciatica, right side, M54.42 - Lumbago with sciatica, left side, R52 - Pain, unspecified
== END 2024-10-26 13:57 | disposition home or self-care (01) ==
PROVIDERS: PCP Internal Medicine; Visit Provider Internal Medicine
DX: E11.43 Type 2 diabetes mellitus with diabetic autonomic (poly)neuropathy (principal); F20.0 Paranoid schizophrenia; E11.69 Type 2 diabetes mellitus with other specified complication; F11.20 Opioid dependence, uncomplicated; J43.8 Other emphysema; J43.1 Panlobular emphysema; I10 Essential (primary) hypertension; M54.42 Lumbago with sciatica, left side; M54.41 Lumbago with sciatica, right side; G89.4 Chronic pain syndrome; E66.09 Other obesity due to excess calories; Z68.32 Body mass index [BMI] 32.0-32.9, adult

== ENCOUNTER → 2024-10-26 11:47 | Outpatient (BNVA) | payer OTHER, SELFPAY | PROVIDERS: PCP Internal Medicine; Visit Provider Internal Medicine ==

== ENCOUNTER 2024-11-01 13:12 | Outpatient (AMB) | payer OTHER, SELFPAY ==
--- NOTE | 2024-11-01 13:35 | MHC.OFFVIS ---
Vital Signs 11/01/24 13:39 Weight 245 lb 13.047 oz BP 142/78 H Blood Pressure Location Lt brachial Position Sitting Pulse 98 Pulse Source Pulse Oximeter Pulse Oximetry (%) 95 Oxygen Delivery Method Room Air Intake Visit Reasons: Emphysema Allergies No Known Allergies Allergy (Verified 11/01/24 13:42) Medication List - Last Reconciled 11/01/24 by Rayne Bowman LPN albuterol sulfate 90 mcg/actuation 2 puffs inhalation Q4-6H PRN 30 days amitriptyline 150 mg PO BEDTIME aspirin (Adult Low Dose Aspirin) 81 mg PO DAILY atorvastatin 80 mg PO DAILY colchicine 0.6 mg PO DAILY finasteride 5 mg PO DAILY 90 days fluticasone propionate 50 mcg/actuation (Flonase Allergy Relief) 1 spray intranasal BID 30 days losartan 100 mg PO DAILY 90 days melatonin 5 mg PO BEDTIME metoprolol succinate ER 50 mg PO DAILY olanzapine 10 mg PO BEDTIME 90 days omega-3 fatty acids (Fish Oil Concentrate) 1 tab PO DAILY oxycodone-acetaminophen 5-325 mg (Percocet) 1 tab PO TID PRN 30 days pantoprazole 40 mg PO DAILY Stiolto Respimat 2.5-2.5 mcg/actuation (tiotropium-olodaterol) 2 puffs PO DAILY NS sucralfate 10 mL PO QID 30 days tamsulosin 0.4 mg PO BEDTIME 90 days [Tens unit [id number] As directed] ticagrelor (Brilinta) 90 mg PO BID zolpidem 10 mg PO BEDTIME PRN 30 days HPI HPI Emphysema: Details: 64-year-old gentleman, recent 35+ pack-year smoker, quit 2023, now followed for for underlying moderate COPD, GERD, and pulmonary nodules.? He has been using Stiolto with good baseline control. Denies any recent exacerbations. He continues on Carafate for his PPI symptoms. [facility] Medical History Old cerebral infarct without residual deficit COPD (chronic obstructive pulmonary disease) Asthma Nicotine addiction Diabetes type 2, controlled Chronic pain syndrome Diabetic neuropathy Other specified idiopathic peripheral neuropathy Schizophrenia Hypertension, essential Difficulty sleeping Chronic lumbar pain Surgical History History of heart artery stent History of laparoscopic cholecystectomy History of repair of rotator cuff Status post laparoscopic cholecystectomy Family History Father No problems noted. Mother No problems noted. Social History Household Members: Family Housing: House Do you presently have visiting nurse or other home services: No Alcohol intake: never Comment: resting well Patient Tobacco Use Status: Tobacco use Unknown Tobacco use type: Cigarette Cigarette Packs Per Day: 1 e-Cigarette/Vaping Use: Never Used service: No Current occupational status: unemployed Cognitive needs: No Hearing needs: No Vision needs: Yes Review of Systems Const Denies daytime sleepiness, Denies excessive sweating, Denies fatigue, Denies fever(s), Denies lethargy, Denies malaise, Denies night sweats, Denies snoring and Denies weight loss Eyes Denies blurry vision and Denies itchy eyes ENT Denies nasal congestion, Denies post nasal drip, Denies sinus pain, Denies sinus pressure and Denies other ( Thrush) Card Denies chest pain, Denies pedal edema, Denies dyspnea, Denies orthopnea and Denies paroxysmal nocturnal dyspnea Resp Denies cough, Denies hemoptysis, Denies excessive phlegm production, Denies dyspnea, Denies snoring and Denies wheezing GI Denies abdominal pain and Denies heartburn Musc Denies myalgias, Denies arthralgias and Denies joint swelling Skin/Breast Denies rash Neuro Denies memory loss and Denies seizure-like activity Psych Denies abnormal sleep pattern, Denies anxiety and Denies memory loss Endo Denies excessive sweating, Denies fatigue and Denies heat intolerance Pmua/Lymph Denies easy bruising Aller/Immun Denies itchy eyes, Denies seasonal rhinorrhea and Denies wheezing Physical Exam Vital Signs: Last Vital Signs Pulse 98 11/01/24 13:39 BP 142/78 H 11/01/24 13:39 Pulse Ox 95 11/01/24 13:39 Oxygen Delivery Method Room Air 11/01/24 13:39 Const General: no acute distress and alert Nutritional Appearance: obese Orientation/consciousness: Other orientation findings ( oriented) HEENT Head: Yes atraumatic Eyes General: appearance normal, both eyes and all related structures Sclerae: sclerae normal EOM: EOMs intact bilaterally Neck Neck: Yes supple Lymphatic: no lymphadenopathy noted Resp Effort & Inspection: normal respiratory effort and no use of accessory muscles Auscultation: clear to auscultation bilaterally Cardio Rate: regular rate Rhythm: regular rhythm Heart sounds: no gallops, no murmurs and no rubs Skin General skin exam: other ( warm) Extrem General: No clubbing, No cyanosis and No edema Assessment & Plan Assessment & Plan (1) COPD (chronic obstructive pulmonary disease): Code(s): J44.9 - Chronic obstructive pulmonary disease, unspecified Category: Medical Qualifiers: COPD type: emphysema Emphysema type: other Qualified Code(s): J43.8 - Other emphysema Plan: Well controlled on current regimen of Stiolto and albuterol MDI. Continue current regimen. (2) Personal history of nicotine dependence: Code(s): Z87.891 - Personal history of nicotine dependence Category: Medical Plan: Results of lung cancer screening CT chest from June of 2024 reviewed, no worrisome nodules. Continue with yearly screening, next in June of 2025. (3) Chronic GERD: Code(s): K21.9 - Gastro-esophageal reflux disease without esophagitis Category: Medical Plan: With significantly improved control on sucralfate. Continue current regimen. Coding Level of Care Code Est Pt Level 4 (98272) Complex EM visit Add On G2211 Diagnoses Other emphysema J43.8 COPD type: emphysema Emphysema type: other Personal history of nicotine dependence Z87.891 Chronic GERD K21.9
[2024-11-01 13:39] VITALS: BP 142/78; PULSE 98; O2SAT 95
== END 2024-11-01 14:03 | disposition home or self-care (01) ==
PROVIDERS: PCP Internal Medicine; Visit Provider Internal Medicine Pulmonary Disease
DX: J43.8 Other emphysema (principal); Z87.891 Personal history of nicotine dependence; K21.9 Gastro-esophageal reflux disease without esophagitis
CPT/HCPCS: 99214; G2211

== ENCOUNTER → 2024-11-01 13:12 | Outpatient (BNVA) | payer OTHER, SELFPAY | PROVIDERS: PCP Internal Medicine; Visit Provider Internal Medicine Pulmonary Disease | DX: J43.8 Other emphysema (principal); K21.9 Gastro-esophageal reflux disease without esophagitis; Z87.891 Personal history of nicotine dependence | CPT/HCPCS: 99212 ==

== ENCOUNTER 2024-12-27 11:53 | Outpatient (REF) | payer OTHER, SELFPAY ==
[2024-12-27 13:13] LABS: MANUAL DIFF FLAG NO
[2024-12-27 13:30] LABS: Basophils Percent Auto 0.6 % (0-2); Eosinophils Absolute Auto 0.3 X10*3/uL (0.0-0.4); Eosinophils Percent Auto 4.1 % (0-4); Hematocrit 38.5 % (42.0-52.0); Hemoglobin 13.2 g/dl (14.0-18.0); Imm Gran Abs Auto 0.06 X10*3/uL (0.00-0.03); Imm Gran Pct Auto 0.9 % (0.0-0.4); Lymphocytes Absolute Auto 1.9 X10*3/uL (1.2-4.9); Lymphocytes Percent Auto 28.2 % (20-40); Mean Corpuscular HGB Conc 34.3 g/dl (31.0-36.0); Mean Corpuscular Hemoglobin 31.4 pg (27.0-33.0); Mean Corpuscular Volume 91.7 fL (80.0-98.0); Mean Platelet Volume 9.2 fL (9.4-12.4); Monocytes Absolute Auto 0.5 X10*3/uL (0.1-1.2); Monocytes Percent Auto 7.9 % (2-11); Neutrophils Absolute Auto 3.8 x10*3/uL (2.0-8.3); Neutrophils Percent Auto 58.3 % (45-73); Platelet Count 284 X10*3/uL (160-400); Red Cell Distribution Width 12.9 % (11.0-16.0); White Blood Count 6.6 X10*3/uL (4.8-10.8)
[2024-12-27 13:52] LABS: Estimated Average Glucose 137 mg/dL; Hemoglobin A1C 160.7806 umol/L; Hemoglobin A1c % 6.4 % (<6.0); Total Hemoglobin (HGBA1C) 3478.2729 umol/L
[2024-12-27 14:17] LABS: Alanine Aminotransferase 31 U/L (0-40); Albumin Level 4.2 g/dL (3.5-5.0); Alkaline Phosphatase 69 U/L (39-117); Anion Gap 18 (12-20); Aspartate Amino Transferase 29 U/L (5-37); Bilirubin Total 0.2 mg/dL (0.0-1.0); Blood Urea Nitrogen 18 mg/dL (9-16); Calcium 8.9 mg/dL (8.4-10.2); Carbon Dioxide 24 mmol/L (22-29); Chloride 102 mmol/L (96-108); Estimated Glomerular Filt Rate > 60; Glucose Random 110 mg/dL (60-115); Potassium 4.2 mmol/L (3.3-5.1); Sodium 140 mmol/L (135-145); Total Protein 8.1 g/dL (6.5-8.0)
[2024-12-27 14:34] LABS: TSH reflex Free T4 1.18 uIU/mL (0.32-4.0)
[2024-12-27 17:00] LABS: Appearance Urine Clear; Color Urine Yellow; Glucose Urine UA Negative (Negative); Leukocyte Esterase Urine Negative (Negative); Nitrite Urine Negative (Negative); PH 6.5 (5.0-9.0); Urine Blood Negative (Negative); Urine Ketones Negative (Negative); Urine Protein Negative (Neg-Trace)
[2024-12-27 17:14] LABS: Amphetamine Screen Urine Not Detected (Not Detect); Barbiturates, Urine Not Detected (Not Detect); Benzodiazepines Screen Urine Not Detected (Not Detect); Buprenorphine Scr Not Detected (Not Detect); Cannabinoid Screen Urine Not Detected (Not Detect); Cocaine Screen Urine Not Detected (Not Detect); Fentanyl, urine Not Detected (Not Detect); Methadone Screen, Urine Not Detected (Not Detect); Opiate Screen Urine Not Detected (Not Detect); Oxycodone Screen Urine Positive (Not Detect); Phencyclidine Screen Urine Not Detected (Not Detect)
[2024-12-29 20:03] LABS: LDL Cholesterol Direct 95 mg/dL (<100)
[2024-12-30 10:54] LABS: Noroxycodone, Ur 1695; Oxycodone, Ur 764
[2024-12-30 10:55] LABS: Oxymorphone, Ur 828
[2024-12-30 10:58] LABS: Codeine, Ur NEGATIVE; Hydrocodone, Ur NEGATIVE; Hydromorphone, Ur NEGATIVE; Morphine, Ur NEGATIVE; Norhydrocodone, Ur NEGATIVE
== END 2024-12-27 11:54 | disposition home or self-care (01) ==
LOC: HO.HMGCLDS 11:53
PROVIDERS: PCP Internal Medicine; Visit Provider Internal Medicine
DX: I10 Essential (primary) hypertension (principal); E11.69 Type 2 diabetes mellitus with other specified complication; E11.43 Type 2 diabetes mellitus with diabetic autonomic (poly)neuropathy; J43.8 Other emphysema; I25.10 Atherosclerotic heart disease of native coronary artery without angina pectoris; M54.16 Radiculopathy, lumbar region; F11.20 Opioid dependence, uncomplicated; F20.0 Paranoid schizophrenia; G47.9 Sleep disorder, unspecified; G89.29 Other chronic pain; M54.42 Lumbago with sciatica, left side; M54.41 Lumbago with sciatica, right side; K21.9 Gastro-esophageal reflux disease without esophagitis; J30.9 Allergic rhinitis, unspecified; N40.0 Benign prostatic hyperplasia without lower urinary tract symptoms; E78.5 Hyperlipidemia, unspecified; Z79.899 Other long term (current) drug therapy
CPT/HCPCS: 80053; 80307; 80365; 81003; 83036; 83721; 84443; 85025; 96127; 99212; G0480

== ENCOUNTER 2024-12-27 11:53 | Outpatient (AMB) | payer OTHER, SELFPAY ==
[2024-12-27 11:58] VITALS: BP 122/68; PULSE 96; O2SAT 98; BMI 35.7
--- NOTE | 2024-12-27 11:58 | A.OFFPC_ITS ---
Vital Signs 12/27/24 11:58 Height 5 ft 10 in Weight 249 lb BMI 35.7 BP 122/68 Blood Pressure Location Rt brachial Position Sitting Pulse 96 Pulse Source Pulse Oximeter Pulse Oximetry (%) 98 Oxygen Delivery Method Room Air Intake Visit Reasons: 2m follow up Allergies No Known Allergies Allergy (Verified 12/27/24 11:59) Medication List - Last Reconciled 12/27/24 by Jayy Edmonds MD albuterol sulfate 90 mcg/actuation 2 puffs inhalation Q4-6H PRN 30 days amitriptyline 150 mg PO BEDTIME aspirin (Adult Low Dose Aspirin) 81 mg PO DAILY atorvastatin 80 mg PO DAILY colchicine 0.6 mg PO DAILY finasteride 5 mg PO DAILY 90 days fluticasone propionate 50 mcg/actuation (Flonase Allergy Relief) 1 spray intranasal BID 30 days losartan 100 mg PO DAILY 90 days melatonin 5 mg PO BEDTIME metoprolol succinate ER 50 mg PO DAILY olanzapine 10 mg PO BEDTIME 90 days omega-3 fatty acids (Fish Oil Concentrate) 1 tab PO DAILY oxycodone-acetaminophen 5-325 mg (Percocet) 1 tab PO TID PRN 30 days pantoprazole 40 mg PO DAILY Stiolto Respimat 2.5-2.5 mcg/actuation (tiotropium-olodaterol) 2 puffs PO DAILY NS sucralfate 10 mL PO QID 30 days tamsulosin 0.4 mg PO BEDTIME 90 days [Tens unit [id number] As directed] ticagrelor (Brilinta) 90 mg PO BID zolpidem 10 mg PO BEDTIME PRN 30 days Tobacco use date assessed: 12/27/24 Dental Screening Dental Screen Date: 12/27/24 Did you have a dental visit in the last 12 months?: Yes Did you have a dental problem in the last 6 months where you did not have access to dental care?: No Was dental information given to patient?: Patient has dentist HPI 2m follow up HPI Details Patient is a 64-year-old male with a history of hypertension, chronic back pain, dyslipidemia, and neuropathy, schizophrenia, obesity, difficulty sleeping, lung nodule, chronic back pain BPH, allergies, nicotine dependence. presenting for medication reconciliation and management of chronic conditions. 1. Schizophrenia Olanzapine is being used for psychiatric illness. He is being managed through PCP office 2. Gastroesophageal Reflux Disease Pantoprazole prescribed for stomach-related symptoms. Stable at this time 3. Neuropathy Neuropathy affecting mobility; advised continuation of walking to sustain muscle strength. 4. Sleep Disorder Zolpidem is being used for sleep aid. Continue current therapy with monitoring of sleep patterns and follow-up as needed. 5. Allergic Rhinitis Flonase nasal spray is utilized for allergy management. The patient reports satisfactory control with current treatment. 6. Hypertension Blood pressure is slightly elevated; current therapy includes losartan and metoprolol. Continue monitoring blood pressure at home and follow the current medication regimen. 7. Chronic Back Pain Amitriptyline and oxycodone are used for pain management. No acute changes or increase in symptoms noted. Continue current medication regimen. 8. Benign Prostatic Hyperplasia Finasteride and tamsulosin are current therapies provided by urology. Continue with the current treatment and consult urology for follow-up. 9. Dyslipidemia Atorvastatin is utilized for lipid management. Labs reviewed; current level management appeared adequate. No adjustments necessary at this time. 10. Diet-controlled diabetes hemoglobin A1c stable Due for labs Problem List - Hypertension - Chronic Back Pain - Dyslipidemia - Benign Prostatic Hyperplasia - Allergic Rhinitis - Anxiety Disorder - Gastroesophageal Reflux Disease - Sleep Disorder - Neuropathy - diet-controlled diabetes - obesity - nicotine dependence Patient Instructions - Continue current medication regimen fo r all chronic conditions. - Monitor blood pressure regularly and r ecord results. - Maintain regular walking exercises to support muscle strength in legs. - Attend the upcoming specialist appoint ments - Return for follow-up in two months or as symptoms dictate, and schedule an appointment if needed sooner. - Contact the office if any medication s gavino effects or new symptoms arise immediately. Review of Systems - Psychological: Reports feeling nervous and increased cravings for nicotine. - Musculoskeletal: Reports leg pain. - General: No fever no chills - Neurological: No headaches no dizziness - Ear nose throat: No sore throat no hearing difficulty no ear pain - Cardiovascular: No syncope, no chest pain, no palpitations - Gastrointestinal: No nausea vomiting or diarrhea - Endocrine: No polyuria polydipsia no heat intolerance - Genitourinary: No dysuria , no blood in urine Physical Exam - General: No acute distress - HEENT: No acute findings - Neck: Supple - Respiratory system: Able to talk in f ull sentences, no audible wheeze - cardiovascular: S1-S2 regular in rat e and rhythm - Gastrointestinal: No pain - Extremities: No new findings - 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 Mother No problems noted. Social History Household Members: Family Housing: House Do you presently have visiting nurse or other home services: No Alcohol intake: never Comment: resting well Patient Tobacco Use Status: Tobacco use Unknown Tobacco use type: Cigarette Cigarette Packs Per Day: 1 e-Cigarette/Vaping Use: Never Used service: No Current occupational status: unemployed Cognitive needs: No Hearing needs: No Vision needs: Yes Questionnaire PHQ-9 Over the last 2 weeks, how often have you been bothered by any of the following problems? 1. Little interest or pleasure in doing things: not at all 2. Feeling down, depressed, or hopeless: more than half the days 3. Trouble falling or staying asleep, or sleeping too much: several days 4. Feeling tired or having little energy: several days 5. Poor appetite or overeating: several days 6. Feeling bad about yourself - or that you are a failure or have let yourself or your family down: several days 7. Trouble concentrating on things, such as reading the newspaper or watching television: not at all 8. Moving or speaking so slowly that other people could have noticed. Or the opposite - being so fidgety or restless that you have been moving around a lot more than usual: not at all 9. Thoughts that you would be better off or of hurting yourself in some way: not at all Total score: 6 Depression Screening Interpretation: Negative Depression Screening Done: Yes 75692 - PHQ-9 Billing: Yes Source: Developed by Drs. Noel Correa, Delvin Patel and colleagues, with an educational óscar from [employer]. Thrive Questionnaire Date Thrive assessed: 12/27/24 I am a: Patient What is your living situation today?: I have a steady place to live Within the past 12 months, did the food you bought not last and you didn't have the money to get more?: Never true Within the past 12 months, did you worry whether your food would run out before you got money to buy more?: Never true Do you have trouble paying for medicines?: No Do you have trouble getting transportation to medical appointments?: No Do you have trouble paying your heating and electricity bill?: No Do you have trouble taking care of your child, family member or friend?: No Do you have trouble with day-to-day activities such as bathing, preparing meals, shopping, managing finances, etc.?: No Are you currently unemployed and looking for a job?: No Are you interested in more education?: No Please select the resources that you would like help with: None Currently or been in a relationship where the following occur: No concerns reported THRIVE Score: 0 AUDIT C Alcohol Use Questionnaire (AUDIT-C) 1. How often do you have a drink containing alcohol?: Never 3. How often do you have six or more drinks on one occasion?: Never Total Score: 0 Score Reviewed/Action Taken: Yes VÍCTOR-7 AMB Questionnaire VÍCTOR-7 Date VÍCTOR - 7 assessed: 12/27/24 Feeling nervous, anxious, or on edge: 0 = Not at all Not being able to stop or control worryin = Not at all Worrying too much about different things: 0 = Not at all Trouble relaxin = Not at all Being so restless that it is hard to sit still: 0 = Not at all Becoming easily annoyed or irritable: 0 = Not at all Feeling afraid as if something awful might happen: 0 = Not at all Total VÍCTOR-7 score (0-4 normal; 5-9 mild; 10-14 moderate; 15-21 severe): 0 Source: Developed by Drs. Noel Correa, Delvin Patel and colleagues, with an educational óscar from [employer]. VÍCTOR-7 Assessment Billing VÍCTOR-7 Assessment Tool: VÍCTOR-7 Assessment 57749 Physical exam (Primary Care) Vital Signs: Last Vital Signs Pulse 96 12/27/24 11:58 BP 122/68 12/27/24 11:58 Pulse Ox 62 L 12/27/24 11:58 Oxygen Delivery Method Room Air 12/27/24 11:58 BMI result Body Mass Index 35.7 Tobacco/Smoking Status: Tobacco use Status Tobacco use date assessed 12/27/24 12/27/24 12:06 Patient Tobacco Use Status Tobacco use Unknown 12/27/24 12:06 Tobacco use type Cigarette 12/27/24 12:06 e-Cigarette/Vaping Use Never Used 12/27/24 12:06 PHQ-9: PHQ-9 Score PHQ-9: Total score 6 12/27/24 12:06 Depression Screening Interpretation: Negative Thrive Assessment: Date of Thrive Assessment Date Thrive assessed 12/27/24 12/27/24 12:06 Currently or been in a relationship where the following occur: No concerns reported Coding Level of Care Code Est Pt Level 4 (60992) Complex EM visit Add On G2211 Diagnoses Hypertension, essential I10 Controlled type 2 diabetes mellitus with other specified complication, without long-term current use of insulin E11.69 Diabetes mellitus complication status: with other specified complication Diabetes mellitus middle or intermediate school principal insulin use: without skilled nursing use Other emphysema J43.8 COPD type: emphysema Emphysema type: other Coronary artery disease involving [place] coronary artery of [place] heart without angina pectoris I25.10 Associated angina: without angina Coronary Disease-Associated Artery/Lesion type: [place] artery [place] vs. transplanted heart: [place] heart Lumbar radiculitis M54.16 Narcotic dependence F11.20 Diabetic autonomic neuropathy associated with type 2 diabetes mellitus E11.43 Diabetes mellitus complication detail: diabetic autonomic neuropathy Diabetes mellitus type: type 2 Paranoid schizophrenia F20.0 Schizophrenia type: paranoid schizophrenia Difficulty sleeping G47.9 Chronic bilateral low back pain with bilateral sciatica M54.42; M54.41; G89.29 Back pain laterality: bilateral Sciatica laterality: bilateral sciatica Sciatica presence: with sciatica Additional Codes VÍCTOR-7 Assessment Billing - VÍCTOR-7 Assessment Tool: VÍCTOR-7 Assessment 00897 ([id number]) PHQ-9 - 38023 - PHQ-9 Billing: Yes ([id number]) Assessment & Plan Assessment & Plan (1) Hypertension, essential: Code(s): I10 - Essential (primary) hypertension Category: Medical (2) Diabetes type 2, controlled: Code(s): E11.9 - Type 2 diabetes mellitus without complications Category: Medical Qualifiers: Diabetes mellitus complication status: with other specified complication Diabetes mellitus skilled nursing insulin use: without middle or intermediate school principal use Qualified Code(s): E11.69 - Type 2 diabetes mellitus with other specified complication (3) COPD (chronic obstructive pulmonary disease): Code(s): J44.9 - Chronic obstructive pulmonary disease, unspecified Category: Medical Qualifiers: COPD type: emphysema Emphysema type: other Qualified Code(s): J43.8 - Other emphysema (4) Coronary artery disease: Code(s): I25.10 - Atherosclerotic heart disease of [place] coronary artery without angina pectoris Category: Medical Qualifiers: Associated angina: without angina Coronary Disease-Associated Artery/Lesion type: [place] artery [place] vs. transplanted heart: [place] heart Qualified Code(s): I25.10 - Atherosclerotic heart disease of [place] coronary artery without angina pectoris (5) Lumbar radiculitis: Code(s): M54.16 - Radiculopathy, lumbar region Category: Medical (6) Narcotic dependence: Comment: Controlled nature of medication was discussed, it is important to notify me of change of pharmacy, or if traveling. Do not share the medication with anybody, keep it safe away from the hands of small children, and only take it as prescribed. This medication have a tendency to be abused, habit-forming, and it can cause severe constipation along with other allergic reactions. Long-term use of narcotic medications have shown to increase sensitivity to pain. Code(s): F11.20 - Opioid dependence, uncomplicated Category: Medical (7) Diabetic neuropathy: Code(s): E11.40 - Type 2 diabetes mellitus with diabetic neuropathy, unspecified Category: Medical Qualifiers: Diabetes mellitus complication detail: diabetic autonomic neuropathy Diabetes mellitus type: type 2 Qualified Code(s): E11.43 - Type 2 diabetes mellitus with diabetic autonomic (poly)neuropathy (8) Schizophrenia: Code(s): F20.9 - Schizophrenia, unspecified Category: Medical Qualifiers: Schizophrenia type: paranoid schizophrenia Qualified Code(s): F20.0 - Paranoid schizophrenia (9) Difficulty sleeping: Code(s): G47.9 - Sleep disorder, unspecified Category: Medical (10) Chronic lumbar pain: Code(s): M54.5 - Low back pain; G89.29 - Other chronic pain Category: Medical Qualifiers: Back pain laterality: bilateral Sciatica laterality: bilateral sciatica Sciatica presence: with sciatica Qualified Code(s): M54.42 - Lumbago with sciatica, left side; M54.41 - Lumbago with sciatica, right side; G89.29 - Other chronic pain Plan Patient is a 64-year-old male with a history of hypertension, chronic back pain, dyslipidemia, and neuropathy, schizophrenia, obesity, difficulty sleeping, lung nodule, chronic back pain BPH, allergies, nicotine dependence. presenting for medication reconciliation and management of chronic conditions. 1. Schizophrenia Olanzapine is being used for psychiatric illness. He is being managed through PCP office 2. Gastroesophageal Reflux Disease Pantoprazole prescribed for stomach-related symptoms. Stable at this time 3. Neuropathy Neuropathy affecting mobility; advised continuation of walking to sustain muscle strength. 4. Sleep Disorder Zolpidem is being used for sleep aid. Continue current therapy with monitoring of sleep patterns and follow-up as needed. 5. Allergic Rhinitis Flonase nasal spray is utilized for allergy management. The patient reports satisfactory control with current treatment. 6. Hypertension Blood pressure is slightly elevated; current therapy includes losartan and metoprolol. Continue monitoring blood pressure at home and follow the current medication regimen. 7. Chronic Back Pain Amitriptyline and oxycodone are used for pain management. No acute changes or increase in symptoms noted. Continue current medication regimen. 8. Benign Prostatic Hyperplasia Finasteride and tamsulosin are current therapies provided by urology. Continue with the current treatment and consult urology for follow-up. 9. Dyslipidemia Atorvastatin is utilized for lipid management. Labs reviewed; current level management appeared adequate. No adjustments necessary at this time. 10. Diet-controlled diabetes hemoglobin A1c stable Due for labs Problem List - Hypertension - Chronic Back Pain - Dyslipidemia - Benign Prostatic Hyperplasia - Allergic Rhinitis - Anxiety Disorder - Gastroesophageal Reflux Disease - Sleep Disorder - Neuropathy - diet-controlled diabetes - obesity - nicotine dependence Patient Instructions - Continue current medication regimen for all chronic conditions. - Monitor blood pressure regularly and record results. - Maintain regular walking exercises to support muscle strength in legs. - Attend the upcoming specialist appointments - Return for follow-up in two months or as symptoms dictate, and schedule an appointment if needed sooner. - Contact the office if any medication side effects or new symptoms arise immediately. Orders: Orders Complete Blood Count Auto Diff Today E11.43 - Type 2 diabetes mellitus with diabetic autonomic (poly)neuropathy, E11.69 - Type 2 diabetes mellitus with other specified complication, F11.20 - Opioid dependence, uncomplicated, F20.0 - Paranoid schizophrenia, G47.9 - Sleep disorder, unspecified, G89.29 - Other chronic pain, I10 - Essential (primary) hypertension, I25.10 - Atherosclerotic heart disease of [place] coronary artery without angina pectoris, J43.8 - Other emphysema, M54.16 - Radiculopathy, lumbar region, M54.41 - Lumbago with sciatica, right side, M54.42 - Lumbago with sciatica, left side Comprehensive Met. Panel Today E11.43 - Type 2 diabetes mellitus with diabetic autonomic (poly)neuropathy, E11.69 - Type 2 diabetes mellitus with other specified complication, F11.20 - Opioid dependence, uncomplicated, F20.0 - Paranoid schizophrenia, G47.9 - Sleep disorder, unspecified, G89.29 - Other chronic pain, I10 - Essential (primary) hypertension, I25.10 - Atherosclerotic heart disease of [place] coronary artery without angina pectoris, J43.8 - Other emphysema, M54.16 - Radiculopathy, lumbar region, M54.41 - Lumbago with sciatica, right side, M54.42 - Lumbago with sciatica, left side LDL Cholesterol Direct Today E11.43 - Type 2 diabetes mellitus with diabetic autonomic (poly)neuropathy, E11.69 - Type 2 diabetes mellitus with other specified complication, F11.20 - Opioid dependence, uncomplicated, F20.0 - Paranoid schizophrenia, G47.9 - Sleep disorder, unspecified, G89.29 - Other chronic pain, I10 - Essential (primary) hypertension, I25.10 - Atherosclerotic heart disease of [place] coronary artery without angina pectoris, J43.8 - Other emphysema, M54.16 - Radiculopathy, lumbar region, M54.41 - Lumbago with sciatica, right side, M54.42 - Lumbago with sciatica, left side UA CC w/rflx Micro + Cult Today E11.43 - Type 2 diabetes mellitus with diabetic autonomic (poly)neuropathy, E11.69 - Type 2 diabetes mellitus with other specified complication, F11.20 - Opioid dependence, uncomplicated, F20.0 - Paranoid schizophrenia, G47.9 - Sleep disorder, unspecified, G89.29 - Other chronic pain, I10 - Essential (primary) hypertension, I25.10 - Atherosclerotic heart disease of [place] coronary artery without angina pectoris, J43.8 - Other emphysema, M54.16 - Radiculopathy, lumbar region, M54.41 - Lumbago with sciatica, right side, M54.42 - Lumbago with sciatica, left side Hemoglobin A1c Today E11.43 - Type 2 diabetes mellitus with diabetic autonomic (poly)neuropathy, E11.69 - Type 2 diabetes mellitus with other specified complication, F11.20 - Opioid dependence, uncomplicated, F20.0 - Paranoid schizophrenia, G47.9 - Sleep disorder, unspecified, G89.29 - Other chronic pain, I10 - Essential (primary) hypertension, I25.10 - Atherosclerotic heart disease of [place] coronary artery without angina pectoris, J43.8 - Other emphysema, M54.16 - Radiculopathy, lumbar region, M54.41 - Lumbago with sciatica, right side, M54.42 - Lumbago with sciatica, left side TSH reflex Free T4 Today E11.43 - Type 2 diabetes mellitus with diabetic autonomic (poly)neuropathy, E11.69 - Type 2 diabetes mellitus with other specified complication, F11.20 - Opioid dependence, uncomplicated, F20.0 - Paranoid schizophrenia, G47.9 - Sleep disorder, unspecified, G89.29 - Other chronic pain, I10 - Essential (primary) hypertension, I25.10 - Atherosclerotic heart disease of [place] coronary artery without angina pectoris, J43.8 - Other emphysema, M54.16 - Radiculopathy, lumbar region, M54.41 - Lumbago with sciatica, right side, M54.42 - Lumbago with sciatica, left side Drug Screen Urine Today E11.43 - Type 2 diabetes mellitus with diabetic autonomic (poly)neuropathy, E11.69 - Type 2 diabetes mellitus with other specified complication, F11.20 - Opioid dependence, uncomplicated, F20.0 - Paranoid schizophrenia, G47.9 - Sleep disorder, unspecified, G89.29 - Other chronic pain, I10 - Essential (primary) hypertension, I25.10 - Atherosclerotic heart disease of [place] coronary artery without angina pectoris, J43.8 - Other emphysema, M54.16 - Radiculopathy, lumbar region, M54.41 - Lumbago with sciatica, right side, M54.42 - Lumbago with sciatica, left side Opiates GCMS Expanded, Ur Today E11.43 - Type 2 diabetes mellitus with diabetic autonomic (poly)neuropathy, E11.69 - Type 2 diabetes mellitus with other specified complication, F11.20 - Opioid dependence, uncomplicated, F20.0 - Paranoid schizophrenia, G47.9 - Sleep disorder, unspecified, G89.29 - Other chronic pain, I10 - Essential (primary) hypertension, I25.10 - Atherosclerotic heart disease of [place] coronary artery without angina pectoris, J43.8 - Other emphysema, M54.16 - Radiculopathy, lumbar region, M54.41 - Lumbago with sciatica, right side, M54.42 - Lumbago with sciatica, left side Medications: New nicotine (Nicoderm CQ) 1 patch transdermal Q24H 28 ea 1RF Refilled zolpidem 10 mg PO BEDTIME 30 days PRN 30 tabs 0RF sleep G47.9 - Sleep disorder, unspecified oxycodone-acetaminophen 5-325 mg (Percocet) Partial refill permitted 1 tab PO TID 30 days PRN 90 tabs 0RF pain F11.20 - Opioid dependence, uncomplicated, G89.29 - Other chronic pain, M54.41 - Lumbago with sciatica, right side, M54.42 - Lumbago with sciatica, left side, R52 - Pain, unspecified
== END 2024-12-27 13:15 | disposition home or self-care (01) ==
PROVIDERS: PCP Internal Medicine; Visit Provider Internal Medicine
DX: I10 Essential (primary) hypertension (principal); E11.43 Type 2 diabetes mellitus with diabetic autonomic (poly)neuropathy; E11.69 Type 2 diabetes mellitus with other specified complication; J43.8 Other emphysema; F11.20 Opioid dependence, uncomplicated; F20.0 Paranoid schizophrenia; I25.10 Atherosclerotic heart disease of native coronary artery without angina pectoris; M54.16 Radiculopathy, lumbar region; G47.9 Sleep disorder, unspecified; M54.42 Lumbago with sciatica, left side; M54.41 Lumbago with sciatica, right side; G89.29 Other chronic pain

== ENCOUNTER 2025-02-24 11:47 | Outpatient (AMB) | payer OTHER, SELFPAY ==
[2025-02-24 11:51] VITALS: BP 124/68; PULSE 98; O2SAT 98; BMI 36.1
--- NOTE | 2025-02-24 11:51 | A.OFFPC_ITS ---
Vital Signs 02/24/25 11:51 Height 5 ft 10 in Weight 251 lb 8 oz BMI 36.1 BP 124/68 Blood Pressure Location Lt brachial Position Sitting Pulse 98 Pulse Source Pulse Oximeter Pulse Oximetry (%) 98 Oxygen Delivery Method Room Air Intake Visit Reasons: 2m follow up Allergies No Known Allergies Allergy (Verified 02/24/25 11:57) Medication List - Last Reconciled 02/24/25 by Jayy Edmonds MD albuterol sulfate 90 mcg/actuation 2 puffs inhalation Q4-6H PRN 30 days amitriptyline 150 mg PO BEDTIME aspirin (Adult Low Dose Aspirin) 81 mg PO DAILY atorvastatin 80 mg PO DAILY colchicine 0.6 mg PO DAILY finasteride 5 mg PO DAILY 90 days fluticasone propionate 50 mcg/actuation (Flonase Allergy Relief) 1 spray intranasal BID 30 days losartan 100 mg PO DAILY 90 days melatonin 5 mg PO BEDTIME metoprolol succinate ER 50 mg PO DAILY nicotine (Nicoderm CQ) 1 patch transdermal Q24H olanzapine 10 mg PO BEDTIME 90 days omega-3 fatty acids (Fish Oil Concentrate) 1 tab PO DAILY oxycodone-acetaminophen 5-325 mg (Percocet) 1 tab PO TID PRN 30 days pantoprazole 40 mg PO DAILY Stiolto Respimat 2.5-2.5 mcg/actuation (tiotropium-olodaterol) 2 puffs PO DAILY NS sucralfate 10 mL PO QID 30 days tamsulosin 0.4 mg PO BEDTIME 90 days [Tens unit [id number] As directed] ticagrelor (Brilinta) 90 mg PO BID zolpidem 10 mg PO BEDTIME PRN 30 days Tobacco use date assessed: 02/24/25 Dental Screening Dental Screen Date: 02/24/25 Did you have a dental visit in the last 12 months?: Yes Did you have a dental problem in the last 6 months where you did not have access to dental care?: No Was dental information given to patient?: Patient has dentist HPI 2m follow up HPI Details History - The patient is a 64-year-old male pres enting for regular follow up for medication refill and also has been having chronic right groin pain for the past few weeks - The pain has been present for approxim ately four months and seems localized primarily to the right side, iliopsoas strain - Despite some improvement, the pain rem ains consistent and unrelieved by previous treatments other than Percocet, which the patient was using for back pain. - The patient notes no specific inciting event or injury at the onset of the pain. - There is no history of consulting an o rthopedic physician for this issue to date. - The patient has a history of smoking b ut reports cessation, acknowledging the need for weight management. - Percocet is currently being used for c hronic back pain; ibuprofen has not been trialed for current pain relief. - suffers from schizophrenia and is taki ng Olnazapine - patient is also on zolpidem refill sen t Problem List - Chronic leg pain - iliopsoas strain - Chronic back pain - Schizophrenia - Benign Prostatic Hyperplasia (BPH) - Hypertension - Gout - Chronic Gastroesophageal Reflux Diseas e (GERD) Patient Instructions - Consult with an medical front desk specialist for a comprehensive evaluation of leg pain. - Complete the ordered hip x-ray today. - Continue current medications as prescr ibed and manage weight through lifestyle changes. - Monitor leg pain and report any new sy mptoms or worsened conditions. Review of Systems - General: No fever no chills - Neurological: No headaches no dizziness - Ear nose throat: No sore throat no hearing difficulty no ear pain - Cardiovascular: No syncope, no chest pain, no palpitations - Gastrointestinal: No nausea vomiting or diarrhea - Endocrine: No polyuria polydipsia no heat intolerance - Genitourinary: No dysuria , no blood in urine Physical Exam General: No acute distress HEENT: No acute findings Neck: Supple Respiratory system: Able to talk in full sentences, no audible wheeze Cardiovascular: S1-S2 regular in rate and rhythm Gastrointestinal: No pain Extremities: Pain right groin area with flexion 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 HAND: Alert awake oriented x3 motor sensory intact Skin: Normal turgor PFSH Medical History Old cerebral infarct without residual deficit COPD (chronic obstructive pulmonary disease) Asthma Nicotine addiction Diabetes type 2, controlled Chronic pain syndrome Diabetic neuropathy Other specified idiopathic peripheral neuropathy Schizophrenia Hypertension, essential Difficulty sleeping Chronic lumbar pain Surgical History History of heart artery stent History of laparoscopic cholecystectomy History of repair of rotator cuff Status post laparoscopic cholecystectomy Family History Father No problems noted. Mother No problems noted. Social History Household Members: Family Housing: House Do you presently have visiting nurse or other home services: No Alcohol intake: never Comment: resting well Patient Tobacco Use Status: Tobacco use Unknown Tobacco use type: Cigarette Cigarette Packs Per Day: 1 e-Cigarette/Vaping Use: Never Used service: No Current occupational status: unemployed Cognitive needs: No Hearing needs: No Vision needs: Yes Questionnaire Thrive Questionnaire Date Thrive assessed: 02/24/25 I am a: Patient What is your living situation today?: I have a steady place to live Within the past 12 months, did the food you bought not last and you didn't have the money to get more?: I choose not to answer this question Within the past 12 months, did you worry whether your food would run out before you got money to buy more?: I choose not to answer this question Do you have trouble paying for medicines?: No Do you have trouble getting transportation to medical appointments?: No Do you have trouble paying your heating and electricity bill?: No Do you have trouble taking care of your child, family member or friend?: I choose not to answer this question Do you have trouble with day-to-day activities such as bathing, preparing meals, shopping, managing finances, etc.?: Yes Are you currently unemployed and looking for a job?: No Are you interested in more education?: No Please select the resources that you would like help with: Care for elder or disabled Currently or been in a relationship where the following occur: No concerns reported THRIVE Score: 0 AUDIT C Alcohol Use Questionnaire (AUDIT-C) 1. How often do you have a drink containing alcohol?: Monthly or less 2. How many drinks containing alcohol do you have on a typical day when you are drinking?: 1 or 2 3. How often do you have six or more drinks on one occasion?: Never Total Score: 1 Score Reviewed/Action Taken: Yes VÍCTOR-7 AMB Questionnaire VÍCTOR-7 Date VÍCTOR - 7 assessed: 02/24/25 Feeling nervous, anxious, or on edge: 3 = Nearly every day Not being able to stop or control worryin = Nearly every day Worrying too much about different things: 3 = Nearly every day Trouble relaxin = Several days Being so restless that it is hard to sit still: 0 = Not at all Becoming easily annoyed or irritable: 2 = More than half the days Feeling afraid as if something awful might happen: 1 = Several days Total VÍCTOR-7 score (0-4 normal; 5-9 mild; 10-14 moderate; 15-21 severe): 13 Source: Developed by Drs. Noel Correa, Jennifer Zhang, Delvin Pritchard and colleagues, with an educational óscar from [employer]. VÍCTOR-7 Assessment Billing VÍCTOR-7 Assessment Tool: VÍCTOR-7 Assessment 27292 Physical exam (Primary Care) Vital Signs: Last Vital Signs Pulse 98 02/24/25 11:51 BP 124/68 02/24/25 11:51 Pulse Ox 98 02/24/25 11:51 Oxygen Delivery Method Room Air 02/24/25 11:51 BMI result Body Mass Index 36.1 Tobacco/Smoking Status: Tobacco use Status Tobacco use date assessed 02/24/25 02/24/25 11:57 Patient Tobacco Use Status Tobacco use Unknown 02/24/25 11:53 Tobacco use type Cigarette 02/24/25 11:53 e-Cigarette/Vaping Use Never Used 02/24/25 11:53 Thrive Assessment: Date of Thrive Assessment Date Thrive assessed 02/24/25 02/24/25 11:57 Currently or been in a relationship where the following occur: No concerns reported Coding Level of Care Code Est Pt Level 4 (96702) Diagnoses Hip pain, right M25.551 Strain of right iliopsoas muscle, initial encounter S76.811A Encounter type: initial encounter Laterality: right Hypertension, essential I10 Lumbar radiculitis M54.16 Narcotic dependence F11.20 Paranoid schizophrenia F20.0 Schizophrenia type: paranoid schizophrenia Difficulty sleeping G47.9 Chronic bilateral low back pain with bilateral sciatica M54.42; M54.41; G89.29 Back pain laterality: bilateral Sciatica presence: with sciatica Sciatica laterality: bilateral sciatica Additional Codes VÍCTOR-7 Assessment Billing - VÍCTOR-7 Assessment Tool: VÍCTOR-7 Assessment [id number] ([id number]) Assessment & Plan Assessment & Plan (1) Hip pain, right: Code(s): M25.551 - Pain in right hip Category: Medical (2) Strain of iliopsoas muscle: Code(s): S76.819A - Strain of other specified muscles, fascia and tendons at thigh level, unspecified thigh, initial encounter Category: Medical Qualifiers: Encounter type: initial encounter Laterality: right Qualified Code(s): S76.811A - Strain of other specified muscles, fascia and tendons at thigh level, right thigh, initial encounter (3) Hypertension, essential: Code(s): I10 - Essential (primary) hypertension Category: Medical (4) Lumbar radiculitis: Code(s): M54.16 - Radiculopathy, lumbar region Category: Medical (5) Narcotic dependence: Comment: Controlled nature of medication was discussed, it is important to notify me of change of pharmacy, or if traveling. Do not share the medication with anybody, keep it safe away from the hands of small children, and only take it as prescribed. This medication have a tendency to be abused, habit-forming, and it can cause severe constipation along with other allergic reactions. Long-term use of narcotic medications have shown to increase sensitivity to pain. Code(s): F11.20 - Opioid dependence, uncomplicated Category: Medical (6) Schizophrenia: Code(s): F20.9 - Schizophrenia, unspecified Category: Medical Qualifiers: Schizophrenia type: paranoid schizophrenia Qualified Code(s): F20.0 - Paranoid schizophrenia (7) Difficulty sleeping: Code(s): G47.9 - Sleep disorder, unspecified Category: Medical (8) Chronic lumbar pain: Code(s): M54.5 - Low back pain; G89.29 - Other chronic pain Category: Medical Qualifiers: Back pain laterality: bilateral Sciatica presence: with sciatica Sciatica laterality: bilateral sciatica Qualified Code(s): M54.42 - Lumbago with sciatica, left side; M54.41 - Lumbago with sciatica, right side; G89.29 - Other chronic pain Plan History - The patient is a 64-year-old male presenting for regular follow up for medication refill and also has been having chronic right groin pain for the past few weeks - The pain has been present for approximately four months and seems localized primarily to the right side, iliopsoas strain - Despite some improvement, the pain remains consistent and unrelieved by previous treatments other than Percocet, which the patient was using for back pain. - The patient notes no specific inciting event or injury at the onset of the pain. - There is no history of consulting an orthopedic physician for this issue to date. - The patient has a history of smoking but reports cessation, acknowledging the need for weight management. - Percocet is currently being used for chronic back pain; ibuprofen has not been trialed for current pain relief. - suffers from schizophrenia and is taking Olnazapine - patient is also on zolpidem refill sent Problem List - Chronic leg pain - iliopsoas strain - Chronic back pain - Schizophrenia - Benign Prostatic Hyperplasia (BPH) - Hypertension - Gout - Chronic Gastroesophageal Reflux Disease (GERD) Patient Instructions - Consult with an medical front desk specialist for a comprehensive evaluation of leg pain. - Complete the ordered hip x-ray today. - Continue current medications as prescribed and manage weight through lifestyle changes. - Monitor leg pain and report any new symptoms or worsened conditions. Orders: Orders XR hip RT min 2V Today M25.551 - Pain in right hip Referrals Orthopedics Referral M25.551 - Pain in right hip, S76.819A - Strain of other specified muscles, fascia and tendons at thigh level, unspecified thigh, initial encounter Medications: Refilled zolpidem 10 mg PO BEDTIME 30 days PRN 30 tabs 0RF sleep G47.9 - Sleep disorder, unspecified oxycodone-acetaminophen 5-325 mg (Percocet) Partial refill permitted 1 tab PO TID 30 days PRN 90 tabs 0RF pain F11.20 - Opioid dependence, uncomplicated, G89.29 - Other chronic pain, M54.41 - Lumbago with sciatica, right side, M54.42 - Lumbago with sciatica, left side, R52 - Pain, unspecified
--- OUTSIDE RECORDS SUMMARY | 2025-02-24 13:50 | XMS_ITS ---
Author Organization [facility] Address [address] [place] [id number] Care Team Providers Care Fashion Show Director Name Role Phone Grey CHAN, [facility] Primary Care Provider Noel Tolentino [phone] Allergies No Known Allergies REASON FOR VISIT Patient presents today for abdominal pain. Medications Medication SIG (Take, Route, Frequency, Duration) Notes Start Date End Date Status Finasteride 5 MG TAKE 1 TABLET BY MITCHELL TH DAILY Oral for 90 Active Tamsulosin HCl 0.4 MG Oral for 90 Active MiraLax (colon prep) 17 GM/SCOOP 1 238GM bottle mixed with Gatorade or Crystal Light Orally begin at 5:00 p.m. the day before the procedure for 1 day 05/26/2023 Not-Taking Pantoprazole Sodium 40 MG 1 tablet Orall y Every morning for 30 day(s) 07/16/2023 Not-Taking Nicotine 21 MG/24HR Transdermal for 28 Active Atorvastatin Calcium 80 MG TAKE 1 TABLET BY MOUTH DAILY AT BEDTIME Oral for 90 Active Colchicine 0.6 MG Oral for 90 Active Metoprolol Succinate ER 50 MG Oral for 90 Active Aspirin Low Dose 81 MG TAKE 1 TABLET BY MOUTH DAILY Oral for 90 Active Brilinta 90 MG Oral for 90 Act hector Dicyclomine HCl 10 MG 1 or 2 capsules Or ally Every 6 hours as needed for abdominal cramps and discomfort for 30 days 07/17/2023 Not-Taking Pantoprazole Sodium 40 MG 1 tablet Orall y Twice a day for 30 day(s) 07/17/2023 Not-Taking Pantoprazole Sodium 40 MG 1 tablet Orall y Twice a day for 30 day(s) 08/05/2023 Not-Taking Dicyclomine HCl 10 MG 1 or 2 Orally Ever y 6 hours as needed for abdominal discomfort for 30 day(s) 09/15/2023 Not-Taking MiraLax 17 GM/SCOOP 1 capful measured to the line in 8 ounces of water Orally Once or twice a day to help with constipation and abdominal pain. for 30 day(s) 10/11/2023 Active Fluticasone Propionate 50 MCG/ACT SHAKE LIQUID AND USE 1 SPRAY IN EACH NOSTRIL TWICE DAILY Nasal for 30 Active Albuterol Sulfate HFA 108 (90 Base) MCG/ACT Inhalation for 16 Activ e Stiolto Respimat 2.5-2.5 MCG/ACT Inhalation for 30 Active Amitriptyline HCl 150 MG TAKE 1 TABLET B Y MOUTH EVERY DAY AT BEDTIME Oral for 30 Active Dulcolax (colon prep) 5 MG take at 3:00 p.m and 7:00p.m. Orally two tablets twice a day for one day for 1 day 05/26/2023 Not-Taking Losartan Potassium 50 MG 1 tablet Orally Once a day Active OLANZapine 15 MG 1 tablet Orally Once a day Active oxyCODONE-Acetaminophen 5-325 MG TAKE 1 TABLET BY MOUTH THREE TIMES DAILY NEEDED FOR PAIN Diagnosis Unavailable Oral for 30 Active Zolpidem Tartrate 10 MG TAKE 1 TABLET BY MOUTH AT BEDTIME NEEDED FOR SLEEP Oral for 30 Active Omeprazole 20 MG 1 capsule Orally Onc e a day every morning for 30 days Active Sucralfate 1 GM 1 tablet on an empty stomach Orally Take 30-60 minutes before meals and at bedtime for a total of 4 times per day for 30 day(s) 08/05/2023 Not-Taking Dicyclomine HCl 10 MG 1-2 capsules Orall y Four times a day prn abdominal pain/cramps/discomfort for 30 day(s) 09/30/2018 Not-Taking Pantoprazole Sodium 40 MG TAKE 1 TABLET BY MOUTH DAILY Oral for 90 Not-Taking Sucralfate 1 GM Oral for 30 No t-Taking Social History Tobacco Use: Social History Observation Description Date Details (start date - stop date) Former Smoker NA - NA Tobacco Use/Smoking Question Answer Notes Patient is a former smoker Alcohol Screen Question Answer Notes Did you have a drink contain ing alcohol in the past year? Yes How often did you have a dri nk containing alcohol in the past year? Monthly or less (1 point) How many drinks did you have on a typical day when you were drinking in the past year? 1 or 2 drinks (0 point) How often did you have 6 or more drinks on one occasion in the past year? Never (0 point) Points 1 Interpretation Negative Section Notes: Smoker 1 ppd--stopped 07/2024 after WI; no alcohol Problems Problem Type SNOMED Code ICD Code Onset Dates Problem Status W/U Status Risk Notes Problem History of adenomatous polyp of colon (979757306) History of adenomatous polyp of colon (Z86.010) Active confirmed Problem Serrated polyp of colon (961555249) Serrated polyp of colon (K63.5) Active confirmed Vital Signs Temperature 97.8 degrees Fahrenheit 08/04/20 24 Blood pressure systolic 000 mm Hg 08/04/20 24 Blood pressure diastolic 00 mm Hg 024 Height 68 in 08/04/2024 Weight 235 lb 6 oz lbs 08/04/2024 BMI 35.78 kg/m2 08/04/2024 Encounters Encounter Location Date Provider Diagnosis [facility] [address] [place] [address] 08/04/2024 Noel Surendra Gastroesophageal ref lux disease without esophagitis K21.9 ; Barretts esophagus without dysplasia K22.70 ; Abdominal pain, generalized R10.84 ; Colon cancer screening Z12.11 ; History of adenomatous polyp of colon Z86.010 and Serrated polyp of colon K63.5 Assessments Encounter Date Diagnosis (ICD Code) Assessment Notes Treatment Notes Treatment Clinical Notes Section Notes 08/04/2024 Gastroesophageal reflux disease without esophagitis (ICD-10 - K21.9) Repeat upper endoiscopy and colonoscopy in 07/2026. Overall, Tyshawn appears well. We did review his GI procedures from one year ago. Based on the finding of the serrated colon polyp and the Vincent's esophagus, I advised him that I would recommend a repeat colonoscopy and upper endoscopy in 2025 rather than waiting the usual five-year interval for the colonoscopy. At this point he is asymptomatic from a GI standpoint and reports that he is not using any particular medication for his stomach as the previous treatment with PPIs and Carafate did not help any of his previous abdominal pain. However, even though he is not having any particular GI problems at the moment, I would recommend that he go back on omeprazole 20 mg daily for some acid suppression given last year's upper endoscopy findings of the erosive duodenitis, gastritis, and hiatal hernia with associated reflux now that he is on both aspirin and Brilinta. I did encourage him to stay off cigarettes as well. If things remain well I'll plan to see Tyshawn in 2025 for his followup procedures. I did advise him to certainly call prior to that if he has any problems or questions I can be of assistance with. Tyshawn was comfortable with this plan. Thank you again for allowing me to participate in Tyshawn's care. I shall continue to keep you advised of his progress. 08/04/2024 Barretts esophagus without dysplasia (ICD-10 - K22.70) Overall, Tyshawn appears well. We did review his GI procedures from one year ago. Based on the finding of the serrated colon polyp and the Vincent's esophagus, I advised him that I would recommend a repeat colonoscopy and upper endoscopy in 2025 rather than waiting the usual five-year interval for the colonoscopy. At this point he is asymptomatic from a GI standpoint and reports that he is not using any particular medication for his stomach as the previous treatment with PPIs and Carafate did not help any of his previous abdominal pain. However, even though he is not having any particular GI problems at the moment, I would recommend that he go back on omeprazole 20 mg daily for some acid suppression given last year's upper endoscopy findings of the erosive duodenitis, gastritis, and hiatal hernia with associated reflux now that he is on both aspirin and Brilinta. I did encourage him to stay off cigarettes as well. If things remain well I'll plan to see Tyshawn in 2025 for his followup procedures. I did advise him to certainly call prior to that if he has any problems or questions I can be of assistance with. Tyshawn was comfortable with this plan. Thank you again for allowing me to participate in Tyshawn's care. I shall continue to keep you advised of his progress. 08/04/2024 Abdominal pain, generalized (ICD-10 - R10.84) Overall, Tyshawn appears well. We did review his GI procedures from one year ago. Based on the finding of the serrated colon polyp and the Vincent's esophagus, I advised him that I would recommend a repeat colonoscopy and upper endoscopy in 2025 rather than waiting the usual five-year interval for the colonoscopy. At this point he is asymptomatic from a GI standpoint and reports that he is not using any particular medication for his stomach as the previous treatment with PPIs and Carafate did not help any of his previous abdominal pain. However, even though he is not having any particular GI problems at the moment, I would recommend that he go back on omeprazole 20 mg daily for some acid suppression given last year's upper endoscopy findings of the erosive duodenitis, gastritis, and hiatal hernia with associated reflux now that he is on both aspirin and Brilinta. I did encourage him to stay off cigarettes as well. If things remain well I'll plan to see Tyshawn in 2025 for his followup procedures. I did advise him to certainly call prior to that if he has any problems or questions I can be of assistance with. Tyshawn was comfortable with this plan. Thank you again for allowing me to participate in Tyshawn's care. I shall continue to keep you advised of his progress. 08/04/2024 Colon cancer screening (ICD-10 - Z12.11) Overall, Tyshawn appears well. We did review his GI procedures from one year ago. Based on the finding of the serrated colon polyp and the Vincent's esophagus, I advised him that I would recommend a repeat colonoscopy and upper endoscopy in 2025 rather than waiting the usual five-year interval for the colonoscopy. At this point he is asymptomatic from a GI standpoint and reports that he is not using any particular medication for his stomach as the previous treatment with PPIs and Carafate did not help any of his previous abdominal pain. However, even though he is not having any particular GI problems at the moment, I would recommend that he go back on omeprazole 20 mg daily for some acid suppression given last year's upper endoscopy findings of the erosive duodenitis, gastritis, and hiatal hernia with associated reflux now that he is on both aspirin and Brilinta. I did encourage him to stay off cigarettes as well. If things remain well I'll plan to see Tyshawn in 2025 for his followup procedures. I did advise him to certainly call prior to that if he has any problems or questions I can be of assistance with. Tyshawn was comfortable with this plan. Thank you again for allowing me to participate in Tyshawn's care. I shall continue to keep you advised of his progress. 08/04/2024 History of adenomatous polyp of colon (ICD-10 - Z86.010) Overall, Tyshawn appears well. We did review his GI procedures from one year ago. Based on the finding of the serrated colon polyp and the Vincent's esophagus, I advised him that I would recommend a repeat colonoscopy and upper endoscopy in 2025 rather than waiting the usual five-year interval for the colonoscopy. At this point he is asymptomatic from a GI standpoint and reports that he is not using any particular medication for his stomach as the previous treatment with PPIs and Carafate did not help any of his previous abdominal pain. However, even though he is not having any particular GI problems at the moment, I would recommend that he go back on omeprazole 20 mg daily for some acid suppression given last year's upper endoscopy findings of the erosive duodenitis, gastritis, and hiatal hernia with associated reflux now that he is on both aspirin and Brilinta. I did encourage him to stay off cigarettes as well. If things remain well I'll plan to see Tyshawn in 2025 for his followup procedures. I did advise him to certainly call prior to that if he has any problems or questions I can be of assistance with. Tyshawn was comfortable with this plan. Thank you again for allowing me to participate in Tyshawn's care. I shall continue to keep you advised of his progress. 08/04/2024 Serrated polyp of colon (ICD-10 - K63.5) Overall, Tyshawn appears well. We did review his GI procedures from one year ago. Based on the finding of the serrated colon polyp and the Vincent's esophagus, I advised him that I would recommend a repeat colonoscopy and upper endoscopy in 2025 rather than waiting the usual five-year interval for the colonoscopy. At this point he is asymptomatic from a GI standpoint and reports that he is not using any particular medication for his stomach as the previous treatment with PPIs and Carafate did not help any of his previous abdominal pain. However, even though he is not having any particular GI problems at the moment, I would recommend that he go back on omeprazole 20 mg daily for some acid suppression given last year's upper endoscopy findings of the erosive duodenitis, gastritis, and hiatal hernia with associated reflux now that he is on both aspirin and Brilinta. I did encourage him to stay off cigarettes as well. If things remain well I'll plan to see Tyshawn in 2025 for his followup procedures. I did advise him to certainly call prior to that if he has any problems or questions I can be of assistance with. Tyshawn was comfortable with this plan. Thank you again for allowing me to participate in Tyshawn's care. I shall continue to keep you advised of his progress. 08/04/2024 Other Overall, Tyshawn appears well. We did review his GI procedures from one year ago. Based on the finding of the serrated colon polyp and the Vincent's esophagus, I advised him that I would recommend a repeat colonoscopy and upper endoscopy in 2025 rather than waiting the usual five-year interval for the colonoscopy. At this point he is asymptomatic from a GI standpoint and reports that he is not using any particular medication for his stomach as the previous treatment with PPIs and Carafate did not help any of his previous abdominal pain. However, even though he is not having any particular GI problems at the moment, I would recommend that he go back on omeprazole 20 mg daily for some acid suppression given last year's upper endoscopy findings of the erosive duodenitis, gastritis, and hiatal hernia with associated reflux now that he is on both aspirin and Brilinta. I did encourage him to stay off cigarettes as well. If things remain well I'll plan to see Tyshawn in 2025 for his followup procedures. I did advise him to certainly call prior to that if he has any problems or questions I can be of assistance with. Tyshawn was comfortable with this plan. Thank you again for allowing me to participate in Tyshawn's care. I shall continue to keep you advised of his progress. Plan Of Treatment Medication Medication Name Sig Start Date Stop Date Notes Omeprazole 20 MG 1 capsule Orally Onc e a day every morning for 30 days Treatment Notes Assessment Notes Gastroesophageal reflux dise ase without esophagitis Repeat upper endoiscopy and colonoscopy in 07/2026. Next Appt Details Follow Up: prn, Reason: Progress Notes * TYSHAWN CHAVARRIADOB:1960 (64 yo M)Acc No.[id number]:08/04/2024 Progress Notes Patient:?TYSHAWN CHAVARRIA Provider:?Noel Agosto MD :1960???Age:64 Y???Sex:Male Miki e:08/04/2024 Address:[address] [place], [place] [id number] Pcp:Jayy Edmonds MD Subjective: * Chief Complaints: * ???Patient presents today fo r abdominal pain. * HPI: ???incontinence:? I saw Tyshawn in followup today in regard to his previous history of abdominal pain, gastroesophageal reflux with associated Vincent's esophagus, and personal history of colon polyps. ?I last saw Tyshawn in July of 2023. At that time he underwent an upper endoscopy and colonoscopy. The colonoscopy revealed a sessile serrated polyp and tubular adenoma. The upper endoscopy revealed his known small area of Vincent's esophagus with biopsies negative for dysplasia. There was no esophagitis. He was also noted to have his known hiatal hernia, as well as some gastritis and duodenitis. Gastric biopsies were negative for H. pylori. ?As you know, he has had a history of chronic abdominal pain but he describes over the past several months this has been quiescent. He is not using any PPIs nor sucralfate at this time and reports that he is not having any particular abdominal pain or discomfort. He enjoys a good appetite and denies any dysphagia or heartburn. He denies any jaundice nor unintentional weight loss. He reports his bowel movements have been regular and without any signs of bleeding. ?As you know, he did have a WI at the very end of June. He had placement of a single stent at that time and describes being discharged the next day from the hospital. He reports he has stopped smoking completely since the heart attack. He is on aspirin and Brilinta since the stent placement 2 weeks ago. ?Laboratories from the end of June when he was in the ER with his WI revealed a normal CBC, chemistries and renal function, and LFTs. * ROS:?General/Constitutional:?Change in appetite?denies.?Chills?denies.?Fatigue?denies.?Ophthalmologic:?Patient denies? Negative..?ENT:?Patient denies?Negative..?Respiratory:?Patient denies?No coughing/hemoptysis..?Cardiovascular:?Patient denies? No chest pain/orthopnea..?Gastrointestinal:?Comments?See HPI for details.?Genitourinary:?Patient denies? No dysuria/hematuria..?Musculoskeletal:?Patient denies?Back and leg pain.?Skin:?Patient denies?No rash/pruritus..?Neurologic:?Patient denies? No headaches/seizures..?Psychiatric:?Patient denies?Negative..? * Medical History:? * Surgical History:?Right rota tor cuff CCY [address] Howard * Hospitalization/Major Diagno stic Procedure:?No Hospitalization History. * Family History:?Father: dece ased.?Mother: .? No family hx of colorectal cancer. No family history of liver cancer. * Social History:?Tobacco Use:?Tobacco Use/Smoking?Patient is a?former smoker.?Drugs/Alcohol:?Alcohol Screen?Did you have a drink containing alcohol in the past year??Yes,?How often did you have a drink containing alcohol in the past year??Monthly or less (1 point), How many drinks did you have on a typical day when you were drinking in the past year??1 or 2 drinks (0 point),?How often did you have 6 or more drinks on one occasion in the past year??Never (0 point),?Points?1,?Interpretation?Negative.?Miscellaneous:?Marital status: . Occupation: Unemployed-on disability. ???Smoker 1 ppd--stopped 07/2024 after WI; no alcohol. * Medications:?TakingLosartan Potassium 50 MG Tablet 1 tablet Orally Once a dayOLANZapine 15 MG Tablet 1 tablet Orally Once a dayoxyCODONE-Acetaminophen 5- 325 MG Tablet TAKE 1 TABLET BY MOUTH THREE TIMES DAILY NEEDED FOR PAIN Diagnosis Unavailable Oral Zolpidem Tartrate 10 MG Tablet TAKE 1 TABLET BY MOUTH AT BEDTIME NEEDED FOR SLEEP Oral Fluticasone Propionate 50 MCG/ACT Suspension SHAKE LIQUID AND USE 1 SPRAY IN EACH NOSTRIL TWICE DAILY Nasal Albuterol Sulfate HFA 108 (90 Base) MCG/ACT Aerosol Solution Inhalation Stiolto Respimat 2.5-2.5 MCG/ACT Aerosol Solution Inhalation Amitriptyline HCl 150 MG Tablet TAKE 1 TABLET BY MOUTH EVERY DAY AT BEDTIME Oral MiraLax 17 GM/SCOOP Powder 1 capful measured to the line in 8 ounces of water Orally Once or twice a day to help with constipation and abdominal pain.Atorvastatin Calcium 80 MG Tablet TAKE 1 TABLET BY MOUTH DAILY AT BEDTIME Oral Colchicine 0.6 MG Tablet Oral Metoprolol Succinate ER 50 MG Tablet Extended Release 24 Hour Oral Aspirin Low Dose 81 MG Tablet Delayed Release TAKE 1 TABLET BY MOUTH DAILY Oral Brilinta 90 MG Tablet Oral Nicotine 21 MG/24HR Patch 24 Hour Transdermal Finasteride 5 MG Tablet TAKE 1 TABLET BY MOUTH DAILY Oral Tamsulosin HCl 0.4 MG Capsule Oral Taking Losartan Potassium 50 MG Tablet 1 tablet Orally Once a dayTaking OLANZapine 15 MG Tablet 1 tablet Orally Once a dayTaking oxyCODONE-Acetaminophen 5-325 MG Tablet TAKE 1 TABLET BY MOUTH THREE TIMES DAILY NEEDED FOR PAIN Diagnosis Unavailable Oral Taking Zolpidem Tartrate 10 MG Tablet TAKE 1 TABLET BY MOUTH AT BEDTIME NEEDED FOR SLEEP Oral Taking Fluticasone Propionate 50 MCG/ACT Suspension SHAKE LIQUID AND USE 1 SPRAY IN EACH NOSTRIL TWICE DAILY Nasal Taking Albuterol Sulfate HFA 108 (90 Base) MCG/ACT Aerosol Solution Inhalation Taking Stiolto Respimat 2.5-2.5 MCG/ACT Aerosol Solution Inhalation Taking Amitriptyline HCl 150 MG Tablet TAKE 1 TABLET BY MOUTH EVERY DAY AT BEDTIME Oral Taking MiraLax 17 GM/SCOOP Powder 1 capful measured to the line in 8 ounces of water Orally Once or twice a day to help with constipation and abdominal pain.Taking Atorvastatin Calcium 80 MG Tablet TAKE 1 TABLET BY MOUTH DAILY AT BEDTIME Oral Taking Colchicine 0.6 MG Tablet Oral Taking Metoprolol Succinate ER 50 MG Tablet Extended Release 24 Hour Oral Taking Aspirin Low Dose 81 MG Tablet Delayed Release TAKE 1 TABLET BY MOUTH DAILY Oral Taking Brilinta 90 MG Tablet Oral Taking Nicotine 21 MG/24HR Patch 24 Hour Transdermal Taking Finasteride 5 MG Tablet TAKE 1 TABLET BY MOUTH DAILY Oral Taking Tamsulosin HCl 0.4 MG Capsule Oral Not-Taking/PRNDulcolax (colon prep) 5 MG Tablet Delayed Release take at 3:00 p.m and 7:00p.m. Orally two tablets twice a day for one dayDicyclomine HCl 10 MG Capsule 1 or 2 capsules Orally Every 6 hours as needed for abdominal cramps and discomfortPantoprazole Sodium 40 MG Tablet Delayed Release 1 tablet Orally Twice a dayPantoprazole Sodium 40 MG Tablet Delayed Release 1 tablet Orally Twice a dayDicyclomine HCl 10 MG Capsule 1 or 2 Orally Every 6 hours as needed for abdominal discomfortMiraLax (colon prep) 17 GM/SCOOP Powder 1 238GM bottle mixed with Gatorade or Crystal Light Orally begin at 5:00 p.m. the day before the procedurePantoprazole Sodium 40 MG Tablet Delayed Release 1 tablet Orally Every morningSucralfate 1 GM Tablet 1 tablet on an empty stomach Orally Take 30-60 minutes before meals and at bedtime for a total of 4 times per dayDicyclomine HCl 10 MG Capsule 1-2 capsules Orally Four times a day prn abdominal pain/cramps/discomfortPantoprazole Sodium 40 MG Tablet Delayed Release TAKE 1 TABLET BY MOUTH DAILY Oral Sucralfate 1 GM Tablet Oral Omeprazole 20 MG Capsule Delayed Release 1 capsule Orally Once a dayMedication List reviewed and reconciled with the patientNot-Taking/PRN Dulcolax (colon prep) 5 MG Tablet Delayed Release take at 3:00 p.m and 7:00p.m. Orally two tablets twice a day for one dayNot-Taking/PRN Dicyclomine HCl 10 MG Capsule 1 or 2 capsules Orally Every 6 hours as needed for abdominal cramps and discomfortNot-Taking/PRN Pantoprazole Sodium 40 MG Tablet Delayed Release 1 tablet Orally Twice a dayNot-Taking/PRN Pantoprazole Sodium 40 MG Tablet Delayed Release 1 tablet Orally Twice a dayNot-Taking/PRN Dicyclomine HCl 10 MG Capsule 1 or 2 Orally Every 6 hours as needed for abdominal discomfortNot-Taking/PRN MiraLax (colon prep) 17 GM/SCOOP Powder 1 238GM bottle mixed with Gatorade or Crystal Light Orally begin at 5:00 p.m. the day before the procedureNot-Taking/PRN Pantoprazole Sodium 40 MG Tablet Delayed Release 1 tablet Orally Every morningNot-Taking/PRN Sucralfate 1 GM Tablet 1 tablet on an empty stomach Orally Take 30-60 minutes before meals and at bedtime for a total of 4 times per dayNot-Taking/PRN Dicyclomine HCl 10 MG Capsule 1-2 capsules Orally Four times a day prn abdominal pain/cramps/discomfortNot-Taking/PRN Pantoprazole Sodium 40 MG Tablet Delayed Release TAKE 1 TABLET BY MOUTH DAILY Oral Not-Taking/PRN Sucralfate 1 GM Tablet Oral Not-Taking/PRN Omeprazole 20 MG Capsule Delayed Release 1 capsule Orally Once a dayMedication List reviewed and reconciled with the patient * Allergies:?N.K.D.A.yes[Aller gies Verified] Objective: * Vitals:?Wt: 235 lb 6 oz, Ht: 68 in, BMI:35.78 Index, BP: 000/00 mm Hg, Temp: 97.8. * Examination: ???General Examination: ?GENERAL APPEARANCE:?pleasant, well nourished, well developed, in no acute distress.?EYES:?sclera non-icteric.?ORAL CAVITY:?mucosa moist.?NECK/THYROID:?no cervical lymphadenopathy, neck supple.?SKIN:?nonjaundiced, no spider angiomata..?HEART:?S1, S2 normal.?LUNGS:?clear to auscultation bilaterally.?ABDOMEN:?normal bowel sounds, no guarding or rigidity, no hepatosplenomegaly, no masses palpable, soft, nontender, nondistended..?EXTREMITIES:?no edema.?NEUROLOGIC:?alert and oriented.? Assessment: * Assessment: 1.?Barretts esophagus withou t dysplasia - K22.70 (Primary)?2.?Gastroesophageal reflux disease without esophagitis - K21.9?3.?Abdominal pain, generalized - R10.84?4.?Colon cancer screening - Z12.11?5.?History of adenomatous polyp of colon - Z86.010?6.?Serrated polyp of colon - K63.5? Overall, Tyshawn appears well . We did review his GI procedures from one year ago. Based on the finding of the serrated colon polyp and the Vincent's esophagus, I advised him that I would recommend a repeat colonoscopy and upper endoscopy in 2025 rather than waiting the usual five-year interval for the colonoscopy. At this point he is asymptomatic from a GI standpoint and reports that he is not using any particular medication for his stomach as the previous treatment with PPIs and Carafate did not help any of his previous abdominal pain. However, even though he is not having any particular GI problems at the moment, I would recommend that he go back on omeprazole 20 mg daily for some acid suppression given last year's upper endoscopy findings of the erosive duodenitis, gastritis, and hiatal hernia with associated reflux now that he is on both aspirin and Brilinta. I did encourage him to stay off cigarettes as well. If things remain well I'll plan to see Tyshawn in 2025 for his followup procedures. I did advise him to certainly call prior to that if he has any problems or questions I can be of assistance with. Tyshawn was comfortable with this plan. Thank you again for allowing me to participate in Tyshawn's care. I shall continue to keep you advised of his progress. Plan: * Treatment: 2.?Others? Refill Omeprazole Capsule Delayed Release, 20 MG, 1 capsule, Orally, Once a day every morning, 30 days, 90, Refills 3.?? * Procedure Codes:?3017F COLOR ECTAL CA SCREEN DOC [id number] TOBACCO [id number] BP SCR NOT PRFRM REC REASON NOS * Preventive Medicine:? ??Counseling:?Care goal follow-up plan:?Above Normal BMI Follow-up?Giving encouragement to exercise,?BMI management provided?Yes.? * Follow Up:?prn * * Sign off status: Completed true * Provider:?Noel Agosto MD Date:? 024 Generated for Denilson talavera/John/eTransmitting on:?02/24/2025 01:49 PM EDT History and Physical Notes * HPI (History of Present Illness) Category Sub-Category Detail Notes Category Not es incontinence I saw Tyshawn in followup today in regard to his previous history of abdominal pain, gastroesophageal reflux with associated Vincent's esophagus, and personal history of colon polyps. I last saw Tyshawn in July of 2023. At that time he underwent an upper endoscopy and colonoscopy. The colonoscopy revealed a sessile serrated polyp and tubular adenoma. The upper endoscopy revealed his known small area of Vincent's esophagus with biopsies negative for dysplasia. There was no esophagitis. He was also noted to have his known hiatal hernia, as well as some gastritis and duodenitis. Gastric biopsies were negative for H. pylori. As you know, he has had a history of chronic abdominal pain but he describes over the past several months this has been quiescent. He is not using any PPIs nor sucralfate at this time and reports that he is not having any particular abdominal pain or discomfort. He enjoys a good appetite and denies any dysphagia or heartburn. He denies any jaundice nor unintentional weight loss. He reports his bowel movements have been regular and without any signs of bleeding. As you know, he did have a WI at the very end of June. He had placement of a single stent at that time and describes being discharged the next day from the hospital. He reports he has stopped smoking completely since the heart attack. He is on aspirin and Brilinta since the stent placement 2 weeks ago. Laboratories from the end of June when he was in the ER with his WI revealed a normal CBC, chemistries and renal function, and LFTs. Examination Category Sub-Category Detail Notes Category Not es General Examination GENERAL APPEARANCE: pleasant , well nourished, well developed, in no acute distress EYES: sclera non-icteric NECK/THYROID: no cervical lymphade nopathy, neck supple HEART: S1, S2 normal LUNGS: clear to auscultatio n bilaterally ABDOMEN: normal bowel sounds, no guarding or rigidity, no hepatosplenomegaly, no masses palpable, soft, nontender, nondistended. NEUROLOGIC: alert and oriented SKIN: nonjaundiced, no spi luis armando angiomata. EXTREMITIES: no edema ORAL CAVITY: mucosa moist
--- OUTSIDE RECORDS SUMMARY | 2025-02-24 13:50 | XMS_ITS ---
Author Organization [facility] Address [address] [place] [phone] Care Team Providers Care Communications Electrician Supervisor Name Role Phone Grey CHAN, Jayy Primary Care Provider Noel Tolentino Unavailable [phone] [place], Akhil Unavailable [phone] REASON FOR VISIT Patient presents today for abdominal pain Encounters Encounter Location Date Provider Diagnosis [facility] [address] [place] [phone] 08/04/2024 Akhil Paige Jr Plan Of Treatment No Information Progress Notes * BENITA CHAVARRIADOB:1960 (64 yo M)Acc No.[id number]:08/04/2024 Progress Notes Patient:?BENITA CHAVARRIA Provider:?Akhil Paige MD :1960???Age:64 Y???Sex:Male Miki e:08/04/2024 Address:[address] [place], [place] [id number] Pcp:Jayy Edmonds MD Subjective: * Chief Complaints: * ???1. Patient presents today for abdominal pain. * Medical History:? Objective: * Vitals:? Assessment: Plan: * Treatment: * * The named appointment provid er may or may not be the originator of this progress note, and it is not deemed complete until electronically signed by the appointment provider. Sign off status: Pending * Provider:?Akhil Paige MD Date:?0 08/04/2024 Generated for Denilson talavera/John/Mandy on:?02/24/2025 01:50 PM EDT
--- OUTSIDE RECORDS SUMMARY | 2025-02-24 13:50 | XMS_ITS ---
Author Organization [facility] Address [address] [place] [address] Care Team Providers Care Interior Mechanic Name Role Phone Grey CHAN, Asma Primary Care Provider Noel Tolentino [phone] Encounters Encounter Location Date Provider Diagnosis [facility] [address] [place] [phone] 08/04/2024 Noel Agosto Plan Of Treatment No Information Progress Notes * AURA BENITADOB:1960 (64 yo M)Acc No.[id number]:08/04/2024 Patient:?BENITA CHAVARRIA :1960???Age:64 Y???Sex:Male Address:[address] [place] [address], [address] * true * Date:? Generated for Denilson talavera/John/eTransmitting on:?02/24/2025 01:49 PM EDT
== END 2025-02-24 12:36 | disposition home or self-care (01) ==
LOC: HO.HMCC 11:47
PROVIDERS: PCP Internal Medicine; Visit Provider Internal Medicine
DX: M25.551 Pain in right hip (principal); S76.811A Strain of other specified muscles, fascia and tendons at thigh level, right thigh, initial encounter; I10 Essential (primary) hypertension; M54.16 Radiculopathy, lumbar region; F11.20 Opioid dependence, uncomplicated; F20.0 Paranoid schizophrenia; G47.9 Sleep disorder, unspecified; M54.42 Lumbago with sciatica, left side; M54.41 Lumbago with sciatica, right side; G89.29 Other chronic pain

== ENCOUNTER 2025-02-24 11:47 | Outpatient (REF) | payer OTHER, SELFPAY ==
--- NOTE | ~2025-02-24 | XR_ITS ---
EXAMINATION: XR HIP, RIGHT CLINICAL INFORMATION: M25.551 - Pain in right hip COMPARISON: None available. TECHNIQUE: Two views of the right hip. FINDINGS: No acute cortical disruption or malalignment. No lytic or effusions. XR/XR hip RT min 2V IMPRESSION: Normal right hip. Electronically signed by: Michael Yepez MD 02/24/2025 02:55 PM EDT
--- OUTSIDE RECORDS SUMMARY | 2025-02-24 14:01 | XMS_ITS | Patient Health Record ---
Author Organization [facility] Address [address] [place] [phone] Care Team Providers Care Active Directory Engineer Name Role Phone Grey CHAN, [facility] Primary Care Provider Noel Tolentino Unavailable [phone] Akhil Paige Jr Unavailable Allergies No Known Allergies Reason For Referral No Information Medications Medication SIG (Take, Route, Frequency, Duration) Notes Start Date End Date Status Dicyclomine HCl 10 MG 1 or 2 [...] abdominal pain. for 30 day(s) 10/11/2023 Active Atorvastatin Calcium 80 MG TAKE 1 TABLET BY MOUTH DAILY AT BEDTIME Oral for 90 Active Colchicine 0.6 MG Oral for 90 Active Metoprolol Succinate ER 50 MG Oral for 90 Active Sucralfate 1 GM Oral for 30 No t-Taking Amitriptyline HCl 150 MG TAKE 1 TABLET B Y MOUTH EVERY DAY AT BEDTIME Oral for 30 Active Omeprazole 20 MG 1 capsule Orally Onc e a day every morning for 30 days Active Dulcolax (colon prep) 5 MG take at 3:00 p.m and 7:00p.m. Orally two tablets twice a day for one day for 1 day 05/26/2023 Not-Taking Finasteride 5 MG TAKE 1 TABLET BY MITCHELL TH DAILY Oral for 90 Active Tamsulosin HCl 0.4 MG Oral for 90 Active Losartan Potassium 50 MG 1 tablet Orally Once a day Active MiraLax (colon prep) 17 GM/SCOOP 1 238GM bottle mixed with Gatorade or Crystal Light Orally begin at 5:00 p.m. the day before the procedure for 1 day 05/26/2023 Not-Taking OLANZapine 15 MG 1 tablet Orally Once a day Active Pantoprazole Sodium 40 MG 1 tablet Orall y Every morning for 30 day(s) 07/16/2023 Not-Taking oxyCODONE-Acetaminophen 5-325 MG TAKE 1 TABLET BY MOUTH THREE TIMES DAILY NEEDED FOR PAIN Diagnosis Unavailable Oral for 30 Active Sucralfate 1 GM 1 tablet on an empty stomach Orally Take 30-60 minutes before meals and at bedtime for a total of 4 times per day for 30 day(s) 08/05/2023 Not-Taking Zolpidem Tartrate 10 MG TAKE 1 TABLET BY MOUTH AT BEDTIME NEEDED FOR SLEEP Oral for 30 Active Dicyclomine HCl 10 MG 1-2 capsules Orall y Four times a day prn abdominal pain/cramps/discomfort for 30 day(s) 09/30/2018 Not-Taking Fluticasone Propionate 50 MCG/ACT SHAKE LIQUID AND USE 1 SPRAY IN EACH NOSTRIL TWICE DAILY Nasal for 30 Active Pantoprazole Sodium 40 MG TAKE 1 TABLET BY MOUTH DAILY Oral for 90 Not-Taking Albuterol Sulfate HFA 108 (90 Base) MCG/ACT Inhalation for 16 Activ e Stiolto Respimat 2.5-2.5 MCG/ACT Inhalation for 30 Active Aspirin Low Dose 81 MG TAKE 1 TABLET BY MOUTH DAILY Oral for 90 Active Brilinta 90 MG Oral for 90 Act hector Nicotine 21 MG/24HR Transdermal for 28 Active Immunizations Vaccine Route Administration Date Status Comme nts Influenza Unknown 09/30/2018 Refused Influenza Unknown 05/20/2023 Refused Social History Tobacco Use: Social History Observation [...] point) Points 1 Interpretation Negative Section Notes: Smoker; no alcohol Smoker 1 ppd; no alcohol Smoker 1 ppd; no alcohol Smoker 1 ppd; no alcohol Smoker 1 ppd--stopped 07/2024 after NV; no alcohol Problems Problem Type SNOMED Code ICD Code Onset Dates Problem Status W/U Status Risk Notes Problem 695437911 Colon cancer screening (Z12.11) Active confirmed Problem Esophageal reflux (266001243) Esophageal reflux (K21.9) Active confirmed Problem History of adenomatous polyp of colon (093508766) History of adenomatous polyp of colon (Z86.010) Active confirmed Problem 893567049 Gastroesophageal reflux disease without esophagitis (K21.9) Active confirmed Problem 177455277 Barretts esophag us without dysplasia (K22.70) Active confirmed Problem 415276463 Gastroesophageal reflux disease, esophagitis presence not specified (K21.9) Active confirmed Problem 340189120 Abnormal CT scan , esophagus (R93.3) Active confirmed Problem Vincent esophagus (242962055) Vincent esophagus (K22.70) Active confirmed Problem Chronic gastritis (8229301) Chronic gastritis (K29.50) Active confirmed Problem 730042122 Abdominal pain, generalized (R10.84) Active confirmed Problem 66912300 Lower abdominal pain (R10.30) Active confirmed Problem Diverticulosis of colon (584712851) Diverticulosis of colon (K57.30) Active confirmed Problem 51260658 Abdominal discomfort, generalized (R10.84) Active confirmed Problem Serrated polyp of colon (788884768) Serrated polyp of colon (K63.5) Active confirmed Problem 234052514 Gastroesophageal reflux disease, unspecified whether esophagitis present (K21.9) Active confirmed Vital Signs Temperature 97.8 degrees Fahrenheit 08/04/2024 Blood pressure diastolic 00 mm Hg 08/04/2024 Height 68 in 08/04/2024 Blood pressure systolic 000 mm Hg 08/04/2024 Weight 235 lb 6 oz lbs 08/04/2024 BMI 35.78 kg/m2 08/04/2024 Encounters Encounter Location Date Provider Diagnosis [facility] [address] [place] [address] 08/04/2024 Noel Surendra Gastroesophageal ref lux disease without esophagitis K21.9 ; Barretts esophagus without dysplasia K22.70 ; Abdominal pain, generalized R10.84 ; Colon cancer screening Z12.11 ; History of adenomatous polyp of colon Z86.010 and Serrated polyp of colon K63.5 [facility] [address] [place] [address] 04/05/2024 Noel Agosto [facility] [address] [place] [address] 08/04/2024 Noel Agosto Assessments Encounter Date Diagnosis (ICD Code) Assessment [...] advised of his progress. Plan Of Treatment Pending Test Test Name Order Date CHEM 7 PROFILE 09/08/2023 LIVER PROFILE 09/08/2023 CRP 09/08/2023 CBC w DIFF 09/08/2023 SED RATE (ESR) 09/08/2023 Amylase 09/08/2023 Lipase 09/08/2023 Future Test Test Name Order Date UPPER GI ENDOSCOPY 04/15/2013 COLONOSCOPY 04/15/2013 UPPER GI ENDOSCOPY 05/25/2018 UPPER GI ENDOSCOPY 05/20/2023 COLONOSCOPY 05/20/2023 Insurance Providers Payer Name Payer Address Payer Phone Subscriber Number Group Number Insured Name Patient Relationship to Insured Coverage Start Date Coverage End Date [facility] [address] Attn Claims JIMMY Smith [id number] TYSHAWN CHAVARRIA Self - patient is the insured [place] [address] [place] [address] [id number] TYSHAWN CHAVARRIA Self - patient is the insured MEDICAID OF [facility] [address] [place] [address] [id number] TYSHAWN CHAVARRIA Self - patient is the insured Medical (General) History Medical History History ICD Code Hypertension Denies DM,CVA, renal disease Describes a renal cyst -has periodic CT scans Schizophrenia GERD--EGD--06/2013--small hia cristiano hernia, small area of Vincent's esophagus--no dysplasia; mild gastritis with biopsies negative for H. pylori Describes a colonoscopy at [facility] in approx 2004--reports a polyp was removed Colonoscopy in 06/2013--only hyperplastic polyps Neg. abdominal ultrasound an d CAT scan in February of 2018 at [facility] and negative 09/25/18 at [facility] ER EGD in 05/2018--small HH--bio psies from [facility] revealed a tiny area of intestinal metaplasia but without dysplasia, no esophagitis Back pain and neuropathy in legs Asthma/COPD Negative abdominal and pelvi c CT scan in October of 2022 when he was in the ER Screening Colonoscopy in [facility] 2022 revealed a serrated polyp and tubular adenoma Upper endoscopy in July of 2023 revealed a small to moderate-sized hiatal hernia, small area of Vincent's esophagus without dysplasia, gastritis without H. pylori, and some erosive duodenitis. There was no esophagitis NV-07/21/2024-1 stent placed in the LAD Surgical History Surgery Date(Month/Year) Right rotator cuff CCY [address] Howard Hospitalization History Reason Date(Month/Year)
== END 2025-02-24 11:48 | disposition home or self-care (01) ==
LOC: HO.HMGCX 11:47
PROVIDERS: PCP Internal Medicine; Visit Provider Internal Medicine
DX: M25.551 Pain in right hip (principal); S76.811A Strain of other specified muscles, fascia and tendons at thigh level, right thigh, initial encounter; X58.XXXA Exposure to other specified factors, initial encounter; Y93.9 Activity, unspecified; Y92.9 Unspecified place or not applicable; Y99.9 Unspecified external cause status; M54.16 Radiculopathy, lumbar region; M54.42 Lumbago with sciatica, left side; M54.41 Lumbago with sciatica, right side; G89.29 Other chronic pain; G47.9 Sleep disorder, unspecified; F11.20 Opioid dependence, uncomplicated; F20.0 Paranoid schizophrenia; Z13.30 Encounter for screening examination for mental health and behavioral disorders, unspecified
CPT/HCPCS: 73502; 96127; 99212

== ENCOUNTER → 2025-02-24 12:05 | Outpatient (BNV) | payer OTHER, SELFPAY | PROVIDERS: PCP Internal Medicine; Visit Provider Radiology Diagnostic Radiology | DX: M25.551 Pain in right hip (principal) | CPT/HCPCS: 73502 ==

== ENCOUNTER 2025-04-21 13:45 | Outpatient (AMB) | payer OTHER, SELFPAY ==
--- NOTE | 2025-04-21 13:56 | MHC.OFFVIS ---
Vital Signs 04/21/25 14:01 Height 5 ft 10 in Weight 251 lb BMI 36.0 Intake Visit Reasons: New Pt - right hip pain Intake Note: Tyshawn is a 65 year old male who presents today for a evaluation of his right hip pain. Hx of heart surgery back in June 2024. No hx of injury. Patient reports ongoing pain for about 4 months. He states that his pain is on the groin area. Patient notices that his pain is worse when he is lifting his leg and moving his leg when he is driving. Patient is taking percocet due to his neuropathy with mild relief. IMPRESSION: Normal right hip. Allergies No Known Allergies Allergy (Verified 04/21/25 14:00) HPI HPI New Pt - right hip pain: Details: Mr. Brasher is a 65 year old male who presents today accompanied by his for a evaluation of his right hip pain. No hx of injury. Patient reports off and on pain for about 4 months. He states that his pain is on the groin area. Patient notices that his pain is worse when he is lifting his leg and moving his leg when he is driving. Patient is taking percocet due to his neuropathy with mild relief. IMPRESSION: Normal right hip. [facility] Medical History Old cerebral infarct without residual deficit COPD (chronic obstructive pulmonary disease) Asthma Nicotine addiction Diabetes type 2, controlled Chronic pain syndrome Diabetic neuropathy Other specified idiopathic peripheral neuropathy Schizophrenia Hypertension, essential Difficulty sleeping Chronic lumbar pain Surgical History History of heart artery stent History of laparoscopic cholecystectomy History of repair of rotator cuff Status post laparoscopic cholecystectomy Family History Father No problems noted. Mother No problems noted. Social History Household Members: Family Housing: House Do you presently have visiting nurse or other home services: No Alcohol intake: never Comment: resting well Patient Tobacco Use Status: Tobacco use Unknown Tobacco use type: Cigarette Cigarette Packs Per Day: 1 e-Cigarette/Vaping Use: Never Used service: No Current occupational status: unemployed Cognitive needs: No Hearing needs: No Vision needs: Yes Review of Systems Const All systems reviewed & are unremarkable except as noted in HPI and below Physical Exam Vital Signs: BMI result Body Mass Index 36.0 Const General: cooperative, healthy appearing and no acute distress Resp Effort & Inspection: normal respiratory effort and able to speak in complete sentences Extrem Other: Right hip: Full hip ROM in all planes. Pain with internal and external rotation in the groin. No tenderness to palpation over the greater trochanteric bursa. 5/5 strength with resisted hip flexion, knee extension, abduction, and abduction. Able to perform straight leg raise. NVI. Assessment & Plan Assessment & Plan (1) Osteoarthritis of right hip: Code(s): M16.11 - Unilateral primary osteoarthritis, right hip Category: Medical Plan Mr. Brasher is a 65 year old male who presents today accompanied by his for a evaluation of his right hip pain. No hx of injury. Patient reports off and on pain for about 4 months. He states that his pain is on the groin area. Patient notices that his pain is worse when he is lifting his leg and moving his leg when he is driving. Patient is taking percocet due to his neuropathy with mild relief. While in the office today, we discussed the role of cortisone injection into the right hip joint. Patient is amenable to this plan. We will arrange for this to be performed at the hospital under imaging guidance. Patient understands and accepts. Follow up will be PRN, sooner if needed X-rays of the right hip which were obtained while in the office today and were reviewed by me, Carley Talley PA-C, revealed mild arthritic changes Coding Level of Care Code New Pt Level 3 (94551) Diagnoses Osteoarthritis of right hip M16.11
[2025-04-21 14:01] VITALS: BMI 36.0
== END 2025-04-21 14:38 | disposition home or self-care (01) ==
LOC: HO.HOS 13:46
PROVIDERS: PCP Internal Medicine; Visit Provider Physician Assistant
DX: M16.11 Unilateral primary osteoarthritis, right hip (principal)
CPT/HCPCS: 99203

== ENCOUNTER → 2025-04-21 13:45 | Outpatient (BNVA) | payer OTHER, SELFPAY | PROVIDERS: PCP Internal Medicine; Visit Provider Physician Assistant | DX: M16.11 Unilateral primary osteoarthritis, right hip (principal) | CPT/HCPCS: 99202 ==

== ENCOUNTER 2025-04-26 11:08 | Outpatient (AMB) | payer OTHER, SELFPAY ==
[2025-04-26 11:12] VITALS: BP 138/80; PULSE 93; O2SAT 95; BMI 36.2
--- NOTE | 2025-04-26 11:12 | A.OFFPC_ITS ---
Vital Signs 04/26/25 11:12 Height 5 ft 10 in Weight 252 lb BMI 36.2 BP 138/80 Blood Pressure Location Rt brachial Position Sitting Pulse 93 Pulse Source Pulse Oximeter Pulse Oximetry (%) 95 Intake Visit Reasons: 2m follow up Allergies No Known Allergies Allergy (Verified 04/26/25 11:13) Medication List - Last Reconciled 04/26/25 by Jayy Edmonds MD albuterol sulfate 90 mcg/actuation 2 puffs inhalation Q4-6H PRN 30 days amitriptyline 150 mg PO BEDTIME aspirin (Adult Low Dose Aspirin) 81 mg PO DAILY atorvastatin 80 mg PO DAILY colchicine 0.6 mg PO DAILY finasteride 5 mg PO DAILY 90 days fluticasone propionate 50 mcg/actuation (Flonase Allergy Relief) 1 spray intranasal BID 30 days losartan 100 mg PO DAILY 90 days melatonin 5 mg PO BEDTIME metoprolol succinate ER 50 mg PO DAILY nicotine (Nicoderm CQ) 1 patch transdermal Q24H olanzapine 10 mg PO BEDTIME 90 days omega-3 fatty acids (Fish Oil Concentrate) 1 tab PO DAILY omeprazole 20 mg PO QAM oxycodone-acetaminophen 5-325 mg (Percocet) 1 tab PO TID PRN 30 days sucralfate 10 mL PO QID 30 days tamsulosin 0.4 mg PO BEDTIME 90 days [Tens unit [id number] As directed] ticagrelor (Brilinta) 90 mg PO BID umeclidinium-vilanterol 62.5-25 mcg/actuation (Anoro Ellipta) 1 inh inhalation DAILY zolpidem 10 mg PO BEDTIME PRN 30 days Tobacco use date assessed: 04/26/25 Dental Screening Dental Screen Date: 04/26/25 Did you have a dental visit in the last 12 months?: No Did you have a dental problem in the last 6 months where you did not have access to dental care?: No Was dental information given to patient?: Patient has dentist HPI 2m follow up HPI Details - The patient is a 65-year-old male pres enting for regular follow up for medi cation refill Patient has a history of schizophrenia, difficulty sleeping, has been evaluated by psychiatrist and is now stable on psychiatric medications through PCP office History of chronic back pain, lipid disorder, obesity, prostatic hypertrophy, allergies, hypertension, chronic abdominal cramping off and on established with Gastro[facility] Labs were done in December reviewed again Back pain remains consistent and unrelieved by previous treatments other than Percocet, which the patient was using for back pain. - The patient has a history of smoking b ut reports cessation, acknowledging the need for weight management. - The patient has not seen a cardiologis t since his heart operation. - The patient also states that he has ap pointments with a lung doctor on the and of the current month for pulmonary issues but has no upcoming cardiology appointment. He is on 2 controlled medication Percocet and zolpidem Patient is complying with the treatment plan no signs of abuse Having difficulty losing weight Problem List - Chronic leg pain and back - Schizophrenia - Benign Prostatic Hyperplasia (BPH) - Hypertension - Gout - Chronic Gastroesophageal Reflux Diseas e (GERD) - lipid disorder - hypertension - obesity Patient Instructions - Continue current medications as prescr ibed and manage weight through lifestyle changes. - do not share zolpidem or Percocet with anyone else [patient is aware of side effects of both] - pain contract up-to-date - call cardio office to check when is yo ur f.u apt - for the feeling of fluid retention, di scuss with cardio - dont take any OTC meds without consult ation Review of Systems - General: No fever no chills - Neurological: No headaches no dizziness - Ear nose throat: No sore throat no hearing difficulty no ear pain - Cardiovascular: No syncope, no chest pain, no palpitations - Gastrointestinal: No nausea vomiting or diarrhea - Endocrine: No polyuria polydipsia no heat intolerance - Genitourinary: No dysuria , no blood in urine Physical Exam General: No acute distress HEENT: No acute findings Neck: Supple Respiratory system: Able to talk in full sentences, no audible wheeze Cardiovascular: S1-S2 regular in rate and rhythm Gastrointestinal: No pain Extremities: Pain right groin area with flexion BPO SPECIALIST: Alert awake oriented x3 motor sensory intact Skin: Normal turgor [facility] Medical History Old cerebral infarct without residual deficit COPD (chronic obstructive pulmonary disease) Asthma Nicotine addiction Diabetes type 2, controlled Chronic pain syndrome Diabetic neuropathy Other specified idiopathic peripheral neuropathy Schizophrenia Hypertension, essential Difficulty sleeping Chronic lumbar pain Surgical History History of heart artery stent History of laparoscopic cholecystectomy History of repair of rotator cuff Status post laparoscopic cholecystectomy Family History Father No problems noted. Mother No problems noted. Social History Household Members: Family Housing: House Do you presently have visiting nurse or other home services: No Alcohol intake: never Comment: resting well Patient Tobacco Use Status: Tobacco use Unknown Tobacco use type: Cigarette Cigarette Packs Per Day: 1 e-Cigarette/Vaping Use: Never Used service: No Current occupational status: unemployed Cognitive needs: No Hearing needs: No Vision needs: Yes Questionnaire Thrive Questionnaire Date Thrive assessed: 02/17/25 AUDIT C Alcohol Use Questionnaire (AUDIT-C) 1. How often do you have a drink containing alcohol?: Monthly or less 2. How many drinks containing alcohol do you have on a typical day when you are drinking?: 1 or 2 3. How often do you have six or more drinks on one occasion?: Never Total Score: 1 Score Reviewed/Action Taken: Yes VÍCTOR-7 AMB Questionnaire VÍCTOR-7 Date VÍCTOR - 7 assessed: 02/24/25 Source: Developed by Drs. Noel Correa, Jennifer Zhang, Delvin Pritchard and colleagues, with an educational óscar from [employer]. Physical exam (Primary Care) Tobacco/Smoking Status: Tobacco use Status Tobacco use date assessed 04/26/25 04/26/25 11:15 Patient Tobacco Use Status Tobacco use Unknown 04/26/25 11:12 Tobacco use type Cigarette 04/26/25 11:12 e-Cigarette/Vaping Use Never Used 04/26/25 11:12 Thrive Assessment: Date of Thrive Assessment Date Thrive assessed 02/17/25 04/26/25 11:12 Coding Level of Care Code Est Pt Level 4 (22321) Complex EM visit Add On G2211 Diagnoses Hypertension, essential I10 Controlled type 2 diabetes mellitus with other specified complication, without long-term current use of insulin E11.69 Diabetes mellitus long term acute care registered nurse insulin use: without retirement use Diabetes mellitus complication status: with other specified complication Chronic bilateral low back pain with bilateral sciatica M54.42; M54.41; G89.29 Back pain laterality: bilateral Sciatica presence: with sciatica Sciatica laterality: bilateral sciatica Difficulty sleeping G47.9 Diabetic autonomic neuropathy associated with type 2 diabetes mellitus E11.43 Diabetes mellitus type: type 2 Diabetes mellitus complication detail: diabetic autonomic neuropathy Paranoid schizophrenia F20.0 Schizophrenia type: paranoid schizophrenia Narcotic dependence F11.20 Pain management R52 Chronic pain syndrome G89.4 Chronic GERD K21.9 Other emphysema J43.8 COPD type: emphysema Emphysema type: other Benign prostatic hyperplasia with urinary frequency N40.1; R35.0 Lower urinary tract symptom presence: symptoms present Lower urinary tract symptom detail: urinary frequency Lumbar radiculitis M54.16 Class 1 obesity due to excess calories with serious comorbidity and body mass index (BMI) of 32.0 to 32.9 in adult E66.09; Z68.32 Obesity classification: adult class 1 (BMI 30 - 34.9) Serious obesity comorbidity presence: with serious comorbidity Body mass index: BMI 32.0-32.9 Assessment & Plan Assessment & Plan (1) Hypertension, essential: Code(s): I10 - Essential (primary) hypertension Category: Medical (2) Diabetes type 2, controlled: Code(s): E11.9 - Type 2 diabetes mellitus without complications Category: Medical Qualifiers: Diabetes mellitus retirement insulin use: without long term acute care registered nurse use Diabetes mellitus complication status: with other specified complication Qualified Code(s): E11.69 - Type 2 diabetes mellitus with other specified complication (3) Chronic lumbar pain: Code(s): M54.5 - Low back pain; G89.29 - Other chronic pain Category: Medical Qualifiers: Back pain laterality: bilateral Sciatica presence: with sciatica Sciatica laterality: bilateral sciatica Qualified Code(s): M54.42 - Lumbago with sciatica, left side; M54.41 - Lumbago with sciatica, right side; G89.29 - Other chronic pain (4) Difficulty sleeping: Code(s): G47.9 - Sleep disorder, unspecified Category: Medical (5) Diabetic neuropathy: Code(s): E11.40 - Type 2 diabetes mellitus with diabetic neuropathy, unspecified Category: Medical Qualifiers: Diabetes mellitus type: type 2 Diabetes mellitus complication detail: diabetic autonomic neuropathy Qualified Code(s): E11.43 - Type 2 diabetes mellitus with diabetic autonomic (poly)neuropathy (6) Schizophrenia: Code(s): F20.9 - Schizophrenia, unspecified Category: Medical Qualifiers: Schizophrenia type: paranoid schizophrenia Qualified Code(s): F20.0 - Paranoid schizophrenia (7) Narcotic dependence: Comment: Controlled nature of medication was discussed, it is important to notify me of change of pharmacy, or if traveling. Do not share the medication with anybody, keep it safe away from the hands of small children, and only take it as prescribed. This medication have a tendency to be abused, habit-forming, and it can cause severe constipation along with other allergic reactions. Long-term use of narcotic medications have shown to increase sensitivity to pain. Code(s): F11.20 - Opioid dependence, uncomplicated Category: Medical (8) Pain management: Code(s): R52 - Pain, unspecified Category: Medical (9) Chronic pain syndrome: Code(s): G89.4 - Chronic pain syndrome Category: Medical (10) Chronic GERD: Code(s): K21.9 - Gastro-esophageal reflux disease without esophagitis Category: Medical (11) COPD (chronic obstructive pulmonary disease): Code(s): J44.9 - Chronic obstructive pulmonary disease, unspecified Category: Medical Qualifiers: COPD type: emphysema Emphysema type: other Qualified Code(s): J43.8 - Other emphysema (12) BPH (benign prostatic hyperplasia): Code(s): N40.0 - Benign prostatic hyperplasia without lower urinary tract symptoms Category: Medical Qualifiers: Lower urinary tract symptom presence: symptoms present Lower urinary tract symptom detail: urinary frequency Qualified Code(s): N40.1 - Benign prostatic hyperplasia with lower urinary tract symptoms; R35.0 - Frequency of micturition (13) Lumbar radiculitis: Code(s): M54.16 - Radiculopathy, lumbar region Category: Medical (14) Obesity due to excess calories: Code(s): E66.09 - Other obesity due to excess calories Category: Medical Qualifiers: Obesity classification: adult class 1 (BMI 30 - 34.9) Serious obesity comorbidity presence: with serious comorbidity Body mass index: BMI 32.0-32.9 Qualified Code(s): E66.09 - Other obesity due to excess calories; Z68.32 - Body mass index [BMI] 32.0-32.9, adult Plan - The patient is a 65-year-old male presenting for regular follow up for medication refill Patient has a history of schizophrenia, difficulty sleeping, has been evaluated by psychiatrist and is now stable on psychiatric medications through PCP office History of chronic back pain, lipid disorder, obesity, prostatic hypertrophy, allergies, hypertension, chronic abdominal cramping off and on established with Gastroenterology [facility] Labs were done in December reviewed again Back pain remains consistent and unrelieved by previous treatments other than Percocet, which the patient was using for back pain. - The patient has a history of smoking but reports cessation, acknowledging the need for weight management. - The patient has not seen a rotary engine assembler since his heart operation. - The patient also states that he has appointments with a lung doctor on the and of the current month for pulmonary issues but has no upcoming cardiology appointment. He is on 2 controlled medication Percocet and zolpidem Patient is complying with the treatment plan no signs of abuse Having difficulty losing weight Problem List - Chronic leg pain and back - Schizophrenia - Benign Prostatic Hyperplasia (BPH) - Hypertension - Gout - Chronic Gastroesophageal Reflux Disease (GERD) - lipid disorder - hypertension - obesity Patient Instructions - Continue current medications as prescribed and manage weight through lifestyle changes. - do not share zolpidem or Percocet with anyone else [patient is aware of side effects of both] - pain contract up-to-date - call cardio office to check when is your f.u apt - for the feeling of fluid retention, discuss with cardio - dont take any OTC meds without consultation Orders: Orders Complete Blood Count Auto Diff Today E11.43 - Type 2 diabetes mellitus with diabetic autonomic (poly)neuropathy, E11.69 - Type 2 diabetes mellitus with other specified complication, E66.01 - Morbid (severe) obesity due to excess calories, F11.20 - Opioid dependence, uncomplicated, F20.0 - Paranoid schizophrenia, G47.9 - Sleep disorder, unspecified, G89.29 - Other chronic pain, G89.4 - Chronic pain syndrome, I10 - Essential (primary) hypertension, J43.8 - Other emphysema, K21.9 - Gastro-esophageal reflux disease without esophagitis, M54.41 - Lumbago with sciatica, right side, M54.42 - Lumbago with sciatica, left side, N40.1 - Benign prostatic hyperplasia with lower urinary tract symptoms, R35.0 - Frequency of micturition, R52 - Pain, unspecified Lipid Panel Today E11.43 - Type 2 diabetes mellitus with diabetic autonomic (poly)neuropathy, E11.69 - Type 2 diabetes mellitus with other specified complication, E66.01 - Morbid (severe) obesity due to excess calories, F11.20 - Opioid dependence, uncomplicated, F20.0 - Paranoid schizophrenia, G47.9 - Sleep disorder, unspecified, G89.29 - Other chronic pain, G89.4 - Chronic pain syndrome, I10 - Essential (primary) hypertension, J43.8 - Other emphysema, K21.9 - Gastro-esophageal reflux disease without esophagitis, M54.41 - Lumbago with sciatica, right side, M54.42 - Lumbago with sciatica, left side, N40.1 - Benign prostatic hyperplasia with lower urinary tract symptoms, R35.0 - Frequency of micturition, R52 - Pain, unspecified Prostate Specific Antigen Today E11.43 - Type 2 diabetes mellitus with diabetic autonomic (poly)neuropathy, E11.69 - Type 2 diabetes mellitus with other specified complication, E66.01 - Morbid (severe) obesity due to excess calories, F11.20 - Opioid dependence, uncomplicated, F20.0 - Paranoid schizophrenia, G47.9 - Sleep disorder, unspecified, G89.29 - Other chronic pain, G89.4 - Chronic pain syndrome, I10 - Essential (primary) hypertension, J43.8 - Other emphysema, K21.9 - Gastro-esophageal reflux disease without esophagitis, M54.41 - Lumbago with sciatica, right side, M54.42 - Lumbago with sciatica, left side, N40.1 - Benign prostatic hyperplasia with lower urinary tract symptoms, R35.0 - Frequency of micturition, R52 - Pain, unspecified Hemoglobin A1c Today E11.43 - Type 2 diabetes mellitus with diabetic autonomic (poly)neuropathy, E11.69 - Type 2 diabetes mellitus with other specified complication, E66.01 - Morbid (severe) obesity due to excess calories, F11.20 - Opioid dependence, uncomplicated, F20.0 - Paranoid schizophrenia, G47.9 - Sleep disorder, unspecified, G89.29 - Other chronic pain, G89.4 - Chronic pain syndrome, I10 - Essential (primary) hypertension, J43.8 - Other emphysema, K21.9 - Gastro-esophageal reflux disease without esophagitis, M54.41 - Lumbago with sciatica, right side, M54.42 - Lumbago with sciatica, left side, N40.1 - Benign prostatic hyperplasia with lower urinary tract symptoms, R35.0 - Frequency of micturition, R52 - Pain, unspecified Comprehensive [place]. Panel Fast Today E11.43 - Type 2 diabetes mellitus with diabetic autonomic (poly)neuropathy, E11.69 - Type 2 diabetes mellitus with other specified complication, E66.01 - Morbid (severe) obesity due to excess calories, F11.20 - Opioid dependence, uncomplicated, F20.0 - Paranoid schizophrenia, G47.9 - Sleep disorder, unspecified, G89.29 - Other chronic pain, G89.4 - Chronic pain syndrome, I10 - Essential (primary) hypertension, J43.8 - Other emphysema, K21.9 - Gastro-esophageal reflux disease without esophagitis, M54.41 - Lumbago with sciatica, right side, M54.42 - Lumbago with sciatica, left side, N40.1 - Benign prostatic hyperplasia with lower urinary tract symptoms, R35.0 - Frequency of micturition, R52 - Pain, unspecified Drug Screen Urine Today E11.43 - Type 2 diabetes mellitus with diabetic autonomic (poly)neuropathy, E11.69 - Type 2 diabetes mellitus with other specified complication, E66.01 - Morbid (severe) obesity due to excess calories, F11.20 - Opioid dependence, uncomplicated, F20.0 - Paranoid schizophrenia, G47.9 - Sleep disorder, unspecified, G89.29 - Other chronic pain, G89.4 - Chronic pain syndrome, I10 - Essential (primary) hypertension, J43.8 - Other emphysema, K21.9 - Gastro-esophageal reflux disease without esophagitis, M54.41 - Lumbago with sciatica, right side, M54.42 - Lumbago with sciatica, left side, N40.1 - Benign prostatic hyperplasia with lower urinary tract symptoms, R35.0 - Frequency of micturition, R52 - Pain, unspecified Opiates GCMS Expanded, Ur Today E11.43 - Type 2 diabetes mellitus with diabetic autonomic (poly)neuropathy, E11.69 - Type 2 diabetes mellitus with other specified complication, E66.01 - Morbid (severe) obesity due to excess calories, F11.20 - Opioid dependence, uncomplicated, F20.0 - Paranoid schizophrenia, G47.9 - Sleep disorder, unspecified, G89.29 - Other chronic pain, G89.4 - Chronic pain syndrome, I10 - Essential (primary) hypertension, J43.8 - Other emphysema, K21.9 - Gastro-esophageal reflux disease without esophagitis, M54.41 - Lumbago with sciatica, right side, M54.42 - Lumbago with sciatica, left side, N40.1 - Benign prostatic hyperplasia with lower urinary tract symptoms, R35.0 - Frequency of micturition, R52 - Pain, unspecified Medications: Refilled oxycodone-acetaminophen 5-325 mg (Percocet) Partial refill permitted 1 tab PO TID 30 days PRN 90 tabs 0RF pain F11.20 - Opioid dependence, uncomplicated, G89.29 - Other chronic pain, M54.41 - Lumbago with sciatica, right side, M54.42 - Lumbago with sciatica, left side, R52 - Pain, unspecified zolpidem 10 mg PO BEDTIME 30 days PRN 30 tabs 0RF sleep G47.9 - Sleep disorder, unspecified
== END 2025-04-26 11:36 | disposition home or self-care (01) ==
PROVIDERS: PCP Internal Medicine; Visit Provider Internal Medicine
DX: I10 Essential (primary) hypertension (principal); E11.69 Type 2 diabetes mellitus with other specified complication; M54.42 Lumbago with sciatica, left side; M54.41 Lumbago with sciatica, right side; G89.29 Other chronic pain; G47.9 Sleep disorder, unspecified; E11.43 Type 2 diabetes mellitus with diabetic autonomic (poly)neuropathy; F20.0 Paranoid schizophrenia; F11.20 Opioid dependence, uncomplicated; R52 Pain, unspecified; G89.4 Chronic pain syndrome; J43.8 Other emphysema; K21.9 Gastro-esophageal reflux disease without esophagitis; N40.1 Benign prostatic hyperplasia with lower urinary tract symptoms; R35.0 Frequency of micturition; M54.16 Radiculopathy, lumbar region; E66.09 Other obesity due to excess calories; Z68.32 Body mass index [BMI] 32.0-32.9, adult

== ENCOUNTER → 2025-04-26 11:08 | Outpatient (BNVA) | payer OTHER, SELFPAY | PROVIDERS: PCP Internal Medicine; Visit Provider Internal Medicine | DX: I10 Essential (primary) hypertension (principal); F20.9 Schizophrenia, unspecified; M54.9 Dorsalgia, unspecified; E66.9 Obesity, unspecified; R10.9 Unspecified abdominal pain; E11.69 Type 2 diabetes mellitus with other specified complication; M54.42 Lumbago with sciatica, left side; M54.41 Lumbago with sciatica, right side; E11.43 Type 2 diabetes mellitus with diabetic autonomic (poly)neuropathy; F20.0 Paranoid schizophrenia; F11.20 Opioid dependence, uncomplicated; G89.4 Chronic pain syndrome; K21.9 Gastro-esophageal reflux disease without esophagitis; J43.8 Other emphysema; N40.1 Benign prostatic hyperplasia with lower urinary tract symptoms; R35.0 Frequency of micturition; Z68.36 Body mass index [BMI] 36.0-36.9, adult | CPT/HCPCS: 99212 ==

== ENCOUNTER 2025-05-01 12:47 | Outpatient (REF) | payer OTHER, SELFPAY ==
--- NOTE | ~2025-05-01 | FL_ITS ---
EXAMINATION: Fluoroscopy-guided right hip steroid injection. CLINICAL INDICATION: Degenerative arthritis. COMPARISON: Right hip 2 views 02/24/2025. TECHNIQUE: Following explaining fluoroscopy-guided right hip steroid injection procedure, benefits and risk, a written consent was obtained. Patient was placed supine on fluoroscopy table and right hip was exposed. A skin marker was placed along the anterior hip joint and a single image was obtained. The marked site was cleaned and draped with 0.2% chlorhexidine solution. 1% lidocaine was injected puncture site. A 20-gauge spinal needle was inserted from the marked site to to the lateral aspect of right femoral neck and 2 mL of nonionic contrast was injected. A single image was obtained. Subsequently 80 mg of Depo-Medrol and 6 mL of 1% lidocaine was injected and needle withdrawn. Complete hemostasis achieved at puncture site. Simple Band-Aid applied postprocedure. Patient tolerated procedure extremely well. Findings/ FL/FL Guided Asp Inj Major Jt RT impression: There is minimal reduction of in right hip superior joint space. Successful fluoroscopy-guided right hip steroid injection performed. Fluoroscopy time: 50 seconds. Dose area product: [id number] [id number] Electronically signed by: Oscar Osborne MD 05/01/2025 04:18 PM EDT
[2025-05-01] MEDS: methylPREDNISolone acetate 80 MG VIAL INTRAARTIC (13:57)
[2025-05-01] MEDS: Lidocaine HCl 1 % MPF 30 ML VIAL 4 ML INTRAARTIC (14:05)
[2025-05-01] MEDS: iohexoL 300 MG/ML 50 ML INFUS..BTL 10 ML INTRAARTIC (14:09)
== END 2025-05-01 12:48 | disposition home or self-care (01) ==
LOC: HO.XRAY 12:47
PROVIDERS: PCP Internal Medicine; Visit Provider Physician Assistant
DX: M16.11 Unilateral primary osteoarthritis, right hip (principal)
CPT/HCPCS: 20610; 77002; J1010; J2003; Q9967

== ENCOUNTER → 2025-05-01 12:50 | Outpatient (BNV) | payer OTHER, SELFPAY | PROVIDERS: PCP Internal Medicine; Visit Provider Radiology Diagnostic Radiology | DX: M16.11 Unilateral primary osteoarthritis, right hip (principal) | CPT/HCPCS: 20610; 77002 ==

== ENCOUNTER 2025-05-17 13:21 | Outpatient (AMB) | payer OTHER, SELFPAY ==
[2025-05-17 13:37] VITALS: BP 119/72; PULSE 90; O2SAT 95; BMI 35.9
--- NOTE | 2025-05-17 13:37 | MHC.OFFVIS ---
Vital Signs 05/17/25 13:37 Height 5 ft 10 in Weight 250 lb BMI 35.9 BP 119/72 Blood Pressure Location Lt brachial Position Sitting Pulse 90 Pulse Source Pulse Oximeter Pulse Oximetry (%) 95 Oxygen Delivery Method Room Air Intake Visit Reasons: COPD (chronic obstructive pulmonary disease) Allergies No Known Allergies Allergy (Verified 05/17/25 13:43) HPI HPI COPD (chronic obstructive pulmonary disease): Details: 65-year-old gentleman, prior 35+ pack-year smoker, quit 2023, now followed for for underlying moderate COPD, GERD, and pulmonary nodules.? He has previously been using Stiolto with good baseline control of his symptoms, however recently secondary to insurance reasons he was switched to Anoro, however he can not tolerate powder inhalers well and now his symptoms are not as well controlled. He is also complain of unrestful sleep, snoring, and daytime sleepiness. Denies any recent exacerbations. He continues on Carafate for his PPI symptoms. [facility] Medical History Old cerebral infarct without residual deficit COPD (chronic obstructive pulmonary disease) Asthma Nicotine addiction Diabetes type 2, controlled Chronic pain syndrome Diabetic neuropathy Other specified idiopathic peripheral neuropathy Schizophrenia Hypertension, essential Difficulty sleeping Chronic lumbar pain Surgical History History of heart artery stent History of laparoscopic cholecystectomy History of repair of rotator cuff Status post laparoscopic cholecystectomy Family History Father No problems noted. Mother No problems noted. Social History Household Members: Family Housing: House Do you presently have visiting nurse or other home services: No Alcohol intake: never Comment: resting well Patient Tobacco Use Status: Tobacco use Unknown Tobacco use type: Cigarette Cigarette Packs Per Day: 1 e-Cigarette/Vaping Use: Never Used service: No Current occupational status: unemployed Cognitive needs: No Hearing needs: No Vision needs: Yes Review of Systems Const Reports daytime sleepiness, Denies excessive sweating, Denies fatigue, Denies fever(s), Reports lethargy, Denies malaise, Denies night sweats, Reports snoring and Denies weight loss Eyes Denies blurry vision and Denies itchy eyes ENT Denies nasal congestion, Denies post nasal drip, Denies sinus pain, Denies sinus pressure and Denies other ( Thrush) Card Denies chest pain, Denies pedal edema, Denies dyspnea, Reports dyspnea on exertion, Denies orthopnea and Denies paroxysmal nocturnal dyspnea Resp Denies cough, Denies hemoptysis, Denies excessive phlegm production, Denies dyspnea, Reports dyspnea on exertion, Reports snoring and Denies wheezing GI Denies abdominal pain and Denies heartburn Musc Denies myalgias, Denies arthralgias and Denies joint swelling Skin/Breast Denies rash Neuro Denies memory loss and Denies seizure-like activity Psych Denies abnormal sleep pattern, Denies anxiety and Denies memory loss Endo Denies excessive sweating, Denies fatigue and Denies heat intolerance Puma/Lymph Denies easy bruising Aller/Immun Denies itchy eyes, Denies seasonal rhinorrhea and Denies wheezing Physical Exam Vital Signs: Last Vital Signs Pulse 90 05/17/25 13:37 BP 119/72 05/17/25 13:37 Pulse Ox 95 05/17/25 13:37 Oxygen Delivery Method Room Air 05/17/25 13:37 BMI result Body Mass Index 35.9 Const General: no acute distress and alert Nutritional Appearance: obese Orientation/consciousness: Other orientation findings ( oriented) HEENT Head: Yes atraumatic Eyes General: appearance normal, both eyes and all related structures Sclerae: sclerae normal EOM: EOMs intact bilaterally Neck Neck: Yes supple Lymphatic: no lymphadenopathy noted Resp Effort & Inspection: normal respiratory effort and no use of accessory muscles Auscultation: clear to auscultation bilaterally Cardio Rate: regular rate Rhythm: regular rhythm Heart sounds: no gallops, no murmurs and no rubs Skin General skin exam: other ( warm) Extrem General: No clubbing, No cyanosis and No edema Assessment & Plan Assessment & Plan (1) Personal history of nicotine dependence: Code(s): Z87.891 - Personal history of nicotine dependence Category: Medical Plan: Continue with yearly screening, next in June of 2025. (2) Sleep apnea in adult: Code(s): G47.30 - Sleep apnea, unspecified Category: Medical Plan: Unrestful sleep, recent changes in weight, daytime sleepiness. [place] Sleepiness Scale score 16. Will home sleep study. (3) COPD (chronic obstructive pulmonary disease): Code(s): J44.9 - Chronic obstructive pulmonary disease, unspecified Category: Medical Qualifiers: COPD type: emphysema Emphysema type: other Qualified Code(s): J43.8 - Other emphysema Plan: Suboptimal control as patient can not tolerate powder inhalers, will switch Anoro to Stiolto. Continue albuterol MDI. (4) Chronic GERD: Code(s): K21.9 - Gastro-esophageal reflux disease without esophagitis Category: Medical Plan: Reasonably well controlled on Carafate and PPI. Continue current regimen. Orders: Orders RT home sleep study Today G47.30 - Sleep apnea, unspecified Referrals Lung Cancer Screening Referral Z87.891 - Personal history of nicotine dependence Medications: New qnjanbrdob-fxqiicql-asffdshtob 160-9-4.8 mcg/actuation (Breztri Aerosphere) 2 inhalations inhalation BID 1 ea 6RF J43.8 - Other emphysema Discontinued umeclidinium-vilanterol 62.5-25 mcg/actuation (Anoro Ellipta) Discontinued Reason: Doctor's Order 1 inh inhalation DAILY 1 ea 6RF Coding Level of Care Code Est Pt Level 4 (69667) Complex EM visit Add On G2211 Diagnoses Personal history of nicotine dependence Z87.891 Sleep apnea in adult G47.30 Other emphysema J43.8 COPD type: emphysema Emphysema type: other Chronic GERD K21.9
== END 2025-05-17 14:00 | disposition home or self-care (01) ==
LOC: HO.HPS 13:22
PROVIDERS: PCP Internal Medicine; Visit Provider Internal Medicine Pulmonary Disease
DX: Z87.891 Personal history of nicotine dependence (principal); G47.30 Sleep apnea, unspecified; J43.8 Other emphysema; K21.9 Gastro-esophageal reflux disease without esophagitis
CPT/HCPCS: 99214; G2211

== ENCOUNTER → 2025-05-17 13:21 | Outpatient (BNVA) | payer OTHER, SELFPAY | PROVIDERS: PCP Internal Medicine; Visit Provider Internal Medicine Pulmonary Disease | DX: K21.9 Gastro-esophageal reflux disease without esophagitis (principal); J43.8 Other emphysema; G47.30 Sleep apnea, unspecified; Z87.891 Personal history of nicotine dependence | CPT/HCPCS: 99212 ==

== ENCOUNTER 2025-06-26 08:56 | Outpatient (REF) | payer OTHER, SELFPAY ==
[2025-06-26 09:21] LABS: MANUAL DIFF FLAG NO
[2025-06-26 10:12] LABS: Hematocrit 38.0 % (42.0-52.0); Hemoglobin 13.2 g/dl (14.0-18.0); Imm Gran Abs Auto 0.08 X10*3/uL (0.00-0.03); Imm Gran Pct Auto 1.0 % (0.0-0.4); Lymphocytes Absolute Auto 1.8 X10*3/uL (1.2-4.9); Mean Corpuscular HGB Conc 34.7 g/dl (31.0-36.0); Mean Corpuscular Hemoglobin 31.8 pg (27.0-33.0); Mean Corpuscular Volume 91.6 fL (80.0-98.0); NRBC Abs Auto 0.000 X10*3/uL (0.0-0.012); NRBC Pct Auto 0.0 /100WBC (0.0-0.2); Platelet Count 253 X10*3/uL (160-400); Red Blood Count 4.15 X10*6/uL (4.60-5.80); White Blood Count 8.1 X10*3/uL (4.8-10.8)
[2025-06-26 10:39] LABS: Alanine Aminotransferase 22 U/L (0-40); Albumin Level 4.2 g/dL (3.5-5.0); Alkaline Phosphatase 84 U/L (39-117); Anion Gap 13 (12-20); Aspartate Amino Transferase 38 U/L (5-37); Blood Urea Nitrogen 14 mg/dL (9-16); Calcium 8.7 mg/dL (8.4-10.2); Carbon Dioxide 25 mmol/L (22-29); Chloride 104 mmol/L (96-108); Cholesterol 152 mg/dL (<200); Estimated Glomerular Filt Rate > 60; HDL Cholesterol 31 mg/dL (>40); Potassium 3.9 mmol/L (3.3-5.1); Sodium 138 mmol/L (135-145); Total Protein 7.3 g/dL (6.5-8.0); Triglycerides 248 mg/dL (<150)
[2025-06-26 10:41] LABS: Hemoglobin A1C 160.3416 umol/L; Total Hemoglobin (HGBA1C) 3504.7488 umol/L
[2025-06-26 10:56] LABS: Prostate Specific Antigen 0.11 ng/mL (<0.05-4.0)
[2025-06-26 11:20] LABS: Cannabinoid Screen Urine Not Detected (Not Detect)
[2025-06-29 12:31] LABS: Codeine, Ur NEGATIVE
[2025-06-29 12:34] LABS: Hydrocodone, Ur NEGATIVE; Hydromorphone, Ur NEGATIVE; Morphine, Ur NEGATIVE; Oxycodone, Ur 250
[2025-06-29 12:35] LABS: Norhydrocodone, Ur NEGATIVE; Noroxycodone, Ur 511; Oxymorphone, Ur 466
== END 2025-06-26 08:57 | disposition home or self-care (01) ==
LOC: HO.LAB 08:56
PROVIDERS: PCP Internal Medicine; Visit Provider Internal Medicine
DX: E11.69 Type 2 diabetes mellitus with other specified complication (principal); J43.8 Other emphysema; N40.1 Benign prostatic hyperplasia with lower urinary tract symptoms; R35.0 Frequency of micturition; E66.01 Morbid (severe) obesity due to excess calories; K21.9 Gastro-esophageal reflux disease without esophagitis; F11.20 Opioid dependence, uncomplicated; E11.43 Type 2 diabetes mellitus with diabetic autonomic (poly)neuropathy; G89.4 Chronic pain syndrome; F20.0 Paranoid schizophrenia; I10 Essential (primary) hypertension; G47.9 Sleep disorder, unspecified; M54.42 Lumbago with sciatica, left side; M54.41 Lumbago with sciatica, right side; Z68.32 Body mass index [BMI] 32.0-32.9, adult; Z12.5 Encounter for screening for malignant neoplasm of prostate
CPT/HCPCS: 80053; 80061; 80307; 80365; 83036; 84153; 85025; G0480

== ENCOUNTER 2025-06-30 10:51 | Outpatient (AMB) | payer OTHER, SELFPAY ==
--- NOTE | 2025-06-30 10:53 | A.OFFPC_ITS ---
Vital Signs 06/30/25 10:54 Height 5 ft 10 in Weight 247 lb BMI 35.4 BP 122/74 Blood Pressure Location Lt brachial Position Sitting Respiration 18 Pulse 94 Pulse Source Pulse Oximeter Temp 97.9 F Temp Source Oral Pulse Oximetry (%) 95 Oxygen Delivery Method Room Air Intake Visit Reasons: 2m follow up Allergies No Known Allergies Allergy (Verified 06/30/25 10:55) Medication List - Last Reconciled 06/30/25 by Jayy Edmonds MD albuterol sulfate 90 mcg/actuation 2 puffs inhalation Q4-6H PRN 30 days amitriptyline 150 mg PO BEDTIME aspirin (Adult Low Dose Aspirin) 81 mg PO DAILY atorvastatin 80 mg PO DAILY ucdofhdrfb-cpiprogd-sjdporghoo 160-9-4.8 mcg/actuation (Breztri Aerosphere) 2 inhalations inhalation BID colchicine 0.6 mg PO DAILY finasteride 5 mg PO DAILY 90 days fluticasone propionate 50 mcg/actuation (Flonase Allergy Relief) 1 spray intranasal BID 30 days losartan 100 mg PO DAILY 90 days melatonin 5 mg PO BEDTIME metoprolol succinate ER 50 mg PO DAILY nicotine (Nicoderm CQ) 1 patch transdermal Q24H olanzapine 10 mg PO BEDTIME 90 days omega-3 fatty acids (Fish Oil Concentrate) 1 tab PO DAILY omeprazole 20 mg PO QAM oxycodone-acetaminophen 5-325 mg (Percocet) 1 tab PO TID PRN 30 days sucralfate 10 mL PO QID 30 days tamsulosin 0.4 mg PO BEDTIME 90 days [Tens unit [id number] As directed] ticagrelor (Brilinta) 90 mg PO BID zolpidem 10 mg PO BEDTIME PRN 30 days Tobacco use date assessed: 06/30/25 Dental Screening Dental Screen Date: 04/26/25 HPI 2m follow up HPI Details Long-term care follow-up History The patient is a 65-year-old male presenting with chronic stomach pain. Chronic Stomach Pain: - The patient reports experiencing stoma ch pain for a couple of days. - He has been using medication which pre viously helped but is currently ineffective. - The stomach pain intensity has not imp roved with current treatment. - The patient has used Sucralfate 1 g tw ice daily, but has now been advised it can be taken three times daily. It is prescribed q.i.d. - History of gastroenterology referrals, follow-up offered which patient declined - obesity with BMI of 35.4, extensive di scussion on diet-controlled Two which patient says that he does not need that much - history of schizophrenia stable with O lnazapine and zolpidem for difficulty sleeping at night patient has seen psychiatrist and has been transitioned over to PCP - chronic back pain taking gabapentin, a nd narcotic pain medication complying with the treatment plan no signs of abuse - chronic GERD on sucralfate and PPI - for IBS he is taking dicyclomine Medical History: - Essential Hypertension - Chronic Obstructive Pulmonary Disease (COPD) and asthma overlap - Schizophrenia - Lipid disorder - Difficulty sleeping - Prostate issues Medications: - Losartan for hypertension - Penesteride and tamsulosin for prostat e issues - Atorvastatin for lipid disorder - Inhalers for asthma/COPD - Amitriptyline for back pain - Metoprolol 50 mg for heart - Olanzapine for schizophrenia - Zolpidem for difficulty sleeping - Briliant from cardiology - Omeprazole for stomach issues - Dicyclomate and Sucralfate for stomach issues Social History: - Reported trying to reduce food intake by eating smaller portions, specifically encouraged to eat only half of the portion served to aid weight loss. - Previous weight was 250 pounds; curren tly 247 pounds, with an advised goal to lose 25 pounds. - Patient reports the inability to exerc ise due to leg pain. - Discussion about potential increased h day[place] related to medication, Olanzapine. Problem List - Chronic Stomach Pain - Essential Hypertension - Chronic Obstructive Pulmonary Disease (COPD) - Schizophrenia - Lipid Disorder - Prostate Issues Diagnostic results - Labs: Hemoglobin stable at 13.2, Elect rolytes and kidney functions normal, A1c at 6.3, liver enzymes stable, cholesterol indicates good control. Assessment and Plan 1. Chronic Stomach Pain - Discussed the inefficacy of current tr eatment. - Suggested increasing intake of Sucralf ate to three times a day. - Advised discontinue omeprazole and sta rt pantoprazole 40 mg once a day - Schedule appointment with gastroentero logy for further evaluation. - Emphasized dietary changes for improve ment in symptoms. 2. Essential Hypertension and Lipid Neda gement - Blood pressure stable with losartan. - Lipid levels remain within target on a torvastatin. 3. Chronic Obstructive Pulmonary Disease (COPD) and Asthma Overlap - Stable with current inhaler therapy. 4. Schizophrenia - Continuing management with Olanzapine. 5. Weight Management and Nutrition - Advised on portion control and importa nce of reducing caloric intake. Patient Instructions - Take Sucralfate as advised up to three times a day as needed. - Continue with current medications unle ss otherwise specified. - Schedule or maintain a gastroenterolog y appointment as discussed. - Pay attention to dietary portion contr ol, aiming for a target weight reduction. - Report any significant changes in symp toms or side effects from medications. Review of Systems General: No fever no chills neurological: No headaches no dizziness ear nose throat: No sore throat no hearing difficulty no ear pain cardiovascular: No syncope, no chest pain, no palpitations gastrointestinal: No vomiting or diarrhea endocrine: No polyuria polydipsia no heat intolerance genitourinary: No dysuria skin: No new complaints Physical Exam general: No acute distress HEENT: No acute findings neck: Supple respiratory system: Able to talk in full sentences, no audible wheeze no stridor cardiovascular: S1-S2 RRR gastrointestinal: Abdomen soft bowel sounds positive extremities: No new findings CREDIT COLLECTIONS ANALYST: Alert awake oriented x3 motor sensory intact skin: Normal turgor PFSH Medical History Personal history of nicotine dependence Old cerebral infarct without residual deficit COPD (chronic obstructive pulmonary disease) Asthma Diabetes type 2, controlled Chronic pain syndrome Diabetic neuropathy Other specified idiopathic peripheral neuropathy Schizophrenia Hypertension, essential Difficulty sleeping Chronic lumbar pain Surgical History History of heart artery stent History of laparoscopic cholecystectomy History of repair of rotator cuff Status post laparoscopic cholecystectomy Family History Father No problems noted. Mother No problems noted. Social History Household Members: Family Housing: House Do you presently have visiting nurse or other home services: No Alcohol intake: never Comment: resting well Patient Tobacco Use Status: Tobacco use Unknown Tobacco use type: Cigarette Cigarette Packs Per Day: 1 e-Cigarette/Vaping Use: Never Used service: No Current occupational status: unemployed Cognitive needs: No Hearing needs: No Vision needs: Yes Questionnaire Thrive Questionnaire Date Thrive assessed: 02/17/25 I am a: Patient What is your living situation today?: I have a steady place to live Within the past 12 months, did the food you bought not last and you didn't have the money to get more?: I choose not to answer this question Within the past 12 months, did you worry whether your food would run out before you got money to buy more?: I choose not to answer this question Do you have trouble paying for medicines?: No Do you have trouble getting transportation to medical appointments?: No Do you have trouble paying your heating and electricity bill?: No Do you have trouble taking care of your child, family member or friend?: I choose not to answer this question Do you have trouble with day-to-day activities such as bathing, preparing meals, shopping, managing finances, etc.?: Yes Are you currently unemployed and looking for a job?: No Are you interested in more education?: No Please select the resources that you would like help with: Care for elder or disabled Currently or been in a relationship where the following occur: No concerns reported THRIVE Score: 0 VÍCTOR-7 AMB Questionnaire VÍCTOR-7 Date VÍCTOR - 7 assessed: 02/24/25 Source: Developed by Drs. Noel Correa, Jennifer Zhang, Delvni Pritchard and colleagues, with an educational óscar from [employer]. Physical exam (Primary Care) Vital Signs: Last Vital Signs Temp 97.9 F 06/30/25 10:54 Pulse 94 06/30/25 10:54 Resp 18 06/30/25 10:54 BP 122/74 06/30/25 10:54 Pulse Ox 95 06/30/25 10:54 Oxygen Delivery Method Room Air 06/30/25 10:54 BMI result Body Mass Index 35.4 Tobacco/Smoking Status: Tobacco use Status Tobacco use date assessed 06/30/25 06/30/25 11:00 Patient Tobacco Use Status Tobacco use Unknown 06/30/25 11:00 Tobacco use type Cigarette 06/30/25 11:00 e-Cigarette/Vaping Use Never Used 06/30/25 11:00 Thrive Assessment: Date of Thrive Assessment Date Thrive assessed 02/17/25 06/30/25 11:00 Currently or been in a relationship where the following occur: No concerns reported Coding Level of Care Code Est Pt Level 4 (03505) Complex EM visit Add On G2211 Diagnoses Epigastric discomfort R10.13 Hypertension, essential I10 Diabetes type 2, controlled E11.9 Chronic bilateral low back pain with bilateral sciatica M54.42; M54.41; G89.29 Back pain laterality: bilateral Sciatica presence: with sciatica Sciatica laterality: bilateral sciatica Difficulty sleeping G47.9 Diabetic autonomic neuropathy associated with type 2 diabetes mellitus E11.43 Diabetes mellitus type: type 2 Diabetes mellitus complication detail: diabetic autonomic neuropathy Paranoid schizophrenia F20.0 Schizophrenia type: paranoid schizophrenia Narcotic dependence F11.20 Pain management R52 Chronic pain syndrome G89.4 Chronic GERD K21.9 Other emphysema J43.8 COPD type: emphysema Emphysema type: other Benign prostatic hyperplasia with urinary frequency N40.1; R35.0 Lower urinary tract symptom presence: symptoms present Lower urinary tract symptom detail: urinary frequency Lumbar radiculitis M54.16 Class 1 obesity due to excess calories with serious comorbidity and body mass index (BMI) of 32.0 to 32.9 in adult E66.09; Z68.32 Obesity classification: adult class 1 (BMI 30 - 34.9) Serious obesity comorbidity presence: with serious comorbidity Body mass index: BMI 32.0-32.9 Assessment & Plan Assessment & Plan (1) Epigastric discomfort: Code(s): R10.13 - Epigastric pain Category: Medical (2) Hypertension, essential: Code(s): I10 - Essential (primary) hypertension Category: Medical (3) Diabetes type 2, controlled: Code(s): E11.9 - Type 2 diabetes mellitus without complications Category: Medical (4) Chronic lumbar pain: Code(s): M54.5 - Low back pain; G89.29 - Other chronic pain Category: Medical Qualifiers: Back pain laterality: bilateral Sciatica presence: with sciatica Sciatica laterality: bilateral sciatica Qualified Code(s): M54.42 - Lumbago with sciatica, left side; M54.41 - Lumbago with sciatica, right side; G89.29 - Other chronic pain (5) Difficulty sleeping: Code(s): G47.9 - Sleep disorder, unspecified Category: Medical (6) Diabetic neuropathy: Code(s): E11.40 - Type 2 diabetes mellitus with diabetic neuropathy, unspecified Category: Medical Qualifiers: Diabetes mellitus type: type 2 Diabetes mellitus complication detail: diabetic autonomic neuropathy Qualified Code(s): E11.43 - Type 2 diabetes mellitus with diabetic autonomic (poly)neuropathy (7) Schizophrenia: Code(s): F20.9 - Schizophrenia, unspecified Category: Medical Qualifiers: Schizophrenia type: paranoid schizophrenia Qualified Code(s): F20.0 - Paranoid schizophrenia (8) Narcotic dependence: Comment: Controlled nature of medication was discussed, it is important to notify me of change of pharmacy, or if traveling. Do not share the medication with anybody, keep it safe away from the hands of small children, and only take it as prescribed. This medication have a tendency to be abused, habit-forming, and it can cause severe constipation along with other allergic reactions. Long-term use of narcotic medications have shown to increase sensitivity to pain. Code(s): F11.20 - Opioid dependence, uncomplicated Category: Medical (9) Pain management: Code(s): R52 - Pain, unspecified Category: Medical (10) Chronic pain syndrome: Code(s): G89.4 - Chronic pain syndrome Category: Medical (11) Chronic GERD: Code(s): K21.9 - Gastro-esophageal reflux disease without esophagitis Category: Medical (12) COPD (chronic obstructive pulmonary disease): Code(s): J44.9 - Chronic obstructive pulmonary disease, unspecified Category: Medical Qualifiers: COPD type: emphysema Emphysema type: other Qualified Code(s): J43.8 - Other emphysema (13) BPH (benign prostatic hyperplasia): Code(s): N40.0 - Benign prostatic hyperplasia without lower urinary tract symptoms Category: Medical Qualifiers: Lower urinary tract symptom presence: symptoms present Lower urinary tract symptom detail: urinary frequency Qualified Code(s): N40.1 - Benign prostatic hyperplasia with lower urinary tract symptoms; R35.0 - Frequency of micturition (14) Lumbar radiculitis: Code(s): M54.16 - Radiculopathy, lumbar region Category: Medical (15) Obesity due to excess calories: Code(s): E66.09 - Other obesity due to excess calories Category: Medical Qualifiers: Obesity classification: adult class 1 (BMI 30 - 34.9) Serious obesity comorbidity presence: with serious comorbidity Body mass index: BMI 32.0-32.9 Qualified Code(s): E66.09 - Other obesity due to excess calories; Z68.32 - Body mass index [BMI] 32.0-32.9, adult Plan Long-term care follow-up History The patient is a 65-year-old male presenting with chronic stomach pain. Chronic Stomach Pain: - The patient reports experiencing stomach pain for a couple of days. - He has been using medication which previously helped but is currently ineffective. - The stomach pain intensity has not improved with current treatment. - The patient has used Sucralfate 1 g twice daily, but has now been advised it can be taken three times daily. It is prescribed q.i.d. - History of gastroenterology referrals, follow-up offered which patient declined - obesity with BMI of 35.4, extensive discussion on diet-controlled Two which patient says that he does not need that much - history of schizophrenia stable with Olnazapine and zolpidem for difficulty sleeping at night patient has seen psychiatrist and has been transitioned over to PCP - chronic back pain taking gabapentin, and narcotic pain medication complying with the treatment plan no signs of abuse - chronic GERD on sucralfate and PPI - for IBS he is taking dicyclomine Medical History: - Essential Hypertension - Chronic Obstructive Pulmonary Disease (COPD) and asthma overlap - Schizophrenia - Lipid disorder - Difficulty sleeping - Prostate issues Medications: - Losartan for hypertension - Penesteride and tamsulosin for prostate issues - Atorvastatin for lipid disorder - Inhalers for asthma/COPD - Amitriptyline for back pain - Metoprolol 50 mg for heart - Olanzapine for schizophrenia - Zolpidem for difficulty sleeping - Briliant from cardiology - Omeprazole for stomach issues - Dicyclomate and Sucralfate for stomach issues Social History: - Reported trying to reduce food intake by eating smaller portions, specifically encouraged to eat only half of the portion served to aid weight loss. - Previous weight was 250 pounds; currently 247 pounds, with an advised goal to lose 25 pounds. - Patient reports the inability to exercise due to leg pain. - Discussion about potential increased hunger related to medication, Olanzapine. Problem List - Chronic Stomach Pain - Essential Hypertension - Chronic Obstructive Pulmonary Disease (COPD) - Schizophrenia - Lipid Disorder - Prostate Issues Diagnostic results - Labs: Hemoglobin stable at 13.2, Electrolytes and kidney functions normal, A1c at 6.3, liver enzymes stable, cholesterol indicates good control. Assessment and Plan 1. Chronic Stomach Pain - Discussed the inefficacy of current treatment. - Suggested increasing intake of Sucralfate to three times a day. - Advised discontinue omeprazole and start pantoprazole 40 mg once a day - Schedule appointment with gastroenterology for further evaluation. - Emphasized dietary changes for improvement in symptoms. 2. Essential Hypertension and Lipid Management - Blood pressure stable with losartan. - Lipid levels remain within target on atorvastatin. 3. Chronic Obstructive Pulmonary Disease (COPD) and Asthma Overlap - Stable with current inhaler therapy. 4. Schizophrenia - Continuing management with Olanzapine. 5. Weight Management and Nutrition - Advised on portion control and importance of reducing caloric intake. Patient Instructions - Take Sucralfate as advised up to three times a day as needed. - Continue with current medications unless otherwise specified. - Schedule or maintain a gastroenterology appointment as discussed. - Pay attention to dietary portion control, aiming for a target weight reduction. - Report any significant changes in symptoms or side effects from medications. Medications: New pantoprazole 40 mg PO DAILY 90 tabs 0RF
[2025-06-30 10:54] VITALS: BP 122/74; PULSE 94; RESP 18; TEMP 36.6; O2SAT 95; BMI 35.4
== END 2025-06-30 11:16 | disposition home or self-care (01) ==
LOC: HO.HMCC 10:51
PROVIDERS: PCP Internal Medicine; Visit Provider Internal Medicine
DX: J43.8 Other emphysema (principal); E11.43 Type 2 diabetes mellitus with diabetic autonomic (poly)neuropathy; F20.0 Paranoid schizophrenia; F11.20 Opioid dependence, uncomplicated; R10.13 Epigastric pain; M54.42 Lumbago with sciatica, left side; I10 Essential (primary) hypertension; M54.41 Lumbago with sciatica, right side; G89.29 Other chronic pain; G47.9 Sleep disorder, unspecified; R52 Pain, unspecified; G89.4 Chronic pain syndrome

== ENCOUNTER → 2025-06-30 10:51 | Outpatient (BNVA) | payer OTHER, SELFPAY | PROVIDERS: PCP Internal Medicine; Visit Provider Internal Medicine | DX: R10.13 Epigastric pain (principal); I10 Essential (primary) hypertension; E66.9 Obesity, unspecified; F20.9 Schizophrenia, unspecified; M54.9 Dorsalgia, unspecified; K21.9 Gastro-esophageal reflux disease without esophagitis; K58.9 Irritable bowel syndrome, unspecified; J44.9 Chronic obstructive pulmonary disease, unspecified; E11.9 Type 2 diabetes mellitus without complications; M54.42 Lumbago with sciatica, left side; M54.41 Lumbago with sciatica, right side; E11.43 Type 2 diabetes mellitus with diabetic autonomic (poly)neuropathy; F20.0 Paranoid schizophrenia; F11.20 Opioid dependence, uncomplicated; G89.4 Chronic pain syndrome; J43.8 Other emphysema; N40.1 Benign prostatic hyperplasia with lower urinary tract symptoms; R35.0 Frequency of micturition; M54.16 Radiculopathy, lumbar region; E66.09 Other obesity due to excess calories; E66.811 Obesity, class 1; Z68.35 Body mass index [BMI] 35.0-35.9, adult; Z68.32 Body mass index [BMI] 32.0-32.9, adult; Z79.899 Other long term (current) drug therapy | CPT/HCPCS: 99212 ==

== ENCOUNTER → 2025-07-27 08:49 | Outpatient (REF) | payer OTHER, SELFPAY | LOC: HO.SL 08:49 | PROVIDERS: PCP Internal Medicine; Visit Provider Internal Medicine Pulmonary Disease | DX: G47.33 Obstructive sleep apnea (adult) (pediatric) (principal); G47.30 Sleep apnea, unspecified | CPT/HCPCS: 95806 ==

== ENCOUNTER 2025-08-24 12:56 | Outpatient (REF) | payer OTHER, SELFPAY ==
--- NOTE | ~2025-08-24 | CT_ITS ---
CLINICAL HISTORY: Z87.891 - Personal history of nicotine dependence CT lung cancer screening (LDCT) Comparison: 06/27/2024 Technique: Axial CT images of the chest using low-dose technique. Referring provider counseled the patient on shared decision-making for LDCT screening. Additional counseling was provided on smoking cessation. Effective radiation dose total: DLP 59.9 mGycm, CTDIvol 1.9 mGy. Findings: Lung: There are no new solid or semi solid lesions. Coronary artery calcifications: Moderate Limited upper abdomen: Unremarkable Other: Changes of pulmonary bullous disease with areas of scarring IMPRESSION: Lung-RADS 1, negative. Continued annual screening recommended This document has been electronically signed by: Abdelrahman Silver MD on 08/25/2025 09:48:43
== END 2025-08-24 12:57 | disposition home or self-care (01) ==
LOC: HO.CT 12:56
PROVIDERS: PCP Internal Medicine; Visit Provider Internal Medicine Pulmonary Disease
DX: Z12.2 Encounter for screening for malignant neoplasm of respiratory organs (principal); Z87.891 Personal history of nicotine dependence
CPT/HCPCS: 71271

== ENCOUNTER → 2025-08-24 12:57 | Outpatient (BNV) | payer OTHER, SELFPAY | PROVIDERS: PCP Internal Medicine; Visit Provider Specialist | DX: Z12.2 Encounter for screening for malignant neoplasm of respiratory organs (principal); Z87.891 Personal history of nicotine dependence | CPT/HCPCS: 71271 ==

== ENCOUNTER 2025-08-31 15:15 | Outpatient (AMB) | payer OTHER, SELFPAY ==
[2025-08-31 15:24] VITALS: BP 130/82; PULSE 99; O2SAT 96; BMI 34.9
--- NOTE | 2025-08-31 15:24 | A.OFFVIS_ITS ---
Vital Signs 08/31/25 15:24 Height 5 ft 10 in Weight 243 lb BMI 34.9 BP 130/82 Blood Pressure Location Lt brachial Position Sitting Pulse 99 Pulse Source Pulse Oximeter Pulse Oximetry (%) 96 Oxygen Delivery Method Room Air Intake Visit Reasons: copd Allergies No Known Allergies Allergy (Verified 08/31/25 15:29) HPI HPI copd: Details: 65-year-old gentleman, prior 35+ pack-year smoker, quit 2023, now followed for for underlying moderate COPD, GERD, and pulmonary nodules.?He continues on Nikole fate for his PPI symptoms with improved control. He continues on Breztri and albuterol MDI with good control of his dyspnea. Patient has finished his sleep study that shows underlying severe obstructive sleep apnea. He denies recent exacerbations of his underlying COPD. [facility] Medical History Personal history of nicotine dependence Old cerebral infarct without residual deficit COPD (chronic obstructive pulmonary disease) Asthma Diabetes type 2, controlled Chronic pain syndrome Diabetic neuropathy Other specified idiopathic peripheral neuropathy Schizophrenia Hypertension, essential Difficulty sleeping Chronic lumbar pain Surgical History History of heart artery stent History of laparoscopic cholecystectomy History of repair of rotator cuff Status post laparoscopic cholecystectomy Family History Father No problems noted. Mother No problems noted. Social History Household Members: Family Housing: House Do you presently have visiting nurse or other home services: No Alcohol intake: never Comment: resting well Patient Tobacco Use Status: Tobacco use Unknown Tobacco use type: Cigarette Cigarette Packs Per Day: 1 e-Cigarette/Vaping Use: Never Used service: No Current occupational status: unemployed Cognitive needs: No Hearing needs: No Vision needs: Yes Review of Systems Const Reports daytime sleepiness, Denies excessive sweating, Reports fatigue, Denies fever(s), Reports lethargy, Denies malaise, Denies night sweats, Denies snoring and Denies weight loss Eyes Denies blurry vision and Denies itchy eyes ENT Denies nasal congestion, Denies post nasal drip, Denies sinus pain, Denies sinus pressure and Denies other ( Thrush) Card Denies chest pain, Denies pedal edema, Denies dyspnea, Denies orthopnea and Denies paroxysmal nocturnal dyspnea Resp Denies cough, Denies hemoptysis, Denies excessive phlegm production, Denies dyspnea, Denies snoring and Denies wheezing GI Denies abdominal pain and Denies heartburn Musc Denies myalgias, Denies arthralgias and Denies joint swelling Skin/Breast Denies rash Neuro Denies memory loss and Denies seizure-like activity Psych Denies abnormal sleep pattern, Denies anxiety and Denies memory loss Endo Denies excessive sweating, Reports fatigue and Denies heat intolerance Puma/Lymph Denies easy bruising Aller/Immun Denies itchy eyes, Denies seasonal rhinorrhea and Denies wheezing Physical Exam Vital Signs: Last Vital Signs Pulse 99 08/31/25 15:24 BP 130/82 08/31/25 15:24 Pulse Ox 96 08/31/25 15:24 Oxygen Delivery Method Room Air 08/31/25 15:24 BMI result Body Mass Index 34.9 Const General: no acute distress and alert Nutritional Appearance: obese Orientation/consciousness: Other orientation findings ( oriented) HEENT Head: Yes atraumatic Eyes General: appearance normal, both eyes and all related structures Sclerae: sclerae normal EOM: EOMs intact bilaterally Neck Neck: Yes supple Lymphatic: no lymphadenopathy noted Resp Effort & Inspection: normal respiratory effort and no use of accessory muscles Auscultation: clear to auscultation bilaterally Cardio Rate: regular rate Rhythm: regular rhythm Heart sounds: no gallops, no murmurs and no rubs Skin General skin exam: other ( warm) Extrem General: No clubbing, No cyanosis and No edema Assessment & Plan Assessment & Plan (1) COPD (chronic obstructive pulmonary disease): Code(s): J44.9 - Chronic obstructive pulmonary disease, unspecified Category: Medical Qualifiers: COPD type: emphysema Emphysema type: other Qualified Code(s): J43.8 - Other emphysema Plan: Well controlled on current regimen of Breztri and albuterol MDI. Continue current regimen. (2) Personal history of nicotine dependence: Comment: prior 35+ pack-year smoker, quit 2023, Code(s): Z87.891 - Personal history of nicotine dependence Category: Medical Plan: Results of lung cancer screening CT chest from August of 2025 reviewed, no worrisome nodules. Continue with yearly screening, next in August of 2026. (3) Chronic GERD: Code(s): K21.9 - Gastro-esophageal reflux disease without esophagitis Category: Medical Plan: Well controlled on current regimen of sucralfate and pantoprazole. Continue current regimen. (4) Sleep apnea in adult: Code(s): G47.30 - Sleep apnea, unspecified Category: Medical Plan: Results of sleep study reviewed underlying severe obstructive sleep apnea. Will start on APAP of 6-16 cm of water. Coding Level of Care Code Est Pt Level 4 (17478) Complex EM visit Add On G2211 Diagnoses Other emphysema J43.8 COPD type: emphysema Emphysema type: other Personal history of nicotine dependence Z87.891 Chronic GERD K21.9 Sleep apnea in adult G47.30
== END 2025-08-31 16:05 | disposition home or self-care (01) ==
LOC: HO.HPS 15:15
PROVIDERS: PCP Internal Medicine; Visit Provider Internal Medicine Pulmonary Disease
DX: J43.8 Other emphysema (principal); Z87.891 Personal history of nicotine dependence; K21.9 Gastro-esophageal reflux disease without esophagitis; G47.30 Sleep apnea, unspecified
CPT/HCPCS: 99214; G2211

== ENCOUNTER → 2025-08-31 15:15 | Outpatient (BNVA) | payer OTHER, SELFPAY | PROVIDERS: PCP Internal Medicine; Visit Provider Internal Medicine Pulmonary Disease | DX: J43.8 Other emphysema (principal); K21.9 Gastro-esophageal reflux disease without esophagitis; G47.30 Sleep apnea, unspecified; Z87.891 Personal history of nicotine dependence | CPT/HCPCS: 99212 ==

== ENCOUNTER 2025-09-05 09:44 | Outpatient (AMB) | payer OTHER, SELFPAY ==
[2025-09-05 09:46] VITALS: BP 132/80; PULSE 93; O2SAT 99; BMI 35.4
--- NOTE | 2025-09-05 09:46 | A.OFFPC_ITS ---
Vital Signs 09/05/25 09:46 Height 5 ft 10 in Weight 247 lb BMI 35.4 BP 132/80 Blood Pressure Location Lt brachial Position Sitting Pulse 93 Pulse Source Pulse Oximeter Pulse Oximetry (%) 99 Intake Visit Reasons: 2 months f/up Rush Seater Required: No Accompanied by: Self / Same As Patient Allergies No Known Allergies Allergy (Verified 09/05/25 09:46) Medication List - Last Reconciled 09/05/25 by Jayy Edmonds MD albuterol sulfate 90 mcg/actuation 2 puffs inhalation Q4-6H PRN 30 days amitriptyline 150 mg PO BEDTIME 90 days aspirin (Adult Low Dose Aspirin) 81 mg PO DAILY atorvastatin 80 mg PO DAILY [id number] 160-9-4.8 mcg/actuation (Breztri Aerosphere) 2 inhalations inhalation BID colchicine 0.6 mg PO DAILY finasteride 5 mg PO DAILY 90 days fluticasone propionate 50 mcg/actuation (Flonase Allergy Relief) 1 spray intranasal BID 30 days losartan 100 mg PO DAILY 90 days melatonin 5 mg PO BEDTIME metoprolol succinate ER 50 mg PO DAILY nicotine (Nicoderm CQ) 1 patch transdermal Q24H olanzapine 10 mg PO BEDTIME 90 days omega-3 fatty acids (Fish Oil Concentrate) 1 tab PO DAILY oxycodone-acetaminophen 5-325 mg (Percocet) 1 tab PO TID PRN 30 days pantoprazole 40 mg PO DAILY sucralfate 10 mL PO QID 30 days tamsulosin 0.4 mg PO BEDTIME 90 days [Tens unit [id number] As directed] ticagrelor (Brilinta) 90 mg PO BID zolpidem 10 mg PO BEDTIME PRN 30 days Tobacco use date assessed: 06/30/25 Dental Screening Dental Screen Date: 04/26/25 HPI 2 months f/up HPI Details History of Present Illness The patient is a 65-year-old male presenting with obstructive sleep apnea and schizophrenia. Obstructive Sleep Apnea: - The patient reports experiencing sleep apnea for a significant duration. - There has been a noted exacerbation po tentially due to weight gain. - Symptoms include snoring (27% of the s leep time) and desaturation episodes during sleep. - Currently not using a CPAP machine but in process of getting it - Follow-ups with Dr. Carolina have begun to address the issue. Schizophrenia: - The patient has a history of schizophr enia and is under medication for management. - Medication regimen includes olanzapine , and the condition is noted to be stable on this combination. Medical History: - Obstructive Sleep Apnea - Schizophrenia - Ischemic Cardiomyopathy - Coronary Artery Disease without Angina Medications: - Zolpidem for sleep at night - Olanzapine for schizophrenia - Losartan 100 mg for hypertension manag ement - Metoprolol 50 mg for heart condition - Brilinta for ischemic cardiomyopathy - Amitriptyline 150 mg at night for neur opathy was started by Neuro, but has told to stop recently but patient is feeling better - Previously taken gabapentin, recently discontinued Diagnostic Results: - Labs: Hemoglobin A1c was 6.3 in June . Problem List - Obstructive Sleep Apnea - Schizophrenia - Ischemic Cardiomyopathy - Coronary Artery Disease without Angina - Hypertension Plan - Continue current medications including zolpidem and olanzapine for schizophrenia and sleep management. - Maintain current hypertension manageme nt with losartan and metoprolol. - Review and adjust amitriptyline dosage as needed for neuropathy, advised to consider dosage reduction from 150 mg. - Ensure ongoing follow-up with Dr. Jereym wood for sleep apnea management; use of CPAP machine encouraged. - Address oxygen desaturation during sle ep through proper equipment and therapy. - Recommended continuation of cardiology follow-up at [facility] for ischemic cardiomyopathy. - No flu vaccine at this time per patien t's refusal. Review of Systems - General: No fever no chills - Neurological: No headaches no dizziness - Ear nose throat: No sore throat no hearing difficulty no ear pain - Cardiovascular: No syncope, no chest pain, no palpitations - Gastrointestinal: No nausea vomiting or diarrhea - Endocrine: No polyuria polydipsia no heat intolerance - Genitourinary: No dysuria , no blood in urine Physical Exam - General: No acute distress - HEENT: No acute findings - Neck: Supple - Respiratory system: Able to talk in f ull sentences, no audible wheeze - Cardiovascular: S1-S2 regular in rate and rhythm - Gastrointestinal: No pain - Extremities: No new findings - [employer]: Alert awake oriented x3 motor in tact - Skin: Normal turgor [facility] Medical History Personal history of nicotine dependence Old cerebral infarct without residual deficit COPD (chronic obstructive pulmonary disease) Asthma Diabetes type 2, controlled Chronic pain syndrome Diabetic neuropathy Other specified idiopathic peripheral neuropathy Schizophrenia Hypertension, essential Difficulty sleeping Chronic lumbar pain Surgical History History of heart artery stent History of laparoscopic cholecystectomy History of repair of rotator cuff Status post laparoscopic cholecystectomy Family History Father No problems noted. Mother No problems noted. Social History Household Members: Family Housing: House Do you presently have visiting nurse or other home services: No Alcohol intake: never Comment: resting well Patient Tobacco Use Status: Tobacco use Unknown Tobacco use type: Cigarette Cigarette Packs Per Day: 1 e-Cigarette/Vaping Use: Never Used service: No Current occupational status: unemployed Cognitive needs: No Hearing needs: No Vision needs: Yes Questionnaire PHQ-9 Over the last 2 weeks, how often have you been bothered by any of the following problems? 1. Little interest or pleasure in doing things: not at all 2. Feeling down, depressed, or hopeless: more than half the days 3. Trouble falling or staying asleep, or sleeping too much: several days 4. Feeling tired or having little energy: several days 5. Poor appetite or overeating: several days 6. Feeling bad about yourself - or that you are a failure or have let yourself or your family down: several days 7. Trouble concentrating on things, such as reading the newspaper or watching television: not at all 8. Moving or speaking so slowly that other people could have noticed. Or the opposite - being so fidgety or restless that you have been moving around a lot more than usual: not at all 9. Thoughts that you would be better off or of hurting yourself in some way: not at all Total score: 6 Depression Screening Interpretation: Negative Depression Screening Done: Yes 25420 - PHQ-9 Billing: Yes Source: Developed by Drs. Noel Correa, Jennifer Zhang, Delvin Pritchard and colleagues, with an educational óscar from [employer]. Thrive Questionnaire Date Thrive assessed: 02/17/25 I am a: Patient What is your living situation today?: I have a steady place to live Within the past 12 months, did the food you bought not last and you didn't have the money to get more?: I choose not to answer this question Within the past 12 months, did you worry whether your food would run out before you got money to buy more?: I choose not to answer this question Do you have trouble paying for medicines?: No Do you have trouble getting transportation to medical appointments?: No Do you have trouble paying your heating and electricity bill?: No Do you have trouble taking care of your child, family member or friend?: I choose not to answer this question Do you have trouble with day-to-day activities such as bathing, preparing meals, shopping, managing finances, etc.?: Yes Are you currently unemployed and looking for a job?: No Are you interested in more education?: No Please select the resources that you would like help with: Care for elder or disabled Currently or been in a relationship where the following occur: No concerns reported THRIVE Score: 0 AUDIT C Alcohol Use Questionnaire (AUDIT-C) 1. How often do you have a drink containing alcohol?: Monthly or less 2. How many drinks containing alcohol do you have on a typical day when you are drinking?: 1 or 2 3. How often do you have six or more drinks on one occasion?: Never Total Score: 1 VÍCTOR-7 AMB Questionnaire VÍCTOR-7 Date VÍCTOR - 7 assessed: 02/24/25 Feeling nervous, anxious, or on edge: 3 = Nearly every day Not being able to stop or control worryin = Nearly every day Worrying too much about different things: 3 = Nearly every day Trouble relaxin = Several days Being so restless that it is hard to sit still: 0 = Not at all Becoming easily annoyed or irritable: 2 = More than half the days Feeling afraid as if something awful might happen: 1 = Several days Total VÍCTOR-7 score (0-4 normal; 5-9 mild; 10-14 moderate; 15-21 severe): 13 Source: Developed by Drs. Noel Correa, Jennifer Zhang, Delvin Pritchard and colleagues, with an educational óscar from [employer]. Physical exam (Primary Care) Vital Signs: Last Vital Signs Pulse 93 09/05/25 09:46 BP 132/80 09/05/25 09:46 Pulse Ox 99 09/05/25 09:46 BMI result Body Mass Index 35.4 Tobacco/Smoking Status: Tobacco use Status Tobacco use date assessed 06/30/25 09/05/25 09:47 Patient Tobacco Use Status Tobacco use Unknown 09/05/25 09:47 Tobacco use type Cigarette 09/05/25 09:47 e-Cigarette/Vaping Use Never Used 09/05/25 09:47 PHQ-9: PHQ-9 Score PHQ-9: Total score 6 09/05/25 10:10 Depression Screening Interpretation: Negative Thrive Assessment: Date of Thrive Assessment Date Thrive assessed 02/17/25 09/05/25 09:47 Currently or been in a relationship where the following occur: No concerns reported Coding Level of Care Code Est Pt Level 4 (64300) Diagnoses Diabetes type 2, controlled E11.9 Diabetic autonomic neuropathy associated with type 2 diabetes mellitus E11.43 Diabetes mellitus type: type 2 Diabetes mellitus complication detail: diabetic autonomic neuropathy Paranoid schizophrenia F20.0 Schizophrenia type: paranoid schizophrenia Pain management R52 Chronic pain syndrome G89.4 Lumbar radiculitis M54.16 Sleep apnea in adult G47.30 Additional Codes PHQ-9 - 19158 - PHQ-9 Billing: Yes ([id number]) Assessment & Plan Assessment & Plan (1) Diabetes type 2, controlled: Code(s): E11.9 - Type 2 diabetes mellitus without complications Category: Medical (2) Diabetic neuropathy: Code(s): E11.40 - Type 2 diabetes mellitus with diabetic neuropathy, unspecified Category: Medical Qualifiers: Diabetes mellitus type: type 2 Diabetes mellitus complication detail: diabetic autonomic neuropathy Qualified Code(s): E11.43 - Type 2 diabetes mellitus with diabetic autonomic (poly)neuropathy (3) Schizophrenia: Code(s): F20.9 - Schizophrenia, unspecified Category: Medical Qualifiers: Schizophrenia type: paranoid schizophrenia Qualified Code(s): F20.0 - Paranoid schizophrenia (4) Pain management: Code(s): R52 - Pain, unspecified Category: Medical (5) Chronic pain syndrome: Code(s): G89.4 - Chronic pain syndrome Category: Medical (6) Lumbar radiculitis: Code(s): M54.16 - Radiculopathy, lumbar region Category: Medical (7) Sleep apnea in adult: Code(s): G47.30 - Sleep apnea, unspecified Category: Medical Plan Obstructive Sleep Apnea: - The patient reports experiencing sleep apnea for a significant duration. - There has been a noted exacerbation potentially due to weight gain. - Symptoms include snoring (27% of the sleep time) and desaturation episodes during sleep. - Currently not using a CPAP machine but in process of getting it - Follow-ups with Dr. Carolina have begun to address the issue. Schizophrenia: - The patient has a history of schizophrenia and is under medication for management. - Medication regimen includes olanzapine, and the condition is noted to be stable on this combination. Lumber pain chronically on narcotic med for pain medication Medical History: - Obstructive Sleep Apnea - Schizophrenia - Ischemic Cardiomyopathy - Coronary Artery Disease without Angina Medications: - Zolpidem for sleep at night - Olanzapine for schizophrenia - Losartan 100 mg for hypertension management - Metoprolol 50 mg for heart condition - Brilinta for ischemic cardiomyopathy - Amitriptyline 150 mg at night for neuropathy was started by Neuro, but has told to stop recently but patient is feeling better - Previously taken gabapentin, recently discontinued Diagnostic Results: - Labs: Hemoglobin A1c was 6.3 in June. Problem List - Obstructive Sleep Apnea - Schizophrenia - Ischemic Cardiomyopathy - Coronary Artery Disease without Angina - Hypertension - Lumber pain Plan - Continue current medications including zolpidem and olanzapine for schizophrenia and sleep management. - Maintain current hypertension management with losartan and metoprolol. - Review and adjust amitriptyline dosage as needed for neuropathy, advised to consider dosage reduction from 150 mg. - Ensure ongoing follow-up with Dr. Carolina for sleep apnea management; use of CPAP machine encouraged. - Address oxygen desaturation during sleep through proper equipment and therapy. - Recommended continuation of cardiology follow-up at [facility] for ischemic cardiomyopathy. - No flu vaccine at this time per patient's refusal. Med refill provided f/u 2 M Medications: Refilled oxycodone-acetaminophen 5-325 mg (Percocet) Partial refill permitted 1 tab PO TID PRN 90 tabs 0RF pain 30 days F11.20 - Opioid dependence, uncomplicated, G89.29 - Other chronic pain, M54.41 - Lumbago with sciatica, right side, M54.42 - Lumbago with sciatica, left side, R52 - Pain, unspecified zolpidem 10 mg PO BEDTIME PRN 30 tabs 0RF sleep 30 days G47.9 - Sleep disorder, unspecified
== END 2025-09-05 10:06 | disposition home or self-care (01) ==
LOC: HO.HMCC 09:45
PROVIDERS: PCP Internal Medicine; Visit Provider Internal Medicine
DX: E11.43 Type 2 diabetes mellitus with diabetic autonomic (poly)neuropathy (principal); F20.0 Paranoid schizophrenia; R52 Pain, unspecified; G89.4 Chronic pain syndrome; M54.16 Radiculopathy, lumbar region; G47.30 Sleep apnea, unspecified

== ENCOUNTER → 2025-09-05 09:44 | Outpatient (BNVA) | payer OTHER, SELFPAY | PROVIDERS: PCP Internal Medicine; Visit Provider Internal Medicine | DX: G47.33 Obstructive sleep apnea (adult) (pediatric) (principal); F20.9 Schizophrenia, unspecified; E11.43 Type 2 diabetes mellitus with diabetic autonomic (poly)neuropathy; F20.0 Paranoid schizophrenia; G89.4 Chronic pain syndrome; M54.16 Radiculopathy, lumbar region; F11.120 Opioid abuse with intoxication, uncomplicated; M54.41 Lumbago with sciatica, right side; M54.42 Lumbago with sciatica, left side; Z99.89 Dependence on other enabling machines and devices | CPT/HCPCS: 96127; 99212 ==

== ENCOUNTER 2025-09-26 14:00 | Outpatient (AMB) | payer OTHER, SELFPAY ==
--- NOTE | 2025-09-26 14:04 | A.OFFVIS_ITS ---
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 He is a patient Dr. Edmonds. Seen for the following urologic conditions - lower urinary tract symptoms Follow-up from finasteride PVR has continued to progressively improve from 150 cc to 85 cc to 0 cc HbA1c 6.4 PSA 03/16 0.2, 07/17 0.1 High PVR today in office although did not try to empty bladder UA normal Does report he has weakness of stream and prolonged emptying time We will plan on cystoscopy with uroflow May benefit from prostate proceed Lower urinary tract symptoms Progressive weakness of stream Comorbid medical conditions include sleep apnea, schizophrenia Current therapy includes tamsulosin PFSH Medical History Personal history of nicotine dependence Old cerebral infarct without residual deficit COPD (chronic obstructive pulmonary disease) Asthma Diabetes type 2, controlled Chronic pain syndrome Diabetic neuropathy Other specified idiopathic peripheral neuropathy Schizophrenia Hypertension, essential Difficulty sleeping Chronic lumbar pain Surgical History History of heart artery stent History of laparoscopic cholecystectomy History of repair of rotator cuff Status post laparoscopic cholecystectomy Family History Father No problems noted. Mother No problems noted. Social History Household Members: Family Housing: House Do you presently have visiting nurse or other home services: No Alcohol intake: never Comment: resting well Patient Tobacco Use Status: Tobacco use Unknown Tobacco use type: Cigarette Cigarette Packs Per Day: 1 e-Cigarette/Vaping Use: Never Used service: No Current occupational status: unemployed Cognitive needs: No Hearing needs: No Vision needs: Yes Review of Systems Const Denies chills and Denies fever(s) Card Reports no additional complaints and Denies syncope Resp Denies cough GI Denies abdominal pain and Denies heartburn Reports as per HPI and Denies change in libido Neuro Denies syncope Psych Denies change in libido Endo Denies change in libido Physical Exam Const General: cooperative, healthy appearing, comfortable and no acute distress Orientation/consciousness: patient oriented x3 HEENT Face and sinus: Yes normal facial exam Mouth: moist mucous membranes Neck Neck: Yes normal visual inspection, Yes full ROM and Yes trachea midline Chest Chest palpation & inspection: normal inspection of the chest Resp Effort & Inspection: normal respiratory effort, able to speak in complete sentences and no respiratory distress GI Inspection: Yes normal to inspection Back/Spine/Pelvis Cervical Spine: normal cervical lordosis Thoracic/Lumbar Spine: thoracic and lumbar spine normal to inspection Skin General skin exam: no rashes or lesions noted Neuro General: patient oriented x3, gait normal, tone normal and moves all extremities Extrem General: Yes normal to inspection and Yes capillary refill normal Office Procedures Post Void Residual Post Residual Void Post Void Residual (PVR): 336 82124-Fmdy Void Residual by ultrasound Results AMB Urinalysis, Automated UA Leukoctes 15 Tia/uL Last Edit by Katy Van [facility] on 09/26/25 14:18 UA Nitrite Negative Last Edit by Katy Van [facility] on 09/26/25 14:18 UA Urobilinogen 0.2 mg/dL Last Edit by Katy Van [facility] on 09/26/25 14:18 UA Protein 0 mg/dL Last Edit by Katy Van [facility] on 09/26/25 14:18 UA pH 6.0 Last Edit by Katy Van [facility] on 09/26/25 14:18 UA Blood 25 Genaro/uL Last Edit by Katy Van [facility] on 09/26/25 14:18 UA Specific Warren 1.010 Last Edit by Katy Van [facility] on 09/26/25 14:1 8 UA Ketone Negative Last Edit by Katy Van [facility] on 09/26/25 14:18 UA Bilirubin 0 mg/dL Last Edit by Katy Van [facility] on 09/26/25 14:18 UA Glucose 0 mg/dL Last Edit by Katy Van [facility] on 09/26/25 14:18 Results Reviewed Results Reviewed: Laboratory Last Values Urine pH (Auto) 6.0 09/26/25 14:17 Specific Warren (Auto) 1.010 09/26/25 14:17 Urine Protein (Auto) 0 mg/dL 09/26/25 14:17 Glucose (UA)(Auto) 0 mg/dL 09/26/25 14:17 Urine Ketones (Auto) Negative 09/26/25 14:17 Urine Blood (Auto) 25 Genaro/uL 09/26/25 14:17 Urine Nitrite (Auto) Negative 09/26/25 14:17 Urine Bilirubin (Auto) 0 mg/dL 09/26/25 14:17 Urine Urobilinogen (Auto) 0.2 mg/dL 09/26/25 14:17 Leukocyte Esterase (Auto) 15 Tia/uL 09/26/25 14:17 Assessment & Plan Assessment & Plan (1) Difficulty urinating: Code(s): R39.198 - Other difficulties with micturition Category: Medical (2) Weak urinary stream: Code(s): R39.12 - Poor urinary stream Category: Medical Plan Office cystoscopy with uroflow Orders: Orders US bladder Today N40.1 - Benign prostatic hyperplasia with lower urinary tract symptoms, R35.0 - Frequency of micturition Patient Instructions: This note is constructed using voice recognition software. While every effort has been made to ensure accuracy electronic prepress system operator errors may have been included. Imaging studies, laboratory and physical exam results were discussed and reviewed in detail. No major barriers to patient understanding were identified. An opportunity to ask questions regarding the treatment plan was provided. All questions were answered. The patient expressed understanding and agreement with the above treatment plan. The patient is aware they should contact our office by phone for worsening of their current condition or the appearance of new urologic symptoms. Compliance is encouraged with any medications and followup testing that is ordered. It is a privilege to participate in the urologic care of your patient. If you have any questions or concerns regarding treatment for the above conditions, or other urologic issues, please do not hesitate to contact me. The office telephone contact is [phone]. Sincerely, Dr Jose Grimes MD, [facility] - Urology Compassionate Specialist Care for the Genitourinary System Coding Level of Care Code Est Pt Level 3 (16532) Complex EM visit Add On G2211 Diagnoses Difficulty urinating R39.198 Weak urinary stream R39.12 CPT Codes Post Residual Void - PVR CPT Code: 84209-Licj Void Residual by ultrasound ([id number])
== END 2025-09-26 14:35 | disposition home or self-care (01) ==
LOC: HO.HUSH 14:01
PROVIDERS: PCP Internal Medicine; Visit Provider Urology
DX: N40.1 Benign prostatic hyperplasia with lower urinary tract symptoms (principal); R39.198 Other difficulties with micturition; R39.12 Poor urinary stream
CPT/HCPCS: 99213

== ENCOUNTER → 2025-09-26 14:00 | Outpatient (BNVA) | payer OTHER, SELFPAY | PROVIDERS: PCP Internal Medicine; Visit Provider Urology | DX: R39.198 Other difficulties with micturition (principal); R39.12 Poor urinary stream | CPT/HCPCS: 51798; 99212 ==

== ENCOUNTER 2025-10-04 12:48 | Outpatient (AMB) | payer OTHER, SELFPAY ==
--- NOTE | 2025-10-04 12:55 | MHC.OFFVIS ---
Intake Visit Reasons: 6mnth Allergies No Known Allergies Allergy (Verified 10/04/25 12:58) Medication List - Last Reconciled 10/04/25 by Tash Soto CNP albuterol sulfate 90 mcg/actuation 2 puffs PO Q4-6H PRN amitriptyline 150 mg PO BEDTIME 90 days aspirin (Adult Low Dose Aspirin) 81 mg PO DAILY atorvastatin 80 mg PO DAILY [id number]-wqwbrfji-hnaiubwvvq 160-9-4.8 mcg/actuation (Breztri Aerosphere) 2 inhalations inhalation BID colchicine 0.6 mg PO DAILY finasteride 5 mg PO DAILY 90 days fluticasone propionate 50 mcg/actuation (Flonase Allergy Relief) 1 spray intranasal BID 30 days losartan 100 mg PO DAILY 90 days melatonin 5 mg PO BEDTIME metoprolol succinate ER 50 mg PO DAILY nicotine (Nicoderm CQ) 1 patch transdermal Q24H olanzapine 10 mg PO BEDTIME 90 days omega-3 fatty acids (Fish Oil Concentrate) 1 tab PO DAILY oxycodone-acetaminophen 5-325 mg (Percocet) 1 tab PO TID PRN 30 days pantoprazole 40 mg PO DAILY sucralfate 10 mL PO QID 30 days tamsulosin 0.4 mg PO BEDTIME 90 days [Tens unit [id number] As directed] ticagrelor (Brilinta) 90 mg PO BID zolpidem 10 mg PO BEDTIME PRN 30 days HPI Comments Details: He was doing okay. Pain in legs from knees down was unchanged, some days better than others. Taking Percocet 3 tabs/day which helps. No medication side effects. No numbness/tingling or weakness in legs. No significant back pain. No falls. Headaches and TMJ pain are okay.?Taking amitriptyline nightly. Sleep was okay, using CPAP. Had CT at end of 06/2024 and?had stent placed at [facility] [place]. Pain and numbness in right hand is better. Had some decrease in LBP with Lyrica 200mg BID but no relief of leg symptoms and med stopped. Gabapentin 2400mg/day did not help legs. Percocet helps and he wants to increase to 4 tabs/day, but he has been restricted to 3 tabs/day by Dr. Chance. Hx of schizophrenia and chronic low back pain. Schizophrenia is under good control. He had cauterization of nerves in his lower back at the pain clinic for chronic low back pain, and following this, he has had constant pain in both calves in all positions. NCV/ EMG study of 09/19/20 shows no evidence of neuropathy. He had an MRI of his lumbar spine, arterial blood flow studies and nerve conduction EMG done at [facility]. Those supports are not available for review at this time. He does not have significant back pain at this. There is no numbness, tingling or burning. No definite weakness. [facility], [facility] Medical History Personal history of nicotine dependence Old cerebral infarct without residual deficit COPD (chronic obstructive pulmonary disease) Asthma Diabetes type 2, controlled Chronic pain syndrome Diabetic neuropathy Other specified idiopathic peripheral neuropathy Schizophrenia Hypertension, essential Difficulty sleeping Chronic lumbar pain Surgical History History of heart artery stent History of laparoscopic cholecystectomy History of repair of rotator cuff Status post laparoscopic cholecystectomy Family History Father No problems noted. Mother No problems noted. Social History Household Members: Family Housing: House Do you presently have visiting nurse or other home services: No Alcohol intake: never Comment: resting well Patient Tobacco Use Status: Tobacco use Unknown Tobacco use type: Cigarette Cigarette Packs Per Day: 1 e-Cigarette/Vaping Use: Never Used service: No Current occupational status: unemployed Cognitive needs: No Hearing needs: No Vision needs: Yes Review of Systems Const Denies chills, Denies daytime sleepiness, Denies difficulty sleeping, Denies fatigue, Denies fever(s), Denies frequent falls, Reports headache(s), Denies increased appetite, Denies poor appetite, Denies snoring, Denies weakness, Denies weight gain and Denies weight loss Eyes Denies loss of vision ENT Denies vertigo, Denies dizziness, Reports headache(s) and Denies neck pain Card Denies chest pain at rest, Denies chest pain with activity, Denies syncope, Denies leg edema, Denies palpitations, Denies dyspnea and Denies dyspnea on exertion Resp Denies cough, Denies dyspnea, Denies dyspnea on exertion and Denies snoring GI Denies abdominal pain, Denies constipation, Denies heartburn, Denies diarrhea and Denies nausea Denies urinary frequency, Denies urinary incontinence and Denies urinary urgency Musc Denies abnormal gait, Reports back pain, Denies myalgias, Denies arthralgias, Denies neck pain, Denies numbness and Denies tingling Neuro Denies abnormal gait, Denies vertigo, Denies dizziness, Denies syncope, Denies frequent falls, Reports headache(s), Denies lack of coordination, Denies loss of vision, Denies memory loss, Denies numbness, Denies Other visual disturbances, Denies restless legs, Denies seizure-like activity, Denies tingling, Denies paresthesias, Denies tremor(s) and Denies weakness Psych Denies anxiety, Denies depression, Denies auditory hallucinations, Denies memory loss and Denies visual hallucinations Endo Denies fatigue and Denies palpitations Physical Exam Const Other: General Appearance:? normal, in no acute distress. Heart:? S1, S2 normal, no murmurs. Lungs:? clear anteriorly and posteriorly. Musculoskeletal:? normal. Extremities:? no edema. Psych:? alert, oriented, cognitive function intact, cooperative with exam. Neuro Other: Abnormal Neurological Findings:?none.? Mental Status: alert and oriented X 3. Normal attention, orientation, memory, and affect. Cranial Nerves: Pupils are equal, round, and reactive to light. External ocular muscles are intact. Visual barajas are full, no ptosis. Face is symmetrical, no facial weakness or droop. Facial sensations are normal. Tongue protrudes in midline. Palate elevates symmetrically. Shoulder shrugging is normal Motor Examination: Normal muscle tone, bulk and strength. No atrophy or fasciculations. No drift of the extended upper extremities. DTR 2+. Plantars are flexor. Sensory Exam: Normal light touch, temperature, pinprick, vibration, and joint-position sensations. Rhomberg sign is absent. Coordination: No ataxia. No titubation. Gait Exam: Within normal limits. Cerebellar Signs: Afrgqo-aa-gjmi is okay. Extrapyramidal System: No tremor, rigidity with normal facial expressions. No bradykinesia. No bradyphrenia. Normal arm swing and posture. No propulsion or retropulsion. Speech: Normal. 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 EMG in the right C7-T1 innverated muscles shows mild chronic denervation changes in ulnar innervated muscle on the right. Normal motor and sensory nerve conduction velocities in the lower extremities. Normal EMG in the right L4-S1 innervated muscles. 09/12 MRI LS spine shows mild arthritic changes . no Stenosis Assessment & Plan Assessment & Plan (1) Lumbar radicular pain: Code(s): M54.16 - Radiculopathy, lumbar region Category: Medical Plan: Pain was managed with oxycodone-acetaminophen 5-325mg 3/day prescribed by PCP. (2) Tension headache: Code(s): G44.209 - Tension-type headache, unspecified, not intractable Category: Medical Plan: Continue amitriptyline 150mg 1 tablet at bedtime. Follow up in 1 year or sooner as needed. Coding Level of Care Code Est Pt Level 4 (44091) Diagnoses Lumbar radicular pain M54.16 Tension headache G44.209
== END 2025-10-04 13:11 | disposition home or self-care (01) ==
LOC: HO.HSM 12:49
PROVIDERS: PCP Internal Medicine; Referring Provider Internal Medicine; Visit Provider Registered Nurse
DX: M54.16 Radiculopathy, lumbar region (principal); G44.209 Tension-type headache, unspecified, not intractable
CPT/HCPCS: 99214

== ENCOUNTER → 2025-10-04 12:48 | Outpatient (BNVA) | payer OTHER, SELFPAY | PROVIDERS: PCP Internal Medicine; Referring Provider Internal Medicine; Visit Provider Registered Nurse | DX: G44.209 Tension-type headache, unspecified, not intractable (principal); M54.16 Radiculopathy, lumbar region | CPT/HCPCS: 99212 ==

== ENCOUNTER 2025-11-07 11:52 | Outpatient (AMB) | payer OTHER, SELFPAY ==
[2025-11-07 11:59] VITALS: BP 120/80; PULSE 91; O2SAT 96; BMI 35.9
--- NOTE | 2025-11-07 11:59 | MHC.PC.OV ---
Vital Signs 11/07/25 11:59 Height 5 ft 10 in Weight 250 lb BMI 35.9 BP 120/80 Blood Pressure Location Lt brachial Position Sitting Pulse 91 Pulse Source Pulse Oximeter Pulse Oximetry (%) 96 Intake Visit Reasons: 2 months f/up Allergies No Known Allergies Allergy (Verified 11/07/25 12:01) Medication List - Last Reconciled 11/07/25 by Jayy Edmonds MD albuterol sulfate 90 mcg/actuation 2 puffs PO Q4-6H PRN amitriptyline 150 mg PO BEDTIME 90 days aspirin (Adult Low Dose Aspirin) 81 mg PO DAILY atorvastatin 80 mg PO DAILY [id number] 160-9-4.8 mcg/actuation (Breztri Aerosphere) 2 inhalations inhalation BID colchicine 0.6 mg PO DAILY finasteride 5 mg PO DAILY 90 days fluticasone propionate 50 mcg/actuation (Flonase Allergy Relief) 1 spray intranasal BID 30 days losartan 100 mg PO DAILY 90 days melatonin 5 mg PO BEDTIME metoprolol succinate ER 50 mg PO DAILY nicotine (Nicoderm CQ) 1 patch transdermal Q24H olanzapine 10 mg PO BEDTIME 90 days omega-3 fatty acids (Fish Oil Concentrate) 1 tab PO DAILY oxycodone-acetaminophen 5-325 mg (Percocet) 1 tab PO TID PRN 30 days pantoprazole 40 mg PO DAILY sucralfate 10 mL PO QID 30 days tamsulosin 0.4 mg PO BEDTIME 90 days [Tens unit [id number] As directed] ticagrelor (Brilinta) 90 mg PO BID zolpidem 10 mg PO BEDTIME PRN 30 days Tobacco use date assessed: 06/30/25 Dental Screening Dental Screen Date: 04/26/25 HPI 2 months f/up HPI Details History of Present Illness The patient is a 65 year old male presenting with a follow-up visit for management of chronic conditions. Chronic Obstructive Pulmonary Disease: - The patient has a history of COPD. - He reports intermittent dyspnea when he starts swimming. - He has a follow-up appointment scheduled with a family support specialist on December 14. - The patient is non-compliant with his prescribed CPAP machine. Schizophrenia and Insomnia: - The patient has a history of schizophrenia and associated difficulty sleeping. - His condition is currently stable and he has been doing well since being started on olanzapine and zolpidem by a psychiatrist. - These medications are now being prescribed by this office. Cardiovascular Disease: - The patient's medical history includes ischemic cardiomyopathy and coronary artery disease. - He is under the care of a marketing and outreach coordinator for these conditions. Neuropathy: - The patient has neuropathy in his feet. - He previously used gabapentin, which did not work, and is now taking amitriptyline 150 mg. Obesity: - The patient has a BMI of 35.9 and has been advised to lose weight. Medical History: - COPD. - Schizophrenia, stable. - Insomnia. - Ischemic cardiomyopathy. - Coronary artery disease. - Neuropathy in feet. - Pre-diabetes, with a last hemoglobin A1c of 6.3% in June. Medications: - Olanzapine for schizophrenia. - Zolpidem for insomnia. - Losartan. - Metoprolol. - Brilinta for ischemic cardiomyopathy. - Amitriptyline 150 mg for neuropathy. Social History: - Exercise: He goes to swim. - Non-compliance: He does not use his prescribed CPAP machine. Diagnostic Results: - Labs: Hemoglobin A1c was 6.3% in June. Problem List - Chronic Obstructive Pulmonary Disease (COPD) - Schizophrenia - Insomnia - Ischemic cardiomyopathy - Neuropathy - Non-compliance with prescribed treatment - Obesity Plan - Continue all current medications. - Obtain fasting blood tests before the next visit. - Follow up with the family support specialist as scheduled. - The patient was counseled on performing chest exercises to strengthen his muscles for breathing. - The patient was counseled on the need for weight loss given a BMI of 35.9. - Follow up in this office in two months. Review of Systems - General: Reports his condition is unchanged. - General: No fever no chills - Neurological: No headaches no dizziness - Ear nose throat: No sore throat no hearing difficulty no ear pain - Cardiovascular: No syncope, no chest pain, no palpitations - Gastrointestinal: No nausea vomiting or diarrhea - Endocrine: No polyuria polydipsia no heat intolerance - Genitourinary: No dysuria , no blood in urine Physical Exam General: No acute distress HEENT: No acute findings Neck: Supple Respiratory system: Able to talk in full sentences, no audible wheeze, history of COPD Cardiovascular: S1-S2 regular in rate and rhythm, history of ischemic cardiomyopathy and coronary artery disease Gastrointestinal: No pain Extremities: No new findings, neuropathy in feet 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 x3 motor intact, history of schizophrenia, stable on medication Skin: Normal turgor [facility] Medical History Personal history of nicotine dependence Old cerebral infarct without residual deficit COPD (chronic obstructive pulmonary disease) Asthma Diabetes type 2, controlled Chronic pain syndrome Diabetic neuropathy Other specified idiopathic peripheral neuropathy Schizophrenia Hypertension, essential Difficulty sleeping Chronic lumbar pain Surgical History History of heart artery stent History of laparoscopic cholecystectomy History of repair of rotator cuff Status post laparoscopic cholecystectomy Family History Father No problems noted. Mother No problems noted. Social History Household Members: Family Housing: House Do you presently have visiting nurse or other home services: No Alcohol intake: never Comment: resting well Patient Tobacco Use Status: Tobacco use Unknown Tobacco use type: Cigarette Cigarette Packs Per Day: 1 e-Cigarette/Vaping Use: Never Used service: No Current occupational status: unemployed Cognitive needs: No Hearing needs: No Vision needs: Yes Questionnaire PHQ-9 Over the last 2 weeks, how often have you been bothered by any of the following problems? 1. Little interest or pleasure in doing things: not at all Source: Developed by Drs. Noel Correa, Jennifer Zhang, Delvin Pritchard and colleagues, with an educational óscar from [employer]. Thrive Questionnaire Date Thrive assessed: 02/17/25 I am a: Patient What is your living situation today?: I have a steady place to live Within the past 12 months, did the food you bought not last and you didn't have the money to get more?: I choose not to answer this question Within the past 12 months, did you worry whether your food would run out before you got money to buy more?: I choose not to answer this question Do you have trouble paying for medicines?: No Do you have trouble getting transportation to medical appointments?: No Do you have trouble paying your heating and electricity bill?: No Do you have trouble taking care of your child, family member or friend?: I choose not to answer this question Do you have trouble with day-to-day activities such as bathing, preparing meals, shopping, managing finances, etc.?: Yes Are you currently unemployed and looking for a job?: No Are you interested in more education?: No Please select the resources that you would like help with: Care for elder or disabled Currently or been in a relationship where the following occur: No concerns reported THRIVE Score: 0 VÍCTOR-7 AMB Questionnaire VÍCTOR-7 Date VÍCTOR - 7 assessed: 02/24/25 Source: Developed by Drs. Noel Correa, Jennifer Zhang, Delvin Pritchard and colleagues, with an educational óscar from [employer]. Physical exam (Primary Care) Vital Signs: Last Vital Signs Pulse 91 11/07/25 11:59 BP 120/80 11/07/25 11:59 Pulse Ox 96 11/07/25 11:59 BMI result Body Mass Index 35.9 Tobacco/Smoking Status: Tobacco use Status Tobacco use date assessed 06/30/25 11/07/25 12:01 Patient Tobacco Use Status Tobacco use Unknown 11/07/25 12:01 Tobacco use type Cigarette 11/07/25 12:01 e-Cigarette/Vaping Use Never Used 11/07/25 12:01 Thrive Assessment: Date of Thrive Assessment Date Thrive assessed 02/17/25 11/07/25 12:01 Currently or been in a relationship where the following occur: No concerns reported Coding Level of Care Code Est Pt Level 4 (32254) Diagnoses Hypertension, essential I10 Difficulty sleeping G47.9 Paranoid schizophrenia F20.0 Schizophrenia type: paranoid schizophrenia Diabetic autonomic neuropathy associated with type 2 diabetes mellitus E11.43 Diabetes mellitus complication detail: diabetic autonomic neuropathy Diabetes mellitus type: type 2 Diabetes type 2, controlled E11.9 Class 1 obesity due to excess calories with serious comorbidity and body mass index (BMI) of 32.0 to 32.9 in adult E66.09; Z68.32 Body mass index: BMI 32.0-32.9 Obesity classification: adult class 1 (BMI 30 - 34.9) Serious obesity comorbidity presence: with serious comorbidity Chronic GERD K21.9 Other emphysema J43.8 COPD type: emphysema Emphysema type: other Benign prostatic hyperplasia with urinary frequency N40.1; R35.0 Lower urinary tract symptom detail: urinary frequency Lower urinary tract symptom presence: symptoms present Coronary artery disease involving n[place] coronary artery of n[place] heart without angina pectoris I25.10 Associated angina: without angina Coronary Disease-Associated Artery/Lesion type: n[place] artery Three Affiliated vs. transplanted heart: nisqually heart Stented coronary artery Z95.5 Vincent's esophagus without dysplasia K22.70 Vincent's esophagus type: without dysplasia Assessment & Plan Assessment & Plan (1) Hypertension, essential: Code(s): I10 - Essential (primary) hypertension Category: Medical (2) Difficulty sleeping: Code(s): G47.9 - Sleep disorder, unspecified Category: Medical (3) Schizophrenia: Code(s): F20.9 - Schizophrenia, unspecified Category: Medical Qualifiers: Schizophrenia type: paranoid schizophrenia Qualified Code(s): F20.0 - Paranoid schizophrenia (4) Diabetic neuropathy: Code(s): E11.40 - Type 2 diabetes mellitus with diabetic neuropathy, unspecified Category: Medical Qualifiers: Diabetes mellitus complication detail: diabetic autonomic neuropathy Diabetes mellitus type: type 2 Qualified Code(s): E11.43 - Type 2 diabetes mellitus with diabetic autonomic (poly)neuropathy (5) Diabetes type 2, controlled: Code(s): E11.9 - Type 2 diabetes mellitus without complications Category: Medical (6) Obesity due to excess calories: Code(s): E66.09 - Other obesity due to excess calories Category: Medical Qualifiers: Body mass index: BMI 32.0-32.9 Obesity classification: adult class 1 (BMI 30 - 34.9) Serious obesity comorbidity presence: with serious comorbidity Qualified Code(s): E66.09 - Other obesity due to excess calories; Z68.32 - Body mass index [BMI] 32.0-32.9, adult (7) Chronic GERD: Code(s): K21.9 - Gastro-esophageal reflux disease without esophagitis Category: Medical (8) COPD (chronic obstructive pulmonary disease): Code(s): J44.9 - Chronic obstructive pulmonary disease, unspecified Category: Medical Qualifiers: COPD type: emphysema Emphysema type: other Qualified Code(s): J43.8 - Other emphysema (9) BPH (benign prostatic hyperplasia): Code(s): N40.0 - Benign prostatic hyperplasia without lower urinary tract symptoms Category: Medical Qualifiers: Lower urinary tract symptom detail: urinary frequency Lower urinary tract symptom presence: symptoms present Qualified Code(s): N40.1 - Benign prostatic hyperplasia with lower urinary tract symptoms; R35.0 - Frequency of micturition (10) Coronary artery disease: Code(s): I25.10 - Atherosclerotic heart disease of [place] coronary artery without angina pectoris Category: Medical Qualifiers: Associated angina: without angina Coronary Disease-Associated Artery/Lesion type: [place] artery Three Affiliated vs. transplanted heart: n[place] heart Qualified Code(s): I25.10 - Atherosclerotic heart disease of [place] coronary artery without angina pectoris (11) Stented coronary artery: Code(s): Z95.5 - Presence of coronary angioplasty implant and graft Category: Surgical (12) Barretts esophagus: Code(s): K22.70 - Vincent's esophagus without dysplasia Category: Medical Qualifiers: Vincent's esophagus type: without dysplasia Qualified Code(s): K22.70 - Vincent's esophagus without dysplasia Plan Problem List - Chronic Obstructive Pulmonary Disease (COPD) - Schizophrenia - Insomnia - Ischemic cardiomyopathy - Neuropathy - Non-compliance with prescribed treatment - Obesity Plan - Continue all current medications. - Obtain fasting blood tests before the next visit. - Follow up with the family support specialist as scheduled. - The patient was counseled on performing chest exercises to strengthen his muscles for breathing. - The patient was counseled on the need for weight loss given a BMI of 35.9. - Follow up in this office in two months. Orders: Orders Complete Blood Count Auto Diff Today E11.43 - Type 2 diabetes mellitus with diabetic autonomic (poly)neuropathy, E11.69 - Type 2 diabetes mellitus with other specified complication, E66.09 - Other obesity due to excess calories, F20.0 - Paranoid schizophrenia, G47.9 - Sleep disorder, unspecified, I10 - Essential (primary) hypertension, I25.10 - Atherosclerotic heart disease of [place] coronary artery without angina pectoris, J43.8 - Other emphysema, K21.9 - Gastro-esophageal reflux disease without esophagitis, K22.70 - Vincent's esophagus without dysplasia, N40.1 - Benign prostatic hyperplasia with lower urinary tract symptoms, R35.0 - Frequency of micturition, Z68.32 - Body mass index [BMI] 32.0-32.9, adult, Z95.5 - Presence of coronary angioplasty implant and graft Comprehensive [place]. Panel Fast Today E11.43 - Type 2 diabetes mellitus with diabetic autonomic (poly)neuropathy, E11.69 - Type 2 diabetes mellitus with other specified complication, E66.09 - Other obesity due to excess calories, F20.0 - Paranoid schizophrenia, G47.9 - Sleep disorder, unspecified, I10 - Essential (primary) hypertension, I25.10 - Atherosclerotic heart disease of [place] coronary artery without angina pectoris, J43.8 - Other emphysema, K21.9 - Gastro-esophageal reflux disease without esophagitis, K22.70 - Vincent's esophagus without dysplasia, N40.1 - Benign prostatic hyperplasia with lower urinary tract symptoms, R35.0 - Frequency of micturition, Z68.32 - Body mass index [BMI] 32.0-32.9, adult, Z95.5 - Presence of coronary angioplasty implant and graft Hemoglobin A1c Today E11.43 - Type 2 diabetes mellitus with diabetic autonomic (poly)neuropathy, E11.69 - Type 2 diabetes mellitus with other specified complication, E66.09 - Other obesity due to excess calories, F20.0 - Paranoid schizophrenia, G47.9 - Sleep disorder, unspecified, I10 - Essential (primary) hypertension, I25.10 - Atherosclerotic heart disease of [place] coronary artery without angina pectoris, J43.8 - Other emphysema, K21.9 - Gastro-esophageal reflux disease without esophagitis, K22.70 - Vincent's esophagus without dysplasia, N40.1 - Benign prostatic hyperplasia with lower urinary tract symptoms, R35.0 - Frequency of micturition, Z68.32 - Body mass index [BMI] 32.0-32.9, adult, Z95.5 - Presence of coronary angioplasty implant and graft Lipid Panel Today E11.43 - Type 2 diabetes mellitus with diabetic autonomic (poly)neuropathy, E11.69 - Type 2 diabetes mellitus with other specified complication, E66.09 - Other obesity due to excess calories, F20.0 - Paranoid schizophrenia, G47.9 - Sleep disorder, unspecified, I10 - Essential (primary) hypertension, I25.10 - Atherosclerotic heart disease of [place] coronary artery without angina pectoris, J43.8 - Other emphysema, K21.9 - Gastro-esophageal reflux disease without esophagitis, K22.70 - Vincent's esophagus without dysplasia, N40.1 - Benign prostatic hyperplasia with lower urinary tract symptoms, R35.0 - Frequency of micturition, Z68.32 - Body mass index [BMI] 32.0-32.9, adult, Z95.5 - Presence of coronary angioplasty implant and graft TSH reflex Free T4 Today E11.43 - Type 2 diabetes mellitus with diabetic autonomic (poly)neuropathy, E11.69 - Type 2 diabetes mellitus with other specified complication, E66.09 - Other obesity due to excess calories, F20.0 - Paranoid schizophrenia, G47.9 - Sleep disorder, unspecified, I10 - Essential (primary) hypertension, I25.10 - Atherosclerotic heart disease of [place] coronary artery without angina pectoris, J43.8 - Other emphysema, K21.9 - Gastro-esophageal reflux disease without esophagitis, K22.70 - Vincent's esophagus without dysplasia, N40.1 - Benign prostatic hyperplasia with lower urinary tract symptoms, R35.0 - Frequency of micturition, Z68.32 - Body mass index [BMI] 32.0-32.9, adult, Z95.5 - Presence of coronary angioplasty implant and graft Microalbumin, Random (w Creat) Today E11.43 - Type 2 diabetes mellitus with diabetic autonomic (poly)neuropathy, E11.69 - Type 2 diabetes mellitus with other specified complication, E66.09 - Other obesity due to excess calories, F20.0 - Paranoid schizophrenia, G47.9 - Sleep disorder, unspecified, I10 - Essential (primary) hypertension, I25.10 - Atherosclerotic heart disease of [place] coronary artery without angina pectoris, J43.8 - Other emphysema, K21.9 - Gastro-esophageal reflux disease without esophagitis, K22.70 - Vincent's esophagus without dysplasia, N40.1 - Benign prostatic hyperplasia with lower urinary tract symptoms, R35.0 - Frequency of micturition, Z68.32 - Body mass index [BMI] 32.0-32.9, adult, Z95.5 - Presence of coronary angioplasty implant and graft
== END 2025-11-07 12:13 | disposition home or self-care (01) ==
LOC: HO.HMCC 11:53
PROVIDERS: PCP Internal Medicine; Visit Provider Internal Medicine
DX: I10 Essential (primary) hypertension (principal); G47.9 Sleep disorder, unspecified; F20.0 Paranoid schizophrenia; E11.43 Type 2 diabetes mellitus with diabetic autonomic (poly)neuropathy; E66.09 Other obesity due to excess calories; Z68.32 Body mass index [BMI] 32.0-32.9, adult; K21.9 Gastro-esophageal reflux disease without esophagitis; J43.8 Other emphysema; N40.1 Benign prostatic hyperplasia with lower urinary tract symptoms; R35.0 Frequency of micturition; I25.10 Atherosclerotic heart disease of native coronary artery without angina pectoris; Z95.5 Presence of coronary angioplasty implant and graft; K22.70 Barrett's esophagus without dysplasia

== ENCOUNTER → 2025-11-07 11:52 | Outpatient (BNVA) | payer OTHER, SELFPAY | PROVIDERS: PCP Internal Medicine; Visit Provider Internal Medicine | DX: E11.43 Type 2 diabetes mellitus with diabetic autonomic (poly)neuropathy (principal); I10 Essential (primary) hypertension; G47.9 Sleep disorder, unspecified; F20.0 Paranoid schizophrenia; E66.09 Other obesity due to excess calories; K21.9 Gastro-esophageal reflux disease without esophagitis; J43.8 Other emphysema; N40.1 Benign prostatic hyperplasia with lower urinary tract symptoms; R35.0 Frequency of micturition; I25.10 Atherosclerotic heart disease of native coronary artery without angina pectoris; K22.70 Barrett's esophagus without dysplasia; Z95.5 Presence of coronary angioplasty implant and graft | CPT/HCPCS: 99212 ==